=== PATIENT | female | born 1995 | race Hispanic/Latino ===

== ENCOUNTER 2020-04-26 00:44 | Emergency (ER) | payer SELFPAY ==
[~2020-04-26] VITALS: Ht 152.4 cm; Wt 65.8 kg
--- NOTE | 2020-04-26 01:03 | Emergency Department Note ---
History of Present Illnes History of Present Illness Chief Complaint: COVID PUI History of Present Illness This is a 24 year old female tested positive for COVID April 18, delivered baby April 20, c/o body ache, feeling flulike symptoms . Historian: Patient Arrival Mode: Car Support Services Tech Required: No Onset (how long ago): day(s) Radiation: Reports non-radiation Severity: moderate Onset quality: gradual Progression: worsening Context: Reports recent illness, Reports other (day 3 post , the new born is in NICU) Relieving factors: none Exacerbating factors: none Treatments prior to arrival: none Previous service: medications given Past Medical/Family History Physician Review I have reviewed the patient's past medical and family history. Any updates have been documented here. Past Medical History Recent Fever: No Clinical Suspicion of Infectio: No Past Medical History: None Past Surgical History: None Social History Smoking Cessation: Former smoker Counseling Performed: No Alcohol Use: None Family History Family history of heart diseas: No Other Any Pre-Existing Lines (PICC,: No Review of Systems Review of Systems Constitutional: Reports as per HPI, Reports malaise, Reports weakness EENTM: Reports no symptoms Cardiovascular: Reports no symptoms Respiratory: Reports no symptoms Gastrointestinal: Reports no symptoms Genitourinary: Reports no symptoms Musculoskeletal: Reports no symptoms Integumentary: Reports no symptoms Neurological: Reports no symptoms Psychological: Reports no symptoms Endocrine: Reports no symptoms Hematological/Lymphatic: Reports no symptoms Physical Exam Related Data Allergies: Coded Allergies: No Known Allergies (Unverified , 04/26/20) Vital signs reviewed: Yes Physical Exam CONSTITUTIONAL Constitutional: Present well-developed, Present well-nourished HENT HENT: Present normocephalic, Present atraumatic, Present oropharynx clear/moist, Present nose normal HENT L/R: Present left ext ear normal, Present right ext ear normal EYES Eyes: Reports PERRL, Reports conjunctivae normal NECK Neck: Present ROM normal PULMONARY Pulmonary: Present effort normal, Present breath sounds normal CARDIOVASCULAR Cardiovascular: Present regular rhythm, Present heart sounds normal, Present capillary refill normal, Present normal rate GASTROINTESTINAL Abdominal: Present soft, Present nontender, Present bowel sounds normal GENITOURINARY Genitourinary: Present exam deferred SKIN Skin: Present warm, Present dry MUSCULOSKELETAL Musculoskeletal: Present ROM normal NEUROLOGICAL Neurological: Present alert, Present oriented x 3, Present no gross motor or sensory deficits PSYCHOLOGICAL Psychological: Present mood/affect normal, Present judgement normal Results Laboratory Lab results reviewed: Yes Laboratory comments CBC and CMP wnl Assessment & Plan Medical Decision Making MDM COVID 19 illness complicated by post Assessment & Plan Final Impression: (1) COVID-19 virus infection Depart Disposition: HOME, SELF-[facility] Meds Active Scripts Acetaminophen (ACETAMINOPHEN) 500 Mg Tablet, 1 TAB PO Q6H for pain or fever, #60 THERAPEUTICALLY SUBSTITUTED WITH ACETAMINOPHEN 325MG Prov:BEATRIS ARROYO MD 04/26/20 Diphenhydra/Phenyleph/Acetamin (THERAFLU COLD AND COUGH POWDER) 1 Each Powd.pack, 1 PACKET PO Q6H PRN for fever and or pain, #12 Prov:BEATRIS ARROYO MD 04/26/20 Dexamethasone (DEXAMETHASONE) 4 Mg Tablet, 4 MG PO DAILY for 1 Day, #7 TAB Prov:BEATRIS ARROYO MD 04/26/20 Cefdinir (OMNICEF) 300 Mg Capsule, 300 MG PO BID for 7 Days, CAP Prov:BEATRIS ARROYO MD 04/26/20 Physician Attestation Provider Attestation sat 100 % RA, taking pO well, will d/c home BEATRIS ARROYO MD Apr 26, 2020 01:03
[2020-04-26] MEDS ORDERED: DEXAMETHASONE4 MG PO (01:55)
[2020-04-26] MEDS ORDERED: CEFDINIR300 MG PO (01:55)
[2020-04-26] MEDS ORDERED: ACETAMINOPHEN500 MG PO (01:57)
[2020-04-26] MEDS ORDERED: SODIUM CHLORIDE 0.9% 1000ML 1,000 ML IV STA (01:57)
[2020-04-26] MEDS ORDERED: THERAFLU COLD1 EAC4 PO (01:57)
[2020-04-26] MEDS ORDERED: ACETAMINOPHEN 325 MG TAB PO ONE (02:00)
[2020-04-26] MEDS ORDERED: DEXAMETHASONE 10MG/ML PF INJ IV ONE (02:00)
[2020-04-26] MEDS ORDERED: CEFTRIAXONE SOD 1 GM VIAL IV ONE (02:00)
[2020-04-26] MEDS ORDERED: DEXAMETHASONE SOD PHOS 10 MG/1 ML VIAL ONE (02:14)
[2020-04-26] MEDS ORDERED: ONDANSETRON HCL INJ 2MG/ML 2ML 2 MG/ML VIAL ONE (02:14)
[2020-04-26] MEDS ORDERED: ACETAMINOPHEN 325 MG TAB ONE (02:15)
[2020-04-26] MEDS ORDERED: CEFTRIAXONE SOD 1 GM VIAL ONE (02:15)
[2020-04-26] MEDS ORDERED: SODIUM CHLORIDE 0.9% 1000ML 1,000 ML ONE (02:15)
== END 2020-04-26 03:10 | disposition home or self-care (01) ==
LOC: FSED 01:02
DX: U07.1 COVID-19 (principal)
CPT/HCPCS: 80053; 85025; 99283; J7030; J0696; J1100; J2405

== ENCOUNTER 2020-06-20 11:55 | Emergency (ER) | payer OTHER ==
[~2020-06-20] VITALS: Ht 147.3 cm; Wt 61.2 kg
[~2020-06-20 11:55] MED LIST: ACETAMINOPHEN500 MG PO; CEFDINIR300 MG PO; DEXAMETHASONE4 MG PO; THERAFLU COLD1 EAC4 PO
--- OUTSIDE RECORDS SUMMARY | 2020-06-20 12:48 | XMS REPORT | Continuity of Care Document ---
Author Author [facility] t Organization [facility] Address [address] [place] [address] Phone Unavailable Support Name Relationship Address Phone EFREM MALIK ECON [address] [place] [address] Unavailable Lima, Paul [place] [address] BereDong floria ECON Unknown [phone] FRANCIS, PAUL PRS [address] [place] [address] FRANCIS, PAUL PRS [address] [place] [address] BRITO, PA[place] [address] BRITO, PAUL PRS N/[place] [address] FRANCIS, PAUL PRS [address] [place] [address] FRANCIS, PAUL PRS [address] [place] [address] FRANCIS, PAUL PRS [address] [place] [address] JOANNA [place] [address] BRITO, PAUL PRS [address] [place] [address] MALIK, PAUL PRS [address] [place] [address] CANDICE PIERRE PRS [address] [facility] [place] [address] CONSTANTINO PIERRE PRS [address] [place] [address] CONSTANTINO PIERRE PRS [address] [place] [address] DELANEY COREA PRS [address] [place] [address] JOHNSONOMID PRS [address] [facility] [place] [address] DELANEY COREA PRS [address] [place] [address] JOHNSONOMID PRS [address] [facility] [place] [address] PAUL BLANCO PRS [address] [place] [address] PAUL BLANCO PRS [address] [place] [address] Care Team Providers Care Environmental Health And Safety Leader Name Role Phone NO, PCP PCP Unavailable Hill FRIAS, Jarvis Attphys Lizy FRIAS, Le Attphys Payers Payer Name Policy Type Policy Number Effective Date Expiration Date S ource Problems Condition Name Condition Details Condition Category Status Onset Date Resolution Date Last Treatment Date Treating Clinician Comments Source Infection due to severe acute respiratory syndrome coronavir us 2 (SARS-CoV-2) Problem Active [facility] Allergies, Adverse Reactions, Alerts Allergy Name Allergy Type Status Severity Reaction(s) Onset Date Inacti ve Date Treating Clinician Comments Source No Known Allergies DA Active U 2020-05-29 00:00:00 [facility] No Known Allergies DA Active U 2020-05-19 00:00:00 [facility] No Known Allergies DA Active U 2020-04-30 00:00:00 [facility] No Known Allergies DA Active U 2020-04-29 00:00:00 [facility] No Known Allergies DA Active U 2020-04-26 00:00:00 [facility] No Known Allergies DA Active U 2020-04-25 00:00:00 [facility] No Known Allergies DA Active U 2020-04-24 00:00:00 [facility] No Known Allergies DA Active U 2020-04-19 00:00:00 [facility] No Known Allergies DA Active U 2020-04-12 00:00:00 [facility] No Known Allergies DA Active U 2020-01-01 00:00:00 [facility] No Known Allergies DA Active U 2019-11-12 00:00:00 [facility] No Known Allergies DA Active U 2019-10-19 00:00:00 [facility] No Known Allergies DA Active U 2019-09-11 00:00:00 [facility] No Known Allergies DA Active U 2019-08-16 00:00:00 [facility] No Known Allergies DA Active U 2019-07-08 00:00:00 [facility] No Known Allergies DA Active U 2019-06-14 00:00:00 [facility] No Known Allergies DA Active U 2019-06-03 00:00:00 [facility] No Known Allergies DA Active U 2019-06-02 00:00:00 [facility] No Known Allergies DA Active U 2019-04-03 00:00:00 [facility] No Known Allergies DA Active U 2019-02-17 00:00:00 [facility] No Known Allergies DA Active U 2019-01-14 00:00:00 [facility] No Known Allergies DA Active U 2019-01-09 00:00:00 [facility] No Known Allergies DA Active U 2018-09-02 00:00:00 [facility] No Known Allergies DA Active U 2018-08-20 00:00:00 [facility] No Known Allergies DA Active U 2017-05-07 00:00:00 [facility] No Known Allergies DA Active U 2016-12-28 00:00:00 [facility] Social History Social Habit Start Date Stop Date Quantity Comments Source Sex Assigned At 1995 00:00:00 1995 00:00:00 Female [facility] Medications Ordered Medication Name Filled Medication Name Start Date Stop Da te Current Medication? Ordering Clinician Indication Dosage Frequency Signature (SIG) Comments Components Source Acetaminophen Acetaminophen 2020-04-26 01:57:00 Yes 1 Every 6 Hours for Pain Or Fever [facility] Diphenhydra/Phenyleph/Acetamin (Theraflu Cold And Cough Powder) 1 Each POWD.PACK Diphenhydra/Phenyleph/Acetamin (Theraflu Cold And Cough Powder) 1 Each POWD.PACK 2020-04-26 01:57:00 Yes 1 Ever y 6 Hours as needed for Fever And Or Pain [facility] Cefdinir (Omnicef) 300 Mg CAPSULE Cefdinir (Omnicef) 300 Mg CAPSULE 2020-04-26 01:55:00 Yes 300 Twice A Day [facility] Dexamethasone Dexamethasone 2020-04-26 01:55:00 Yes 4 Daily [facility] Vital Signs Vital Name Observation Time Observation Value Comments Source Weight 2020-04-26 01:20:00 145 [lb_av] [facility] BMI (Body Mass Index) 2020-04-26 01:20:00 28.3 kg/m2 [facility] Procedures This patient has no known procedures. Plan of Care Planned Activity Planned Date Details Comments Source Instructions COVID-19: 12/30/2019 [facility] Encounters Start Date/Time End Date/Time Encounter Type Admission Type [facility] Care Department Encounter ID Source 2020-06-12 18:12:00 2020-06-13 00:08:00 Emergency Jarvis Kaur [facility] ([facility]) [id number] 2020-06-06 18:27:00 2020-06-06 18:27:00 Emergency E MHSE MHSE [id number] [facility] 2020-06-04 14:39:37 2020-06-04 16:22:20 Office Visit [facility] [id number] 2020-05-20 18:17:00 2020-05-20 18:17:00 Emergency E MHSE MHSE [id number] [facility] 2020-04-26 01:02:00 2020-04-26 03:10:00 Departed Emergency Room [facility] [id number] [facility] Results Test Description Test Time Test Comments Results Result Comments Source TROPONIN-I 2020-06-17 18:49:00 Test Item TROPONIN-I (test code = TROPI) <0.015 ng/mL 0-0.045 N - CT ABD PELVIS W/O [id number] 18:27:00 Name: LLOYD MALIKGALO [facility] : 1995 Age/S: 24 / F [address] [facility] Unit #: [id number] Loc: [place] [address] Phys: Americo Ramachandran MD Acct: [id number] Dis Date: Status: REG ER PHONE #: [phone] Exam Date: 06/17/2020 1820 FAX #: [phone] Reason: constipation EXAMS: CPT CODE: [id number] CT ABD PELVIS W/O CONT 03438 REASON FOR EXAM: constipation EXAM ORDER DATE: 06/17/2020 5:43 PM Ordering: Americo Ramachandran MD Attending:Americo Ramachandran MD Location: PROCEDURE: - CT ABD PELVIS W/O CONT COMPARISON: FINDINGS: CT images of the abdomen and pelvis were obtained without IV and without oral contrast at 5mm. Dose modulation, iterative reconstruction, and/or weight based adjustment of the MA/KV was utilized to reduce the radiation dose to as low as reasonably achievable. The liver, spleen, pancreas are grossly within normal limits. The gall bladder is unremarkable by CT. The urinary bladder is unrema rkable. The colon, small bowel, and stomach are within normal limi ts without evidence of obstruction. The appendix is unremarkable No evidence of free air or free fluid. The uterus is unremarkable with a 2.6 cm exophytic lesion suggestive of fibroid in the posterior area o f the uterus. IMPRESSION: Minimal hydroureters bilaterally witho ut evidence of radiopaque stones. Findings could represent vesicoureter al reflux. at 18 27 Reported and signed by: Moi Salinas M.D. CC: Durga Perry; Americo Ramachandran MD Technologist:ANNIKA GODINEZ, RT(R),CT CTDI: DLP: Trnscb Date/Time: 06/17/2020 (182) tJESSICA VargasVTL Orig Print D/T: S: 06/17/2020 (3420) PAGE 1 Signed Report COMPREHENSIVE METABOLIC [id number] 18:21:00* Test Item Value Reference Range Interpretation Comments SODIUM (test code = NA) 138 mmol/L 136-145 N POTASSIUM (test code = K) 3.5 mmol/L 3.5-5.1 N CHLORIDE (test code = CL) 102 mmol/L 101-109 N CARBON DIOXIDE (test code = CO2) 26.3 mmol/L 21-32 N ANION GAP (test code = GAP) 13 mmol/L 10-20 N GLUCOSE (test code = GLU) 126 mg/dL 74-106 H BLOOD UREA NITROGEN (test code = BUN) 7 mg/dL 3-21 N CREATININE (test code = CREAT) 0.53 mg/dL 0.55-1.3 L BUN/CREATININE RATIO (test code = BUN/CREA) 13.2 10-20 N TOTAL PROTEIN (test code = PROT) 7.6 g/dL 6.5-8.4 N ALBUMIN (test code = ALB) 4.1 g/dL 3.4-4.8 N GLOBULIN (test code = GLOB) 3.5 G/DL 1-10 N ALBUMIN/GLOBULIN RATIO (test code = A/G) 1.17 RATIO 0.75-1.50 N CALCIUM (test code = CA) 9.1 mg/dL 8.4-10.2 N BILIRUBIN TOTAL (test code = BILT) 0.40 mg/dL 0.0-1.0 N SGOT/AST (test code = AST) 15 U/L 6-32 N SGPT/ALT (test code = ALT) 21 U/L 12-78 N N ote: Change in REFERENCE RANGE due to new reagent method. ALKALINE PHOSPHATASE TOTAL (test code = ALKP) 71 U/L 38-126 N [id number] 18:21:00* Test Item Value Reference Range Interpretation Comments LIPASE (test code = LIP) 120 U/L 128-270 L [id number] 18:21:00* Test Item Value Reference Range Interpretation Comments MAGNESIUM (test code = MAG) 1.9 mg/dL 1.6-2.3 N CPK-MB [id number] 18:21:00* Test Item Value Reference Range Interpretation Comments CREATINE KINASE (CK) (test code = CK) 36 U/L 26-192 N CKMB (test code = CKMBT) 0.7 ng/mL 0.0-5.0 N RELATIVE % INDEX (test code = REL%) 1.9 % COMPREHENSIVE METABOLIC [id number] 17:58:00* Test Item Value Reference Range Interpretation Comments SODIUM (test code = NA) 138 mmol/L 136-145 N POTASSIUM (test code = K) 3.5 mmol/L 3.5-5.1 N CHLORIDE (test code = CL) 102 mmol/L 101-109 N CARBON DIOXIDE (test code = CO2) 26.3 mmol/L 21-32 N ANION GAP (test code = GAP) 13 mmol/L 10-20 N GLUCOSE (test code = GLU) 126 mg/dL 74-106 H BLOOD UREA NITROGEN (test code = BUN) 7 mg/dL 3-21 N CREATININE (test code = CREAT) 0.53 mg/dL 0.55-1.3 L BUN/CREATININE RATIO (test code = BUN/CREA) 13.2 10-20 N TOTAL PROTEIN (test code = PROT) gram/dL 6.4-8.2 ALBUMIN (test code = ALB) g/dL 3.4-5.0 GLOBULIN (test code = GLOB) g/dL 2.7-4.2 ALBUMIN/GLOBULIN RATIO (test code = A/G) 0.75-1.50 CALCIUM (test code = CA) 9.1 mg/dL 8.4-10.2 N BILIRUBIN TOTAL (test code = BILT) mg/dL 0.2-1.2 SGOT/AST (test code = AST) IUnit/L 15-37 SGPT/ALT (test code = ALT) U/L 10-69 ALKALINE PHOSPHATASE TOTAL (test code = ALKP) IUnit/L 45-117 [id number] 17:58:00* Test Item Value Reference Range Interpretation Comments LIPASE (test code = LIP) Unit/L 144-286 [id number] 17:58:00* Test Item Value Reference Range Interpretation Comments MAGNESIUM (test code = MAG) mg/dL 1.8-2.4 CPK-MB [id number] 17:58:00* Test Item Value Reference Range Interpretation Comments CREATINE KINASE (CK) (test code = CK) IUnit/L 26-208 CKMB (test code = CKMBT) ng/mL 0-6.0 RELATIVE % INDEX (test code = REL%) % URINALYSIS [id number] 17:56:00* Test Item Value Reference Range Interpretation Comments UA COLOR (test code = COLU) YELLOW YELLOW UA APPEARANCE (test code = APPU) CLEAR CLEAR UA GLUCOSE DIPSTICK (test code = DGLUU) norm mg/dL NEGATIVE UA BILIRUBIN DIPSTICK (test code = BILU) NEGATIVE mg/dL NEGATIVE UA KETONE DIPSTICK (test code = KETU) 50 (2+) mg/dL NEGATIVE A UA SPECIFIC GRAVITY (test code = SGU) 1.005 1.001-1.035 UA BLOOD DIPSTICK (test code = TIFFANIE) neg Derrick/uL NEGATIVE UA PH DIPSTICK (test code = JOSH) 6.0 5.0-8.0 UA PROTEIN DIPSTICK (test code = PROU) neg mg/dL Neg-15 UA UROBILINIOGEN DIPSTICK (test code = URO) norm mg/dL 0.0-0.2 UA NITRITE DIPSTICK (test code = DIEGO) NEGATIVE NEGATIVE UA LEUKOCYTE ESTERASE DIPSTICK (test code = LEUU) 25 Lazaro/uL (Tra ce) uL NEGATIVE A UA WBC (test code = WBCU) NONE SEEN per HPF 0-5 UA RBC (test code = RBCU) NONE SEEN per HPF 0-5 UA EPITHELIAL CELLS (test code = EPIU) Rare (0-1/hpf) per HPF Few UA BACTERIA (test code = BACU) FEW per HPF NONE Urine Source? Clean CatchUR HCG [id number] 17:56:00* Test Item Value Reference Range Interpretation Comments UR HCG QUAL (test code = HCGQLU) NEGATIVE This HCGQL test is NOT applicable for MALE patients.Check with nurse about probable order error.If Tumor Marker Test needed, nurse should order test "HCGTU"(Test #[id number]) Urine Source? Clean CatchURINALYSIS [id number] 17:52:00* Test Item Value Reference Range Interpretation Comments UA COLOR (test code = COLU) YELLOW YELLOW UA APPEARANCE (test code = APPU) CLEAR CLEAR UA GLUCOSE DIPSTICK (test code = DGLUU) norm mg/dL NEGATIVE UA BILIRUBIN DIPSTICK (test code = BILU) NEGATIVE mg/dL NEGATIVE UA KETONE DIPSTICK (test code = KETU) 50 (2+) mg/dL NEGATIVE A UA SPECIFIC GRAVITY (test code = SGU) 1.005 1.001-1.035 UA BLOOD DIPSTICK (test code = TIFFANIE) neg Derrick/uL NEGATIVE UA PH DIPSTICK (test code = JOSH) 6.0 5.0-8.0 UA PROTEIN DIPSTICK (test code = PROU) neg mg/dL Neg-15 UA UROBILINIOGEN DIPSTICK (test code = URO) norm mg/dL 0.0-0.2 UA NITRITE DIPSTICK (test code = DIEGO) NEGATIVE NEGATIVE UA LEUKOCYTE ESTERASE DIPSTICK (test code = LEUU) 25 Lazaro/uL (Tra ce) uL NEGATIVE A UA WBC (test code = WBCU) per HPF 0-5 UA RBC (test code = RBCU) per HPF 0-5 UA EPITHELIAL CELLS (test code = EPIU) per HPF Few UA BACTERIA (test code = BACU) per HPF NONE Urine Source? Clean CatchUR HCG [id number] 17:52:00* Test Item Value Reference Range Interpretation Comments UR HCG QUAL (test code = HCGQLU) Urine Source? Clean CatchURINALYSIS [id number] 17:52:00* Test Item Value Reference Range Interpretation Comments UA COLOR (test code = COLU) YELLOW YELLOW UA APPEARANCE (test code = APPU) CLEAR CLEAR UA GLUCOSE DIPSTICK (test code = DGLUU) norm mg/dL NEGATIVE UA BILIRUBIN DIPSTICK (test code = BILU) NEGATIVE mg/dL NEGATIVE UA KETONE DIPSTICK (test code = KETU) 50 (2+) mg/dL NEGATIVE A UA SPECIFIC GRAVITY (test code = SGU) 1.005 1.001-1.035 UA BLOOD DIPSTICK (test code = TIFFANIE) neg Derrick/uL NEGATIVE UA PH DIPSTICK (test code = JOSH) 6.0 5.0-8.0 UA PROTEIN DIPSTICK (test code = PROU) neg mg/dL Neg-15 UA UROBILINIOGEN DIPSTICK (test code = URO) norm mg/dL 0.0-0.2 UA NITRITE DIPSTICK (test code = DIEGO) NEGATIVE NEGATIVE UA LEUKOCYTE ESTERASE DIPSTICK (test code = LEUU) 25 Lazaro/uL (Tra ce) uL NEGATIVE A UA WBC (test code = WBCU) per HPF 0-5 UA RBC (test code = RBCU) per HPF 0-5 UA EPITHELIAL CELLS (test code = EPIU) per HPF Few UA BACTERIA (test code = BACU) per HPF NONE Urine Source? Clean CatchUR HCG [id number] 17:52:00* Test Item Value Reference Range Interpretation Comments UR HCG QUAL (test code = HCGQLU) NEGATIVE This HCGQL test is NOT applicable for MALE patients.Check with nurse about probable order error.If Tumor Marker Test needed, nurse should order test "HCGTU"(Test #550.95058) Urine Source? Clean CatchCBC W/AUTO [id number] 17:48:00* Test Item Value Reference Range Interpretation Comments WHITE BLOOD CELL (test code = WBC) 6.1 K/mm3 4.5-12.5 N RED BLOOD CELL (test code = RBC) 4.31 mill/mm3 3.7-5.2 N HEMOGLOBIN (test code = HGB) 11.5 gram/dL 11.5-15.5 N HEMATOCRIT (test code = HCT) 36.5 % 36.0-46.0 N MEAN CELL VOLUME (test code = MCV) 84.7 fL 80-98 N MEAN CELL HGB (test code = MCH) 26.7 picogram 27.0-33.0 L MEAN CELL HGB CONCETRATION (test code = MCHC) 31.5 gram/dL 33.0-36. 0 L RED CELL DISTRIBUTION WIDTH (test code = RDW) 15.0 % 11.6-16. 2 N RED CELL DISTRIBUTION WIDTH SD (test code = RDW-SD) 47.3 fL 37 .0-51.0 N PLATELET COUNT (test code = PLT) 322 K/mm3 150-450 N MEAN PLATELET VOLUME (test code = MPV) 9.7 fL 6.7-11.0 N NEUTROPHIL % (test code = NT%) 65.8 % 39.0-69.0 N LYMPHOCYTE % (test code = LY%) 25.0 % 25.0-55.0 N MONOCYTE % (test code = MO%) 6.4 % 0.0-10.0 N EOSINOPHIL % (test code = EO%) 2.1 % 0.0-5.0 N BASOPHIL % (test code = BA%) 0.5 % 0.0-1.0 N NEUTROPHIL # (test code = NT#) 4.02 K/mm3 1.8-7.7 N LYMPHOCYTE # (test code = LY#) 1.53 K/mm3 1.0-5.0 N MONOCYTE # (test code = MO#) 0.39 K/mm3 0-0.8 N EOSINOPHIL # (test code = EO#) 0.13 K/mm3 0.0-0.5 N BASOPHIL # (test code = BA#) 0.03 K/mm3 0.0-0.2 N MANUAL DIFF REQUIRED (test code = MDIFF) NO [id number] 14:43:00 RUN DATE: 06/17/20 [place] PAGE 1 RUN TIME: 1443 Specimen Inqui ry RUN USER: INTERFACE PATIENT: GALO CRISOSTOMO ACCMiley #: [id number] LOC: [place] U #: [id number] AGE/SX: 24/F ROOM: RE06/16/20REG DR: Dylna Moss MD : 95 BED: DIS: STATUS: [facility] TLOC: SPEC #: [id number] RECD: 06/16/20 STATUS: YVONNE RE #: [id number] [phone] ADELINA: 06/16/20- DR: Dylan Moss MD ENTERED: 06/16/20 SP TYPE: STOMACH OTHR DR: Shannon Perry MD ORDERED: GROSS COPIES TO: Dylan Moss MD 0230 PENDING SALE TO [facility] [address] [place] [address] Shannon Perry MD [address] [place] [address] PROCEDURES: GROSS (06/17/20-1331) TIS SUES: 1. ANTRUM - BX 2. GASTRIC CORPUS - POLYPS BODY BX 3. ESOPHAGUS, NOS - BX CLINICAL HISTORY COLLECTION DATE: 06/16/2020 EPIGASTRIC PAIN, HEARTBURN, DYSPHAGIA MILD DISTAL ESOPHAGITIS R/O E OSINOPHILIC ESOPHAGUS, GASTRITIS, GASTRIC POLYPS, ESOPHAGEAL STRICTURE, GE JOHNATHAN CTION, SMALL HIATAL HERNIA FINAL DIAGNOSIS Gastric antrum, biopsy: REACTIVE GASTROPATHY SEPARATE FRAGMENT OF GASTRIC MUCOSA WITH MILD C HRONIC INACTIVE GASTRITIS NEGATIVE FOR INTESTINAL METAPLASIA NEGAT CRISTIANE FOR HELICOBACTER ORGANISMS NEGATIVE FOR MALIGNANCY Gastric body polyp, biopsy: FUNDIC TYPE GLAND POLYP NEGATIVE FOR MALIGNANCY Esophagus, biopsy: MILD CHANGES OF REFLUX ESOPHAGITIS, SQUAMOUS A ND SMALL FRAGMENT OF CONTINUED ON NEXT PAGE * * RUN DATE: 06/17/20 [place] - [facility] PAGE 2 RUN TIME: 1443 Specimen Inq uiry RUN USER: INTERFACE SPEC #: [id number] PATIENT: LLOYD JACOBGALO E #[id number] (Continued) FINAL DIAGNOS IS (Continued) GLANDULAR MUCOSA NO INCREASED NUMBER O F INTRAEPITHELIAL EOSINOPHILS NO GOBLET CELL METAPLASIA NEGATIVE F OR DYSPLASIA AND MALIGNANCY RRB/clemencia D [id number], 85185 MACROSCOPIC Specimen (1) is received in formalin, labeled with the patient's name, identified as "antrum", and consists of garay-pink biopsy tissue measurin g 0.4 cm in aggregate, submitted as (1). Specimen (2) is received in fo rmalin, labeled with the patient's name, identified as "gastric polyp body", a nd consists of six fragments of light pink biopsy tissue each measuring 0.2 to 0.5 cm, submitted as (2). Specimen (3) is received in formalin, labeled w ith the patient's name, identified as "esophagus", and consists of amador-light garay biopsy tissue measuring 0.25 cm in aggregate, submitted as (3). KARY S PERFORMED AT [facility] [address] [place] [address] ([phone] [facility] All of the stains, including any controls performed, stain appropriately . MICROSCOPIC PERFORMED AT [facility] [address] [place] [address] ([phone] PER FORMING SITE Diagnosis performed at: [facility] [address] [place] [address] CONTINUED ON NEXT PAGE RUN DATE: 06/17/20 [place] - [facility] PAGE 3 RUN TIME: 1443 Specimen Inquiry RUN USER: INTERFACE SPEC #: [id number] GABINO Trent: GALO CRISOSTOMO #[id number] (Continued) ------- ----- Signed SIGNATURE ON FILE Mehdi Stevens MD 1443 END OF REPORT UR HCG [id number] 12:38:00* Test Item Value Reference Range Interpretation Comments UR HCG QUAL (test code = HCGQLU) NEGATIVE This HCGQL test is NOT applicable for MALE patients.Check with nurse about probable order error.If Tumor Marker Test needed, nurse should order test "HCGTU"(Test #550.52304) . COVID 19 Asymptomatic IH [id number] 12:30:00* Test Item Value Reference Range Interpretation Comments COVID 19 Asymptomatic IH AG (test code = COVNONPUIAG) NEGATIVE Novel Coronavirus 2019 [id number] 13:45:00* Test Item Value Reference Range Interpretation Comments Novel Coronavirus 2019 nCoV (test code = COVID19) POSITIVE Does patient have the clinical criteria consistent with COVID-19? YIs the patien t going to be discharged home? Y- CT C-SPINE W/O [id number] 22:56:00 Name: GALO MALIK [facility] : 1995 Age/S: 24 / F [address] [facility] Unit #: [id number] Loc: [place] [address] Phys: Kevin Galindo MD Acct: [id number] Di s Date: Status: REG ER PHONE #: Exam Date: 05/29/2020 2240 FAX #: Reason: trauma, pain EXAMS: CPT CODE: [id number] CT C-SPINE W/ O CONTRAST 63633 EXAM: - CT C-SPINE W/O C ONTRAST LOCATION: H57 HISTORY: 24 years-year old Fem yue with trauma, pain TECHNIQUE: Axial CT images through the cervi allyson spine were obtained without intravenous contrast. Sagittal and coronal reformatted images were created from the data set. One or m ore of the following dose reduction techniques were used: Automated exposu re control, adjustment of the mA and/or kV according to patient size, and/ or iterative reconstruction. COMPARISON: None FINDI NGS: No evidence of acute fracture or subluxation. The cervical sp ine has normal alignment without scoliosis or spondylolisthesis. Vertebral body heights are maintained. No significant disc height loss. No ag gressive osseous lesions are identified. The prevertebral soft tis sues are within normal limits. The visualized soft tissues of the neck evy w no significant abnormalities. IMPRESSION: No acute cervical spine abnormalities. at 2256 Reported and signed by: Anibal Segovia M.D. CC: Kevin Galindo MD chnologist:CLEMENCIA GARCIA(R),RDMS,CT CTDI: DLP: Trnscb Date/ Time: 05/29/2020 (2256) [id number] Orig Print D/T: S: 05/16 (5210) PAGE 1 Signed Report - XR T-SPINE 3 [id number] 22:54:00 Name: GALO MALIK [facility] : 1995 Age/S:24 /F [address] [facility] Unit#:[id number] Loc: [place] [address] Phys: Kevin Galindo MD Dis Date: PHONE #: [phone] Status: REG ER FAX #: [phone] Exam Date: 05/29/2020 Reason: trauma, pain EXAMS: CPT CODE: [id number] XR T-SPINE 3 VIEWS 51172 EXAM: - XR T-SPINE 3 VIEWS LOCATION: H57 HISTORY: 24 years-year old Female with trauma, pain FINDINGS: AP, lateral, and swimmers lateral view of the thoracic spine is provided. Vertebral body heights and alignment are appropriate. No acute fracture is seen. IMPRESSION: No acute fracture or malalignment of the thoracic spine. at 1329 Reported and signed by: Anibal Segovia M.D. CC: Kevin Galindo MD Technologist: CLEMENCIA HARDING RT(R),RDMS,CT Trnsct Data: 05/29/2020 (50 49) [id number] Orig Print D/T: S: 05/29/2020 (9491) PAGE 1 Signed Report Novel Coronavirus 2019 [id number] 11:20:00* Test Item Value Reference Range Interpretation Comments Novel Coronavirus 2019 nCoV (test code = COVID19) Negative Nega tive Performed by: [facility] [address] [place] [address], [address] [place], [place] [address] CLIA#: [id number] Does patient have the clinical criteria consistent with COVID-19? YIs the patien t going to be discharged home? YAG STREP GROUP A (THROAT)2020-05-19 22:23:00* Test Item Value Reference Range Interpretation Comments AG STREP GROUP A (THROAT) (test code = STREPA) Negative Negativ e Negative for Strep A nucleic acid INFLUENZA A [id number] 22:23:00* Test Item Value Reference Range Interpretation Comments INFLUENZA A (test code = FLUAPCR) Negative Negative INFLUENZA B (test code = FLUBPCR) Negative Negative AG STREP GROUP A (THROAT)2020-05-19 22:22:00* Test Item Value Reference Range Interpretation Comments AG STREP GROUP A (THROAT) (test code = STREPA) Negative Negativ e Negative for Strep A nucleic acid INFLUENZA A B [id number] 22:22:00* Test Item Value Reference Range Interpretation Comments AB INFLUENZA A CF (test code = INFLAABT) AB INFLUENZA B CF (test code = INFLBABT) - XR CHEST 1 [id number] 21:22:00 FAX: Manny Bang MD [phone] [place]: St: PRE Name: GALO STONER [facility] : [birth year] Age/S: 24/F [address] [place] [address] Unit #: [id number] Loc: [place] [address] Phys: Manny Bang MD Acct: [id number] Dis Date: Status: PRE ER PHONE #: [phone] Exam Date: 05/19/20202113 FAX #: [phone] Reason: sob EXAMS: CPT CODE: [id number] XR CHEST 1 V 32989 CHEST RADIOGRAPH ONE VIEW 05/19/2020 AT 2056 HOURS. CLINICAL HISTORY: Shortness of breath, sore throat and body aches. COMPARISON STUDIES: Chest one view 05/10/2020. FINDINGS: One view of the chest was obtained. The lungs are dami ar. There are no pleural effusions. The cardiac silhouette is not enlarg ed. No destructive bone lesions. IMPRESSION: 1. N egative. SL: ER-H at 2122 Reported and signed by: Caden small M.D. CC: Manny Bang MD Technologist: RT Dena(R) Trnscrd Date/Time/By: 05/19/2020 (2121) : By: SilvanaERR2 Orig Print D/T : S: 05/19/2020 (2124) PAGE 1 Sig michele Report Novel Coronavirus 2018 [id number] 12:48:00* Test Item Value Reference Range Interpretation Comments Novel Coronavirus 2019 nCoV (test code = COVID19) NEGATIVE Does patient have the clinical criteria consistent with COVID-19? YIs the patien t going to be discharged home? YB-TYPE NATRIURETIC [id number] 22:03:00* Test Item Value Reference Range Interpretation Comments B-TYPE NATRIURETIC PEPTIDE (test code = BNP) 6.74 pgram/mL 0-100 N C REACTIVE [id number] 21:57:00* Test Item Value Reference Range Interpretation Comments C REACTIVE PROTEIN (test code = CRP) <0.29 mg/dL 0-0.3 N BASIC METABOLIC [id number] 21:57:00* Test Item Value Reference Range Interpretation Comments SODIUM (test code = NA) 139 mmol/L 136-145 N POTASSIUM (test code = K) 3.3 mmol/L 3.5-5.1 L CHLORIDE (test code = CL) 105.0 mmol/L 98-107 N CARBON DIOXIDE (test code = CO2) 28.0 mmol/L 21-32 N ANION GAP (test code = GAP) 9.3 10-20 L GLUCOSE (test code = GLU) 89 mg/dL 74-106 N BLOOD UREA NITROGEN (test code = BUN) 11 mg/dL 7-18 N GLOMERULAR FILTRATION RATE (test code = GFR) > 60 mL/min >=60 Estimated GFR by using Modified MDRD formula.Chronic kidney disease is defined as either kidney damageor GFR <60 mL/min/1.73 m2 for >3 months. CREATININE (test code = CREAT) 0.70 mg/dL 0.55-1.02 N Note change in reference range due to change in reagent. BUN/CREATININE RATIO (test code = BUN/CREA) 16.1 10-20 N CALCIUM (test code = CA) 9.3 mg/dL 8.5-10.1 N HEPATIC FUNCTION [id number] 21:57:00* Test Item Value Reference Range Interpretation Comments TOTAL PROTEIN (test code = PROT) 9.0 gram/dL 6.4-8.2 H ALBUMIN (test code = ALB) 4.4 g/dL 3.4-5.0 N GLOBULIN (test code = GLOB) 4.6 gram/dL 2.7-4.2 H ALBUMIN/GLOBULIN RATIO (test code = A/G) 1.0 0.75-1.50 N BILIRUBIN TOTAL (test code = BILT) 0.30 mg/dL 0.0-1.0 N BILIRUBIN DIRECT (test code = BILD) 0.13 mg/dL 0.0-0.20 N SGOT/AST (test code = AST) 21 IUnit/L 15-37 N SGPT/ALT (test code = ALT) 25 IUnit/L 12-78 N ALKALINE PHOSPHATASE TOTAL (test code = ALKP) 100 IUnit/L 45-117 N Note change in reference range due to change in reagent. LACTIC DEHYDROGENASE(LDH)2020-05-10 21:57:00* Test Item Value Reference Range Interpretation Comments LACTIC DEHYDROGENASE(LDH) (test code = LDH) 148 IUnit/L 84-246 N [id number] 21:57:00* Test Item Value Reference Range Interpretation Comments LIPASE (test code = LIP) 124 U/L 73.0-393.0 N HCG SERUM [id number] 21:57:00* Test Item Value Reference Range Interpretation Comments HCG SERUM BETA (test code = HCG) < 1.0 mIU/mL 0-3 N INTERPRETATION:B-HCG LEVELS <5 SHOULD BE CONSIDERED "NEGATIVE." *WHEN BODERLINE RESULTS ARE ENCOUNTERED,PATIENT SAMPLESSHOULD BE REDRAWN 48 HOURS. 0-1 WEEKS AFTER CONCEPTION 5-50 MIU/ML1-2 WEEKS AFTER CONCEPTION 50-500 MIU/ML2-3 WEEKS AFTER CONCEPTION 100 -5,000 MIU/ML3-4 WEEKS AFTER CONCEPTION 500-10,000 MIU/ML4-5 WEEKS AFTER CONCEPTION 1000 -50,000 MIU/ML5-6 WEEKS AFTER CONCEPTION 10,000-100,000 MIU/ML6-8 WEEKS AFTER CONCEPTION 15,000- 200,000 MIU/ML2-3 MONTHS AFTER CONCEPTION 10,000-100,000 MIU/ML [id number] 21:57:00* Test Item Value Reference Range Interpretation Comments TROPONIN-I (test code = TROPI) <0.015 ng/mL 0-0.045 N [id number] 21:57:00* Test Item Value Reference Range Interpretation Comments FERRITIN (test code = MARÍA) 12 ng/mL 8-388 N BASIC METABOLIC [id number] 21:39:00* Test Item Value Reference Range Interpretation Comments SODIUM (test code = NA) 139 mmol/L 136-145 N POTASSIUM (test code = K) 3.3 mmol/L 3.5-5.1 L CHLORIDE (test code = CL) 105.0 mmol/L 98-107 N CARBON DIOXIDE (test code = CO2) mmol/L 21-32 ANION GAP (test code = GAP) 10-20 GLUCOSE (test code = GLU) mg/dL 74-106 BLOOD UREA NITROGEN (test code = BUN) mg/dL 7-18 GLOMERULAR FILTRATION RATE (test code = GFR) mL/min >=60 CREATININE (test code = CREAT) mg/dL 0.55-1.02 BUN/CREATININE RATIO (test code = BUN/CREA) 10-20 CALCIUM (test code = CA) mg/dL 8.5-10.1 HEPATIC FUNCTION [id number] 21:39:00* Test Item Value Reference Range Interpretation Comments TOTAL PROTEIN (test code = PROT) gram/dL 6.4-8.2 ALBUMIN (test code = ALB) g/dL 3.4-5.0 GLOBULIN (test code = GLOB) gram/dL 2.7-4.2 ALBUMIN/GLOBULIN RATIO (test code = A/G) 0.75-1.50 BILIRUBIN TOTAL (test code = BILT) mg/dL 0.0-1.0 BILIRUBIN DIRECT (test code = BILD) mg/dL 0.0-0.20 SGOT/AST (test code = AST) IUnit/L 15-37 SGPT/ALT (test code = ALT) IUnit/L 12-78 ALKALINE PHOSPHATASE TOTAL (test code = ALKP) IUnit/L 45-117 LACTIC DEHYDROGENASE(LDH)2020-05-10 21:39:00* Test Item Value Reference Range Interpretation Comments LACTIC DEHYDROGENASE(LDH) (test code = LDH) IUnit/L 84-246 [id number] 21:39:00* Test Item Value Reference Range Interpretation Comments LIPASE (test code = LIP) U/L 73.0-393.0 HCG SERUM [id number] 21:39:00* Test Item Value Reference Range Interpretation Comments HCG SERUM BETA (test code = HCG) mIU/mL 0-3 [id number] 21:39:00* Test Item Value Reference Range Interpretation Comments TROPONIN-I (test code = TROPI) ng/mL 0-0.045 [id number] 21:39:00* Test Item Value Reference Range Interpretation Comments FERRITIN (test code = MARÍA) ng/mL 8-388 LACTIC [id number] 21:39:00* Test Item Value Reference Range Interpretation Comments LACTIC ACID (test code = LACT) 1.2 mmol/L 0.4-1.9 N [id number] 21:31:00* Test Item Value Reference Range Interpretation Comments D-DIMER (test code = DDIMER) 201.00 ng/mLFEU 0-500 N Clinical Cut-off value for D-Dimer is 500 ng/mL FEU. Comment: The [email or web address] D-Dimer assay is intended for use asan aid in the diagnosis of venous thromboembolism (VTE)[deep vein thrombosis (DVT) or pulmonary embolism (PE)].The measurement of D-Dimer should not be used as an aid inthe diagnosis of VTE, in patient with: -Therapeutic dose anticoagulant therapy for >24 hours -Fibrinolytic therapy within previous 7 days -Trauma or surgery within previous 4 weeks -Disseminated malignancies -Aortic aneurysm -Sepsis, severe infections, pneumonia, severe skin infections -Liver cirrhosis - - XR CHEST 1 [id number] 21:24:00 FAX: Tamela Zuniga NP [place]: B St: REG Name: GALO GUERIN [facility] : [birth year] Age/S: 24/F [address] Unit #: [id number] Loc: [place] [address] Phys: Tamela Zuniga NP Acct: [id number] Dis Date: Status: REG ER PHONE #: [phone] Exam Date: 05/10/20202109 FAX #: [phone] Reason: SHORTNESS OF BREATH EXAMS: CPT CODE: [id number] XR CHEST 1 V 29074 REASON FOR EXAM: SHORTNESS OF BREATH Exam Order Date: 05/10/2020 8:30 PM Ordering M.D.: Tamela Zuniga NP PROCEDURE: - XR CHEST 1 V COMPARISON: Chest x-ray April 30, 2020 FINDINGS: The lungs are clear. There is no pleural effusion or pneumothorax. Pulmonary vas cularity is within normal limits. Cardiomediastinal silhouette is normal in size for technique. The mediastinal contours are within normal l imits. Musculoskeletal structures are within normal limits. The visualized upper abdomen is within normal limits. IMPRESSION: No acute cardiopulmonary process. Lo cation: RR at 2123 Reported and signed by: Xavier Patten MD CC: Tamela Zuniga NP Technologist: Mariah Mo(R) Trnscrd Date/Time/By: 0 (2123) : By: [email or web address] Orig Print D/T: S: 05/10/2020 (2126) PAGE 1 Signed Report URINALYSIS [id number] 21:21:00* Test Item Value Reference Range Interpretation Comments UA COLOR (test code = COLU) COLORLESS YELLOW A UA APPEARANCE (test code = APPU) CLEAR CLEAR UA GLUCOSE DIPSTICK (test code = DGLUU) NEGATIVE mg/dL NEGATIVE UA BILIRUBIN DIPSTICK (test code = BILU) NEGATIVE mg/dL NEGATIVE UA KETONE DIPSTICK (test code = KETU) NEGATIVE mg/dL NEGATIVE UA SPECIFIC GRAVITY (test code = SGU) 1.003 1.001-1.035 UA BLOOD DIPSTICK (test code = TIFFANIE) 0.2 mg/dL (2+) mg/dL NEGATIVE A UA PH DIPSTICK (test code = JOSH) 6.5 5.0-8.0 UA PROTEIN DIPSTICK (test code = PROU) NEGATIVE mg/dL NEGATIVE UA UROBILINIOGEN DIPSTICK (test code = URO) Normal mg/dL NEGATIVE UA NITRITE DIPSTICK (test code = DIEGO) NEGATIVE NEGATIVE UA LEUKOCYTE ESTERASE W REFLEX (test code = LEUUR) 500 Lazaro/u L (3+) Lazaro/uL NEGATIVE A UA WBC (test code = WBCU) 6-10 per HPF 0-5 A UA RBC (test code = RBCU) 3-5 #/HPF 0-5 UA EPITHELIAL CELLS (test code = EPIU) FEW per HPF FEW UA BACTERIA (test code = BACU) FEW #/HPF NONE A Urine Source? Clean CatchCBC W/AUTO [id number] 21:19:00* Test Item Value Reference Range Interpretation Comments WHITE BLOOD CELL (test code = WBC) 7.0 K/mm3 4.5-12.5 N RED BLOOD CELL (test code = RBC) 4.83 mill/mm3 3.7-5.2 N HEMOGLOBIN (test code = HGB) 13.0 gram/dL 11.5-15.5 N HEMATOCRIT (test code = HCT) 41.4 % 36.0-46.0 N MEAN CELL VOLUME (test code = MCV) 85.7 fL 80-98 N MEAN CELL HGB (test code = MCH) 26.9 picogram 27.0-33.0 L MEAN CELL HGB CONCETRATION (test code = MCHC) 31.4 gram/dL 33.0-36. 0 L RED CELL DISTRIBUTION WIDTH (test code = RDW) 16.7 % 11.6-16. 2 H RED CELL DISTRIBUTION WIDTH SD (test code = RDW-SD) 52.3 fL 37 .0-51.0 H PLATELET COUNT (test code = PLT) 386 K/mm3 150-450 N MEAN PLATELET VOLUME (test code = MPV) 10.0 fL 6.7-11.0 N NEUTROPHIL % (test code = NT%) 58.3 % 39.0-69.0 N IMMATURE GRANULOCYTE % (test code = IG%) 0.3 % 0.0-5.0 N LYMPHOCYTE % (test code = LY%) 31.0 % 25.0-55.0 N MONOCYTE % (test code = MO%) 5.3 % 0.0-10.0 N EOSINOPHIL % (test code = EO%) 4.4 % 0.0-5.0 N BASOPHIL % (test code = BA%) 0.7 % 0.0-1.0 N NUCLEATED RBC % (test code = NRBC%) 0.0 % 0-0 N NEUTROPHIL # (test code = NT#) 4.11 K/mm3 1.8-7.7 N IMMATURE GRANULOCYTE # (test code = IG#) 0.02 x10 3/uL 0-0.03 N LYMPHOCYTE # (test code = LY#) 2.18 K/mm3 1.0-5.0 N MONOCYTE # (test code = MO#) 0.37 K/mm3 0-0.8 N EOSINOPHIL # (test code = EO#) 0.31 K/mm3 0.0-0.5 N BASOPHIL # (test code = BA#) 0.05 K/mm3 0.0-0.2 N NUCLEATED RBC # (test code = NRBC#) 0.00 K/mm3 0.0-0.1 N - XR CHEST 1 [id number] 21:29:00 FAX: Noe Bobby MD [phone] [place]: St: REG Name: Bertha KOHLERMYRON MICKY MALIKADALUPE [facility] : [birth year] Age/S: 24/F [address] [place] [address] Unit #: [id number] Loc: [place] [address] Phys: oNe Bobby MD Acct: [id number] Dis Date: Status: REG ER PHONE #: [phone] Exam Date: 04/30/20202118 FAX #: [phone] Reason: SOB EXAMS: CPT CODE: [id number] XR CHEST 1 V 78359 CHEST RADIOGRAPH ONE VIEW 04/30/2020 AT 2054 HOURS. CLINICAL HISTORY: Shortness of breath. COMPARISON STUDIES: Chest one view 04/28/2020. FINDINGS: One view of the chest was obtained. The lungs are clear. There are no pleural effusions. The cardiac silhouette is not enlarged. No destructive bone lesions. IMPRESSION: 1. No acute findings. SL: ER-H at 2128 Reported and signed by: Caden Garibay M.D. CC: Noe Bobby MD Technologist: Marva Govea RT(R) Trnscrd Date/Time/By: 04/30/2020 (2128) : By: [email or web address] Orig Print D/T: S: 04/30/2020 (2131) PAGE 1 Signed Report B-TYPE NATRIURETIC [id number] 21:27:00* Test Item Value Reference Range Interpretation Comments B-TYPE NATRIURETIC PEPTIDE (test code = BNP) 10.7 PG/ML 0-100 N BASIC METABOLIC [id number] 21:09:00* Test Item Value Reference Range Interpretation Comments SODIUM (test code = NA) mEq/L 134-147 POTASSIUM (test code = K) mEq/L 3.4-5.0 CHLORIDE (test code = CL) mEq/L 100-108 CARBON DIOXIDE (test code = CO2) mEq/L 21-33 ANION GAP (test code = GAP) 0-20 GLUCOSE (test code = GLU) mg/dL 70-110 BLOOD UREA NITROGEN (test code = BUN) mg/dL 7-18 GLOMERULAR FILTRATION RATE (test code = GFR) 110-120 CREATININE (test code = CREAT) mg/dL 0.6-1.3 CALCIUM (test code = CA) mg/dL 8.0-10.5 [id number] 21:09:00* Test Item Value Reference Range Interpretation Comments TROPONIN-I (test code = TROPI) < 0.015 ng/mL 0.000-0.045 N Negative: <= 0.045 Positive: >= 0.046 Correlation with serial results, other cardiac markers andclinical findings is necessary to determine the clinicalsignificance of this result. Results using different methodologies should not be comparedto one another as quantitative results may vary by method. BASIC METABOLIC [id number] 21:09:00* Test Item Value Reference Range Interpretation Comments SODIUM (test code = NA) 139 mEq/L 134-147 N POTASSIUM (test code = K) 3.5 mEq/L 3.4-5.0 N CHLORIDE (test code = CL) 105 mEq/L 100-108 N CARBON DIOXIDE (test code = CO2) 28 mEq/L 21-33 N ANION GAP (test code = GAP) 10 0-20 N GLUCOSE (test code = GLU) 123 mg/dL 70-110 H BLOOD UREA NITROGEN (test code = BUN) 7 mg/dL 7-18 N GLOMERULAR FILTRATION RATE (test code = GFR) 102.8 110-120 L Units of measure = ml/min/1.73 m2 CREATININE (test code = CREAT) 0.7 mg/dL 0.6-1.3 N CALCIUM (test code = CA) 9.4 mg/dL 8.0-10.5 N [id number] 21:09:00* Test Item Value Reference Range Interpretation Comments TROPONIN-I (test code = TROPI) < 0.015 ng/mL 0.000-0.045 N Negative: <= 0.045 Positive: >= 0.046 Correlation with serial results, other cardiac markers andclinical findings is necessary to determine the clinicalsignificance of this result. Results using different methodologies should not be comparedto one another as quantitative results may vary by method. CBC W/AUTO [id number] 20:58:00* Test Item Value Reference Range Interpretation Comments WHITE BLOOD CELL (test code = WBC) 7.42 x10 3/uL 4.5-11.0 N RED BLOOD CELL (test code = RBC) 4.97 x10 6/uL 3.54-5.02 N HEMOGLOBIN (test code = HGB) 13.3 g/dL 11.0-15.0 N HEMATOCRIT (test code = HCT) 42.8 % 33.0-45.0 N MEAN CELL VOLUME (test code = MCV) 86.1 fL 81.0-99.0 N MEAN CELL HGB (test code = MCH) 26.8 pg 27.0-33.0 L MEAN CELL HGB CONCETRATION (test code = MCHC) 31.1 g/dL 33.0-37. 0 L RED CELL DISTRIBUTION WIDTH CV (test code = RDW) 17.1 % 11.5- 14.5 H RED CELL DISTRIBUTION WIDTH SD (test code = RDW-SD) 53.1 fL 37 .0-54.0 N PLATELET COUNT (test code = PLT) 566 x10 3/uL 150-400 H MEAN PLATELET VOLUME (test code = MPV) 9.7 fL 7.0-9.0 H NEUTROPHIL % (test code = NT%) 60.9 % 56.0-77.0 N IMMATURE GRANULOCYTE % (test code = IG%) 0.3 % 0.0-2.0 N LYMPHOCYTE % (test code = LY%) 30.3 % 14.0-32.0 N MONOCYTE % (test code = MO%) 6.1 % 4.8-9.0 N EOSINOPHIL % (test code = EO%) 2.0 % 0.3-3.7 N BASOPHIL % (test code = BA%) 0.4 % 0.0-2.0 N NUCLEATED RBC % (test code = NRBC%) 0.0 % 0-0 N NEUTROPHIL # (test code = NT#) 4.52 x10 3/uL 2.0-7.6 N IMMATURE GRANULOCYTE # (test code = IG#) 0.02 x10 3/uL 0.00-0.03 N LYMPHOCYTE # (test code = LY#) 2.25 x10 3/uL 1.0-3.8 N MONOCYTE # (test code = MO#) 0.45 x10 3/uL 0.1-0.8 N EOSINOPHIL # (test code = EO#) 0.15 x10 3/uL 0.0-0.2 N BASOPHIL # (test code = BA#) 0.03 x10 3/uL 0.0-0.2 N NUCLEATED RBC # (test code = NRBC#) 0.00 x10 3/uL 0.0-0.1 N MANUAL DIFF REQUIRED (test code = MDIFF) NO COVID 19 INHOUSE [id number] 20:34:00* Test Item Value Reference Range Interpretation Comments COVID 19 INHOUSE AG (test code = [id number]) NEGATIVE - XR CHEST 1 [id number] 18:10:00 FAX: Katrin Kerns DO [place]: B St: REG Name: GALO MONTIEL [facility] : [birth year] Age/S: 24/F [address] [facility] Unit #: [id number] Loc: [place] [address] Phys: Katrin Kerns DO Acct: [id number] Dis Date: Status: REG ER PHONE #: [phone] Exam Date: 04/28/20201805 FAX #: [phone] Reason: shortness of breath EXAMS: CPT CODE: [id number] XR CHEST 1 V 88954 EXAM: Chest X-ray, 1 view; CLINICAL HISTORY: Shortness of breath and dizziness, chest pain; FINDINGS: The lungs are clear, no infiltrates, no edema; no effusions; no pneumothorax; normal cardiomediastinal silhouette. IMPRESSION: Normal chest x-ray. No change compared with the recent study from April 24, 2020. Location code: GW at 181 Reported and s igned by: Andres Gotti M.D. CC: Katrin Kerns DO Technologist: RT RASHI(Amberly) Trnscrd Date/Time/By: 04/28/2020 (1809) : By: SilvanaGRW Orig Print D/T: S: 04/28/2020 (1813) PAGE 1 Signed Report URINALYSIS COMPLETE 2020-04-28 16:28:00* Test Item Value Reference Range Interpretation Comments UA COLOR (test code = COLU) COLORLESS YELLOW A UA APPEARANCE (test code = APPU) CLEAR CLEAR UA GLUCOSE DIPSTICK (test code = DGLUU) NEGATIVE mg/dL NEGATIVE UA BILIRUBIN DIPSTICK (test code = BILU) NEGATIVE mg/dL NEGATIVE UA KETONE DIPSTICK (test code = KETU) NEGATIVE mg/dL NEGATIVE UA SPECIFIC GRAVITY (test code = SGU) 1.006 1.001-1.035 UA BLOOD DIPSTICK (test code = TIFFANIE) 0.2 mg/dL (2+) mg/dL NEGATIVE A UA PH DIPSTICK (test code = JOSH) 7.0 5.0-8.0 UA PROTEIN DIPSTICK (test code = PROU) NEGATIVE mg/dL NEGATIVE UA UROBILINIOGEN DIPSTICK (test code = URO) Normal mg/dL NEGATIVE UA NITRITE DIPSTICK (test code = DIEGO) NEGATIVE NEGATIVE UA LEUKOCYTE ESTERASE W REFLEX (test code = LEUUR) 250 Lazaro/u L (2+) Lazaro/uL NEGATIVE A UA WBC (test code = WBCU) 11-20 per HPF 0-5 A UA RBC (test code = RBCU) 0-2 #/HPF 0-5 UA EPITHELIAL CELLS (test code = EPIU) FEW per HPF FEW UA BACTERIA (test code = BACU) per HPF NONE Urine Source? Clean CatchURINALYSIS [id number] 16:28:00* Test Item Value Reference Range Interpretation Comments UA COLOR (test code = COLU) COLORLESS YELLOW A UA APPEARANCE (test code = APPU) CLEAR CLEAR UA GLUCOSE DIPSTICK (test code = DGLUU) NEGATIVE mg/dL NEGATIVE UA BILIRUBIN DIPSTICK (test code = BILU) NEGATIVE mg/dL NEGATIVE UA KETONE DIPSTICK (test code = KETU) NEGATIVE mg/dL NEGATIVE UA SPECIFIC GRAVITY (test code = SGU) 1.006 1.001-1.035 UA BLOOD DIPSTICK (test code = TIFFANIE) 0.2 mg/dL (2+) mg/dL NEGATIVE A UA PH DIPSTICK (test code = JOSH) 7.0 5.0-8.0 UA PROTEIN DIPSTICK (test code = PROU) NEGATIVE mg/dL NEGATIVE UA UROBILINIOGEN DIPSTICK (test code = URO) Normal mg/dL NEGATIVE UA NITRITE DIPSTICK (test code = DIEGO) NEGATIVE NEGATIVE UA LEUKOCYTE ESTERASE W REFLEX (test code = LEUUR) 250 Lazaro/u L (2+) Lazaro/uL NEGATIVE A UA WBC (test code = WBCU) 11-20 per HPF 0-5 A UA RBC (test code = RBCU) 0-2 #/HPF 0-5 UA EPITHELIAL CELLS (test code = EPIU) FEW per HPF FEW UA BACTERIA (test code = BACU) NONE SEEN per HPF NONE Urine Source? Clean Catch- CT HEAD/BRAIN W/O [id number] 16:11:00 Name: GALO CRISOSTOMO [facility] : 1995 Age/S: 24 / F [address] Unit #: [id number] Loc: [place], [place] [address] Phys: Deloris Kerns DO Acct: [id number] Di s Date: Status: REG ER PHONE #: Exam Date: 04/28/2020 1541 FAX #: [phone] Reason: headache EXAMS: CPT CODE: [id number] CT HEAD/BRAIN W/O CONT 10581 EXAM: CT of the head; INFORMATION: Headache and dizziness, shortness of breath; TECHNIQUE AND FINDINGS: CT dose reduction protocol; The v entricles are symmetric and of normal diameter; normal width of basilar c isterns and sulci; normal amador/white matter differentiation; no evidence o f intra or extra-axial hemorrhage, mass lesion or midline shift. Bon e windows show no abnormalities. IMPRESSION: Normal CT s can of the head. Location code: [facility] Elect ronically Signed by Kai Gotti on 04/28/20 20 at 1611 Reported and signed by: Andres vazquez M.D. CC: Katrin Kerns DO Technologist:Jaclyn Leyva RT(R); JOSS Griffin CTDI: DLP: Trnscb Date/Time: 04/28/2020 (1611) t.[email or web address] Orig Print D/T: S: 04/28/2020 (1615) PAGE 1 Signed Report COVID 19 INHOUSE [id number] 15:16:00* Test Item Value Reference Range Interpretation Comments COVID 19 INHOUSE AG (test code = [id number]) NEGATIVE BASIC METABOLIC [id number] 15:07:00* Test Item Value Reference Range Interpretation Comments SODIUM (test code = NA) 143 mmol/L 136-145 N POTASSIUM (test code = K) 3.4 mmol/L 3.5-5.1 L CHLORIDE (test code = CL) 110.0 mmol/L 98-107 H CARBON DIOXIDE (test code = CO2) 29.0 mmol/L 21-32 N ANION GAP (test code = GAP) 7.4 10-20 L GLUCOSE (test code = GLU) 83 mg/dL 74-106 N BLOOD UREA NITROGEN (test code = BUN) 5 mg/dL 7-18 L GLOMERULAR FILTRATION RATE (test code = GFR) > 60 mL/min >=60 Estimated GFR by using Modified MDRD formula.Chronic kidney disease is defined as either kidney damageor GFR <60 mL/min/1.73 m2 for >3 months. CREATININE (test code = CREAT) 0.60 mg/dL 0.55-1.02 N Note change in reference range due to change in reagent. BUN/CREATININE RATIO (test code = BUN/CREA) 8.3 10-20 L CALCIUM (test code = CA) 9.2 mg/dL 8.5-10.1 N [id number] 15:07:00* Test Item Value Reference Range Interpretation Comments TROPONIN-I (test code = TROPI) <0.015 ng/mL 0-0.045 N BASIC METABOLIC [id number] 15:00:00* Test Item Value Reference Range Interpretation Comments SODIUM (test code = NA) 143 mmol/L 136-145 N POTASSIUM (test code = K) 3.4 mmol/L 3.5-5.1 L CHLORIDE (test code = CL) 110.0 mmol/L 98-107 H CARBON DIOXIDE (test code = CO2) mmol/L 21-32 ANION GAP (test code = GAP) 10-20 GLUCOSE (test code = GLU) mg/dL 74-106 BLOOD UREA NITROGEN (test code = BUN) mg/dL 7-18 GLOMERULAR FILTRATION RATE (test code = GFR) mL/min >=60 CREATININE (test code = CREAT) mg/dL 0.55-1.02 BUN/CREATININE RATIO (test code = BUN/CREA) 10-20 CALCIUM (test code = CA) mg/dL 8.5-10.1 [id number] 15:00:00* Test Item Value Reference Range Interpretation Comments TROPONIN-I (test code = TROPI) ng/mL 0-0.045 PROTHROMBIN [id number] 14:59:00* Test Item Value Reference Range Interpretation Comments PROTHROMBIN TIME PATIENT (test code = PTP) 10.8 seconds 9.0-14.0 N INTERNATIONAL NORMAL RATIO (test code = INR) 0.9 0.8-1.2 N The therapeutic range for oral anticoagulant therapy formost indications is an international normalized ratio (INR)of between 2.0 and 3.0. The recommended therapeutic INRrange for various clinical situations is listed below: Clinical Situation INR range Pulmonary e mbolism treatment (2.0-3.0)Venous thrombosis treatmentVenous thrombosis prophylaxis (high risk surgery)Prevention of systemic embolism from: Acute myocardial infarction Valvular heart disease Atrial fibrillation Mechanical prosthetic heart valves (2.5-3.5) IS PATIENT ON ANTICOAGULANTS? NTHROMBOPLASTIN TIME [id number] 14:59:00* Test Item Value Reference Range Interpretation Comments THROMBOPLASTIN TIME PARTIAL (test code = PTT) 32.9 seconds 23.0-37. 0 N IS PATIENT ON ANTICOAGULANTS? NCBC W/O [id number] 14:50:00* Test Item Value Reference Range Interpretation Comments WHITE BLOOD CELL (test code = WBC) 6.0 K/mm3 4.5-12.5 N RED BLOOD CELL (test code = RBC) 5.06 mill/mm3 3.7-5.2 N HEMOGLOBIN (test code = HGB) 13.4 gram/dL 11.5-15.5 N HEMATOCRIT (test code = HCT) 42.6 % 36.0-46.0 N MEAN CELL VOLUME (test code = MCV) 84.2 fL 80-98 N MEAN CELL HGB (test code = MCH) 26.5 picogram 27.0-33.0 L MEAN CELL HGB CONCETRATION (test code = MCHC) 31.5 gram/dL 33.0-36. 0 L RED CELL DISTRIBUTION WIDTH (test code = RDW) 17.1 % 11.6-16. 2 H PLATELET COUNT (test code = PLT) 494 K/mm3 150-450 H MEAN PLATELET VOLUME (test code = MPV) 9.6 fL 6.7-11.0 N BASIC METABOLIC [id number] 22:26:00* Test Item Value Reference Range Interpretation Comments SODIUM (test code = NA) 142 mmol/L 135-148 N POTASSIUM (test code = K) 3.6 mmol/L 3.5-5.1 N CHLORIDE (test code = CL) 107 mmol/L 101-109 N CARBON DIOXIDE (test code = CO2) 26.8 mmol/L 21-32 N ANION GAP (test code = GAP) 12 mmol/L 10-20 N GLUCOSE (test code = GLU) 93 mg/dL 74-106 N BLOOD UREA NITROGEN (test code = BUN) 5 mg/dL 3-21 N GLOMERULAR FILTRATION RATE (test code = GFR) > 60 mL/min >=60 Estimated GFR by using Modified MDRD formula.Chronic kidney disease is defined as either kidney damageor GFR <60 mL/min/1.73 m2 for >3 months. CREATININE (test code = CREAT) 0.51 mg/dL 0.55-1.3 L BUN/CREATININE RATIO (test code = BUN/CREA) 9.8 10-20 L CALCIUM (test code = CA) 8.3 mg/dL 8.4-10.2 L HEPATIC FUNCTION [id number] 22:26:00* Test Item Value Reference Range Interpretation Comments TOTAL PROTEIN (test code = PROT) 6.8 g/dL 6.5-8.4 N ALBUMIN (test code = ALB) 2.9 g/dL 3.4-4.8 L GLOBULIN (test code = GLOB) 3.9 G/DL 1-10 N ALBUMIN/GLOBULIN RATIO (test code = A/G) 0.7 RATIO 0.75-1.50 L BILIRUBIN TOTAL (test code = BILT) 0.20 mg/dL 0.0-1.0 N BILIRUBIN DIRECT (test code = BILD) 0.00 mg/dL 0.0-0.30 N SGOT/AST (test code = AST) 15 U/L 6-32 N SGPT/ALT (test code = ALT) 14 U/L 12-78 N N ote: Change in REFERENCE RANGE due to new reagent method. ALKALINE PHOSPHATASE TOTAL (test code = ALKP) 69 U/L 38-126 N [id number] 22:26:00* Test Item Value Reference Range Interpretation Comments LIPASE (test code = LIP) 112 U/L 128-270 L [id number] 22:26:00* Test Item Value Reference Range Interpretation Comments TROPONIN-I (test code = TROPI) <0.015 ng/mL 0.00-0.056 N BASIC METABOLIC [id number] 22:18:00* Test Item Value Reference Range Interpretation Comments SODIUM (test code = NA) 142 mmol/L 135-148 N POTASSIUM (test code = K) 3.6 mmol/L 3.5-5.1 N CHLORIDE (test code = CL) 107 mmol/L 101-109 N CARBON DIOXIDE (test code = CO2) 26.8 mmol/L 21-32 N ANION GAP (test code = GAP) 12 mmol/L 10-20 N GLUCOSE (test code = GLU) 93 mg/dL 74-106 N BLOOD UREA NITROGEN (test code = BUN) 5 mg/dL 3-21 N GLOMERULAR FILTRATION RATE (test code = GFR) > 60 mL/min >=60 Estimated GFR by using Modified MDRD formula.Chronic kidney disease is defined as either kidney damageor GFR <60 mL/min/1.73 m2 for >3 months. CREATININE (test code = CREAT) 0.51 mg/dL 0.55-1.3 L BUN/CREATININE RATIO (test code = BUN/CREA) 9.8 10-20 L CALCIUM (test code = CA) 8.3 mg/dL 8.4-10.2 L HEPATIC FUNCTION [id number] 22:18:00* Test Item Value Reference Range Interpretation Comments TOTAL PROTEIN (test code = PROT) gram/dL 6.4-8.2 ALBUMIN (test code = ALB) g/dL 3.4-5.0 GLOBULIN (test code = GLOB) g/dL 2.7-4.2 ALBUMIN/GLOBULIN RATIO (test code = A/G) 0.75-1.50 BILIRUBIN TOTAL (test code = BILT) mg/dL 0.2-1.2 BILIRUBIN DIRECT (test code = BILD) mg/dL 0.0-0.20 SGOT/AST (test code = AST) IUnit/L 15-37 SGPT/ALT (test code = ALT) U/L 10-69 ALKALINE PHOSPHATASE TOTAL (test code = ALKP) IUnit/L 45-117 [id number] 22:18:00* Test Item Value Reference Range Interpretation Comments LIPASE (test code = LIP) Unit/L 144-286 [id number] 22:18:00* Test Item Value Reference Range Interpretation Comments TROPONIN-I (test code = TROPI) ng/mL 0-0.045 - US ABDOMEN [id number] 22:13:00 Name: GALO MALIK [facility] : 1995 Age/S: 24 / F [address] [facility] Unit #: [id number] Loc: [place] [address] Phys: Kami Leos MD Acct: [id number] Dis Date: Status: REG ER PHONE #: [phone] Exam Date: 04/26/20202150 FAX #: [phone] Reason: EPIGASTRIC PAIN, 1 WK PPARTUM EXAMS: CPT CODE: [id number] ABDOMEN LTD 41841 EXAM: Ultrasound of the abdomen, limited; INFORMATION: Epigastric pain, Covid positive; FINDINGS: The liver is of normal size and shape and shows homogeneous echotexture without focal lesions; the gallbladder is of normal diameter and wall thickness; no evidence of gallstones; no dilatation of intra or extrahepatic bile ducts. Pancreatic head and body show no abnormalities; the right kidney is of normal size and shape. It measures 11.1 x 5.6 x 4.3 cm; Imaged portions of the abdominal aorta and IVC are u nremarkable. IMPRESSION: Normal ultrasound of the right upper quadrant; Location code: [facility] Electro nically Signed by Kai Gotti on 04/26/2020 at 2213 Reported and signed by: Andres sullivan M.D. CC: Technologist: Wilber Clark RDMS Trnscb Date/Time: 04/26/2020 (2212) Agustin Orig Print D/T: S: 04/26/2020 (2216) Probe: PAGE 1 Signed Report - US ABDOMEN [id number] 22:13:00 Name: GALO LIMA [facility] : 1995 Age/S: 24 / F [address] [facility] Unit #: [id number] Loc: [place] [address] Phys: Kami Leos MD Acct: [id number] Dis Date: Status: DEP ER PHONE #: [phone] Exam Date: 04/26/20202150 FAX #: [phone] Reason: EPIGASTRIC PAIN, 1 WK PPARTUM EXAMS: CPT CODE: [id number] ABDOMEN [facility] [address] EXAM: Ultrasound of the abdomen, limited; INFORMATION: Epigastric pain, Covid positive; FINDINGS: The liver is of normal size and shape and shows homogeneous echotexture without focal lesions; the gallbladder is of normal diameter and wall thickness; no evidence of gallstones; no dilatation of intra or extrahepatic bile ducts. Pancreatic head and body show no abnormalities; the right kidney is of normal size and shape. It measures 11.1 x 5.6 x 4.3 cm; Imaged portions of the abdominal aorta and IVC are unremarkable. IMPRESSION: Normal ultrasound of the right upper quadrant; Location code: [facility] at 2213 Reported and signed by: Andres Gotti M.D. CC: Technologist: Wilber Clark [facility] [[email or web address]] Trnscb Date/Time: 04/26/2020 (2212) Agustin Orig Print D/T: S: 04/26/2020 (2215) Probe: PAGE 1 Signed Report - XR CHEST 1 [id number] 22:00:00 Name: GALO MALIK [facility] : 1995 Age/S:24 /F [address] [facility] Unit#:[id number] Loc: [place] [address] Phys: Lavern Leos MD Dis Date: PHONE #: [phone] Status: PRE ER FAX #: [phone] Exam Date: 04/26/2020 Re ason: CHEST PAIN EXAMS: CPT CODE: [id number] XR CHEST 1 V 37399 EXAM: Chest X-ray, 1 view; CLINICAL HISTORY: Chest pain, Covid positive; FINDINGS: Subtle infiltrate in the basilar portions of the right lung; the remainder the lungs is clear; no effusions; no pneumothorax; Unremarkable cardiac mediastinal silhouette. IMPRESSION: Subtle right basilar infiltrate. Location code: [facility] Electronic ally Signed by Kai Gotti on 04/26/2020 at 2200 Reported and signed by: Andres dominguez M.D. CC: Technologist: COCO ZHOU RT(R),CT Trnscrpt Data: 04/26/2020 (2199) Agustin Orig Print D/T: S: 04/26/2020 (2202) PAGE 1 Signed Report - XR CHEST 1 [id number] 22:00:00 Name: GALO LIMA [facility] : 1995 Age/S:24 /F [address] [facility] Unit#:[id number] Loc: [place] [address] Phys: Lavern Leos MD Dis Date: PHONE #: [phone] Status: DEP ER FAX #: [phone] Exam Date: 04/26/2020 Re ason: CHEST PAIN EXAMS: CPT CODE: [id number] XR CHEST 1 V 34424 EXAM: Chest X-ray, 1 view; CLINICAL HISTORY: Chest pain, Covid positive; FINDINGS: Subtle infiltrate in the basilar portions of the right lung; the remainder the lungs is clear; no effusions; no pneumothorax; Unremarkable cardiac mediastinal silhouette. IMPRESSION: Subtle right basilar infiltrate. Location code: [facility] Electronic ally Signed by Kai Gotti on 04/26/2020 at 2200 Reported and signed by: Andres dominguez M.D. CC: Technologist: COCO ZHOU RT(R),CT Trnscrpt Data: 04/26/2020 (2199) SilvanaGRW Orig Print D/T: S: 04/26/2020 (2202) PAGE 1 Signed Report B-TYPE NATRIURETIC [id number] 21:58:00* Test Item Value Reference Range Interpretation Comments B-TYPE NATRIURETIC PEPTIDE (test code = BNP) 72.6 pg/mL 0-100 N URINALYSIS [id number] 21:47:00* Test Item Value Reference Range Interpretation Comments UA COLOR (test code = COLU) LIGHT BROWN YELLOW A UA APPEARANCE (test code = APPU) SLIGHT HAZY CLEAR A UA GLUCOSE DIPSTICK (test code = DGLUU) norm mg/dL NEGATIVE UA BILIRUBIN DIPSTICK (test code = BILU) NEGATIVE mg/dL NEGATIVE UA KETONE DIPSTICK (test code = KETU) neg mg/dL NEGATIVE UA SPECIFIC GRAVITY (test code = SGU) 1.005 1.001-1.035 UA BLOOD DIPSTICK (test code = TIFFANIE) 250 (4+) Derrick/uL NEGATIVE A UA PH DIPSTICK (test code = JOSH) 7.0 5.0-8.0 UA PROTEIN DIPSTICK (test code = PROU) 30 (1+) mg/dL Neg-15 A UA UROBILINIOGEN DIPSTICK (test code = URO) norm mg/dL 0.0-0.2 UA NITRITE DIPSTICK (test code = DIEGO) NEGATIVE NEGATIVE UA LEUKOCYTE ESTERASE DIPSTICK (test code = LEUU) 500 Lazaro/uL (3+) u L NEGATIVE A UA WBC (test code = WBCU) 20-30 per HPF 0-5 A UA RBC (test code = RBCU) 3-5 per HPF 0-5 UA EPITHELIAL CELLS (test code = EPIU) Moderate (5-10/hpf) per HPF Few UA BACTERIA (test code = BACU) MANY per HPF NONE A Urine Source? Clean CatchCBC W/O [id number] 21:37:00* Test Item Value Reference Range Interpretation Comments WHITE BLOOD CELL (test code = WBC) 7.2 K/mm3 4.5-12.5 N RED BLOOD CELL (test code = RBC) 4.88 mill/mm3 3.7-5.2 N HEMOGLOBIN (test code = HGB) 13.0 gram/dL 11.5-15.5 N HEMATOCRIT (test code = HCT) 41.1 % 36.0-46.0 N MEAN CELL VOLUME (test code = MCV) 84.2 fL 80-98 N MEAN CELL HGB (test code = MCH) 26.6 picogram 27.0-33.0 L MEAN CELL HGB CONCETRATION (test code = MCHC) 31.6 gram/dL 33.0-36. 0 L RED CELL DISTRIBUTION WIDTH (test code = RDW) 16.9 % 11.6-16. 2 H RED CELL DISTRIBUTION WIDTH SD (test code = RDW-SD) 53.3 fL 37 .0-51.0 H PLATELET COUNT (test code = PLT) 449 K/mm3 150-450 N MEAN PLATELET VOLUME (test code = MPV) 9.6 fL 6.7-11.0 N [id number] 13:57:00 RUN DATE: 04/24/20 [facility] PAGE 1 RUN TIME: 1357 Specimen Inqui ry RUN USER: INTERFACE PATIENT: GALO CRISOSTOMO ACCT #: [id number] LOC: JohnARNULFOU U #: [id number] AGE/SX: 24/F ROOM: [facility] RE04/20/20REG DR: Claire Christian CNM : [birth year] BED: A DIS: 04/21/20 STATUS: DIS IN TLOC: SPEC #: [id number] RECD: 04/22/20 STATUS: YVONNE STOCK #: [id number] ADELINA: 04/20/20- SUBM DR: Claire Christian [facility] ENTERED: 04/22/20 SP TYPE: PLACENTA OTHR DR: Lana [facility] or Family Physician J Luis Estrada MD, Ronald MDORDERED: CHE COPIES TO: No Primary or Family Physician J Luis Estrada MD [address] [facility] [place] [address] Jono Stuart MD [address] [facility] [address] [place], [place] [address] Claire Christian [facility] [address] [place] [address] PROCEDURES: CHE (04/24/20-1227) TISSUES: PLAC ENTA, NOS CLINICAL HISTORY COLLECTION DATE: 03/21/2020 24 Y/O G 4P201, +COVID, HX MONO THIS , TYPE II DIABETES COMMENT T he placenta is small for gestational age. A placental weight of 260 grams is ap proximately 50th percentile at 24 weeks gestation. Correlation is necessary. FINAL DIAGNOSIS Placenta, vaginal delivery: THIRD TRIMESTER PLACE NTA WITH NO VILLITIS OR INFARCTION SMALL PLACENTA FOR GESTATIONAL AGE (26 0.4 grams) TRIVASCULAR UMBILICAL CORD FREE OF INFLAMMATION CONTINUED ON NEXT PAGE RUN DATE: 04/24/20 [facility] PAGE 2 RUN TIME: 1357 Specimen Inquiry RUN USER: IN TERFACE SP EC #: [id number] PATIENT: GALO CRISOSTOMO #[id number] ( Continued) FINAL DIAGNOSIS (Continued) FET AL MEMBRANES FREE OF INFLAMMATION NEGATIVE FOR MALIGNANCY RRB/g m D 22279 MACROSCOPIC The specimen is received without fixative in a container labeled with the patient's name and "covid positive". Formalin is added and the specimen is allowed to fix. The specimen consists of a dis coid placenta measuring 14.0 x 13.0 by up to 2.7 cm in thickness with a trimme d weight of 260.4 grams. A segment of garay trivascular umbilical cord inserts eccentrically, 2.0 cm from the edge of the surface. The cord measures 3 7 cm in length with a diameter ranging from 1.1 up to 2.2 cm. No knots are pr esent in the cord. The membranes are dark amador, slightly thickened and insert marginally. The surface is steel blue with unremarkable appearin g vasculature. The maternal surface is brown-red, spongy and appears to be in tact. Sectioning through the placenta shows no focal lesions. Assistant Superintendent tissue is submitted (1A-1C). MICROSCOPIC All of the stains, incl uding any controls performed, stain appropriately. MICROSCOPIC PERFORMED A [facility] [address] [place] [address] [phone] PERFORMING SITE Processed at: [facility] [address] [facility], [place] [id number] ------ ------ Signed SIGNATURE ON FILE Mehdi Stevens MD 04/24 1357 END OF REPORT BASIC METABOLIC [id number] 03:56:00* Test Item Value Reference Range Interpretation Comments SODIUM (test code = NA) 142 mmol/L 136-145 N POTASSIUM (test code = K) 3.6 mmol/L 3.5-5.1 N CHLORIDE (test code = CL) 107 mmol/L 101-109 N CARBON DIOXIDE (test code = CO2) 24.6 mmol/L 21-32 N ANION GAP (test code = GAP) 14 mmol/L 10-20 N GLUCOSE (test code = GLU) 94 mg/dL 74-106 N BLOOD UREA NITROGEN (test code = BUN) 5 mg/dL 3-21 N GLOMERULAR FILTRATION RATE (test code = GFR) > 60 mL/min >=60 Estimated GFR by using Modified MDRD formula.Chronic kidney disease is defined as either kidney damageor GFR <60 mL/min/1.73 m2 for >3 months. CREATININE (test code = CREAT) 0.44 mg/dL 0.55-1.3 L BUN/CREATININE RATIO (test code = BUN/CREA) 11.4 10-20 N CALCIUM (test code = CA) 8.5 mg/dL 8.4-10.2 N HEPATIC FUNCTION [id number] 03:56:00* Test Item Value Reference Range Interpretation Comments TOTAL PROTEIN (test code = PROT) 7.0 g/dL 6.5-8.4 N ALBUMIN (test code = ALB) 2.9 g/dL 3.4-4.8 L GLOBULIN (test code = GLOB) 4.1 G/DL 1-10 N ALBUMIN/GLOBULIN RATIO (test code = A/G) 0.71 RATIO 0.75-1.50 L BILIRUBIN TOTAL (test code = BILT) 0.20 mg/dL 0.0-1.0 N BILIRUBIN DIRECT (test code = BILD) 0.00 mg/dL 0.0-0.30 N SGOT/AST (test code = AST) 19 U/L 6-32 N SGPT/ALT (test code = ALT) 17 U/L 12-78 N N ote: Change in REFERENCE RANGE due to new reagent method. ALKALINE PHOSPHATASE TOTAL (test code = ALKP) 77 U/L 38-126 N BASIC METABOLIC [id number] 03:41:00* Test Item Value Reference Range Interpretation Comments SODIUM (test code = NA) 142 mmol/L 136-145 N POTASSIUM (test code = K) 3.6 mmol/L 3.5-5.1 N CHLORIDE (test code = CL) 107 mmol/L 101-109 N CARBON DIOXIDE (test code = CO2) 24.6 mmol/L 21-32 N ANION GAP (test code = GAP) 14 mmol/L 10-20 N GLUCOSE (test code = GLU) 94 mg/dL 74-106 N BLOOD UREA NITROGEN (test code = BUN) 5 mg/dL 3-21 N GLOMERULAR FILTRATION RATE (test code = GFR) > 60 mL/min >=60 Estimated GFR by using Modified MDRD formula.Chronic kidney disease is defined as either kidney damageor GFR <60 mL/min/1.73 m2 for >3 months. CREATININE (test code = CREAT) 0.44 mg/dL 0.55-1.3 L BUN/CREATININE RATIO (test code = BUN/CREA) 11.4 10-20 N CALCIUM (test code = CA) 8.5 mg/dL 8.4-10.2 N HEPATIC FUNCTION [id number] 03:41:00* Test Item Value Reference Range Interpretation Comments TOTAL PROTEIN (test code = PROT) gram/dL 6.4-8.2 ALBUMIN (test code = ALB) g/dL 3.4-5.0 GLOBULIN (test code = GLOB) g/dL 2.7-4.2 ALBUMIN/GLOBULIN RATIO (test code = A/G) 0.75-1.50 BILIRUBIN TOTAL (test code = BILT) mg/dL 0.2-1.2 BILIRUBIN DIRECT (test code = BILD) mg/dL 0.0-0.20 SGOT/AST (test code = AST) IUnit/L 15-37 SGPT/ALT (test code = ALT) U/L 10-69 ALKALINE PHOSPHATASE TOTAL (test code = ALKP) IUnit/L 45-117 - XR CHEST 1 [id number] 03:38:00 Name: GALO CRISOSTOMO [facility] : 1995 Age/S:24 /F [address] [facility] Unit#:[id number] Loc: [place] [address] Phys: Kami Loes MD Dis Date: PHONE #: [phone] Status: REG ER FAX #: [phone] Exam Date: 04/24/2020 Reason: CHEST PAIN EXAMS: CPT CODE: [id number] XR CHEST 1 V 50273 LOCATION: T18 EXAM: CHEST 1 VIEW INDICATION: , CHEST PAIN COMPARISON: Chest x-ray April 16, 2020. TECHNIQUE: AP chest radiograph. FINDINGS: Lungs are clear bilaterally without effusion. Heart is normal in size. Bones and peripheral soft tissues are unremarkable. IMPRESSION: Lungs are clear. No acute abnormality. at 0338 Reported and signed by: Nick Perla M.D. CC: Technologist: CLEMENCIA GARCIA(R),RDMS,CT Trnscrpt Data: 04/24/2020 (0338) [id number] Orig Print D/T: S: 04/24/2020 (3313) PAGE 1 Signed Report CBC W/O [id number] 03:33:00 * Test Item Value Reference Range Interpretation Comments WHITE BLOOD CELL (test code = WBC) 6.3 K/mm3 4.5-12.5 N RED BLOOD CELL (test code = RBC) 4.24 mill/mm3 3.7-5.2 N HEMOGLOBIN (test code = HGB) 11.4 gram/dL 11.5-15.5 L HEMATOCRIT (test code = HCT) 35.1 % 36.0-46.0 L MEAN CELL VOLUME (test code = MCV) 82.8 fL 80-98 N MEAN CELL HGB (test code = MCH) 26.9 picogram 27.0-33.0 L MEAN CELL HGB CONCETRATION (test code = MCHC) 32.5 gram/dL 33.0-36. 0 L RED CELL DISTRIBUTION WIDTH (test code = RDW) 17.3 % 11.6-16. 2 H RED CELL DISTRIBUTION WIDTH SD (test code = RDW-SD) 53.3 fL 37 .0-51.0 H PLATELET COUNT (test code = PLT) 294 K/mm3 150-450 MEAN PLATELET VOLUME (test code = MPV) 9.9 fL 6.7-11.0 N URINALYSIS [id number] 03:18:00* Test Item Value Reference Range Interpretation Comments UA COLOR (test code = COLU) YELLOW YELLOW UA APPEARANCE (test code = APPU) CLEAR CLEAR UA GLUCOSE DIPSTICK (test code = DGLUU) norm mg/dL NEGATIVE UA BILIRUBIN DIPSTICK (test code = BILU) NEGATIVE mg/dL NEGATIVE UA KETONE DIPSTICK (test code = KETU) 5 (Trace) mg/dL NEGATIVE A UA SPECIFIC GRAVITY (test code = SGU) 1.005 1.001-1.035 UA BLOOD DIPSTICK (test code = TIFFANIE) 250 (4+) Derrick/uL NEGATIVE A UA PH DIPSTICK (test code = JSOH) 7.0 5.0-8.0 UA PROTEIN DIPSTICK (test code = PROU) neg mg/dL Neg-15 UA UROBILINIOGEN DIPSTICK (test code = URO) norm mg/dL 0.0-0.2 UA NITRITE DIPSTICK (test code = DIEGO) NEGATIVE NEGATIVE UA LEUKOCYTE ESTERASE DIPSTICK (test code = LEUU) 25 Lazaro/uL (Tra ce) uL NEGATIVE A UA WBC (test code = WBCU) 0-5 per HPF 0-5 UA RBC (test code = RBCU) 0-2 per HPF 0-5 UA EPITHELIAL CELLS (test code = EPIU) Many (>10/hpf) per HPF Few A UA BACTERIA (test code = BACU) MODERATE per HPF NONE A Urine Source? Clean CatchURINALYSIS [id number] 03:08:00* Test Item Value Reference Range Interpretation Comments UA COLOR (test code = COLU) YELLOW YELLOW UA APPEARANCE (test code = APPU) CLEAR CLEAR UA GLUCOSE DIPSTICK (test code = DGLUU) norm mg/dL NEGATIVE UA BILIRUBIN DIPSTICK (test code = BILU) NEGATIVE mg/dL NEGATIVE UA KETONE DIPSTICK (test code = KETU) 5 (Trace) mg/dL NEGATIVE A UA SPECIFIC GRAVITY (test code = SGU) 1.005 1.001-1.035 UA BLOOD DIPSTICK (test code = TIFFANIE) 250 (4+) Derrick/uL NEGATIVE A UA PH DIPSTICK (test code = JOSH) 7.0 5.0-8.0 UA PROTEIN DIPSTICK (test code = PROU) neg mg/dL Neg-15 UA UROBILINIOGEN DIPSTICK (test code = URO) norm mg/dL 0.0-0.2 UA NITRITE DIPSTICK (test code = DIEGO) NEGATIVE NEGATIVE UA LEUKOCYTE ESTERASE DIPSTICK (test code = LEUU) 25 Lazaro/uL (Tra ce) uL NEGATIVE A UA WBC (test code = WBCU) per HPF 0-5 UA RBC (test code = RBCU) per HPF 0-5 UA EPITHELIAL CELLS (test code = EPIU) per HPF Few UA BACTERIA (test code = BACU) per HPF NONE Urine Source? Clean CatchBASIC METABOLIC [id number] 23:16:00* Test Item Value Reference Range Interpretation Comments SODIUM (test code = NA) 143 mmol/L 136-145 N POTASSIUM (test code = K) 3.9 mmol/L 3.5-5.1 N CHLORIDE (test code = CL) 110.0 mmol/L 98-107 H CARBON DIOXIDE (test code = CO2) 22.0 mmol/L 21-32 N ANION GAP (test code = GAP) 14.9 10-20 N GLUCOSE (test code = GLU) 74 mg/dL 74-106 N BLOOD UREA NITROGEN (test code = BUN) 8 mg/dL 7-18 N GLOMERULAR FILTRATION RATE (test code = GFR) > 60 mL/min >=60 Estimated GFR by using Modified MDRD formula.Chronic kidney disease is defined as either kidney damageor GFR <60 mL/min/1.73 m2 for >3 months. CREATININE (test code = CREAT) 0.30 mg/dL 0.55-1.02 L Note change in reference range due to change in reagent. BUN/CREATININE RATIO (test code = BUN/CREA) 25.0 10-20 H CALCIUM (test code = CA) 8.3 mg/dL 8.5-10.1 L LACTIC [id number] 23:15:00* Test Item Value Reference Range Interpretation Comments LACTIC ACID (test code = LACT) 1.2 mmol/L 0.4-1.9 N CBC W/AUTO [id number] 22:35:00* Test Item Value Reference Range Interpretation Comments WHITE BLOOD CELL (test code = WBC) 11.8 K/mm3 4.5-12.5 N RED BLOOD CELL (test code = RBC) 4.39 mill/mm3 3.7-5.2 N HEMOGLOBIN (test code = HGB) 11.6 gram/dL 11.5-15.5 N HEMATOCRIT (test code = HCT) 37.3 % 36.0-46.0 N MEAN CELL VOLUME (test code = MCV) 85.0 fL 80-98 N MEAN CELL HGB (test code = MCH) 26.4 picogram 27.0-33.0 L MEAN CELL HGB CONCETRATION (test code = MCHC) 31.1 gram/dL 33.0-36. 0 L RED CELL DISTRIBUTION WIDTH (test code = RDW) 17.8 % 11.6-16. 2 H RED CELL DISTRIBUTION WIDTH SD (test code = RDW-SD) 55.1 fL 37 .0-51.0 H PLATELET COUNT (test code = PLT) 220 K/mm3 150-450 N MEAN PLATELET VOLUME (test code = MPV) 10.1 fL 6.7-11.0 N NEUTROPHIL % (test code = NT%) 81.6 % 39.0-69.0 H IMMATURE GRANULOCYTE % (test code = IG%) 0.6 % 0.0-5.0 N LYMPHOCYTE % (test code = LY%) 13.2 % 25.0-55.0 L MONOCYTE % (test code = MO%) 4.3 % 0.0-10.0 N EOSINOPHIL % (test code = EO%) 0.1 % 0.0-5.0 N BASOPHIL % (test code = BA%) 0.2 % 0.0-1.0 N NUCLEATED RBC % (test code = NRBC%) 0.0 % 0-0 N NEUTROPHIL # (test code = NT#) 9.60 K/mm3 1.8-7.7 H IMMATURE GRANULOCYTE # (test code = IG#) 0.07 x10 3/uL 0-0.03 H LYMPHOCYTE # (test code = LY#) 1.55 K/mm3 1.0-5.0 N MONOCYTE # (test code = MO#) 0.50 K/mm3 0-0.8 N EOSINOPHIL # (test code = EO#) 0.01 K/mm3 0.0-0.5 N BASOPHIL # (test code = BA#) 0.02 K/mm3 0.0-0.2 N NUCLEATED RBC # (test code = NRBC#) 0.00 K/mm3 0.0-0.1 N URINALYSIS [id number] 22:35:00* Test Item Value Reference Range Interpretation Comments UA COLOR (test code = COLU) YELLOW YELLOW UA APPEARANCE (test code = APPU) Cloudy CLEAR A UA GLUCOSE DIPSTICK (test code = DGLUU) NEGATIVE mg/dL NEGATIVE UA BILIRUBIN DIPSTICK (test code = BILU) NEGATIVE mg/dL NEGATIVE UA KETONE DIPSTICK (test code = KETU) 40 (2+) mg/dL NEGATIVE A UA SPECIFIC GRAVITY (test code = SGU) 1.018 1.001-1.035 UA BLOOD DIPSTICK (test code = TIFFANIE) 1.0 mg/dL (3+) mg/dL NEGATIVE A UA PH DIPSTICK (test code = JOSH) 6.5 5.0-8.0 UA PROTEIN DIPSTICK (test code = PROU) 20 (Trace) mg/dL NEGATIVE A UA UROBILINIOGEN DIPSTICK (test code = URO) 4.0 (2+) mg/dL NEGATIVE A UA NITRITE DIPSTICK (test code = DIEGO) NEGATIVE NEGATIVE UA LEUKOCYTE ESTERASE W REFLEX (test code = LEUUR) 250 Lazaro/u L (2+) Lazaro/uL NEGATIVE A UA WBC (test code = WBCU) 21-50 per HPF 0-5 A UA RBC (test code = RBCU) >200 #/HPF 0-5 UA EPITHELIAL CELLS (test code = EPIU) FEW per HPF FEW UA BACTERIA (test code = BACU) NONE SEEN #/HPF NONE Urine Source? Clean CatchURINALYSIS [id number] 22:33:00* Test Item Value Reference Range Interpretation Comments UA COLOR (test code = COLU) YELLOW YELLOW UA APPEARANCE (test code = APPU) Cloudy CLEAR A UA GLUCOSE DIPSTICK (test code = DGLUU) NEGATIVE mg/dL NEGATIVE UA BILIRUBIN DIPSTICK (test code = BILU) NEGATIVE mg/dL NEGATIVE UA KETONE DIPSTICK (test code = KETU) 40 (2+) mg/dL NEGATIVE A UA SPECIFIC GRAVITY (test code = SGU) 1.018 1.001-1.035 UA BLOOD DIPSTICK (test code = TIFFANIE) 1.0 mg/dL (3+) mg/dL NEGATIVE A UA PH DIPSTICK (test code = JOSH) 6.5 5.0-8.0 UA PROTEIN DIPSTICK (test code = PROU) 20 (Trace) mg/dL NEGATIVE A UA UROBILINIOGEN DIPSTICK (test code = URO) 4.0 (2+) mg/dL NEGATIVE A UA NITRITE DIPSTICK (test code = DIEGO) NEGATIVE NEGATIVE UA LEUKOCYTE ESTERASE W REFLEX (test code = LEUUR) 250 Lazaro/u L (2+) Lazaro/uL NEGATIVE A UA WBC (test code = WBCU) per HPF 0-5 UA RBC (test code = RBCU) per HPF 0-5 UA EPITHELIAL CELLS (test code = EPIU) per HPF Few UA BACTERIA (test code = BACU) per HPF NONE Urine Source? Clean CatchCOMPREHENSIVE METABOLIC [id number] 07:55:00* Test Item Value Reference Range Interpretation Comments SODIUM (test code = NA) 141 mmol/L 136-145 N POTASSIUM (test code = K) 3.6 mmol/L 3.5-5.1 N CHLORIDE (test code = CL) 110.0 mmol/L 98-107 H CARBON DIOXIDE (test code = CO2) 19.0 mmol/L 21-32 L ANION GAP (test code = GAP) 15.6 10-20 N GLUCOSE (test code = GLU) 90 mg/dL 74-106 N BLOOD UREA NITROGEN (test code = BUN) 5 mg/dL 7-18 L GLOMERULAR FILTRATION RATE (test code = GFR) > 60 mL/min >=60 Estimated GFR by using Modified MDRD formula.Chronic kidney disease is defined as either kidney damageor GFR <60 mL/min/1.73 m2 for >3 months. CREATININE (test code = CREAT) 0.30 mg/dL 0.55-1.02 L Note change in reference range due to change in reagent. BUN/CREATININE RATIO (test code = BUN/CREA) 18.9 10-20 N TOTAL PROTEIN (test code = PROT) 6.0 gram/dL 6.4-8.2 L ALBUMIN (test code = ALB) 2.6 g/dL 3.4-5.0 L GLOBULIN (test code = GLOB) 3.4 gram/dL 2.7-4.2 N ALBUMIN/GLOBULIN RATIO (test code = A/G) 0.8 0.75-1.50 N CALCIUM (test code = CA) 8.8 mg/dL 8.5-10.1 N BILIRUBIN TOTAL (test code = BILT) 0.30 mg/dL 0.0-1.0 N SGOT/AST (test code = AST) 11 IUnit/L 15-37 L SGPT/ALT (test code = ALT) 11 IUnit/L 12-78 L ALKALINE PHOSPHATASE TOTAL (test code = ALKP) 85 IUnit/L 45-117 N Note change in reference range due to change in reagent. CBC W/AUTO [id number] 06:41:00* Test Item Value Reference Range Interpretation Comments WHITE BLOOD CELL (test code = WBC) 12.7 K/mm3 4.5-12.5 H RED BLOOD CELL (test code = RBC) 3.94 mill/mm3 3.7-5.2 N HEMOGLOBIN (test code = HGB) 10.3 gram/dL 11.5-15.5 L HEMATOCRIT (test code = HCT) 32.9 % 36.0-46.0 L MEAN CELL VOLUME (test code = MCV) 83.5 fL 80-98 N MEAN CELL HGB (test code = MCH) 26.1 picogram 27.0-33.0 L MEAN CELL HGB CONCETRATION (test code = MCHC) 31.3 gram/dL 33.0-36. 0 L RED CELL DISTRIBUTION WIDTH (test code = RDW) 17.7 % 11.6-16. 2 H RED CELL DISTRIBUTION WIDTH SD (test code = RDW-SD) 53.4 fL 37 .0-51.0 H PLATELET COUNT (test code = PLT) 210 K/mm3 150-450 N MEAN PLATELET VOLUME (test code = MPV) 10.6 fL 6.7-11.0 N NEUTROPHIL % (test code = NT%) 84.5 % 39.0-69.0 H IMMATURE GRANULOCYTE % (test code = IG%) 0.4 % 0.0-5.0 N LYMPHOCYTE % (test code = LY%) 10.4 % 25.0-55.0 L MONOCYTE % (test code = MO%) 4.6 % 0.0-10.0 N EOSINOPHIL % (test code = EO%) 0.0 % 0.0-5.0 N BASOPHIL % (test code = BA%) 0.1 % 0.0-1.0 N NUCLEATED RBC % (test code = NRBC%) 0.0 % 0-0 N NEUTROPHIL # (test code = NT#) 10.71 K/mm3 1.8-7.7 H IMMATURE GRANULOCYTE # (test code = IG#) 0.05 x10 3/uL 0-0.03 H LYMPHOCYTE # (test code = LY#) 1.32 K/mm3 1.0-5.0 N MONOCYTE # (test code = MO#) 0.58 K/mm3 0-0.8 N EOSINOPHIL # (test code = EO#) 0.00 K/mm3 0.0-0.5 N BASOPHIL # (test code = BA#) 0.01 K/mm3 0.0-0.2 N NUCLEATED RBC # (test code = NRBC#) 0.00 K/mm3 0.0-0.1 N MANUAL DIFF REQUIRED (test code = MDIFF) NO SPECIMEN COMMENTS: day 1URINALYSIS W/O [id number] 09:47:00* Test Item Value Reference Range Interpretation Comments UA COLOR (test code = COLU) COLORLESS YELLOW A UA APPEARANCE (test code = APPU) CLEAR CLEAR UA GLUCOSE DIPSTICK (test code = DGLUU) NEGATIVE mg/dL NEGATIVE UA BILIRUBIN DIPSTICK (test code = BILU) NEGATIVE mg/dL NEGATIVE UA KETONE DIPSTICK (test code = KETU) 60 (2+) mg/dL NEGATIVE A UA SPECIFIC GRAVITY (test code = SGU) 1.005 1.001-1.035 UA BLOOD DIPSTICK (test code = TIFFANIE) Negative mg/dL NEGATIVE UA PH DIPSTICK (test code = JOSH) 6.5 5.0-8.0 UA PROTEIN DIPSTICK (test code = PROU) NEGATIVE mg/dL NEGATIVE UA UROBILINIOGEN DIPSTICK (test code = URO) Normal mg/dL NEGATIVE UA NITRITE DIPSTICK (test code = DIEGO) NEGATIVE NEGATIVE UA LEUKOCYTE ESTERASE W REFLEX (test code = LEUUR) NEGATIVE Lazaro/uL NEGATIVE COMPREHENSIVE METABOLIC [id number] 09:27:00* Test Item Value Reference Range Interpretation Comments SODIUM (test code = NA) 141 mmol/L 136-145 N POTASSIUM (test code = K) 3.2 mmol/L 3.5-5.1 L CHLORIDE (test code = CL) 106.0 mmol/L 98-107 N CARBON DIOXIDE (test code = CO2) 22.0 mmol/L 21-32 N ANION GAP (test code = GAP) 16.2 10-20 N GLUCOSE (test code = GLU) 86 mg/dL 74-106 N BLOOD UREA NITROGEN (test code = BUN) 3 mg/dL 7-18 L GLOMERULAR FILTRATION RATE (test code = GFR) > 60 mL/min >=60 Estimated GFR by using Modified MDRD formula.Chronic kidney disease is defined as either kidney damageor GFR <60 mL/min/1.73 m2 for >3 months. CREATININE (test code = CREAT) 0.40 mg/dL 0.55-1.02 L Note change in reference range due to change in reagent. BUN/CREATININE RATIO (test code = BUN/CREA) 6.8 10-20 L TOTAL PROTEIN (test code = PROT) 7.6 gram/dL 6.4-8.2 N ALBUMIN (test code = ALB) 3.1 g/dL 3.4-5.0 L GLOBULIN (test code = GLOB) 4.5 gram/dL 2.7-4.2 H ALBUMIN/GLOBULIN RATIO (test code = A/G) 0.7 0.75-1.50 L CALCIUM (test code = CA) 9.1 mg/dL 8.5-10.1 N BILIRUBIN TOTAL (test code = BILT) 0.40 mg/dL 0.0-1.0 N SGOT/AST (test code = AST) 16 IUnit/L 15-37 N SGPT/ALT (test code = ALT) 15 IUnit/L 12-78 N ALKALINE PHOSPHATASE TOTAL (test code = ALKP) 101 IUnit/L 45-117 N Note change in reference range due to change in reagent. [id number] 08:04:00* Test Item Value Reference Range Interpretation Comments GLUBED (test code = GLUBED) 112 mg/dL 74-106 H Performed by certified assembly operator at [facility] PROTHROMBIN [id number] 07:38:00* Test Item Value Reference Range Interpretation Comments PROTHROMBIN TIME PATIENT (test code = PTP) 10.9 seconds 9.0-14.0 N INTERNATIONAL NORMAL RATIO (test code = INR) 0.9 0.8-1.2 N The therapeutic range for oral anticoagulant therapy formost indications is an international normalized ratio (INR)of between 2.0 and 3.0. The recommended therapeutic INRrange for various clinical situations is listed below: Clinical Situation INR range Pulmonary e mbolism treatment (2.0-3.0)Venous thrombosis treatmentVenous thrombosis prophylaxis (high risk surgery)Prevention of systemic embolism from: Acute myocardial infarction Valvular heart disease Atrial fibrillation Mechanical prosthetic heart valves (2.5-3.5) IS PATIENT ON ANTICOAGULANTS? NTHROMBOPLASTIN TIME [id number] 07:38:00* Test Item Value Reference Range Interpretation Comments THROMBOPLASTIN TIME PARTIAL (test code = PTT) 33.0 seconds 23.0-37. 0 N IS PATIENT ON ANTICOAGULANTS? NAG HEPAT B [id number] 06:19:00* Test Item Value Reference Range Interpretation Comments AG HEPAT B SURF (test code = HBSAG) Nonreactive Index Nonreactive AB [id number] 06:19:00* Test Item Value Reference Range Interpretation Comments AB TREPONEMA (test code = TREPAB) Nonreactive Index NonReactive HIV 1 2 COMBO AG/AB [id number] 05:29:00* Test Item Value Reference Range Interpretation Comments HIV 1 2 COMBO AG/AB SCREEN (test code = [id number]) AB/AG NO N REACTIVE NONREACTIVE NONREACTIVE HIV P24 ANTI GEN NONREACTIVE NONREACTIVE HIV 1&2 ANTIBODY NONREACTIVE THE HIV-1 P24 TEST HELPS DISTINGUISH ACUTE HIV-1INFECTIONFROM ESTABLISHED HIV-1 INFECTION WHEN THE SPECIMEN ISPOSITIVE FOR HIV-1 P24 ANTIGEN. HIV-1 P24 ANTIGEN IS HIGHEST IN THE FIRST FEW WEEKS AFTERINFECTION CBC W/AUTO [id number] 05:05:00* Test Item Value Reference Range Interpretation Comments WHITE BLOOD CELL (test code = WBC) 6.4 K/mm3 4.5-12.5 N RED BLOOD CELL (test code = RBC) 4.51 mill/mm3 3.7-5.2 N HEMOGLOBIN (test code = HGB) 11.7 gram/dL 11.5-15.5 N HEMATOCRIT (test code = HCT) 37.0 % 36.0-46.0 N MEAN CELL VOLUME (test code = MCV) 82.0 fL 80-98 N MEAN CELL HGB (test code = MCH) 25.9 picogram 27.0-33.0 L MEAN CELL HGB CONCETRATION (test code = MCHC) 31.6 gram/dL 33.0-36. 0 L RED CELL DISTRIBUTION WIDTH (test code = RDW) 17.8 % 11.6-16. 2 H RED CELL DISTRIBUTION WIDTH SD (test code = RDW-SD) 53.6 fL 37 .0-51.0 H PLATELET COUNT (test code = PLT) 178 K/mm3 150-450 N MEAN PLATELET VOLUME (test code = MPV) 10.1 fL 6.7-11.0 N NEUTROPHIL % (test code = NT%) 71.8 % 39.0-69.0 H IMMATURE GRANULOCYTE % (test code = IG%) 0.5 % 0.0-5.0 N LYMPHOCYTE % (test code = LY%) 21.7 % 25.0-55.0 L MONOCYTE % (test code = MO%) 5.5 % 0.0-10.0 N EOSINOPHIL % (test code = EO%) 0.3 % 0.0-5.0 N BASOPHIL % (test code = BA%) 0.2 % 0.0-1.0 N NUCLEATED RBC % (test code = NRBC%) 0.0 % 0-0 N NEUTROPHIL # (test code = NT#) 4.56 K/mm3 1.8-7.7 N IMMATURE GRANULOCYTE # (test code = IG#) 0.03 x10 3/uL 0-0.03 N LYMPHOCYTE # (test code = LY#) 1.38 K/mm3 1.0-5.0 N MONOCYTE # (test code = MO#) 0.35 K/mm3 0-0.8 N EOSINOPHIL # (test code = EO#) 0.02 K/mm3 0.0-0.5 N BASOPHIL # (test code = BA#) 0.01 K/mm3 0.0-0.2 N NUCLEATED RBC # (test code = NRBC#) 0.00 K/mm3 0.0-0.1 N STREPTOCOCCUS PCR [id number] 07:31:00* Test Item Value Reference Range Interpretation Comments STREPTOCOCCUS DYSGALACTIAE (test code = STREPGC) NEGATIVE FOR G/C N EGATIVE STREPA MOLECULAR (test code = STREPAMOL) NEGATIVE FOR GRP A NEGATIV E [id number] 04:29:00* Test Item Value Reference Range Interpretation Comments FIBRONECTIN (test code = FFN) NEGATIVE URINALYSIS [id number] 03:46:00* Test Item Value Reference Range Interpretation Comments UA COLOR (test code = COLU) COLORLESS YELLOW A UA APPEARANCE (test code = APPU) CLEAR CLEAR UA GLUCOSE DIPSTICK (test code = DGLUU) NEGATIVE mg/dL NEGATIVE UA BILIRUBIN DIPSTICK (test code = BILU) NEGATIVE mg/dL NEGATIVE UA KETONE DIPSTICK (test code = KETU) 100 (3+) mg/dL NEGATIVE A UA SPECIFIC GRAVITY (test code = SGU) 1.007 1.001-1.035 UA BLOOD DIPSTICK (test code = TIFFANIE) Negative mg/dL NEGATIVE UA PH DIPSTICK (test code = JOSH) 6.5 5.0-8.0 UA PROTEIN DIPSTICK (test code = PROU) NEGATIVE mg/dL NEGATIVE UA UROBILINIOGEN DIPSTICK (test code = URO) Normal mg/dL NEGATIVE UA NITRITE DIPSTICK (test code = DIEGO) NEGATIVE NEGATIVE UA LEUKOCYTE ESTERASE W REFLEX (test code = LEUUR) 75 Lazaro/uL (1+) Lazaro/uL NEGATIVE A UA WBC (test code = WBCU) 0-5 per HPF 0-5 UA RBC (test code = RBCU) 0-2 #/HPF 0-5 UA EPITHELIAL CELLS (test code = EPIU) FEW per HPF FEW UA BACTERIA (test code = BACU) FEW #/HPF NONE A UA MUCUS (test code = MUCU) FEW #/LPF FEW URINALYSIS [id number] 03:42:00* Test Item Value Reference Range Interpretation Comments UA COLOR (test code = COLU) COLORLESS YELLOW A UA APPEARANCE (test code = APPU) CLEAR CLEAR UA GLUCOSE DIPSTICK (test code = DGLUU) NEGATIVE mg/dL NEGATIVE UA BILIRUBIN DIPSTICK (test code = BILU) NEGATIVE mg/dL NEGATIVE UA KETONE DIPSTICK (test code = KETU) 100 (3+) mg/dL NEGATIVE A UA SPECIFIC GRAVITY (test code = SGU) 1.007 1.001-1.035 UA BLOOD DIPSTICK (test code = TIFFANIE) Negative mg/dL NEGATIVE UA PH DIPSTICK (test code = JOSH) 6.5 5.0-8.0 UA PROTEIN DIPSTICK (test code = PROU) NEGATIVE mg/dL NEGATIVE UA UROBILINIOGEN DIPSTICK (test code = URO) Normal mg/dL NEGATIVE UA NITRITE DIPSTICK (test code = DIEGO) NEGATIVE NEGATIVE UA LEUKOCYTE ESTERASE W REFLEX (test code = LEUUR) 75 Lazaro/uL (1+) Lazaro/uL NEGATIVE A UA WBC (test code = WBCU) per HPF 0-5 UA RBC (test code = RBCU) per HPF 0-5 UA EPITHELIAL CELLS (test code = EPIU) per HPF Few UA BACTERIA (test code = BACU) per HPF NONE URINALYSIS [id number] 03:42:00* Test Item Value Reference Range Interpretation Comments UA COLOR (test code = COLU) COLORLESS YELLOW A UA APPEARANCE (test code = APPU) CLEAR CLEAR UA GLUCOSE DIPSTICK (test code = DGLUU) NEGATIVE mg/dL NEGATIVE UA BILIRUBIN DIPSTICK (test code = BILU) NEGATIVE mg/dL NEGATIVE UA KETONE DIPSTICK (test code = KETU) 100 (3+) mg/dL NEGATIVE A UA SPECIFIC GRAVITY (test code = SGU) 1.007 1.001-1.035 UA BLOOD DIPSTICK (test code = TIFFANIE) Negative mg/dL NEGATIVE UA PH DIPSTICK (test code = JOSH) 6.5 5.0-8.0 UA PROTEIN DIPSTICK (test code = PROU) NEGATIVE mg/dL NEGATIVE UA UROBILINIOGEN DIPSTICK (test code = URO) Normal mg/dL NEGATIVE UA NITRITE DIPSTICK (test code = DIEGO) NEGATIVE NEGATIVE UA LEUKOCYTE ESTERASE W REFLEX (test code = LEUUR) 75 Lazaro/uL (1+) Lazaro/uL NEGATIVE A UA WBC (test code = WBCU) per HPF 0-5 UA RBC (test code = RBCU) per HPF 0-5 UA EPITHELIAL CELLS (test code = EPIU) per HPF Few UA BACTERIA (test code = BACU) per HPF NONE COVID 19 INHOUSE [id number] 23:53:00* Test Item Value Reference Range Interpretation Comments COVID 19 INHOUSE AG (test code = [id number]) POSITIVE Is patient requiring admission or transfer? YIndication for rapid COVID-19 testi ng: Mod Clinical SuspicionNovel Coronavirus 2019 [id number] 21:35:00* Test Item Value Reference Range Interpretation Comments Novel Coronavirus 2019 nCoV (test code = COVID19) Negative Nega tive Does patient have the clinical criteria consistent with COVID-19? YIs the patien t going to be discharged home? YCOMPREHENSIVE METABOLIC [id number] 17:57:00 * Test Item Value Reference Range Interpretation Comments SODIUM (test code = NA) 139 mmol/L 136-145 N POTASSIUM (test code = K) 3.4 mmol/L 3.5-5.1 L CHLORIDE (test code = CL) 102 mmol/L 101-109 N CARBON DIOXIDE (test code = CO2) 22.0 mmol/L 21-32 N ANION GAP (test code = GAP) 18 mmol/L 10-20 N GLUCOSE (test code = GLU) 72 mg/dL 74-106 L BLOOD UREA NITROGEN (test code = BUN) 7 mg/dL 3-21 N CREATININE (test code = CREAT) 0.54 mg/dL 0.55-1.3 L BUN/CREATININE RATIO (test code = BUN/CREA) 13.0 10-20 N TOTAL PROTEIN (test code = PROT) 7.2 g/dL 6.5-8.4 N ALBUMIN (test code = ALB) 3.2 g/dL 3.4-4.8 L GLOBULIN (test code = GLOB) 4.0 G/DL 1-10 N ALBUMIN/GLOBULIN RATIO (test code = A/G) 0.80 RATIO 0.75-1.50 N CALCIUM (test code = CA) 8.5 mg/dL 8.4-10.2 N BILIRUBIN TOTAL (test code = BILT) 0.40 mg/dL 0.0-1.0 N SGOT/AST (test code = AST) 17 U/L 6-32 N SGPT/ALT (test code = ALT) 13 U/L 12-78 N N ote: Change in REFERENCE RANGE due to new reagent method. ALKALINE PHOSPHATASE TOTAL (test code = ALKP) 92 U/L 38-126 N [id number] 17:57:00* Test Item Value Reference Range Interpretation Comments TROPONIN-I (test code = TROPI) <0.015 ng/mL 0.00-0.056 N COMPREHENSIVE METABOLIC [id number] 17:51:00* Test Item Value Reference Range Interpretation Comments SODIUM (test code = NA) 139 mmol/L 136-145 N POTASSIUM (test code = K) 3.4 mmol/L 3.5-5.1 L CHLORIDE (test code = CL) 102 mmol/L 101-109 N CARBON DIOXIDE (test code = CO2) 22.0 mmol/L 21-32 N ANION GAP (test code = GAP) 18 mmol/L 10-20 N GLUCOSE (test code = GLU) 72 mg/dL 74-106 L BLOOD UREA NITROGEN (test code = BUN) 7 mg/dL 3-21 N CREATININE (test code = CREAT) 0.54 mg/dL 0.55-1.3 L BUN/CREATININE RATIO (test code = BUN/CREA) 13.0 10-20 N TOTAL PROTEIN (test code = PROT) gram/dL 6.4-8.2 ALBUMIN (test code = ALB) g/dL 3.4-5.0 GLOBULIN (test code = GLOB) g/dL 2.7-4.2 ALBUMIN/GLOBULIN RATIO (test code = A/G) 0.75-1.50 CALCIUM (test code = CA) 8.5 mg/dL 8.4-10.2 N BILIRUBIN TOTAL (test code = BILT) mg/dL 0.2-1.2 SGOT/AST (test code = AST) IUnit/L 15-37 SGPT/ALT (test code = ALT) U/L 10-69 ALKALINE PHOSPHATASE TOTAL (test code = ALKP) IUnit/L 45-117 [id number] 17:51:00* Test Item Value Reference Range Interpretation Comments TROPONIN-I (test code = TROPI) ng/mL 0-0.045 - XR CHEST 1 [id number] 17:40:00 Name: LLOYD CHRISTINEGALO ABAD [facility] : 1995 Age/S:24 /F [address] [facility] Unit#:[id number] Loc: [place] [address] Phys: Kevin Galindo MD Dis Date: PHONE #: [phone] Status: PRE ER FAX #: [phone] Exam Date: 04/16/2020 Reason: pain EXAMS: CPT CODE: [id number] XR CHEST 1 V [id number] REASON FOR EXAM: pain Exam Order Date: 04/16/2020 5:17 PM Ordering M.D.: Kevin Galindo MD PROCEDURE: - XR CHEST 1 V COMPARISON: Chest x-ray January 01, 2020 FINDINGS: The lungs are clear. There is no pleural effusion or pneumothorax. Pulmonary vascularity is within normal limits. Cardiomediastinal silhouette is normal in size for technique. The mediastinal contours are within normal limits. Musculoskeletal structures are within normal limits. The visualized upper abdomen is within normal limits. IMPRESSION: No acute cardiopulmonary process. Location: [facility] at 1740 Reported and signed by: Xavier Patten MD CC: Kevin Galindo MD; Claire Christian Technologist: Cathy Murdock Trnscrpt Data: 04/16/2020 (1740) [email or web address] Orig Print D/T: S: 04/16/2020 ([id number]) PAGE 1 Signed Report CBC W/AUTO DIFF 2020-04-16 17:36:00* Test Item Value Reference Range Interpretation Comments WHITE BLOOD CELL (test code = WBC) 6.6 K/mm3 4.5-12.5 N RED BLOOD CELL (test code = RBC) 4.19 mill/mm3 3.7-5.2 N HEMOGLOBIN (test code = HGB) 11.2 gram/dL 11.5-15.5 L HEMATOCRIT (test code = HCT) 34.7 % 36.0-46.0 L MEAN CELL VOLUME (test code = MCV) 82.8 fL 80-98 N MEAN CELL HGB (test code = MCH) 26.7 picogram 27.0-33.0 L MEAN CELL HGB CONCETRATION (test code = MCHC) 32.3 gram/dL 33.0-36. 0 L RED CELL DISTRIBUTION WIDTH (test code = RDW) 17.5 % 11.6-16. 2 H RED CELL DISTRIBUTION WIDTH SD (test code = RDW-SD) 54.2 fL 37 .0-51.0 H PLATELET COUNT (test code = PLT) 194 K/mm3 150-450 N MEAN PLATELET VOLUME (test code = MPV) 9.8 fL 6.7-11.0 N NEUTROPHIL % (test code = NT%) 71.9 % 39.0-69.0 H LYMPHOCYTE % (test code = LY%) 19.4 % 25.0-55.0 L MONOCYTE % (test code = MO%) 7.4 % 0.0-10.0 N EOSINOPHIL % (test code = EO%) 0.8 % 0.0-5.0 N BASOPHIL % (test code = BA%) 0.3 % 0.0-1.0 N NEUTROPHIL # (test code = NT#) 4.74 K/mm3 1.8-7.7 N LYMPHOCYTE # (test code = LY#) 1.28 K/mm3 1.0-5.0 N MONOCYTE # (test code = MO#) 0.49 K/mm3 0-0.8 N EOSINOPHIL # (test code = EO#) 0.05 K/mm3 0.0-0.5 N BASOPHIL # (test code = BA#) 0.02 K/mm3 0.0-0.2 N MANUAL DIFF REQUIRED (test code = MDIFF) NO UA GLUCOSE DIPSTIC [id number] 12:01:00* Test Item Value Reference Range Interpretation Comments UA GLUCOSE DIPSTIC POC (test code = GLUUP) Negative Negative UA GLU: NEGATIVEKET UA NEGATIVEPH UA 9.0UA NIT NegativePROT UA NEGATIVEBL UA NEG ATIVEUA LAZARO 2+ (Large)Time performed: 1045UA KETONE DIPSTICK [id number] 12:01:00* Test Item Value Reference Range Interpretation Comments UA KETONE DIPSTICK POC (test code = KETUP) Negative UA GLU: NEGATIVEKET UA NEGATIVEPH UA 9.0UA NIT NegativePROT UA NEGATIVEBL UA NEG ATIVEUA LAZARO 2+ (Large)Time performed: 1045UA BLOOD DIPSTIC [id number] 12:01:00* Test Item Value Reference Range Interpretation Comments UA BLOOD DIPSTIC POC (test code = BLUP) NEGATIVE UA GLU: NEGATIVEKET UA NEGATIVEPH UA 9.0UA NIT NegativePROT UA NEGATIVEBL UA NEG ATIVEUA LAZARO 2+ (Large)Time performed: 1045UA PH DIPSTIC [id number] 12:01:00* Test Item Value Reference Range Interpretation Comments UA PH DIPSTIC POC (test code = PHUP) 5-8 UA GLU: NEGATIVEKET UA NEGATIVEPH UA 9.0UA NIT NegativePROT UA NEGATIVEBL UA NEG ATIVEUA LAZARO 2+ (Large)Time performed: 1045UA PROTEIN DIPSTICK [id number] 12:01:00* Test Item Value Reference Range Interpretation Comments UA PROTEIN DIPSTICK POC (test code = DPROUP) Neg -15 UA GLU: NEGATIVEKET UA NEGATIVEPH UA 9.0UA NIT NegativePROT UA NEGATIVEBL UA NEG ATIVEUA LAZARO 2+ (Large)Time performed: 1045UA NITRITE DIPSTICK [id number] 12:01:00* Test Item Value Reference Range Interpretation Comments UA NITRITE DIPSTICK POC (test code = NITUP) Negative UA GLU: NEGATIVEKET UA NEGATIVEPH UA 9.0UA NIT NegativePROT UA NEGATIVEBL UA NEG ATIVEUA LAZARO 2+ (Large)Time performed: 104 LEUKOCYTE ESTERASE [id number] 12:01:00* Test Item Value Reference Range Interpretation Comments UA LEUKOCYTE ESTERASE POC (test code = LEUUPOC) NEGATI VE UA GLU: NEGATIVEKET UA NEGATIVEPH UA 9.0UA NIT NegativePROT UA NEGATIVEBL UA NEG ATIVEUA LAZARO 2+ (Large)Time performed: 104 GLUCOSE DIPSTIC [id number] 12:01:00* Test Item Value Reference Range Interpretation Comments UA GLUCOSE DIPSTIC POC (test code = GLUUP) Negative Negative UA GLU: NEGATIVEKET UA NEGATIVEPH UA 9.0UA NIT NegativePROT UA NEGATIVEBL UA NEG ATIVEUA LAZARO 2+ (Large)Time performed: 104 KETONE DIPSTICK [id number] 12:01:00* Test Item Value Reference Range Interpretation Comments UA KETONE DIPSTICK POC (test code = KETUP) Negative Negative UA GLU: NEGATIVEKET UA NEGATIVEPH UA 9.0UA NIT NegativePROT UA NEGATIVEBL UA NEG ATIVEUA LAZARO 2+ (Large)Time performed: 104 BLOOD DIPSTIC [id number] 12:01:00* Test Item Value Reference Range Interpretation Comments UA BLOOD DIPSTIC POC (test code = BLUP) NEGATIVE UA GLU: NEGATIVEKET UA NEGATIVEPH UA 9.0UA NIT NegativePROT UA NEGATIVEBL UA NEG ATIVEUA LAZARO 2+ (Large)Time performed: 104 PH DIPSTIC [id number] 12:01:00* Test Item Value Reference Range Interpretation Comments UA PH DIPSTIC POC (test code = PHUP) 5-8 UA GLU: NEGATIVEKET UA NEGATIVEPH UA 9.0UA NIT NegativePROT UA NEGATIVEBL UA NEG ATIVEUA LAZARO 2+ (Large)Time performed: 1045 PROTEIN DIPSTICK [id number] 12:01:00* Test Item Value Reference Range Interpretation Comments UA PROTEIN DIPSTICK POC (test code = DPROUP) Neg -15 UA GLU: NEGATIVEKET UA NEGATIVEPH UA 9.0UA NIT NegativePROT UA NEGATIVEBL UA NEG ATIVEUA LAZARO 2+ (Large)Time performed: 1045 NITRITE DIPSTICK [id number] 12:01:00* Test Item Value Reference Range Interpretation Comments UA NITRITE DIPSTICK POC (test code = NITUP) Negative UA GLU: NEGATIVEKET UA NEGATIVEPH UA 9.0UA NIT NegativePROT UA NEGATIVEBL UA NEG ATIVEUA LAZARO 2+ (Large)Time performed: 104 LEUKOCYTE ESTERASE [id number] 12:01:00* Test Item Value Reference Range Interpretation Comments UA LEUKOCYTE ESTERASE POC (test code = LEUUPOC) NEGATI VE UA GLU: NEGATIVEKET UA NEGATIVEPH UA 9.0UA NIT NegativePROT UA NEGATIVEBL UA NEG ATIVEUA LAZARO 2+ (Large)Time performed: GLUCOSE DIPSTIC [id number] 12:01:00* Test Item Value Reference Range Interpretation Comments UA GLUCOSE DIPSTIC POC (test code = GLUUP) Negative Negative UA GLU: NEGATIVEKET UA NEGATIVEPH UA 9.0UA NIT NegativePROT UA NEGATIVEBL UA NEG ATIVEUA LAZARO 2+ (Large)Time performed: KETONE DIPSTICK [id number] 12:01:00* Test Item Value Reference Range Interpretation Comments UA KETONE DIPSTICK POC (test code = KETUP) Negative Negative UA GLU: NEGATIVEKET UA NEGATIVEPH UA 9.0UA NIT NegativePROT UA NEGATIVEBL UA NEG ATIVEUA LAZARO 2+ (Large)Time performed: BLOOD DIPSTIC [id number] 12:01:00* Test Item Value Reference Range Interpretation Comments UA BLOOD DIPSTIC POC (test code = BLUP) Negative NEGATIVE UA GLU: NEGATIVEKET UA NEGATIVEPH UA 9.0UA NIT NegativePROT UA NEGATIVEBL UA NEG ATIVEUA LAZARO 2+ (Large)Time performed: PH DIPSTIC [id number] 12:01:00* Test Item Value Reference Range Interpretation Comments UA PH DIPSTIC POC (test code = PHUP) 5-8 UA GLU: NEGATIVEKET UA NEGATIVEPH UA 9.0UA NIT NegativePROT UA NEGATIVEBL UA NEG ATIVEUA LAZARO 2+ (Large)Time performed: PROTEIN DIPSTICK [id number] 12:01:00* Test Item Value Reference Range Interpretation Comments UA PROTEIN DIPSTICK POC (test code = DPROUP) Neg -15 UA GLU: NEGATIVEKET UA NEGATIVEPH UA 9.0UA NIT NegativePROT UA NEGATIVEBL UA NEG ATIVEUA LAZARO 2+ (Large)Time performed: 1045 NITRITE DIPSTICK [id number] 12:01:00* Test Item Value Reference Range Interpretation Comments UA NITRITE DIPSTICK POC (test code = NITUP) Negative UA GLU: NEGATIVEKET UA NEGATIVEPH UA 9.0UA NIT NegativePROT UA NEGATIVEBL UA NEG ATIVEUA LAZARO 2+ (Large)Time performed: 1045 LEUKOCYTE ESTERASE [id number] 12:01:00* Test Item Value Reference Range Interpretation Comments UA LEUKOCYTE ESTERASE POC (test code = LEUUPOC) NEGATI VE UA GLU: NEGATIVEKET UA NEGATIVEPH UA 9.0UA NIT NegativePROT UA NEGATIVEBL UA NEG ATIVEUA LAZARO 2+ (Large)Time performed: 104 GLUCOSE DIPSTIC [id number] 12:01:00* Test Item Value Reference Range Interpretation Comments UA GLUCOSE DIPSTIC POC (test code = GLUUP) Negative Negative UA GLU: NEGATIVEKET UA NEGATIVEPH UA 9.0UA NIT NegativePROT UA NEGATIVEBL UA NEG ATIVEUA LAZARO 2+ (Large)Time performed: 104 KETONE DIPSTICK [id number] 12:01:00* Test Item Value Reference Range Interpretation Comments UA KETONE DIPSTICK POC (test code = KETUP) Negative Negative UA GLU: NEGATIVEKET UA NEGATIVEPH UA 9.0UA NIT NegativePROT UA NEGATIVEBL UA NEG ATIVEUA LAZARO 2+ (Large)Time performed: 1045 BLOOD DIPSTIC [id number] 12:01:00* Test Item Value Reference Range Interpretation Comments UA BLOOD DIPSTIC POC (test code = BLUP) Negative NEGATIVE UA GLU: NEGATIVEKET UA NEGATIVEPH UA 9.0UA NIT NegativePROT UA NEGATIVEBL UA NEG ATIVEUA LAZARO 2+ (Large)Time performed: 1045UA PH DIPSTIC [id number] 12:01:00* Test Item Value Reference Range Interpretation Comments UA PH DIPSTIC POC (test code = PHUP) 9 5-8 H UA GLU: NEGATIVEKET UA NEGATIVEPH UA 9.0UA NIT NegativePROT UA NEGATIVEBL UA NEG ATIVEUA LAZARO 2+ (Large)Time performed: 1045UA PROTEIN DIPSTICK [id number] 12:01:00* Test Item Value Reference Range Interpretation Comments UA PROTEIN DIPSTICK POC (test code = DPROUP) Neg -15 UA GLU: NEGATIVEKET UA NEGATIVEPH UA 9.0UA NIT NegativePROT UA NEGATIVEBL UA NEG ATIVEUA LAZARO 2+ (Large)Time performed: 1045UA NITRITE DIPSTICK [id number] 12:01:00* Test Item Value Reference Range Interpretation Comments UA NITRITE DIPSTICK POC (test code = NITUP) Negative UA GLU: NEGATIVEKET UA NEGATIVEPH UA 9.0UA NIT NegativePROT UA NEGATIVEBL UA NEG ATIVEUA LAZARO 2+ (Large)Time performed: 104 LEUKOCYTE ESTERASE [id number] 12:01:00* Test Item Value Reference Range Interpretation Comments UA LEUKOCYTE ESTERASE POC (test code = LEUUPOC) NEGATI VE UA GLU: NEGATIVEKET UA NEGATIVEPH UA 9.0UA NIT NegativePROT UA NEGATIVEBL UA NEG ATIVEUA LAZARO 2+ (Large)Time performed: 104 GLUCOSE DIPSTIC [id number] 12:01:00* Test Item Value Reference Range Interpretation Comments UA GLUCOSE DIPSTIC POC (test code = GLUUP) Negative Negative UA GLU: NEGATIVEKET UA NEGATIVEPH UA 9.0UA NIT NegativePROT UA NEGATIVEBL UA NEG ATIVEUA LAZARO 2+ (Large)Time performed: 104 KETONE DIPSTICK [id number] 12:01:00* Test Item Value Reference Range Interpretation Comments UA KETONE DIPSTICK POC (test code = KETUP) Negative Negative UA GLU: NEGATIVEKET UA NEGATIVEPH UA 9.0UA NIT NegativePROT UA NEGATIVEBL UA NEG ATIVEUA LAZARO 2+ (Large)Time performed: 104 BLOOD DIPSTIC [id number] 12:01:00* Test Item Value Reference Range Interpretation Comments UA BLOOD DIPSTIC POC (test code = BLUP) Negative NEGATIVE UA GLU: NEGATIVEKET UA NEGATIVEPH UA 9.0UA NIT NegativePROT UA NEGATIVEBL UA NEG ATIVEUA LAZARO 2+ (Large)Time performed: 1045 PH DIPSTIC [id number] 12:01:00* Test Item Value Reference Range Interpretation Comments UA PH DIPSTIC POC (test code = PHUP) 9 5-8 H UA GLU: NEGATIVEKET UA NEGATIVEPH UA 9.0UA NIT NegativePROT UA NEGATIVEBL UA NEG ATIVEUA LAZARO 2+ (Large)Time performed: 1045UA PROTEIN DIPSTICK [id number] 12:01:00* Test Item Value Reference Range Interpretation Comments UA PROTEIN DIPSTICK POC (test code = DPROUP) Negative Neg -15 UA GLU: NEGATIVEKET UA NEGATIVEPH UA 9.0UA NIT NegativePROT UA NEGATIVEBL UA NEG ATIVEUA LAZARO 2+ (Large)Time performed: 1045 NITRITE DIPSTICK [id number] 12:01:00* Test Item Value Reference Range Interpretation Comments UA NITRITE DIPSTICK POC (test code = NITUP) Negative UA GLU: NEGATIVEKET UA NEGATIVEPH UA 9.0UA NIT NegativePROT UA NEGATIVEBL UA NEG ATIVEUA LAZARO 2+ (Large)Time performed: 104 LEUKOCYTE ESTERASE [id number] 12:01:00* Test Item Value Reference Range Interpretation Comments UA LEUKOCYTE ESTERASE POC (test code = LEUUPOC) NEGATI VE UA GLU: NEGATIVEKET UA NEGATIVEPH UA 9.0UA NIT NegativePROT UA NEGATIVEBL UA NEG ATIVEUA LAZARO 2+ (Large)Time performed: 104 GLUCOSE DIPSTIC [id number] 12:01:00* Test Item Value Reference Range Interpretation Comments UA GLUCOSE DIPSTIC POC (test code = GLUUP) Negative Negative UA GLU: NEGATIVEKET UA NEGATIVEPH UA 9.0UA NIT NegativePROT UA NEGATIVEBL UA NEG ATIVEUA LAZARO 2+ (Large)Time performed: KETONE DIPSTICK [id number] 12:01:00* Test Item Value Reference Range Interpretation Comments UA KETONE DIPSTICK POC (test code = KETUP) Negative Negative UA GLU: NEGATIVEKET UA NEGATIVEPH UA 9.0UA NIT NegativePROT UA NEGATIVEBL UA NEG ATIVEUA LAZARO 2+ (Large)Time performed: BLOOD DIPSTIC [id number] 12:01:00* Test Item Value Reference Range Interpretation Comments UA BLOOD DIPSTIC POC (test code = BLUP) Negative NEGATIVE UA GLU: NEGATIVEKET UA NEGATIVEPH UA 9.0UA NIT NegativePROT UA NEGATIVEBL UA NEG ATIVEUA LAZARO 2+ (Large)Time performed: 104 PH DIPSTIC [id number] 12:01:00* Test Item Value Reference Range Interpretation Comments UA PH DIPSTIC POC (test code = PHUP) 9 5-8 H UA GLU: NEGATIVEKET UA NEGATIVEPH UA 9.0UA NIT NegativePROT UA NEGATIVEBL UA NEG ATIVEUA LAZARO 2+ (Large)Time performed: 104 PROTEIN DIPSTICK [id number] 12:01:00* Test Item Value Reference Range Interpretation Comments UA PROTEIN DIPSTICK POC (test code = DPROUP) Negative Neg -15 UA GLU: NEGATIVEKET UA NEGATIVEPH UA 9.0UA NIT NegativePROT UA NEGATIVEBL UA NEG ATIVEUA LAZARO 2+ (Large)Time performed: 104 NITRITE DIPSTICK [id number] 12:01:00* Test Item Value Reference Range Interpretation Comments UA NITRITE DIPSTICK POC (test code = NITUP) Negative Negative UA GLU: NEGATIVEKET UA NEGATIVEPH UA 9.0UA NIT NegativePROT UA NEGATIVEBL UA NEG ATIVEUA LAZARO 2+ (Large)Time performed: LEUKOCYTE ESTERASE [id number] 12:01:00* Test Item Value Reference Range Interpretation Comments UA LEUKOCYTE ESTERASE POC (test code = LEUUPOC) NEGATI VE UA GLU: NEGATIVEKET UA NEGATIVEPH UA 9.0UA NIT NegativePROT UA NEGATIVEBL UA NEG ATIVEUA LAZARO 2+ (Large)Time performed: GLUCOSE DIPSTIC [id number] 12:01:00* Test Item Value Reference Range Interpretation Comments UA GLUCOSE DIPSTIC POC (test code = GLUUP) Negative Negative UA GLU: NEGATIVEKET UA NEGATIVEPH UA 9.0UA NIT NegativePROT UA NEGATIVEBL UA NEG ATIVEUA LAZARO 2+ (Large)Time performed: KETONE DIPSTICK [id number] 12:01:00* Test Item Value Reference Range Interpretation Comments UA KETONE DIPSTICK POC (test code = KETUP) Negative Negative UA GLU: NEGATIVEKET UA NEGATIVEPH UA 9.0UA NIT NegativePROT UA NEGATIVEBL UA NEG ATIVEUA LAZARO 2+ (Large)Time performed: 104 BLOOD DIPSTIC [id number] 12:01:00* Test Item Value Reference Range Interpretation Comments UA BLOOD DIPSTIC POC (test code = BLUP) Negative NEGATIVE UA GLU: NEGATIVEKET UA NEGATIVEPH UA 9.0UA NIT NegativePROT UA NEGATIVEBL UA NEG ATIVEUA LAZARO 2+ (Large)Time performed: 104 PH DIPSTIC [id number] 12:01:00* Test Item Value Reference Range Interpretation Comments UA PH DIPSTIC POC (test code = PHUP) 9 5-8 H UA GLU: NEGATIVEKET UA NEGATIVEPH UA 9.0UA NIT NegativePROT UA NEGATIVEBL UA NEG ATIVEUA LAZARO 2+ (Large)Time performed: 1045UA PROTEIN DIPSTICK [id number] 12:01:00* Test Item Value Reference Range Interpretation Comments UA PROTEIN DIPSTICK POC (test code = DPROUP) Negative Neg -15 UA GLU: NEGATIVEKET UA NEGATIVEPH UA 9.0UA NIT NegativePROT UA NEGATIVEBL UA NEG ATIVEUA LAZARO 2+ (Large)Time performed: 1045UA NITRITE DIPSTICK [id number] 12:01:00* Test Item Value Reference Range Interpretation Comments UA NITRITE DIPSTICK POC (test code = NITUP) Negative Negative UA GLU: NEGATIVEKET UA NEGATIVEPH UA 9.0UA NIT NegativePROT UA NEGATIVEBL UA NEG ATIVEUA LAZARO 2+ (Large)Time performed: 1045UA LEUKOCYTE ESTERASE [id number] 12:01:00* Test Item Value Reference Range Interpretation Comments UA LEUKOCYTE ESTERASE POC (test code = LEUUPOC) 2+ NEGATI VE A UA GLU: NEGATIVEKET UA NEGATIVEPH UA 9.0UA NIT NegativePROT UA NEGATIVEBL UA NEG ATIVEUA LAZARO 2+ (Large)Time performed: 1045CBC W/AUTO [id number] 22:22:00* Test Item Value Reference Range Interpretation Comments WHITE BLOOD CELL (test code = WBC) 7.5 K/mm3 4.5-12.5 N RED BLOOD CELL (test code = RBC) 4.16 mill/mm3 3.7-5.2 N HEMOGLOBIN (test code = HGB) 11.3 gram/dL 11.5-15.5 L HEMATOCRIT (test code = HCT) 36.4 % 36.0-46.0 N MEAN CELL VOLUME (test code = MCV) 87.5 fL 80-98 N MEAN CELL HGB (test code = MCH) 27.2 picogram 27.0-33.0 N MEAN CELL HGB CONCETRATION (test code = MCHC) 31.0 gram/dL 33.0-36. 0 L RED CELL DISTRIBUTION WIDTH (test code = RDW) 21.2 % 11.6-16. 2 H RED CELL DISTRIBUTION WIDTH SD (test code = RDW-SD) 67.8 fL 37 .0-51.0 H PLATELET COUNT (test code = PLT) 252 K/mm3 150-450 N MEAN PLATELET VOLUME (test code = MPV) 10.3 fL 6.7-11.0 N NEUTROPHIL % (test code = NT%) 69.6 % 39.0-69.0 H IMMATURE GRANULOCYTE % (test code = IG%) 0.5 % 0.0-5.0 N LYMPHOCYTE % (test code = LY%) 21.9 % 25.0-55.0 L MONOCYTE % (test code = MO%) 6.0 % 0.0-10.0 N EOSINOPHIL % (test code = EO%) 1.6 % 0.0-5.0 N BASOPHIL % (test code = BA%) 0.4 % 0.0-1.0 N NUCLEATED RBC % (test code = NRBC%) 0.0 % 0-0 N NEUTROPHIL # (test code = NT#) 5.25 K/mm3 1.8-7.7 N IMMATURE GRANULOCYTE # (test code = IG#) 0.04 x10 3/uL 0-0.03 H LYMPHOCYTE # (test code = LY#) 1.65 K/mm3 1.0-5.0 N MONOCYTE # (test code = MO#) 0.45 K/mm3 0-0.8 N EOSINOPHIL # (test code = EO#) 0.12 K/mm3 0.0-0.5 N BASOPHIL # (test code = BA#) 0.03 K/mm3 0.0-0.2 N NUCLEATED RBC # (test code = NRBC#) 0.00 K/mm3 0.0-0.1 N MANUAL DIFF REQUIRED (test code = MDIFF) NO, ONLY SCAN NEEDED DIFFERENTIAL [id number] 22:22:00* Test Item Value Reference Range Interpretation Comments STAIN ACCEPTABILITY (test code = STN ACCEPTABLE) STAIN ACCEPTABLE PLATELET ESTIMATE (test code = PLTEST) ADEQUATE PLATELET MORPHOLOGY (test code = PLTMORPH) NORMAL [id number] 20:09:00* Test Item Value Reference Range Interpretation Comments GLYCOSYLATED HEMOGLOBIN (HA1C) (test code = GLYHGB) 4.9 % HbA1 SUGGESTED DIAGNOSIS: HbA1C (%) Diabetic >6.4Prediabetes 5.7 - 6.4Normal <5.7 ESTIMATED AVERAGE GLUCOSE (test code = EAG) 94 MG/DL CBC W/AUTO [id number] 19:58:00* Test Item Value Reference Range Interpretation Comments WHITE BLOOD CELL (test code = WBC) 7.5 K/mm3 4.5-12.5 N RED BLOOD CELL (test code = RBC) 4.16 mill/mm3 3.7-5.2 N HEMOGLOBIN (test code = HGB) 11.3 gram/dL 11.5-15.5 L HEMATOCRIT (test code = HCT) 36.4 % 36.0-46.0 N MEAN CELL VOLUME (test code = MCV) 87.5 fL 80-98 N MEAN CELL HGB (test code = MCH) 27.2 picogram 27.0-33.0 N MEAN CELL HGB CONCETRATION (test code = MCHC) 31.0 gram/dL 33.0-36. 0 L RED CELL DISTRIBUTION WIDTH (test code = RDW) 21.2 % 11.6-16. 2 H RED CELL DISTRIBUTION WIDTH SD (test code = RDW-SD) 67.8 fL 37 .0-51.0 H PLATELET COUNT (test code = PLT) 252 K/mm3 150-450 N MEAN PLATELET VOLUME (test code = MPV) 10.3 fL 6.7-11.0 N NEUTROPHIL % (test code = NT%) 69.6 % 39.0-69.0 H IMMATURE GRANULOCYTE % (test code = IG%) 0.5 % 0.0-5.0 N LYMPHOCYTE % (test code = LY%) 21.9 % 25.0-55.0 L MONOCYTE % (test code = MO%) 6.0 % 0.0-10.0 N EOSINOPHIL % (test code = EO%) 1.6 % 0.0-5.0 N BASOPHIL % (test code = BA%) 0.4 % 0.0-1.0 N NUCLEATED RBC % (test code = NRBC%) 0.0 % 0-0 N NEUTROPHIL # (test code = NT#) 5.25 K/mm3 1.8-7.7 N IMMATURE GRANULOCYTE # (test code = IG#) 0.04 x10 3/uL 0-0.03 H LYMPHOCYTE # (test code = LY#) 1.65 K/mm3 1.0-5.0 N MONOCYTE # (test code = MO#) 0.45 K/mm3 0-0.8 N EOSINOPHIL # (test code = EO#) 0.12 K/mm3 0.0-0.5 N BASOPHIL # (test code = BA#) 0.03 K/mm3 0.0-0.2 N NUCLEATED RBC # (test code = NRBC#) 0.00 K/mm3 0.0-0.1 N MANUAL DIFF REQUIRED (test code = MDIFF) NO, ONLY SCAN NEEDED DIFFERENTIAL [id number] 19:58:00* Test Item Value Reference Range Interpretation Comments STAIN ACCEPTABILITY (test code = STN ACCEPTABLE) CABOT RINGS (test code = CAB) MORPHOLOGY COMMENT (test code = MOC) PLATELET ESTIMATE (test code = PLTEST) PLATELET MORPHOLOGY (test code = PLTMORPH) CBC W/AUTO [id number] 19:58:00* Test Item Value Reference Range Interpretation Comments WHITE BLOOD CELL (test code = WBC) 7.5 K/mm3 4.5-12.5 N RED BLOOD CELL (test code = RBC) 4.16 mill/mm3 3.7-5.2 N HEMOGLOBIN (test code = HGB) 11.3 gram/dL 11.5-15.5 L HEMATOCRIT (test code = HCT) 36.4 % 36.0-46.0 N MEAN CELL VOLUME (test code = MCV) 87.5 fL 80-98 N MEAN CELL HGB (test code = MCH) 27.2 picogram 27.0-33.0 N MEAN CELL HGB CONCETRATION (test code = MCHC) 31.0 gram/dL 33.0-36. 0 L RED CELL DISTRIBUTION WIDTH (test code = RDW) 21.2 % 11.6-16. 2 H RED CELL DISTRIBUTION WIDTH SD (test code = RDW-SD) 67.8 fL 37 .0-51.0 H PLATELET COUNT (test code = PLT) 252 K/mm3 150-450 N MEAN PLATELET VOLUME (test code = MPV) 10.3 fL 6.7-11.0 N NEUTROPHIL % (test code = NT%) 69.6 % 39.0-69.0 H IMMATURE GRANULOCYTE % (test code = IG%) 0.5 % 0.0-5.0 N LYMPHOCYTE % (test code = LY%) 21.9 % 25.0-55.0 L MONOCYTE % (test code = MO%) 6.0 % 0.0-10.0 N EOSINOPHIL % (test code = EO%) 1.6 % 0.0-5.0 N BASOPHIL % (test code = BA%) 0.4 % 0.0-1.0 N NUCLEATED RBC % (test code = NRBC%) 0.0 % 0-0 N NEUTROPHIL # (test code = NT#) 5.25 K/mm3 1.8-7.7 N IMMATURE GRANULOCYTE # (test code = IG#) 0.04 x10 3/uL 0-0.03 H LYMPHOCYTE # (test code = LY#) 1.65 K/mm3 1.0-5.0 N MONOCYTE # (test code = MO#) 0.45 K/mm3 0-0.8 N EOSINOPHIL # (test code = EO#) 0.12 K/mm3 0.0-0.5 N BASOPHIL # (test code = BA#) 0.03 K/mm3 0.0-0.2 N NUCLEATED RBC # (test code = NRBC#) 0.00 K/mm3 0.0-0.1 N MANUAL DIFF REQUIRED (test code = MDIFF) NO, ONLY SCAN NEEDED DIFFERENTIAL [id number] 19:58:00* Test Item Value Reference Range Interpretation Comments STAIN ACCEPTABILITY (test code = STN ACCEPTABLE) MORPHOLOGY COMMENT (test code = MOC) PLATELET ESTIMATE (test code = PLTEST) PLATELET MORPHOLOGY (test code = PLTMORPH) CBC W/AUTO [id number] 19:58:00* Test Item Value Reference Range Interpretation Comments WHITE BLOOD CELL (test code = WBC) 7.5 K/mm3 4.5-12.5 N RED BLOOD CELL (test code = RBC) 4.16 mill/mm3 3.7-5.2 N HEMOGLOBIN (test code = HGB) 11.3 gram/dL 11.5-15.5 L HEMATOCRIT (test code = HCT) 36.4 % 36.0-46.0 N MEAN CELL VOLUME (test code = MCV) 87.5 fL 80-98 N MEAN CELL HGB (test code = MCH) 27.2 picogram 27.0-33.0 N MEAN CELL HGB CONCETRATION (test code = MCHC) 31.0 gram/dL 33.0-36. 0 L RED CELL DISTRIBUTION WIDTH (test code = RDW) 21.2 % 11.6-16. 2 H RED CELL DISTRIBUTION WIDTH SD (test code = RDW-SD) 67.8 fL 37 .0-51.0 H PLATELET COUNT (test code = PLT) 252 K/mm3 150-450 N MEAN PLATELET VOLUME (test code = MPV) 10.3 fL 6.7-11.0 N NEUTROPHIL % (test code = NT%) 69.6 % 39.0-69.0 H IMMATURE GRANULOCYTE % (test code = IG%) 0.5 % 0.0-5.0 N LYMPHOCYTE % (test code = LY%) 21.9 % 25.0-55.0 L MONOCYTE % (test code = MO%) 6.0 % 0.0-10.0 N EOSINOPHIL % (test code = EO%) 1.6 % 0.0-5.0 N BASOPHIL % (test code = BA%) 0.4 % 0.0-1.0 N NUCLEATED RBC % (test code = NRBC%) 0.0 % 0-0 N NEUTROPHIL # (test code = NT#) 5.25 K/mm3 1.8-7.7 N IMMATURE GRANULOCYTE # (test code = IG#) 0.04 x10 3/uL 0-0.03 H LYMPHOCYTE # (test code = LY#) 1.65 K/mm3 1.0-5.0 N MONOCYTE # (test code = MO#) 0.45 K/mm3 0-0.8 N EOSINOPHIL # (test code = EO#) 0.12 K/mm3 0.0-0.5 N BASOPHIL # (test code = BA#) 0.03 K/mm3 0.0-0.2 N NUCLEATED RBC # (test code = NRBC#) 0.00 K/mm3 0.0-0.1 N MANUAL DIFF REQUIRED (test code = MDIFF) NO, ONLY SCAN NEEDED DIFFERENTIAL [id number] 19:58:00* Test Item Value Reference Range Interpretation Comments STAIN ACCEPTABILITY (test code = STN ACCEPTABLE) MORPHOLOGY COMMENT (test code = MOC) PLATELET ESTIMATE (test code = PLTEST) PLATELET MORPHOLOGY (test code = PLTMORPH) CBC W/AUTO [id number] 19:58:00* Test Item Value Reference Range Interpretation Comments WHITE BLOOD CELL (test code = WBC) 7.5 K/mm3 4.5-12.5 N RED BLOOD CELL (test code = RBC) 4.16 mill/mm3 3.7-5.2 N HEMOGLOBIN (test code = HGB) 11.3 gram/dL 11.5-15.5 L HEMATOCRIT (test code = HCT) 36.4 % 36.0-46.0 N MEAN CELL VOLUME (test code = MCV) 87.5 fL 80-98 N MEAN CELL HGB (test code = MCH) 27.2 picogram 27.0-33.0 N MEAN CELL HGB CONCETRATION (test code = MCHC) 31.0 gram/dL 33.0-36. 0 L RED CELL DISTRIBUTION WIDTH (test code = RDW) 21.2 % 11.6-16. 2 H RED CELL DISTRIBUTION WIDTH SD (test code = RDW-SD) 67.8 fL 37 .0-51.0 H PLATELET COUNT (test code = PLT) 252 K/mm3 150-450 N MEAN PLATELET VOLUME (test code = MPV) 10.3 fL 6.7-11.0 N NEUTROPHIL % (test code = NT%) 69.6 % 39.0-69.0 H IMMATURE GRANULOCYTE % (test code = IG%) 0.5 % 0.0-5.0 N LYMPHOCYTE % (test code = LY%) 21.9 % 25.0-55.0 L MONOCYTE % (test code = MO%) 6.0 % 0.0-10.0 N EOSINOPHIL % (test code = EO%) 1.6 % 0.0-5.0 N BASOPHIL % (test code = BA%) 0.4 % 0.0-1.0 N NUCLEATED RBC % (test code = NRBC%) 0.0 % 0-0 N NEUTROPHIL # (test code = NT#) 5.25 K/mm3 1.8-7.7 N IMMATURE GRANULOCYTE # (test code = IG#) 0.04 x10 3/uL 0-0.03 H LYMPHOCYTE # (test code = LY#) 1.65 K/mm3 1.0-5.0 N MONOCYTE # (test code = MO#) 0.45 K/mm3 0-0.8 N EOSINOPHIL # (test code = EO#) 0.12 K/mm3 0.0-0.5 N BASOPHIL # (test code = BA#) 0.03 K/mm3 0.0-0.2 N NUCLEATED RBC # (test code = NRBC#) 0.00 K/mm3 0.0-0.1 N MANUAL DIFF REQUIRED (test code = MDIFF) NO, ONLY SCAN NEEDED DIFFERENTIAL [id number] 19:58:00* Test Item Value Reference Range Interpretation Comments STAIN ACCEPTABILITY (test code = STN ACCEPTABLE) CABOT RINGS (test code = CAB) MORPHOLOGY COMMENT (test code = MOC) PLATELET ESTIMATE (test code = PLTEST) PLATELET MORPHOLOGY (test code = PLTMORPH) UA GLUCOSE DIPSTIC [id number] 11:41:00* Test Item Value Reference Range Interpretation Comments UA GLUCOSE DIPSTIC POC (test code = GLUUP) Negative Negative UA GLU: NEGATIVEKET UA NEGATIVEPH UA 8.0UA NIT NegativePROT UA NEGATIVEBL UA NEG ATIVEUA LAZARO NegativeTime performed: 1018UA KETONE DIPSTICK [id number] 11:41:00* Test Item Value Reference Range Interpretation Comments UA KETONE DIPSTICK POC (test code = KETUP) Negative UA GLU: NEGATIVEKET UA NEGATIVEPH UA 8.0UA NIT NegativePROT UA NEGATIVEBL UA NEG ATIVEUA LAZARO NegativeTime performed: 1018UA BLOOD DIPSTIC [id number] 11:41:00 * Test Item Value Reference Range Interpretation Comments UA BLOOD DIPSTIC POC (test code = BLUP) NEGATIVE UA GLU: NEGATIVEKET UA NEGATIVEPH UA 8.0UA NIT NegativePROT UA NEGATIVEBL UA NEG ATIVEUA LAZARO NegativeTime performed: 1018UA PH DIPSTIC [id number] 11:41:00* Test Item Value Reference Range Interpretation Comments UA PH DIPSTIC POC (test code = PHUP) 5-8 UA GLU: NEGATIVEKET UA NEGATIVEPH UA 8.0UA NIT NegativePROT UA NEGATIVEBL UA NEG ATIVEUA LAZARO NegativeTime performed: 1018UA PROTEIN DIPSTICK [id number] 11:41:00* Test Item Value Reference Range Interpretation Comments UA PROTEIN DIPSTICK POC (test code = DPROUP) Neg -15 UA GLU: NEGATIVEKET UA NEGATIVEPH UA 8.0UA NIT NegativePROT UA NEGATIVEBL UA NEG ATIVEUA LAZARO NegativeTime performed: 1018UA NITRITE DIPSTICK [id number] 11:41:00* Test Item Value Reference Range Interpretation Comments UA NITRITE DIPSTICK POC (test code = NITUP) Negative UA GLU: NEGATIVEKET UA NEGATIVEPH UA 8.0UA NIT NegativePROT UA NEGATIVEBL UA NEG ATIVEUA LAZARO NegativeTime performed: 1018UA LEUKOCYTE ESTERASE [id number] 11:41:00* Test Item Value Reference Range Interpretation Comments UA LEUKOCYTE ESTERASE POC (test code = LEUUPOC) NEGATI VE UA GLU: NEGATIVEKET UA NEGATIVEPH UA 8.0UA NIT NegativePROT UA NEGATIVEBL UA NEG ATIVEUA LAZARO NegativeTime performed: 1018UA GLUCOSE DIPSTIC [id number] 11:41:00* Test Item Value Reference Range Interpretation Comments UA GLUCOSE DIPSTIC POC (test code = GLUUP) Negative Negative UA GLU: NEGATIVEKET UA NEGATIVEPH UA 8.0UA NIT NegativePROT UA NEGATIVEBL UA NEG ATIVEUA LAZARO NegativeTime performed: 1018UA KETONE DIPSTICK [id number] 11:41:00* Test Item Value Reference Range Interpretation Comments UA KETONE DIPSTICK POC (test code = KETUP) Negative Negative UA GLU: NEGATIVEKET UA NEGATIVEPH UA 8.0UA NIT NegativePROT UA NEGATIVEBL UA NEG ATIVEUA LAZARO NegativeTime performed: 1018UA BLOOD DIPSTIC [id number] 11:41:00 * Test Item Value Reference Range Interpretation Comments UA BLOOD DIPSTIC POC (test code = BLUP) NEGATIVE UA GLU: NEGATIVEKET UA NEGATIVEPH UA 8.0UA NIT NegativePROT UA NEGATIVEBL UA NEG ATIVEUA LAZARO NegativeTime performed: 1018UA PH DIPSTIC [id number] 11:41:00* Test Item Value Reference Range Interpretation Comments UA PH DIPSTIC POC (test code = PHUP) 5-8 UA GLU: NEGATIVEKET UA NEGATIVEPH UA 8.0UA NIT NegativePROT UA NEGATIVEBL UA NEG ATIVEUA LAZARO NegativeTime performed: 1018UA PROTEIN DIPSTICK [id number] 11:41:00* Test Item Value Reference Range Interpretation Comments UA PROTEIN DIPSTICK POC (test code = DPROUP) Neg -15 UA GLU: NEGATIVEKET UA NEGATIVEPH UA 8.0UA NIT NegativePROT UA NEGATIVEBL UA NEG ATIVEUA LAZARO NegativeTime performed: 1018UA NITRITE DIPSTICK [id number] 11:41:00* Test Item Value Reference Range Interpretation Comments UA NITRITE DIPSTICK POC (test code = NITUP) Negative UA GLU: NEGATIVEKET UA NEGATIVEPH UA 8.0UA NIT NegativePROT UA NEGATIVEBL UA NEG ATIVEUA LAZARO NegativeTime performed: 1018UA LEUKOCYTE ESTERASE [id number] 11:41:00* Test Item Value Reference Range Interpretation Comments UA LEUKOCYTE ESTERASE POC (test code = LEUUPOC) NEGATI VE UA GLU: NEGATIVEKET UA NEGATIVEPH UA 8.0UA NIT NegativePROT UA NEGATIVEBL UA NEG ATIVEUA LAZARO NegativeTime performed: 1018UA GLUCOSE DIPSTIC [id number] 11:41:00* Test Item Value Reference Range Interpretation Comments UA GLUCOSE DIPSTIC POC (test code = GLUUP) Negative Negative UA GLU: NEGATIVEKET UA NEGATIVEPH UA 8.0UA NIT NegativePROT UA NEGATIVEBL UA NEG ATIVEUA LAZARO NegativeTime performed: 1018UA KETONE DIPSTICK [id number] 11:41:00* Test Item Value Reference Range Interpretation Comments UA KETONE DIPSTICK POC (test code = KETUP) Negative Negative UA GLU: NEGATIVEKET UA NEGATIVEPH UA 8.0UA NIT NegativePROT UA NEGATIVEBL UA NEG ATIVEUA LAZARO NegativeTime performed: 1018UA BLOOD DIPSTIC [id number] 11:41:00 * Test Item Value Reference Range Interpretation Comments UA BLOOD DIPSTIC POC (test code = BLUP) Negative NEGATIVE UA GLU: NEGATIVEKET UA NEGATIVEPH UA 8.0UA NIT NegativePROT UA NEGATIVEBL UA NEG ATIVEUA LAZARO NegativeTime performed: 1018UA PH DIPSTIC [id number] 11:41:00* Test Item Value Reference Range Interpretation Comments UA PH DIPSTIC POC (test code = PHUP) 5-8 UA GLU: NEGATIVEKET UA NEGATIVEPH UA 8.0UA NIT NegativePROT UA NEGATIVEBL UA NEG ATIVEUA LAZARO NegativeTime performed: 1018UA PROTEIN DIPSTICK [id number] 11:41:00* Test Item Value Reference Range Interpretation Comments UA PROTEIN DIPSTICK POC (test code = DPROUP) Neg -15 UA GLU: NEGATIVEKET UA NEGATIVEPH UA 8.0UA NIT NegativePROT UA NEGATIVEBL UA NEG ATIVEUA LAZARO NegativeTime performed: 1018UA NITRITE DIPSTICK [id number] 11:41:00* Test Item Value Reference Range Interpretation Comments UA NITRITE DIPSTICK POC (test code = NITUP) Negative UA GLU: NEGATIVEKET UA NEGATIVEPH UA 8.0UA NIT NegativePROT UA NEGATIVEBL UA NEG ATIVEUA LAZARO NegativeTime performed: 1018UA LEUKOCYTE ESTERASE [id number] 11:41:00* Test Item Value Reference Range Interpretation Comments UA LEUKOCYTE ESTERASE POC (test code = LEUUPOC) NEGATI VE UA GLU: NEGATIVEKET UA NEGATIVEPH UA 8.0UA NIT NegativePROT UA NEGATIVEBL UA NEG ATIVEUA LAZARO NegativeTime performed: 1018UA GLUCOSE DIPSTIC [id number] 11:41:00* Test Item Value Reference Range Interpretation Comments UA GLUCOSE DIPSTIC POC (test code = GLUUP) Negative Negative UA GLU: NEGATIVEKET UA NEGATIVEPH UA 8.0UA NIT NegativePROT UA NEGATIVEBL UA NEG ATIVEUA LAZARO NegativeTime performed: 1018UA KETONE DIPSTICK [id number] 11:41:00* Test Item Value Reference Range Interpretation Comments UA KETONE DIPSTICK POC (test code = KETUP) Negative Negative UA GLU: NEGATIVEKET UA NEGATIVEPH UA 8.0UA NIT NegativePROT UA NEGATIVEBL UA NEG ATIVEUA LAZARO NegativeTime performed: 1018UA BLOOD DIPSTIC [id number] 11:41:00 * Test Item Value Reference Range Interpretation Comments UA BLOOD DIPSTIC POC (test code = BLUP) Negative NEGATIVE UA GLU: NEGATIVEKET UA NEGATIVEPH UA 8.0UA NIT NegativePROT UA NEGATIVEBL UA NEG ATIVEUA LAZARO NegativeTime performed: 1018UA PH DIPSTIC [id number] 11:41:00* Test Item Value Reference Range Interpretation Comments UA PH DIPSTIC POC (test code = PHUP) 8 5-8 N UA GLU: NEGATIVEKET UA NEGATIVEPH UA 8.0UA NIT NegativePROT UA NEGATIVEBL UA NEG ATIVEUA LAZARO NegativeTime performed: 1018UA PROTEIN DIPSTICK [id number] 11:41:00* Test Item Value Reference Range Interpretation Comments UA PROTEIN DIPSTICK POC (test code = DPROUP) Neg -15 UA GLU: NEGATIVEKET UA NEGATIVEPH UA 8.0UA NIT NegativePROT UA NEGATIVEBL UA NEG ATIVEUA LAZARO NegativeTime performed: 1018UA NITRITE DIPSTICK [id number] 11:41:00* Test Item Value Reference Range Interpretation Comments UA NITRITE DIPSTICK POC (test code = NITUP) Negative UA GLU: NEGATIVEKET UA NEGATIVEPH UA 8.0UA NIT NegativePROT UA NEGATIVEBL UA NEG ATIVEUA LAZARO NegativeTime performed: 1018UA LEUKOCYTE ESTERASE [id number] 11:41:00* Test Item Value Reference Range Interpretation Comments UA LEUKOCYTE ESTERASE POC (test code = LEUUPOC) NEGATI VE UA GLU: NEGATIVEKET UA NEGATIVEPH UA 8.0UA NIT NegativePROT UA NEGATIVEBL UA NEG ATIVEUA LAZARO NegativeTime performed: 1018UA GLUCOSE DIPSTIC [id number] 11:41:00* Test Item Value Reference Range Interpretation Comments UA GLUCOSE DIPSTIC POC (test code = GLUUP) Negative Negative UA GLU: NEGATIVEKET UA NEGATIVEPH UA 8.0UA NIT NegativePROT UA NEGATIVEBL UA NEG ATIVEUA LAZARO NegativeTime performed: 1018UA KETONE DIPSTICK [id number] 11:41:00* Test Item Value Reference Range Interpretation Comments UA KETONE DIPSTICK POC (test code = KETUP) Negative Negative UA GLU: NEGATIVEKET UA NEGATIVEPH UA 8.0UA NIT NegativePROT UA NEGATIVEBL UA NEG ATIVEUA LAZARO NegativeTime performed: 1018UA BLOOD DIPSTIC [id number] 11:41:00 * Test Item Value Reference Range Interpretation Comments UA BLOOD DIPSTIC POC (test code = BLUP) Negative NEGATIVE UA GLU: NEGATIVEKET UA NEGATIVEPH UA 8.0UA NIT NegativePROT UA NEGATIVEBL UA NEG ATIVEUA LAZARO NegativeTime performed: 1018UA PH DIPSTIC [id number] 11:41:00* Test Item Value Reference Range Interpretation Comments UA PH DIPSTIC POC (test code = PHUP) 8 5-8 N UA GLU: NEGATIVEKET UA NEGATIVEPH UA 8.0UA NIT NegativePROT UA NEGATIVEBL UA NEG ATIVEUA LAZARO NegativeTime performed: 1018UA PROTEIN DIPSTICK [id number] 11:41:00* Test Item Value Reference Range Interpretation Comments UA PROTEIN DIPSTICK POC (test code = DPROUP) Negative Neg -15 UA GLU: NEGATIVEKET UA NEGATIVEPH UA 8.0UA NIT NegativePROT UA NEGATIVEBL UA NEG ATIVEUA LAZARO NegativeTime performed: 1018UA NITRITE DIPSTICK [id number] 11:41:00* Test Item Value Reference Range Interpretation Comments UA NITRITE DIPSTICK POC (test code = NITUP) Negative UA GLU: NEGATIVEKET UA NEGATIVEPH UA 8.0UA NIT NegativePROT UA NEGATIVEBL UA NEG ATIVEUA LAZARO NegativeTime performed: 1018UA LEUKOCYTE ESTERASE [id number] 11:41:00* Test Item Value Reference Range Interpretation Comments UA LEUKOCYTE ESTERASE POC (test code = LEUUPOC) NEGATI VE UA GLU: NEGATIVEKET UA NEGATIVEPH UA 8.0UA NIT NegativePROT UA NEGATIVEBL UA NEG ATIVEUA LAZARO NegativeTime performed: 1018UA GLUCOSE DIPSTIC [id number] 11:41:00* Test Item Value Reference Range Interpretation Comments UA GLUCOSE DIPSTIC POC (test code = GLUUP) Negative Negative UA GLU: NEGATIVEKET UA NEGATIVEPH UA 8.0UA NIT NegativePROT UA NEGATIVEBL UA NEG ATIVEUA LAZARO NegativeTime performed: 1018UA KETONE DIPSTICK [id number] 11:41:00* Test Item Value Reference Range Interpretation Comments UA KETONE DIPSTICK POC (test code = KETUP) Negative Negative UA GLU: NEGATIVEKET UA NEGATIVEPH UA 8.0UA NIT NegativePROT UA NEGATIVEBL UA NEG ATIVEUA LAZARO NegativeTime performed: 1018UA BLOOD DIPSTIC [id number] 11:41:00 * Test Item Value Reference Range Interpretation Comments UA BLOOD DIPSTIC POC (test code = BLUP) Negative NEGATIVE UA GLU: NEGATIVEKET UA NEGATIVEPH UA 8.0UA NIT NegativePROT UA NEGATIVEBL UA NEG ATIVEUA LAZARO NegativeTime performed: 1018UA PH DIPSTIC [id number] 11:41:00* Test Item Value Reference Range Interpretation Comments UA PH DIPSTIC POC (test code = PHUP) 8 5-8 N UA GLU: NEGATIVEKET UA NEGATIVEPH UA 8.0UA NIT NegativePROT UA NEGATIVEBL UA NEG ATIVEUA LAZARO NegativeTime performed: 1018UA PROTEIN DIPSTICK [id number] 11:41:00* Test Item Value Reference Range Interpretation Comments UA PROTEIN DIPSTICK POC (test code = DPROUP) Negative Neg -15 UA GLU: NEGATIVEKET UA NEGATIVEPH UA 8.0UA NIT NegativePROT UA NEGATIVEBL UA NEG ATIVEUA LAZARO NegativeTime performed: 1018UA NITRITE DIPSTICK [id number] 11:41:00* Test Item Value Reference Range Interpretation Comments UA NITRITE DIPSTICK POC (test code = NITUP) Negative Negative UA GLU: NEGATIVEKET UA NEGATIVEPH UA 8.0UA NIT NegativePROT UA NEGATIVEBL UA NEG ATIVEUA LAZARO NegativeTime performed: 1018UA LEUKOCYTE ESTERASE [id number] 11:41:00* Test Item Value Reference Range Interpretation Comments UA LEUKOCYTE ESTERASE POC (test code = LEUUPOC) NEGATI VE UA GLU: NEGATIVEKET UA NEGATIVEPH UA 8.0UA NIT NegativePROT UA NEGATIVEBL UA NEG ATIVEUA LAZARO NegativeTime performed: 1018UA GLUCOSE DIPSTIC [id number] 11:41:00* Test Item Value Reference Range Interpretation Comments UA GLUCOSE DIPSTIC POC (test code = GLUUP) Negative Negative UA GLU: NEGATIVEKET UA NEGATIVEPH UA 8.0UA NIT NegativePROT UA NEGATIVEBL UA NEG ATIVEUA LAZARO NegativeTime performed: 1018UA KETONE DIPSTICK [id number] 11:41:00* Test Item Value Reference Range Interpretation Comments UA KETONE DIPSTICK POC (test code = KETUP) Negative Negative UA GLU: NEGATIVEKET UA NEGATIVEPH UA 8.0UA NIT NegativePROT UA NEGATIVEBL UA NEG ATIVEUA LAZARO NegativeTime performed: 1018UA BLOOD DIPSTIC [id number] 11:41:00 * Test Item Value Reference Range Interpretation Comments UA BLOOD DIPSTIC POC (test code = BLUP) Negative NEGATIVE UA GLU: NEGATIVEKET UA NEGATIVEPH UA 8.0UA NIT NegativePROT UA NEGATIVEBL UA NEG ATIVEUA LAZARO NegativeTime performed: 1018UA PH DIPSTIC [id number] 11:41:00* Test Item Value Reference Range Interpretation Comments UA PH DIPSTIC POC (test code = PHUP) 8 5-8 N UA GLU: NEGATIVEKET UA NEGATIVEPH UA 8.0UA NIT NegativePROT UA NEGATIVEBL UA NEG ATIVEUA LAZARO NegativeTime performed: 1018UA PROTEIN DIPSTICK [id number] 11:41:00* Test Item Value Reference Range Interpretation Comments UA PROTEIN DIPSTICK POC (test code = DPROUP) Negative Neg -15 UA GLU: NEGATIVEKET UA NEGATIVEPH UA 8.0UA NIT NegativePROT UA NEGATIVEBL UA NEG ATIVEUA LAZARO NegativeTime performed: 1018UA NITRITE DIPSTICK [id number] 11:41:00* Test Item Value Reference Range Interpretation Comments UA NITRITE DIPSTICK POC (test code = NITUP) Negative Negative UA GLU: NEGATIVEKET UA NEGATIVEPH UA 8.0UA NIT NegativePROT UA NEGATIVEBL UA NEG ATIVEUA LAZARO NegativeTime performed: 1017UA LEUKOCYTE ESTERASE [id number] 11:41:00* Test Item Value Reference Range Interpretation Comments UA LEUKOCYTE ESTERASE POC (test code = LEUUPOC) NEGATIVE NEGATI VE UA GLU: NEGATIVEKET UA NEGATIVEPH UA 8.0UA NIT NegativePROT UA NEGATIVEBL UA NEG ATIVEUA LAZARO NegativeTime performed: 8URINALYSIS [id number] 13:35:00* Test Item Value Reference Range Interpretation Comments UA COLOR (test code = COLU) LIGHT YELLOW YELLOW UA APPEARANCE (test code = APPU) HAZY CLEAR A UA GLUCOSE DIPSTICK (test code = DGLUU) norm mg/dL NEGATIVE UA BILIRUBIN DIPSTICK (test code = BILU) NEGATIVE mg/dL NEGATIVE UA KETONE DIPSTICK (test code = KETU) neg mg/dL NEGATIVE UA SPECIFIC GRAVITY (test code = SGU) 1.005 1.001-1.035 UA BLOOD DIPSTICK (test code = TIFFANIE) 250 (4+) Derrick/uL NEGATIVE A UA PH DIPSTICK (test code = JOSH) 7.0 5.0-8.0 UA PROTEIN DIPSTICK (test code = PROU) neg mg/dL Neg-15 UA UROBILINIOGEN DIPSTICK (test code = URO) norm mg/dL 0.0-0.2 UA NITRITE DIPSTICK (test code = DIEGO) NEGATIVE NEGATIVE UA LEUKOCYTE ESTERASE DIPSTICK (test code = LEUU) 100 Lazaro/uL (1+) u L NEGATIVE A UA WBC (test code = WBCU) 0-5 per HPF 0-5 UA RBC (test code = RBCU) 3-5 per HPF 0-5 A UA EPITHELIAL CELLS (test code = EPIU) Few (2-5/hpf) per HPF Few UA BACTERIA (test code = BACU) MODERATE per HPF NONE A Urine Source? Clean CatchURINALYSIS [id number] 13:28:00* Test Item Value Reference Range Interpretation Comments UA COLOR (test code = COLU) LIGHT YELLOW YELLOW UA APPEARANCE (test code = APPU) HAZY CLEAR A UA GLUCOSE DIPSTICK (test code = DGLUU) norm mg/dL NEGATIVE UA BILIRUBIN DIPSTICK (test code = BILU) NEGATIVE mg/dL NEGATIVE UA KETONE DIPSTICK (test code = KETU) neg mg/dL NEGATIVE UA SPECIFIC GRAVITY (test code = SGU) 1.005 1.001-1.035 UA BLOOD DIPSTICK (test code = TIFFANIE) 250 (4+) Derrick/uL NEGATIVE A UA PH DIPSTICK (test code = JOSH) 7.0 5.0-8.0 UA PROTEIN DIPSTICK (test code = PROU) neg mg/dL Neg-15 UA UROBILINIOGEN DIPSTICK (test code = URO) norm mg/dL 0.0-0.2 UA NITRITE DIPSTICK (test code = DIEGO) NEGATIVE NEGATIVE UA LEUKOCYTE ESTERASE DIPSTICK (test code = LEUU) 100 Lazaro/uL (1+) u L NEGATIVE A UA WBC (test code = WBCU) per HPF 0-5 UA RBC (test code = RBCU) per HPF 0-5 UA EPITHELIAL CELLS (test code = EPIU) per HPF Few UA BACTERIA (test code = BACU) per HPF NONE Urine Source? Clean CatchUA GLUCOSE DIPSTIC [id number] 15:57:00* Test Item Value Reference Range Interpretation Comments UA GLUCOSE DIPSTIC POC (test code = GLUUP) Negative Negative UA GLU: NEGATIVEKET UA 40-60 (2+)PH UA 7.0UA NIT NegativePROT UA NEGATIVEBL UA N EGATIVEUA LAZARO NegativeTime performed: 1530UA KETONE DIPSTICK [id number] 15:57:00* Test Item Value Reference Range Interpretation Comments UA KETONE DIPSTICK POC (test code = KETUP) Negative UA GLU: NEGATIVEKET UA 40-60 (2+)PH UA 7.0UA NIT NegativePROT UA NEGATIVEBL UA N EGATIVEUA LAZARO NegativeTime performed: 1530UA BLOOD DIPSTIC [id number] 15:57:00* Test Item Value Reference Range Interpretation Comments UA BLOOD DIPSTIC POC (test code = BLUP) NEGATIVE UA GLU: NEGATIVEKET UA 40-60 (2+)PH UA 7.0UA NIT NegativePROT UA NEGATIVEBL UA N EGATIVEUA LAZARO NegativeTime performed: 1530UA PH DIPSTIC [id number] 15:57:00* Test Item Value Reference Range Interpretation Comments UA PH DIPSTIC POC (test code = PHUP) 5-8 UA GLU: NEGATIVEKET UA 40-60 (2+)PH UA 7.0UA NIT NegativePROT UA NEGATIVEBL UA N EGATIVEUA LAZARO NegativeTime performed: 1530 PROTEIN DIPSTICK [id number] 15:57:00* Test Item Value Reference Range Interpretation Comments UA PROTEIN DIPSTICK POC (test code = DPROUP) Neg -15 UA GLU: NEGATIVEKET UA 40-60 (2+)PH UA 7.0UA NIT NegativePROT UA NEGATIVEBL UA N EGATIVEUA LAZARO NegativeTime performed: 1530 NITRITE DIPSTICK [id number] 15:57:00* Test Item Value Reference Range Interpretation Comments UA NITRITE DIPSTICK POC (test code = NITUP) Negative UA GLU: NEGATIVEKET UA 40-60 (2+)PH UA 7.0UA NIT NegativePROT UA NEGATIVEBL UA N EGATIVEUA LAZARO NegativeTime performed: 0 LEUKOCYTE ESTERASE [id number] 15:57:00* Test Item Value Reference Range Interpretation Comments UA LEUKOCYTE ESTERASE POC (test code = LEUUPOC) NEGATI VE UA GLU: NEGATIVEKET UA 40-60 (2+)PH UA 7.0UA NIT NegativePROT UA NEGATIVEBL UA N EGATIVEUA LAZARO NegativeTime performed: 1530 GLUCOSE DIPSTIC [id number] 15:57:00* Test Item Value Reference Range Interpretation Comments UA GLUCOSE DIPSTIC POC (test code = GLUUP) Negative Negative UA GLU: NEGATIVEKET UA 40-60 (2+)PH UA 7.0UA NIT NegativePROT UA NEGATIVEBL UA N EGATIVEUA LAZARO NegativeTime performed: 153 KETONE DIPSTICK [id number] 15:57:00* Test Item Value Reference Range Interpretation Comments UA KETONE DIPSTICK POC (test code = KETUP) 40-60 Negative UA GLU: NEGATIVEKET UA 40-60 (2+)PH UA 7.0UA NIT NegativePROT UA NEGATIVEBL UA N EGATIVEUA LAZARO NegativeTime performed: 1530 BLOOD DIPSTIC [id number] 15:57:00* Test Item Value Reference Range Interpretation Comments UA BLOOD DIPSTIC POC (test code = BLUP) NEGATIVE UA GLU: NEGATIVEKET UA 40-60 (2+)PH UA 7.0UA NIT NegativePROT UA NEGATIVEBL UA N EGATIVEUA LAZARO NegativeTime performed: 1530UA PH DIPSTIC [id number] 15:57:00* Test Item Value Reference Range Interpretation Comments UA PH DIPSTIC POC (test code = PHUP) 5-8 UA GLU: NEGATIVEKET UA 40-60 (2+)PH UA 7.0UA NIT NegativePROT UA NEGATIVEBL UA N EGATIVEUA LAZARO NegativeTime performed: 1530UA PROTEIN DIPSTICK [id number] 15:57:00* Test Item Value Reference Range Interpretation Comments UA PROTEIN DIPSTICK POC (test code = DPROUP) Neg -15 UA GLU: NEGATIVEKET UA 40-60 (2+)PH UA 7.0UA NIT NegativePROT UA NEGATIVEBL UA N EGATIVEUA LAZARO NegativeTime performed: 1530UA NITRITE DIPSTICK [id number] 15:57:00* Test Item Value Reference Range Interpretation Comments UA NITRITE DIPSTICK POC (test code = NITUP) Negative UA GLU: NEGATIVEKET UA 40-60 (2+)PH UA 7.0UA NIT NegativePROT UA NEGATIVEBL UA N EGATIVEUA LAZARO NegativeTime performed: 1530UA LEUKOCYTE ESTERASE [id number] 15:57:00* Test Item Value Reference Range Interpretation Comments UA LEUKOCYTE ESTERASE POC (test code = LEUUPOC) NEGATI VE UA GLU: NEGATIVEKET UA 40-60 (2+)PH UA 7.0UA NIT NegativePROT UA NEGATIVEBL UA N EGATIVEUA LAZARO NegativeTime performed: 1530UA GLUCOSE DIPSTIC [id number] 15:57:00* Test Item Value Reference Range Interpretation Comments UA GLUCOSE DIPSTIC POC (test code = GLUUP) Negative Negative UA GLU: NEGATIVEKET UA 40-60 (2+)PH UA 7.0UA NIT NegativePROT UA NEGATIVEBL UA N EGATIVEUA LAZARO NegativeTime performed: 1530UA KETONE DIPSTICK [id number] 15:57:00* Test Item Value Reference Range Interpretation Comments UA KETONE DIPSTICK POC (test code = KETUP) 40-60 Negative UA GLU: NEGATIVEKET UA 40-60 (2+)PH UA 7.0UA NIT NegativePROT UA NEGATIVEBL UA N EGATIVEUA LAZARO NegativeTime performed: 1530UA BLOOD DIPSTIC [id number] 15:57:00* Test Item Value Reference Range Interpretation Comments UA BLOOD DIPSTIC POC (test code = BLUP) Negative NEGATIVE UA GLU: NEGATIVEKET UA 40-60 (2+)PH UA 7.0UA NIT NegativePROT UA NEGATIVEBL UA N EGATIVEUA LAZARO NegativeTime performed: 1530UA PH DIPSTIC [id number] 15:57:00* Test Item Value Reference Range Interpretation Comments UA PH DIPSTIC POC (test code = PHUP) 5-8 UA GLU: NEGATIVEKET UA 40-60 (2+)PH UA 7.0UA NIT NegativePROT UA NEGATIVEBL UA N EGATIVEUA LAZARO NegativeTime performed: 1530UA PROTEIN DIPSTICK [id number] 15:57:00* Test Item Value Reference Range Interpretation Comments UA PROTEIN DIPSTICK POC (test code = DPROUP) Neg -15 UA GLU: NEGATIVEKET UA 40-60 (2+)PH UA 7.0UA NIT NegativePROT UA NEGATIVEBL UA N EGATIVEUA LAZARO NegativeTime performed: 1530UA NITRITE DIPSTICK [id number] 15:57:00* Test Item Value Reference Range Interpretation Comments UA NITRITE DIPSTICK POC (test code = NITUP) Negative UA GLU: NEGATIVEKET UA 40-60 (2+)PH UA 7.0UA NIT NegativePROT UA NEGATIVEBL UA N EGATIVEUA LAZARO NegativeTime performed: LEUKOCYTE ESTERASE [id number] 15:57:00* Test Item Value Reference Range Interpretation Comments UA LEUKOCYTE ESTERASE POC (test code = LEUUPOC) NEGATI VE UA GLU: NEGATIVEKET UA 40-60 (2+)PH UA 7.0UA NIT NegativePROT UA NEGATIVEBL UA N EGATIVEUA LAZARO NegativeTime performed: GLUCOSE DIPSTIC [id number] 15:57:00* Test Item Value Reference Range Interpretation Comments UA GLUCOSE DIPSTIC POC (test code = GLUUP) Negative Negative UA GLU: NEGATIVEKET UA 40-60 (2+)PH UA 7.0UA NIT NegativePROT UA NEGATIVEBL UA N EGATIVEUA LAZARO NegativeTime performed: 1530UA KETONE DIPSTICK [id number] 15:57:00* Test Item Value Reference Range Interpretation Comments UA KETONE DIPSTICK POC (test code = KETUP) 40-60 Negative UA GLU: NEGATIVEKET UA 40-60 (2+)PH UA 7.0UA NIT NegativePROT UA NEGATIVEBL UA N EGATIVEUA LAZARO NegativeTime performed: 1530UA BLOOD DIPSTIC [id number] 15:57:00* Test Item Value Reference Range Interpretation Comments UA BLOOD DIPSTIC POC (test code = BLUP) Negative NEGATIVE UA GLU: NEGATIVEKET UA 40-60 (2+)PH UA 7.0UA NIT NegativePROT UA NEGATIVEBL UA N EGATIVEUA LAZARO NegativeTime performed: 1530UA PH DIPSTIC [id number] 15:57:00* Test Item Value Reference Range Interpretation Comments UA PH DIPSTIC POC (test code = PHUP) 7 5-8 N UA GLU: NEGATIVEKET UA 40-60 (2+)PH UA 7.0UA NIT NegativePROT UA NEGATIVEBL UA N EGATIVEUA LAZARO NegativeTime performed: 1530UA PROTEIN DIPSTICK [id number] 15:57:00* Test Item Value Reference Range Interpretation Comments UA PROTEIN DIPSTICK POC (test code = DPROUP) Neg -15 UA GLU: NEGATIVEKET UA 40-60 (2+)PH UA 7.0UA NIT NegativePROT UA NEGATIVEBL UA N EGATIVEUA LAZARO NegativeTime performed: 1530UA NITRITE DIPSTICK [id number] 15:57:00* Test Item Value Reference Range Interpretation Comments UA NITRITE DIPSTICK POC (test code = NITUP) Negative UA GLU: NEGATIVEKET UA 40-60 (2+)PH UA 7.0UA NIT NegativePROT UA NEGATIVEBL UA N EGATIVEUA LAZARO NegativeTime performed: 1530UA LEUKOCYTE ESTERASE [id number] 15:57:00* Test Item Value Reference Range Interpretation Comments UA LEUKOCYTE ESTERASE POC (test code = LEUUPOC) NEGATI VE UA GLU: NEGATIVEKET UA 40-60 (2+)PH UA 7.0UA NIT NegativePROT UA NEGATIVEBL UA N EGATIVEUA LAZARO NegativeTime performed: 1530UA GLUCOSE DIPSTIC [id number] 15:57:00* Test Item Value Reference Range Interpretation Comments UA GLUCOSE DIPSTIC POC (test code = GLUUP) Negative Negative UA GLU: NEGATIVEKET UA 40-60 (2+)PH UA 7.0UA NIT NegativePROT UA NEGATIVEBL UA N EGATIVEUA LAZARO NegativeTime performed: 1530UA KETONE DIPSTICK [id number] 15:57:00* Test Item Value Reference Range Interpretation Comments UA KETONE DIPSTICK POC (test code = KETUP) 40-60 Negative UA GLU: NEGATIVEKET UA 40-60 (2+)PH UA 7.0UA NIT NegativePROT UA NEGATIVEBL UA N EGATIVEUA LAZARO NegativeTime performed: 1530UA BLOOD DIPSTIC [id number] 15:57:00* Test Item Value Reference Range Interpretation Comments UA BLOOD DIPSTIC POC (test code = BLUP) Negative NEGATIVE UA GLU: NEGATIVEKET UA 40-60 (2+)PH UA 7.0UA NIT NegativePROT UA NEGATIVEBL UA N EGATIVEUA LAZARO NegativeTime performed: 1530UA PH DIPSTIC [id number] 15:57:00* Test Item Value Reference Range Interpretation Comments UA PH DIPSTIC POC (test code = PHUP) 7 5-8 N UA GLU: NEGATIVEKET UA 40-60 (2+)PH UA 7.0UA NIT NegativePROT UA NEGATIVEBL UA N EGATIVEUA LAZARO NegativeTime performed: 1530UA PROTEIN DIPSTICK [id number] 15:57:00* Test Item Value Reference Range Interpretation Comments UA PROTEIN DIPSTICK POC (test code = DPROUP) Negative Neg -15 UA GLU: NEGATIVEKET UA 40-60 (2+)PH UA 7.0UA NIT NegativePROT UA NEGATIVEBL UA N EGATIVEUA LAZARO NegativeTime performed: 153UA NITRITE DIPSTICK [id number] 15:57:00* Test Item Value Reference Range Interpretation Comments UA NITRITE DIPSTICK POC (test code = NITUP) Negative UA GLU: NEGATIVEKET UA 40-60 (2+)PH UA 7.0UA NIT NegativePROT UA NEGATIVEBL UA N EGATIVEUA LAZARO NegativeTime performed: 1530UA LEUKOCYTE ESTERASE [id number] 15:57:00* Test Item Value Reference Range Interpretation Comments UA LEUKOCYTE ESTERASE POC (test code = LEUUPOC) NEGATI VE UA GLU: NEGATIVEKET UA 40-60 (2+)PH UA 7.0UA NIT NegativePROT UA NEGATIVEBL UA N EGATIVEUA LAZARO NegativeTime performed: 1530UA GLUCOSE DIPSTIC [id number] 15:57:00* Test Item Value Reference Range Interpretation Comments UA GLUCOSE DIPSTIC POC (test code = GLUUP) Negative Negative UA GLU: NEGATIVEKET UA 40-60 (2+)PH UA 7.0UA NIT NegativePROT UA NEGATIVEBL UA N EGATIVEUA LAZARO NegativeTime performed: 1530UA KETONE DIPSTICK [id number] 15:57:00* Test Item Value Reference Range Interpretation Comments UA KETONE DIPSTICK POC (test code = KETUP) 40-60 Negative UA GLU: NEGATIVEKET UA 40-60 (2+)PH UA 7.0UA NIT NegativePROT UA NEGATIVEBL UA N EGATIVEUA LAZARO NegativeTime performed: 1530UA BLOOD DIPSTIC [id number] 15:57:00* Test Item Value Reference Range Interpretation Comments UA BLOOD DIPSTIC POC (test code = BLUP) Negative NEGATIVE UA GLU: NEGATIVEKET UA 40-60 (2+)PH UA 7.0UA NIT NegativePROT UA NEGATIVEBL UA N EGATIVEUA LAZARO NegativeTime performed: 1530UA PH DIPSTIC [id number] 15:57:00* Test Item Value Reference Range Interpretation Comments UA PH DIPSTIC POC (test code = PHUP) 7 5-8 N UA GLU: NEGATIVEKET UA 40-60 (2+)PH UA 7.0UA NIT NegativePROT UA NEGATIVEBL UA N EGATIVEUA LAZARO NegativeTime performed: 1530UA PROTEIN DIPSTICK [id number] 15:57:00* Test Item Value Reference Range Interpretation Comments UA PROTEIN DIPSTICK POC (test code = DPROUP) Negative Neg -15 UA GLU: NEGATIVEKET UA 40-60 (2+)PH UA 7.0UA NIT NegativePROT UA NEGATIVEBL UA N EGATIVEUA LAZARO NegativeTime performed: 1530UA NITRITE DIPSTICK [id number] 15:57:00* Test Item Value Reference Range Interpretation Comments UA NITRITE DIPSTICK POC (test code = NITUP) Negative Negative UA GLU: NEGATIVEKET UA 40-60 (2+)PH UA 7.0UA NIT NegativePROT UA NEGATIVEBL UA N EGATIVEUA LAZARO NegativeTime performed: 1530UA LEUKOCYTE ESTERASE [id number] 15:57:00* Test Item Value Reference Range Interpretation Comments UA LEUKOCYTE ESTERASE POC (test code = LEUUPOC) NEGATI VE UA GLU: NEGATIVEKET UA 40-60 (2+)PH UA 7.0UA NIT NegativePROT UA NEGATIVEBL UA N EGATIVEUA LAZARO NegativeTime performed: 1530UA GLUCOSE DIPSTIC [id number] 15:57:00* Test Item Value Reference Range Interpretation Comments UA GLUCOSE DIPSTIC POC (test code = GLUUP) Negative Negative UA GLU: NEGATIVEKET UA 40-60 (2+)PH UA 7.0UA NIT NegativePROT UA NEGATIVEBL UA N EGATIVEUA LAZARO NegativeTime performed: 1530UA KETONE DIPSTICK [id number] 15:57:00* Test Item Value Reference Range Interpretation Comments UA KETONE DIPSTICK POC (test code = KETUP) 40-60 Negative UA GLU: NEGATIVEKET UA 40-60 (2+)PH UA 7.0UA NIT NegativePROT UA NEGATIVEBL UA N EGATIVEUA LAZARO NegativeTime performed: 1530UA BLOOD DIPSTIC [id number] 15:57:00* Test Item Value Reference Range Interpretation Comments UA BLOOD DIPSTIC POC (test code = BLUP) Negative NEGATIVE UA GLU: NEGATIVEKET UA 40-60 (2+)PH UA 7.0UA NIT NegativePROT UA NEGATIVEBL UA N EGATIVEUA LAZARO NegativeTime performed: 1530UA PH DIPSTIC [id number] 15:57:00* Test Item Value Reference Range Interpretation Comments UA PH DIPSTIC POC (test code = PHUP) 7 5-8 N UA GLU: NEGATIVEKET UA 40-60 (2+)PH UA 7.0UA NIT NegativePROT UA NEGATIVEBL UA N EGATIVEUA LAZARO NegativeTime performed: 1530UA PROTEIN DIPSTICK [id number] 15:57:00* Test Item Value Reference Range Interpretation Comments UA PROTEIN DIPSTICK POC (test code = DPROUP) Negative Neg -15 UA GLU: NEGATIVEKET UA 40-60 (2+)PH UA 7.0UA NIT NegativePROT UA NEGATIVEBL UA N EGATIVEUA LAZARO NegativeTime performed: 1530UA NITRITE DIPSTICK [id number] 15:57:00* Test Item Value Reference Range Interpretation Comments UA NITRITE DIPSTICK POC (test code = NITUP) Negative Negative UA GLU: NEGATIVEKET UA 40-60 (2+)PH UA 7.0UA NIT NegativePROT UA NEGATIVEBL UA N EGATIVEUA LAZARO NegativeTime performed: 1530UA LEUKOCYTE ESTERASE [id number] 15:57:00* Test Item Value Reference Range Interpretation Comments UA LEUKOCYTE ESTERASE POC (test code = LEUUPOC) NEGATIVE NEGATI VE UA GLU: NEGATIVEKET UA 40-60 (2+)PH UA 7.0UA NIT NegativePROT UA NEGATIVEBL UA N EGATIVEUA LAZARO NegativeTime performed: 1530STREPTOCOCCUS PCR [id number] 08:15:00* Test Item Value Reference Range Interpretation Comments STREPTOCOCCUS DYSGALACTIAE (test code = STREPGC) NEGATIVE FOR G/C N EGATIVE STREPA MOLECULAR (test code = STREPAMOL) NEGATIVE FOR GRP A NEGATIV E CBC W/AUTO [id number] 23:04:00* Test Item Value Reference Range Interpretation Comments WHITE BLOOD CELL (test code = WBC) 7.4 K/mm3 4.5-12.5 N RED BLOOD CELL (test code = RBC) 4.14 mill/mm3 3.7-5.2 N HEMOGLOBIN (test code = HGB) 9.9 gram/dL 11.5-15.5 L HEMATOCRIT (test code = HCT) 32.9 % 36.0-46.0 L MEAN CELL VOLUME (test code = MCV) 79.5 fL 80-98 L MEAN CELL HGB (test code = MCH) 23.9 picogram 27.0-33.0 L MEAN CELL HGB CONCETRATION (test code = MCHC) 30.1 gram/dL 33.0-36. 0 L RED CELL DISTRIBUTION WIDTH (test code = RDW) 21.5 % 11.6-16. 2 H RED CELL DISTRIBUTION WIDTH SD (test code = RDW-SD) 62.3 fL 37 .0-51.0 H PLATELET COUNT (test code = PLT) 255 K/mm3 150-450 N MEAN PLATELET VOLUME (test code = MPV) 10.3 fL 6.7-11.0 N NEUTROPHIL % (test code = NT%) 79.3 % 39.0-69.0 H LYMPHOCYTE % (test code = LY%) 14.7 % 25.0-55.0 L MONOCYTE % (test code = MO%) 4.7 % 0.0-10.0 N EOSINOPHIL % (test code = EO%) 0.7 % 0.0-5.0 N BASOPHIL % (test code = BA%) 0.5 % 0.0-1.0 N NEUTROPHIL # (test code = NT#) 5.87 K/mm3 1.8-7.7 N LYMPHOCYTE # (test code = LY#) 1.09 K/mm3 1.0-5.0 N MONOCYTE # (test code = MO#) 0.35 K/mm3 0-0.8 N EOSINOPHIL # (test code = EO#) 0.05 K/mm3 0.0-0.5 N BASOPHIL # (test code = BA#) 0.04 K/mm3 0.0-0.2 N MANUAL DIFF REQUIRED (test code = MDIFF) NO, ONLY SCAN NEEDED DIFFERENTIAL [id number] 23:04:00* Test Item Value Reference Range Interpretation Comments STAIN ACCEPTABILITY (test code = STN ACCEPTABLE) STAIN ACCEPTABLE HYPOCHROMIA (test code = HYPO) 1+ ANISOCYTOSIS (test code = ANISO) 1+ PLATELET ESTIMATE (test code = PLTEST) ADEQUATE PLATELET MORPHOLOGY (test code = PLTMORPH) NORMAL BASIC METABOLIC [id number] 22:53:00* Test Item Value Reference Range Interpretation Comments SODIUM (test code = NA) 139 mmol/L 136-145 N POTASSIUM (test code = K) 3.5 mmol/L 3.5-5.1 N CHLORIDE (test code = CL) 103 mmol/L 101-109 N CARBON DIOXIDE (test code = CO2) 23.9 mmol/L 21-32 N ANION GAP (test code = GAP) 16 mmol/L 10-20 N GLUCOSE (test code = GLU) 96 mg/dL 74-106 N BLOOD UREA NITROGEN (test code = BUN) 5 mg/dL 3-21 N GLOMERULAR FILTRATION RATE (test code = GFR) > 60 mL/min >=60 Estimated GFR by using Modified MDRD formula.Chronic kidney disease is defined as either kidney damageor GFR <60 mL/min/1.73 m2 for >3 months. CREATININE (test code = CREAT) 0.50 mg/dL 0.55-1.3 L BUN/CREATININE RATIO (test code = BUN/CREA) 10.0 10-20 N CALCIUM (test code = CA) 9.4 mg/dL 8.4-10.2 N CBC W/AUTO [id number] 22:45:00* Test Item Value Reference Range Interpretation Comments WHITE BLOOD CELL (test code = WBC) 7.4 K/mm3 4.5-12.5 N RED BLOOD CELL (test code = RBC) 4.14 mill/mm3 3.7-5.2 N HEMOGLOBIN (test code = HGB) 9.9 gram/dL 11.5-15.5 L HEMATOCRIT (test code = HCT) 32.9 % 36.0-46.0 L MEAN CELL VOLUME (test code = MCV) 79.5 fL 80-98 L MEAN CELL HGB (test code = MCH) 23.9 picogram 27.0-33.0 L MEAN CELL HGB CONCETRATION (test code = MCHC) 30.1 gram/dL 33.0-36. 0 L RED CELL DISTRIBUTION WIDTH (test code = RDW) 21.5 % 11.6-16. 2 H RED CELL DISTRIBUTION WIDTH SD (test code = RDW-SD) 62.3 fL 37 .0-51.0 H PLATELET COUNT (test code = PLT) 255 K/mm3 150-450 N MEAN PLATELET VOLUME (test code = MPV) 10.3 fL 6.7-11.0 N NEUTROPHIL % (test code = NT%) 79.3 % 39.0-69.0 H LYMPHOCYTE % (test code = LY%) 14.7 % 25.0-55.0 L MONOCYTE % (test code = MO%) 4.7 % 0.0-10.0 N EOSINOPHIL % (test code = EO%) 0.7 % 0.0-5.0 N BASOPHIL % (test code = BA%) 0.5 % 0.0-1.0 N NEUTROPHIL # (test code = NT#) 5.87 K/mm3 1.8-7.7 N LYMPHOCYTE # (test code = LY#) 1.09 K/mm3 1.0-5.0 N MONOCYTE # (test code = MO#) 0.35 K/mm3 0-0.8 N EOSINOPHIL # (test code = EO#) 0.05 K/mm3 0.0-0.5 N BASOPHIL # (test code = BA#) 0.04 K/mm3 0.0-0.2 N MANUAL DIFF REQUIRED (test code = MDIFF) NO, ONLY SCAN NEEDED DIFFERENTIAL [id number] 22:45:00* Test Item Value Reference Range Interpretation Comments STAIN ACCEPTABILITY (test code = STN ACCEPTABLE) CABOT RINGS (test code = CAB) MORPHOLOGY COMMENT (test code = MOC) PLATELET ESTIMATE (test code = PLTEST) PLATELET MORPHOLOGY (test code = PLTMORPH) CBC W/AUTO [id number] 22:45:00* Test Item Value Reference Range Interpretation Comments WHITE BLOOD CELL (test code = WBC) 7.4 K/mm3 4.5-12.5 N RED BLOOD CELL (test code = RBC) 4.14 mill/mm3 3.7-5.2 N HEMOGLOBIN (test code = HGB) 9.9 gram/dL 11.5-15.5 L HEMATOCRIT (test code = HCT) 32.9 % 36.0-46.0 L MEAN CELL VOLUME (test code = MCV) 79.5 fL 80-98 L MEAN CELL HGB (test code = MCH) 23.9 picogram 27.0-33.0 L MEAN CELL HGB CONCETRATION (test code = MCHC) 30.1 gram/dL 33.0-36. 0 L RED CELL DISTRIBUTION WIDTH (test code = RDW) 21.5 % 11.6-16. 2 H RED CELL DISTRIBUTION WIDTH SD (test code = RDW-SD) 62.3 fL 37 .0-51.0 H PLATELET COUNT (test code = PLT) 255 K/mm3 150-450 N MEAN PLATELET VOLUME (test code = MPV) 10.3 fL 6.7-11.0 N NEUTROPHIL % (test code = NT%) 79.3 % 39.0-69.0 H LYMPHOCYTE % (test code = LY%) 14.7 % 25.0-55.0 L MONOCYTE % (test code = MO%) 4.7 % 0.0-10.0 N EOSINOPHIL % (test code = EO%) 0.7 % 0.0-5.0 N BASOPHIL % (test code = BA%) 0.5 % 0.0-1.0 N NEUTROPHIL # (test code = NT#) 5.87 K/mm3 1.8-7.7 N LYMPHOCYTE # (test code = LY#) 1.09 K/mm3 1.0-5.0 N MONOCYTE # (test code = MO#) 0.35 K/mm3 0-0.8 N EOSINOPHIL # (test code = EO#) 0.05 K/mm3 0.0-0.5 N BASOPHIL # (test code = BA#) 0.04 K/mm3 0.0-0.2 N MANUAL DIFF REQUIRED (test code = MDIFF) NO, ONLY SCAN NEEDED DIFFERENTIAL [id number] 22:45:00* Test Item Value Reference Range Interpretation Comments STAIN ACCEPTABILITY (test code = STN ACCEPTABLE) CABOT RINGS (test code = CAB) MORPHOLOGY COMMENT (test code = MOC) PLATELET ESTIMATE (test code = PLTEST) PLATELET MORPHOLOGY (test code = PLTMORPH) CBC W/AUTO [id number] 22:45:00* Test Item Value Reference Range Interpretation Comments WHITE BLOOD CELL (test code = WBC) 7.4 K/mm3 4.5-12.5 N RED BLOOD CELL (test code = RBC) 4.14 mill/mm3 3.7-5.2 N HEMOGLOBIN (test code = HGB) 9.9 gram/dL 11.5-15.5 L HEMATOCRIT (test code = HCT) 32.9 % 36.0-46.0 L MEAN CELL VOLUME (test code = MCV) 79.5 fL 80-98 L MEAN CELL HGB (test code = MCH) 23.9 picogram 27.0-33.0 L MEAN CELL HGB CONCETRATION (test code = MCHC) 30.1 gram/dL 33.0-36. 0 L RED CELL DISTRIBUTION WIDTH (test code = RDW) 21.5 % 11.6-16. 2 H RED CELL DISTRIBUTION WIDTH SD (test code = RDW-SD) 62.3 fL 37 .0-51.0 H PLATELET COUNT (test code = PLT) 255 K/mm3 150-450 N MEAN PLATELET VOLUME (test code = MPV) 10.3 fL 6.7-11.0 N NEUTROPHIL % (test code = NT%) 79.3 % 39.0-69.0 H LYMPHOCYTE % (test code = LY%) 14.7 % 25.0-55.0 L MONOCYTE % (test code = MO%) 4.7 % 0.0-10.0 N EOSINOPHIL % (test code = EO%) 0.7 % 0.0-5.0 N BASOPHIL % (test code = BA%) 0.5 % 0.0-1.0 N NEUTROPHIL # (test code = NT#) 5.87 K/mm3 1.8-7.7 N LYMPHOCYTE # (test code = LY#) 1.09 K/mm3 1.0-5.0 N MONOCYTE # (test code = MO#) 0.35 K/mm3 0-0.8 N EOSINOPHIL # (test code = EO#) 0.05 K/mm3 0.0-0.5 N BASOPHIL # (test code = BA#) 0.04 K/mm3 0.0-0.2 N MANUAL DIFF REQUIRED (test code = MDIFF) NO, ONLY SCAN NEEDED DIFFERENTIAL [id number] 22:45:00* Test Item Value Reference Range Interpretation Comments STAIN ACCEPTABILITY (test code = STN ACCEPTABLE) MORPHOLOGY COMMENT (test code = MOC) PLATELET ESTIMATE (test code = PLTEST) PLATELET MORPHOLOGY (test code = PLTMORPH) CBC W/AUTO [id number] 22:45:00* Test Item Value Reference Range Interpretation Comments WHITE BLOOD CELL (test code = WBC) 7.4 K/mm3 4.5-12.5 N RED BLOOD CELL (test code = RBC) 4.14 mill/mm3 3.7-5.2 N HEMOGLOBIN (test code = HGB) 9.9 gram/dL 11.5-15.5 L HEMATOCRIT (test code = HCT) 32.9 % 36.0-46.0 L MEAN CELL VOLUME (test code = MCV) 79.5 fL 80-98 L MEAN CELL HGB (test code = MCH) 23.9 picogram 27.0-33.0 L MEAN CELL HGB CONCETRATION (test code = MCHC) 30.1 gram/dL 33.0-36. 0 L RED CELL DISTRIBUTION WIDTH (test code = RDW) 21.5 % 11.6-16. 2 H RED CELL DISTRIBUTION WIDTH SD (test code = RDW-SD) 62.3 fL 37 .0-51.0 H PLATELET COUNT (test code = PLT) 255 K/mm3 150-450 N MEAN PLATELET VOLUME (test code = MPV) 10.3 fL 6.7-11.0 N NEUTROPHIL % (test code = NT%) 79.3 % 39.0-69.0 H LYMPHOCYTE % (test code = LY%) 14.7 % 25.0-55.0 L MONOCYTE % (test code = MO%) 4.7 % 0.0-10.0 N EOSINOPHIL % (test code = EO%) 0.7 % 0.0-5.0 N BASOPHIL % (test code = BA%) 0.5 % 0.0-1.0 N NEUTROPHIL # (test code = NT#) 5.87 K/mm3 1.8-7.7 N LYMPHOCYTE # (test code = LY#) 1.09 K/mm3 1.0-5.0 N MONOCYTE # (test code = MO#) 0.35 K/mm3 0-0.8 N EOSINOPHIL # (test code = EO#) 0.05 K/mm3 0.0-0.5 N BASOPHIL # (test code = BA#) 0.04 K/mm3 0.0-0.2 N MANUAL DIFF REQUIRED (test code = MDIFF) NO, ONLY SCAN NEEDED DIFFERENTIAL [id number] 22:45:00* Test Item Value Reference Range Interpretation Comments STAIN ACCEPTABILITY (test code = STN ACCEPTABLE) CABOT RINGS (test code = CAB) MORPHOLOGY COMMENT (test code = MOC) PLATELET ESTIMATE (test code = PLTEST) PLATELET MORPHOLOGY (test code = PLTMORPH) AFP MATERNAL [id number] 14:08:00* Test Item Value Reference Range Interpretation Comments AFP TEST RESULT (test code = AFPRESULT) *Screen Negative* () ALPHA FETOPROTEIN (test code = AFP) 24.4 ng/mL () AFP GESTATIONAL AGE (test code = AFPAGE) 17.0 WEEKS () AFP MULTIPLE OF MEDIAN (test code = AFPMOM) 0.64 () AFP PATIENT WEIGHT (test code = AFPWT) 150 lbs () AFP PATIENT RACE (test code = AFPRACE) Other () AFP DIABETES (test code = AFPDIAB) No () AGE RISK DOWN SYNDROME (test code = RISKDS) 1052 () MSAFP RISK DOWN SYNDROME (test code = MSAFPDS) 8361 () AFP MATERNAL INTERPRETATION (test code = AFPMINT) () Interpretation: Screen NegativeThis result is screen negative for OSB, DownSyndrome and Trisomy 18. The AFP MoM and patient specificrisks calculated are based on the gestational age and theclinical information provided. This test can identify up to80% of open neural tube defects. Closed neural tubedefects and some open defects may not be detected by thistest. The combination of maternal age, AFP, hCG, uE3, andDIA identifies 75-80% of Down Syndrome. Thecombination of maternal age, AFP, hCG and uE3 [id number]% of Trisomy 18 pregnancies. The [place] [employer] recommends amniocentesis beoffered to women age 35 and older.Recalculations are not recommended when gestational datingby LMP and ultrasound are within 10 days. AFP MULTIPLE GESTATIONAL PREG (test code = AFPMGP) No () GESTATIONAL CALC METHOD (test code = AFPGCM) As provided () ESTRIOL MULT.OF.MED (test code = ESTRIMM) 1.68 () HCG INTACT (test code = HCGI) 33361 mIU/mL () HCG INTACT MULT.OF.MED (test code = HCGIMM) 1.11 () MATERNAL AGE AT JUANITA (test code = [age]EDC) 24.5 yr () DIMERIC INHIBIN A VALUE (test code = DIAVAL) 126.09 pg/mL () DIMERIC INHIBIN A MULT OF MED (test code = DIAMOM) 0.77 () AFP T18 RISK (test code = [id number]) Not increased () AFP T18 RISK BY AGE (test code = UQAR64FHQ) 1:4098 () AFP OSBR RISK (test code = AFPOSBRRISK) 31960 () AFP COMMENT (test code = AFPCMT) () Jes Sun, Ph.D., [facility] Technical DirectorReferences: Available Upon Request.Multiples Of Median Cutoffs Abbreviation Definitions For AFP Elevations IDD- Insulin Dep DiabetesSingleton 2.5 Black 2.8 OSBR- Open Spina BifidaIDD 2.0 Twins 4.5 RiskDSR Cutoff 1:270 DSR- Down Syndrome RiskT18 Cutoff 1:100 T18- Trisomy 18Down Syndrome and Trisomy 18 screening are consideredInvestigationalFor further inquiries contact [facility] Servicesat [phone].Performed At: [facility] [id number] [place], [place] [id number] Garcia MD Ph:[phone] ESTRIOL UNCONJUGATED SER (test code = ESTUNCS) 1.84 ng/mL () SPECIMEN COMMENTS: LMP:06/26/2020 JUANITA:09/06/2019COMMENTS TO MEAT SUPERVISOR: 17 WEE [place] 0 DAYSGestational age? (weeks) 17PATIENT'S WEIGHT (LBS) 149.8History of multi ple births? NOHistory of vaginal bleeding? NOHist neural tube defect? NOHistory of diabetes? NOMultiple ? # of fetuses? 1Last menst.period: 09/06/19Fir st or repeat specimen? FIRSTAny family history? NONEUA GLUCOSE DIPSTIC POC 2020-01-17 12:44:00* Test Item Value Reference Range Interpretation Comments UA GLUCOSE DIPSTIC POC (test code = GLUUP) Negative Negative UA GLU: NEGATIVEKET UA NEGATIVEPH UA 8.0UA NIT NegativePROT UA 15 (TRACE)BL UA N EGATIVEUA LAZARO 1+ (Mod)Time performed: 1240UA KETONE DIPSTICK [id number] 12:44:00* Test Item Value Reference Range Interpretation Comments UA KETONE DIPSTICK POC (test code = KETUP) Negative UA GLU: NEGATIVEKET UA NEGATIVEPH UA 8.0UA NIT NegativePROT UA 15 (TRACE)BL UA N EGATIVEUA LAZARO 1+ (Mod)Time performed: 1240UA BLOOD DIPSTIC [id number] 12:44:00* Test Item Value Reference Range Interpretation Comments UA BLOOD DIPSTIC POC (test code = BLUP) NEGATIVE UA GLU: NEGATIVEKET UA NEGATIVEPH UA 8.0UA NIT NegativePROT UA 15 (TRACE)BL UA N EGATIVEUA LAZARO 1+ (Mod)Time performed: 1240UA PH DIPSTIC [id number] 12:44:00* Test Item Value Reference Range Interpretation Comments UA PH DIPSTIC POC (test code = PHUP) 5-8 UA GLU: NEGATIVEKET UA NEGATIVEPH UA 8.0UA NIT NegativePROT UA 15 (TRACE)BL UA N EGATIVEUA LAZARO 1+ (Mod)Time performed: 1240UA PROTEIN DIPSTICK [id number] 12:44:00* Test Item Value Reference Range Interpretation Comments UA PROTEIN DIPSTICK POC (test code = DPROUP) Neg -15 UA GLU: NEGATIVEKET UA NEGATIVEPH UA 8.0UA NIT NegativePROT UA 15 (TRACE)BL UA N EGATIVEUA LAZARO 1+ (Mod)Time performed: 1240UA NITRITE DIPSTICK [id number] 12:44:00* Test Item Value Reference Range Interpretation Comments UA NITRITE DIPSTICK POC (test code = NITUP) Negative UA GLU: NEGATIVEKET UA NEGATIVEPH UA 8.0UA NIT NegativePROT UA 15 (TRACE)BL UA N EGATIVEUA LAZARO 1+ (Mod)Time performed: 1240UA LEUKOCYTE ESTERASE [id number] 12:44:00* Test Item Value Reference Range Interpretation Comments UA LEUKOCYTE ESTERASE POC (test code = LEUUPOC) NEGATI VE UA GLU: NEGATIVEKET UA NEGATIVEPH UA 8.0UA NIT NegativePROT UA 15 (TRACE)BL UA N EGATIVEUA LAZARO 1+ (Mod)Time performed: 1240UA GLUCOSE DIPSTIC [id number] 12:44:00* Test Item Value Reference Range Interpretation Comments UA GLUCOSE DIPSTIC POC (test code = GLUUP) Negative Negative UA GLU: NEGATIVEKET UA NEGATIVEPH UA 8.0UA NIT NegativePROT UA 15 (TRACE)BL UA N EGATIVEUA LAZARO 1+ (Mod)Time performed: 1240UA KETONE DIPSTICK [id number] 12:44:00* Test Item Value Reference Range Interpretation Comments UA KETONE DIPSTICK POC (test code = KETUP) Negative Negative UA GLU: NEGATIVEKET UA NEGATIVEPH UA 8.0UA NIT NegativePROT UA 15 (TRACE)BL UA N EGATIVEUA LAZARO 1+ (Mod)Time performed: 1240UA BLOOD DIPSTIC [id number] 12:44:00* Test Item Value Reference Range Interpretation Comments UA BLOOD DIPSTIC POC (test code = BLUP) NEGATIVE UA GLU: NEGATIVEKET UA NEGATIVEPH UA 8.0UA NIT NegativePROT UA 15 (TRACE)BL UA N EGATIVEUA LAZARO 1+ (Mod)Time performed: 1240UA PH DIPSTIC [id number] 12:44:00* Test Item Value Reference Range Interpretation Comments UA PH DIPSTIC POC (test code = PHUP) 5-8 UA GLU: NEGATIVEKET UA NEGATIVEPH UA 8.0UA NIT NegativePROT UA 15 (TRACE)BL UA N EGATIVEUA LAZARO 1+ (Mod)Time performed: 1240UA PROTEIN DIPSTICK [id number] 12:44:00* Test Item Value Reference Range Interpretation Comments UA PROTEIN DIPSTICK POC (test code = DPROUP) Neg -15 UA GLU: NEGATIVEKET UA NEGATIVEPH UA 8.0UA NIT NegativePROT UA 15 (TRACE)BL UA N EGATIVEUA LAZARO 1+ (Mod)Time performed: 1240UA NITRITE DIPSTICK [id number] 12:44:00* Test Item Value Reference Range Interpretation Comments UA NITRITE DIPSTICK POC (test code = NITUP) Negative UA GLU: NEGATIVEKET UA NEGATIVEPH UA 8.0UA NIT NegativePROT UA 15 (TRACE)BL UA N EGATIVEUA LAZARO 1+ (Mod)Time performed: 1240UA LEUKOCYTE ESTERASE [id number] 12:44:00* Test Item Value Reference Range Interpretation Comments UA LEUKOCYTE ESTERASE POC (test code = LEUUPOC) NEGATI VE UA GLU: NEGATIVEKET UA NEGATIVEPH UA 8.0UA NIT NegativePROT UA 15 (TRACE)BL UA N EGATIVEUA LAZARO 1+ (Mod)Time performed: 1240UA GLUCOSE DIPSTIC [id number] 12:44:00* Test Item Value Reference Range Interpretation Comments UA GLUCOSE DIPSTIC POC (test code = GLUUP) Negative Negative UA GLU: NEGATIVEKET UA NEGATIVEPH UA 8.0UA NIT NegativePROT UA 15 (TRACE)BL UA N EGATIVEUA LAZARO 1+ (Mod)Time performed: 1240UA KETONE DIPSTICK [id number] 12:44:00* Test Item Value Reference Range Interpretation Comments UA KETONE DIPSTICK POC (test code = KETUP) Negative Negative UA GLU: NEGATIVEKET UA NEGATIVEPH UA 8.0UA NIT NegativePROT UA 15 (TRACE)BL UA N EGATIVEUA LAZARO 1+ (Mod)Time performed: 1240UA BLOOD DIPSTIC [id number] 12:44:00* Test Item Value Reference Range Interpretation Comments UA BLOOD DIPSTIC POC (test code = BLUP) Negative NEGATIVE UA GLU: NEGATIVEKET UA NEGATIVEPH UA 8.0UA NIT NegativePROT UA 15 (TRACE)BL UA N EGATIVEUA LAZARO 1+ (Mod)Time performed: 1240UA PH DIPSTIC [id number] 12:44:00* Test Item Value Reference Range Interpretation Comments UA PH DIPSTIC POC (test code = PHUP) 5-8 UA GLU: NEGATIVEKET UA NEGATIVEPH UA 8.0UA NIT NegativePROT UA 15 (TRACE)BL UA N EGATIVEUA LAZARO 1+ (Mod)Time performed: 1240UA PROTEIN DIPSTICK [id number] 12:44:00* Test Item Value Reference Range Interpretation Comments UA PROTEIN DIPSTICK POC (test code = DPROUP) Neg -15 UA GLU: NEGATIVEKET UA NEGATIVEPH UA 8.0UA NIT NegativePROT UA 15 (TRACE)BL UA N EGATIVEUA LAZARO 1+ (Mod)Time performed: 1240UA NITRITE DIPSTICK [id number] 12:44:00* Test Item Value Reference Range Interpretation Comments UA NITRITE DIPSTICK POC (test code = NITUP) Negative UA GLU: NEGATIVEKET UA NEGATIVEPH UA 8.0UA NIT NegativePROT UA 15 (TRACE)BL UA N EGATIVEUA LAZARO 1+ (Mod)Time performed: 1240UA LEUKOCYTE ESTERASE [id number] 12:44:00* Test Item Value Reference Range Interpretation Comments UA LEUKOCYTE ESTERASE POC (test code = LEUUPOC) NEGATI VE UA GLU: NEGATIVEKET UA NEGATIVEPH UA 8.0UA NIT NegativePROT UA 15 (TRACE)BL UA N EGATIVEUA LAZARO 1+ (Mod)Time performed: 1240UA GLUCOSE DIPSTIC [id number] 12:44:00* Test Item Value Reference Range Interpretation Comments UA GLUCOSE DIPSTIC POC (test code = GLUUP) Negative Negative UA GLU: NEGATIVEKET UA NEGATIVEPH UA 8.0UA NIT NegativePROT UA 15 (TRACE)BL UA N EGATIVEUA LAZARO 1+ (Mod)Time performed: 1240UA KETONE DIPSTICK [id number] 12:44:00* Test Item Value Reference Range Interpretation Comments UA KETONE DIPSTICK POC (test code = KETUP) Negative Negative UA GLU: NEGATIVEKET UA NEGATIVEPH UA 8.0UA NIT NegativePROT UA 15 (TRACE)BL UA N EGATIVEUA LAZARO 1+ (Mod)Time performed: 1240UA BLOOD DIPSTIC [id number] 12:44:00* Test Item Value Reference Range Interpretation Comments UA BLOOD DIPSTIC POC (test code = BLUP) Negative NEGATIVE UA GLU: NEGATIVEKET UA NEGATIVEPH UA 8.0UA NIT NegativePROT UA 15 (TRACE)BL UA N EGATIVEUA LAZARO 1+ (Mod)Time performed: 1240UA PH DIPSTIC [id number] 12:44:00* Test Item Value Reference Range Interpretation Comments UA PH DIPSTIC POC (test code = PHUP) 8 5-8 N UA GLU: NEGATIVEKET UA NEGATIVEPH UA 8.0UA NIT NegativePROT UA 15 (TRACE)BL UA N EGATIVEUA LAZARO 1+ (Mod)Time performed: 1240UA PROTEIN DIPSTICK [id number] 12:44:00* Test Item Value Reference Range Interpretation Comments UA PROTEIN DIPSTICK POC (test code = DPROUP) Neg -15 UA GLU: NEGATIVEKET UA NEGATIVEPH UA 8.0UA NIT NegativePROT UA 15 (TRACE)BL UA N EGATIVEUA LAZARO 1+ (Mod)Time performed: 1240UA NITRITE DIPSTICK [id number] 12:44:00* Test Item Value Reference Range Interpretation Comments UA NITRITE DIPSTICK POC (test code = NITUP) Negative UA GLU: NEGATIVEKET UA NEGATIVEPH UA 8.0UA NIT NegativePROT UA 15 (TRACE)BL UA N EGATIVEUA LAZARO 1+ (Mod)Time performed: 1240UA LEUKOCYTE ESTERASE [id number] 12:44:00* Test Item Value Reference Range Interpretation Comments UA LEUKOCYTE ESTERASE POC (test code = LEUUPOC) NEGATI VE UA GLU: NEGATIVEKET UA NEGATIVEPH UA 8.0UA NIT NegativePROT UA 15 (TRACE)BL UA N EGATIVEUA LAZARO 1+ (Mod)Time performed: 1240UA GLUCOSE DIPSTIC [id number] 12:44:00* Test Item Value Reference Range Interpretation Comments UA GLUCOSE DIPSTIC POC (test code = GLUUP) Negative Negative UA GLU: NEGATIVEKET UA NEGATIVEPH UA 8.0UA NIT NegativePROT UA 15 (TRACE)BL UA N EGATIVEUA LAZARO 1+ (Mod)Time performed: 1240UA KETONE DIPSTICK [id number] 12:44:00* Test Item Value Reference Range Interpretation Comments UA KETONE DIPSTICK POC (test code = KETUP) Negative Negative UA GLU: NEGATIVEKET UA NEGATIVEPH UA 8.0UA NIT NegativePROT UA 15 (TRACE)BL UA N EGATIVEUA LAZARO 1+ (Mod)Time performed: 1240UA BLOOD DIPSTIC [id number] 12:44:00* Test Item Value Reference Range Interpretation Comments UA BLOOD DIPSTIC POC (test code = BLUP) Negative NEGATIVE UA GLU: NEGATIVEKET UA NEGATIVEPH UA 8.0UA NIT NegativePROT UA 15 (TRACE)BL UA N EGATIVEUA LAZARO 1+ (Mod)Time performed: 1240UA PH DIPSTIC [id number] 12:44:00* Test Item Value Reference Range Interpretation Comments UA PH DIPSTIC POC (test code = PHUP) 8 5-8 N UA GLU: NEGATIVEKET UA NEGATIVEPH UA 8.0UA NIT NegativePROT UA 15 (TRACE)BL UA N EGATIVEUA LAZARO 1+ (Mod)Time performed: 1240UA PROTEIN DIPSTICK [id number] 12:44:00* Test Item Value Reference Range Interpretation Comments UA PROTEIN DIPSTICK POC (test code = DPROUP) 15 (Trace) Neg -15 A UA GLU: NEGATIVEKET UA NEGATIVEPH UA 8.0UA NIT NegativePROT UA 15 (TRACE)BL UA N EGATIVEUA LAZARO 1+ (Mod)Time performed: 1240UA NITRITE DIPSTICK [id number] 12:44:00* Test Item Value Reference Range Interpretation Comments UA NITRITE DIPSTICK POC (test code = NITUP) Negative UA GLU: NEGATIVEKET UA NEGATIVEPH UA 8.0UA NIT NegativePROT UA 15 (TRACE)BL UA N EGATIVEUA LAZARO 1+ (Mod)Time performed: 1240UA LEUKOCYTE ESTERASE [id number] 12:44:00* Test Item Value Reference Range Interpretation Comments UA LEUKOCYTE ESTERASE POC (test code = LEUUPOC) NEGATI VE UA GLU: NEGATIVEKET UA NEGATIVEPH UA 8.0UA NIT NegativePROT UA 15 (TRACE)BL UA N EGATIVEUA LAZARO 1+ (Mod)Time performed: 1240UA GLUCOSE DIPSTIC [id number] 12:44:00* Test Item Value Reference Range Interpretation Comments UA GLUCOSE DIPSTIC POC (test code = GLUUP) Negative Negative UA GLU: NEGATIVEKET UA NEGATIVEPH UA 8.0UA NIT NegativePROT UA 15 (TRACE)BL UA N EGATIVEUA LAZARO 1+ (Mod)Time performed: 1240UA KETONE DIPSTICK [id number] 12:44:00* Test Item Value Reference Range Interpretation Comments UA KETONE DIPSTICK POC (test code = KETUP) Negative Negative UA GLU: NEGATIVEKET UA NEGATIVEPH UA 8.0UA NIT NegativePROT UA 15 (TRACE)BL UA N EGATIVEUA LAZARO 1+ (Mod)Time performed: 1240UA BLOOD DIPSTIC [id number] 12:44:00* Test Item Value Reference Range Interpretation Comments UA BLOOD DIPSTIC POC (test code = BLUP) Negative NEGATIVE UA GLU: NEGATIVEKET UA NEGATIVEPH UA 8.0UA NIT NegativePROT UA 15 (TRACE)BL UA N EGATIVEUA LAZARO 1+ (Mod)Time performed: 1240UA PH DIPSTIC [id number] 12:44:00* Test Item Value Reference Range Interpretation Comments UA PH DIPSTIC POC (test code = PHUP) 8 5-8 N UA GLU: NEGATIVEKET UA NEGATIVEPH UA 8.0UA NIT NegativePROT UA 15 (TRACE)BL UA N EGATIVEUA LAZARO 1+ (Mod)Time performed: 1240UA PROTEIN DIPSTICK [id number] 12:44:00* Test Item Value Reference Range Interpretation Comments UA PROTEIN DIPSTICK POC (test code = DPROUP) 15 (Trace) Neg -15 A UA GLU: NEGATIVEKET UA NEGATIVEPH UA 8.0UA NIT NegativePROT UA 15 (TRACE)BL UA N EGATIVEUA LAZARO 1+ (Mod)Time performed: 1240UA NITRITE DIPSTICK [id number] 12:44:00* Test Item Value Reference Range Interpretation Comments UA NITRITE DIPSTICK POC (test code = NITUP) Negative Negative UA GLU: NEGATIVEKET UA NEGATIVEPH UA 8.0UA NIT NegativePROT UA 15 (TRACE)BL UA N EGATIVEUA LAZARO 1+ (Mod)Time performed: 1240UA LEUKOCYTE ESTERASE [id number] 12:44:00* Test Item Value Reference Range Interpretation Comments UA LEUKOCYTE ESTERASE POC (test code = LEUUPOC) NEGATI VE UA GLU: NEGATIVEKET UA NEGATIVEPH UA 8.0UA NIT NegativePROT UA 15 (TRACE)BL UA N EGATIVEUA LAZARO 1+ (Mod)Time performed: 1240UA GLUCOSE DIPSTIC [id number] 12:44:00* Test Item Value Reference Range Interpretation Comments UA GLUCOSE DIPSTIC POC (test code = GLUUP) Negative Negative UA GLU: NEGATIVEKET UA NEGATIVEPH UA 8.0UA NIT NegativePROT UA 15 (TRACE)BL UA N EGATIVEUA LAZARO 1+ (Mod)Time performed: 1240UA KETONE DIPSTICK [id number] 12:44:00* Test Item Value Reference Range Interpretation Comments UA KETONE DIPSTICK POC (test code = KETUP) Negative Negative UA GLU: NEGATIVEKET UA NEGATIVEPH UA 8.0UA NIT NegativePROT UA 15 (TRACE)BL UA N EGATIVEUA LAZARO 1+ (Mod)Time performed: 1240UA BLOOD DIPSTIC [id number] 12:44:00* Test Item Value Reference Range Interpretation Comments UA BLOOD DIPSTIC POC (test code = BLUP) Negative NEGATIVE UA GLU: NEGATIVEKET UA NEGATIVEPH UA 8.0UA NIT NegativePROT UA 15 (TRACE)BL UA N EGATIVEUA LAZARO 1+ (Mod)Time performed: 1240UA PH DIPSTIC [id number] 12:44:00* Test Item Value Reference Range Interpretation Comments UA PH DIPSTIC POC (test code = PHUP) 8 5-8 N UA GLU: NEGATIVEKET UA NEGATIVEPH UA 8.0UA NIT NegativePROT UA 15 (TRACE)BL UA N EGATIVEUA LAZARO 1+ (Mod)Time performed: 1240UA PROTEIN DIPSTICK [id number] 12:44:00* Test Item Value Reference Range Interpretation Comments UA PROTEIN DIPSTICK POC (test code = DPROUP) 15 (Trace) Neg -15 A UA GLU: NEGATIVEKET UA NEGATIVEPH UA 8.0UA NIT NegativePROT UA 15 (TRACE)BL UA N EGATIVEUA LAZARO 1+ (Mod)Time performed: 1240UA NITRITE DIPSTICK [id number] 12:44:00* Test Item Value Reference Range Interpretation Comments UA NITRITE DIPSTICK POC (test code = NITUP) Negative Negative UA GLU: NEGATIVEKET UA NEGATIVEPH UA 8.0UA NIT NegativePROT UA 15 (TRACE)BL UA N EGATIVEUA LAZARO 1+ (Mod)Time performed: 1240UA LEUKOCYTE ESTERASE [id number] 12:44:00* Test Item Value Reference Range Interpretation Comments UA LEUKOCYTE ESTERASE POC (test code = LEUUPOC) 1+ NEGATI VE A UA GLU: NEGATIVEKET UA NEGATIVEPH UA 8.0UA NIT NegativePROT UA 15 (TRACE)BL UA N EGATIVEUA LAZARO 1+ (Mod)Time performed: 1240STREPTOCOCCUS PCR [id number] 17:44:00* Test Item Value Reference Range Interpretation Comments STREPTOCOCCUS DYSGALACTIAE (test code = STREPGC) NEGATIVE FOR G/C N EGATIVE STREPA MOLECULAR (test code = STREPAMOL) NEGATIVE FOR GRP A NEGATIV E STREPTOCOCCUS PCR [id number] 17:43:00* Test Item Value Reference Range Interpretation Comments STREPTOCOCCUS DYSGALACTIAE (test code = STREPGC) NEGATIVE FOR G/C N EGATIVE STREPA MOLECULAR (test code = STREPAMOL) NEGATIVE FOR GRP A NEGATIV E CBC W/AUTO [id number] 13:10:00* Test Item Value Reference Range Interpretation Comments WHITE BLOOD CELL (test code = WBC) 13.9 K/mm3 4.5-12.5 H RED BLOOD CELL (test code = RBC) 4.17 mill/mm3 3.7-5.2 N HEMOGLOBIN (test code = HGB) 9.6 gram/dL 11.5-15.5 L HEMATOCRIT (test code = HCT) 31.2 % 36.0-46.0 L MEAN CELL VOLUME (test code = MCV) 74.8 fL 80-98 L MEAN CELL HGB (test code = MCH) 23.0 picogram 27.0-33.0 L MEAN CELL HGB CONCETRATION (test code = MCHC) 30.8 gram/dL 33.0-36. 0 L RED CELL DISTRIBUTION WIDTH (test code = RDW) 22.6 % 11.6-16. 2 H RED CELL DISTRIBUTION WIDTH SD (test code = RDW-SD) 59.6 fL 37 .0-51.0 H PLATELET COUNT (test code = PLT) 274 K/mm3 150-450 N MEAN PLATELET VOLUME (test code = MPV) 10.1 fL 6.7-11.0 N NEUTROPHIL % (test code = NT%) 88.3 % 39.0-69.0 H IMMATURE GRANULOCYTE % (test code = IG%) 0.4 % 0.0-5.0 N LYMPHOCYTE % (test code = LY%) 6.0 % 25.0-55.0 L MONOCYTE % (test code = MO%) 4.7 % 0.0-10.0 N EOSINOPHIL % (test code = EO%) 0.4 % 0.0-5.0 N BASOPHIL % (test code = BA%) 0.2 % 0.0-1.0 N NUCLEATED RBC % (test code = NRBC%) 0.0 % 0-0 N NEUTROPHIL # (test code = NT#) 12.15 K/mm3 1.8-7.7 H IMMATURE GRANULOCYTE # (test code = IG#) 0.05 x10 3/uL 0-0.03 H LYMPHOCYTE # (test code = LY#) 0.82 K/mm3 1.0-5.0 L MONOCYTE # (test code = MO#) 0.65 K/mm3 0-0.8 N EOSINOPHIL # (test code = EO#) 0.05 K/mm3 0.0-0.5 N BASOPHIL # (test code = BA#) 0.03 K/mm3 0.0-0.2 N NUCLEATED RBC # (test code = NRBC#) 0.00 K/mm3 0.0-0.1 N MANUAL DIFF REQUIRED (test code = MDIFF) NO, ONLY SCAN NEEDED DIFFERENTIAL [id number] 13:10:00* Test Item Value Reference Range Interpretation Comments STAIN ACCEPTABILITY (test code = STN ACCEPTABLE) STAIN ACCEPTABLE POIKILOCYTOSIS (test code = POIK) 1+ ANISOCYTOSIS (test code = ANISO) 2+ MICROCYTOSIS (test code = MICR) 2+ ELLIPTOCYTES (test code = ELL) 1+ PLATELET ESTIMATE (test code = PLTEST) ADEQUATE PLATELET MORPHOLOGY (test code = PLTMORPH) NORMAL BASIC METABOLIC [id number] 13:06:00* Test Item Value Reference Range Interpretation Comments SODIUM (test code = NA) 139 mmol/L 136-145 N POTASSIUM (test code = K) 3.2 mmol/L 3.5-5.1 L CHLORIDE (test code = CL) 110.0 mmol/L 98-107 H CARBON DIOXIDE (test code = CO2) 21.0 mmol/L 21-32 N ANION GAP (test code = GAP) 11.2 10-20 N GLUCOSE (test code = GLU) 111 mg/dL 74-106 H BLOOD UREA NITROGEN (test code = BUN) 4 mg/dL 7-18 L GLOMERULAR FILTRATION RATE (test code = GFR) > 60 mL/min >=60 Estimated GFR by using Modified MDRD formula.Chronic kidney disease is defined as either kidney damageor GFR <60 mL/min/1.73 m2 for >3 months. CREATININE (test code = CREAT) 0.40 mg/dL 0.55-1.02 L Note change in reference range due to change in reagent. BUN/CREATININE RATIO (test code = BUN/CREA) 10.0 10-20 N CALCIUM (test code = CA) 9.0 mg/dL 8.5-10.1 N HEPATIC FUNCTION [id number] 13:06:00* Test Item Value Reference Range Interpretation Comments TOTAL PROTEIN (test code = PROT) 7.0 gram/dL 6.4-8.2 N ALBUMIN (test code = ALB) 3.1 g/dL 3.4-5.0 L GLOBULIN (test code = GLOB) 3.9 gram/dL 2.7-4.2 N ALBUMIN/GLOBULIN RATIO (test code = A/G) 0.8 0.75-1.50 N BILIRUBIN TOTAL (test code = BILT) 0.30 mg/dL 0.0-1.0 N BILIRUBIN DIRECT (test code = BILD) 0.09 mg/dL 0.0-0.20 N SGOT/AST (test code = AST) 13 IUnit/L 15-37 L SGPT/ALT (test code = ALT) 13 IUnit/L 12-78 N ALKALINE PHOSPHATASE TOTAL (test code = ALKP) 53 IUnit/L 45-117 N Note change in reference range due to change in reagent. [id number] 13:06:00* Test Item Value Reference Range Interpretation Comments LIPASE (test code = LIP) 64 U/L 73.0-393.0 L HCG SERUM [id number] 13:06:00* Test Item Value Reference Range Interpretation Comments HCG SERUM BETA (test code = HCG) 00576.0 mIU/mL 0-3 H Interfering substances present in the serum of somepatients may cause a false-positive result in this assay.Questionable elevations in serum hCG should be confirmedwith a urine hCG. Suspected Trophoblastic Neoplasms shouldnot be diagnosed based on serun hCG/beta hCG alone. Theymust be confirmed by clinical history and tissue diagnosis.INTERPRETATION:B-HCG LEVELS <5 SHOULD BE CONSIDERED "NEGATIVE." *WHEN BODERLINE RESULTS ARE ENCOUNTERED,PATIENT SAMPLESSHOULD BE REDRAWN 48 HOURS. 0-1 WEEKS AFTER CONCEPTION 5-50 MIU/ML1-2 WEEKS AFTER CONCEPTION 50-500 MIU/ML2-3 WEEKS AFTER CONCEPTION 100 -5,000 MIU/ML3-4 WEEKS AFTER CONCEPTION 500-10,000 MIU/ML4-5 WEEKS AFTER CONCEPTION 1000 -50,000 MIU/ML5-6 WEEKS AFTER CONCEPTION 10,000-100,000 MIU/ML6-8 WEEKS AFTER CONCEPTION 15,000- 200,000 MIU/ML2-3 MONTHS AFTER CONCEPTION 10,000-100,000 MIU/ML [id number] 13:06:00* Test Item Value Reference Range Interpretation Comments TROPONIN-I (test code = TROPI) <0.015 ng/mL 0-0.045 N - XR CHEST 1 [id number] 13:01:00 FAX: Manuel Kuo MD [phone] [place]: St: REG FAX: Claire Truong CN Name: LLOYD MALIKGALO [facility] : 1995 Age/S: 24/F [address] [facility] Unit #: [id number] Loc: [place] [address] Phys: Manuel Kuo MD Acct: [id number] Dis Date: Status: REG ER PHONE #: [phone] Exam Date: 01/01/2020 1235 FAX #: [phone] Reason: CODE SEPSIS EXAMS: CPT CODE: [id number] XR CHEST 1 V 09046 REASON FOR EXAM: CODE SEPSIS EXAM ORDER DATE: 01/01/2020 11:43 AM Ordering: Manuel Kuo MD Attending:Manuel Kuo MD Location:[facility] PROCEDURE: - XR CHEST 1 V COMPARISON: FINDINGS: Portable AP frontal view of the chest obtained at 12:40 PM shows clear lungs without evidence of consolidation. There is no evidence of effusion. The heart size is within normal limits. Pulmonary vasculatures are unremarkable. IMPRESSION: No active disease. at 1301 Reported and signed by: Moi Salinas M.D. CC: Manuel Kuo MD; Claire Christian Technologist: RT RASHI(R) Trnscrd Date/Time/By: 01/01/2020 (1301) : By: [email or web address] Orig Print D/T: S: 01/01/2020 (0087) PAGE 1 Signed Report MONO [id number] 12:40:00* Test Item Value Reference Range Interpretation Comments MONO SCREEN (test code = MONO) POSITIVE NEGATIVE A URINALYSIS [id number] 12:31:00* Test Item Value Reference Range Interpretation Comments UA COLOR (test code = COLU) Light-Yellow YELLOW UA APPEARANCE (test code = APPU) SLIGHT CLOUDY CLEAR A UA GLUCOSE DIPSTICK (test code = DGLUU) NEGATIVE mg/dL NEGATIVE UA BILIRUBIN DIPSTICK (test code = BILU) NEGATIVE mg/dL NEGATIVE UA KETONE DIPSTICK (test code = KETU) NEGATIVE mg/dL NEGATIVE UA SPECIFIC GRAVITY (test code = SGU) 1.007 1.001-1.035 UA BLOOD DIPSTICK (test code = TIFFANIE) Negative mg/dL NEGATIVE UA PH DIPSTICK (test code = JOSH) 7.5 5.0-8.0 UA PROTEIN DIPSTICK (test code = PROU) NEGATIVE mg/dL NEGATIVE UA UROBILINIOGEN DIPSTICK (test code = URO) Normal mg/dL NEGATIVE UA NITRITE DIPSTICK (test code = DIEGO) NEGATIVE NEGATIVE UA LEUKOCYTE ESTERASE W REFLEX (test code = LEUUR) 500 Lazaro/u L (3+) Lazaro/uL NEGATIVE A UA WBC (test code = WBCU) 21-50 per HPF 0-5 A UA RBC (test code = RBCU) 0-2 #/HPF 0-5 UA EPITHELIAL CELLS (test code = EPIU) FEW per HPF FEW UA BACTERIA (test code = BACU) MANY #/HPF NONE A Urine Source? Clean CatchLACTIC [id number] 12:31:00* Test Item Value Reference Range Interpretation Comments LACTIC ACID (test code = LACT) 1.9 mmol/L 0.4-1.9 N BASIC METABOLIC [id number] 12:22:00* Test Item Value Reference Range Interpretation Comments SODIUM (test code = NA) 139 mmol/L 136-145 N POTASSIUM (test code = K) 3.2 mmol/L 3.5-5.1 L CHLORIDE (test code = CL) 110.0 mmol/L 98-107 H CARBON DIOXIDE (test code = CO2) mmol/L 21-32 ANION GAP (test code = GAP) 10-20 GLUCOSE (test code = GLU) mg/dL 74-106 BLOOD UREA NITROGEN (test code = BUN) mg/dL 7-18 GLOMERULAR FILTRATION RATE (test code = GFR) mL/min >=60 CREATININE (test code = CREAT) mg/dL 0.55-1.02 BUN/CREATININE RATIO (test code = BUN/CREA) 10-20 CALCIUM (test code = CA) mg/dL 8.5-10.1 HEPATIC FUNCTION [id number] 12:22:00* Test Item Value Reference Range Interpretation Comments TOTAL PROTEIN (test code = PROT) gram/dL 6.4-8.2 ALBUMIN (test code = ALB) g/dL 3.4-5.0 GLOBULIN (test code = GLOB) gram/dL 2.7-4.2 ALBUMIN/GLOBULIN RATIO (test code = A/G) 0.75-1.50 BILIRUBIN TOTAL (test code = BILT) mg/dL 0.0-1.0 BILIRUBIN DIRECT (test code = BILD) mg/dL 0.0-0.20 SGOT/AST (test code = AST) IUnit/L 15-37 SGPT/ALT (test code = ALT) IUnit/L 12-78 ALKALINE PHOSPHATASE TOTAL (test code = ALKP) IUnit/L 45-117 [id number] 12:22:00* Test Item Value Reference Range Interpretation Comments LIPASE (test code = LIP) U/L 73.0-393.0 HCG SERUM [id number] 12:22:00* Test Item Value Reference Range Interpretation Comments HCG SERUM BETA (test code = HCG) mIU/mL 0-3 [id number] 12:22:00* Test Item Value Reference Range Interpretation Comments TROPONIN-I (test code = TROPI) ng/mL 0-0.045 URINALYSIS [id number] 12:20:00* Test Item Value Reference Range Interpretation Comments UA COLOR (test code = COLU) Light-Yellow YELLOW UA APPEARANCE (test code = APPU) SLIGHT CLOUDY CLEAR A UA GLUCOSE DIPSTICK (test code = DGLUU) NEGATIVE mg/dL NEGATIVE UA BILIRUBIN DIPSTICK (test code = BILU) NEGATIVE mg/dL NEGATIVE UA KETONE DIPSTICK (test code = KETU) NEGATIVE mg/dL NEGATIVE UA SPECIFIC GRAVITY (test code = SGU) 1.007 1.001-1.035 UA BLOOD DIPSTICK (test code = TIFFANIE) Negative mg/dL NEGATIVE UA PH DIPSTICK (test code = JOSH) 7.5 5.0-8.0 UA PROTEIN DIPSTICK (test code = PROU) NEGATIVE mg/dL NEGATIVE UA UROBILINIOGEN DIPSTICK (test code = URO) Normal mg/dL NEGATIVE UA NITRITE DIPSTICK (test code = DIEGO) NEGATIVE NEGATIVE UA LEUKOCYTE ESTERASE W REFLEX (test code = LEUUR) 500 Lazaro/u L (3+) Lazaro/uL NEGATIVE A UA WBC (test code = WBCU) per HPF 0-5 UA RBC (test code = RBCU) per HPF 0-5 UA EPITHELIAL CELLS (test code = EPIU) per HPF Few UA BACTERIA (test code = BACU) per HPF NONE Urine Source? Clean CatchCBC W/AUTO [id number] 12:16:00* Test Item Value Reference Range Interpretation Comments WHITE BLOOD CELL (test code = WBC) 13.9 K/mm3 4.5-12.5 H RED BLOOD CELL (test code = RBC) 4.17 mill/mm3 3.7-5.2 N HEMOGLOBIN (test code = HGB) 9.6 gram/dL 11.5-15.5 L HEMATOCRIT (test code = HCT) 31.2 % 36.0-46.0 L MEAN CELL VOLUME (test code = MCV) 74.8 fL 80-98 L MEAN CELL HGB (test code = MCH) 23.0 picogram 27.0-33.0 L MEAN CELL HGB CONCETRATION (test code = MCHC) 30.8 gram/dL 33.0-36. 0 L RED CELL DISTRIBUTION WIDTH (test code = RDW) 22.6 % 11.6-16. 2 H RED CELL DISTRIBUTION WIDTH SD (test code = RDW-SD) 59.6 fL 37 .0-51.0 H PLATELET COUNT (test code = PLT) 274 K/mm3 150-450 N MEAN PLATELET VOLUME (test code = MPV) 10.1 fL 6.7-11.0 N NEUTROPHIL % (test code = NT%) 88.3 % 39.0-69.0 H IMMATURE GRANULOCYTE % (test code = IG%) 0.4 % 0.0-5.0 N LYMPHOCYTE % (test code = LY%) 6.0 % 25.0-55.0 L MONOCYTE % (test code = MO%) 4.7 % 0.0-10.0 N EOSINOPHIL % (test code = EO%) 0.4 % 0.0-5.0 N BASOPHIL % (test code = BA%) 0.2 % 0.0-1.0 N NUCLEATED RBC % (test code = NRBC%) 0.0 % 0-0 N NEUTROPHIL # (test code = NT#) 12.15 K/mm3 1.8-7.7 H IMMATURE GRANULOCYTE # (test code = IG#) 0.05 x10 3/uL 0-0.03 H LYMPHOCYTE # (test code = LY#) 0.82 K/mm3 1.0-5.0 L MONOCYTE # (test code = MO#) 0.65 K/mm3 0-0.8 N EOSINOPHIL # (test code = EO#) 0.05 K/mm3 0.0-0.5 N BASOPHIL # (test code = BA#) 0.03 K/mm3 0.0-0.2 N NUCLEATED RBC # (test code = NRBC#) 0.00 K/mm3 0.0-0.1 N MANUAL DIFF REQUIRED (test code = MDIFF) NO, ONLY SCAN NEEDED DIFFERENTIAL [id number] 12:16:00* Test Item Value Reference Range Interpretation Comments STAIN ACCEPTABILITY (test code = STN ACCEPTABLE) CABOT RINGS (test code = CAB) MORPHOLOGY COMMENT (test code = MOC) PLATELET ESTIMATE (test code = PLTEST) PLATELET MORPHOLOGY (test code = PLTMORPH) CBC W/AUTO [id number] 12:16:00* Test Item Value Reference Range Interpretation Comments WHITE BLOOD CELL (test code = WBC) 13.9 K/mm3 4.5-12.5 H RED BLOOD CELL (test code = RBC) 4.17 mill/mm3 3.7-5.2 N HEMOGLOBIN (test code = HGB) 9.6 gram/dL 11.5-15.5 L HEMATOCRIT (test code = HCT) 31.2 % 36.0-46.0 L MEAN CELL VOLUME (test code = MCV) 74.8 fL 80-98 L MEAN CELL HGB (test code = MCH) 23.0 picogram 27.0-33.0 L MEAN CELL HGB CONCETRATION (test code = MCHC) 30.8 gram/dL 33.0-36. 0 L RED CELL DISTRIBUTION WIDTH (test code = RDW) 22.6 % 11.6-16. 2 H RED CELL DISTRIBUTION WIDTH SD (test code = RDW-SD) 59.6 fL 37 .0-51.0 H PLATELET COUNT (test code = PLT) 274 K/mm3 150-450 N MEAN PLATELET VOLUME (test code = MPV) 10.1 fL 6.7-11.0 N NEUTROPHIL % (test code = NT%) 88.3 % 39.0-69.0 H IMMATURE GRANULOCYTE % (test code = IG%) 0.4 % 0.0-5.0 N LYMPHOCYTE % (test code = LY%) 6.0 % 25.0-55.0 L MONOCYTE % (test code = MO%) 4.7 % 0.0-10.0 N EOSINOPHIL % (test code = EO%) 0.4 % 0.0-5.0 N BASOPHIL % (test code = BA%) 0.2 % 0.0-1.0 N NUCLEATED RBC % (test code = NRBC%) 0.0 % 0-0 N NEUTROPHIL # (test code = NT#) 12.15 K/mm3 1.8-7.7 H IMMATURE GRANULOCYTE # (test code = IG#) 0.05 x10 3/uL 0-0.03 H LYMPHOCYTE # (test code = LY#) 0.82 K/mm3 1.0-5.0 L MONOCYTE # (test code = MO#) 0.65 K/mm3 0-0.8 N EOSINOPHIL # (test code = EO#) 0.05 K/mm3 0.0-0.5 N BASOPHIL # (test code = BA#) 0.03 K/mm3 0.0-0.2 N NUCLEATED RBC # (test code = NRBC#) 0.00 K/mm3 0.0-0.1 N MANUAL DIFF REQUIRED (test code = MDIFF) NO, ONLY SCAN NEEDED DIFFERENTIAL [id number] 12:16:00* Test Item Value Reference Range Interpretation Comments STAIN ACCEPTABILITY (test code = STN ACCEPTABLE) CABOT RINGS (test code = CAB) MORPHOLOGY COMMENT (test code = MOC) PLATELET ESTIMATE (test code = PLTEST) PLATELET MORPHOLOGY (test code = PLTMORPH) CBC W/AUTO [id number] 12:16:00* Test Item Value Reference Range Interpretation Comments WHITE BLOOD CELL (test code = WBC) 13.9 K/mm3 4.5-12.5 H RED BLOOD CELL (test code = RBC) 4.17 mill/mm3 3.7-5.2 N HEMOGLOBIN (test code = HGB) 9.6 gram/dL 11.5-15.5 L HEMATOCRIT (test code = HCT) 31.2 % 36.0-46.0 L MEAN CELL VOLUME (test code = MCV) 74.8 fL 80-98 L MEAN CELL HGB (test code = MCH) 23.0 picogram 27.0-33.0 L MEAN CELL HGB CONCETRATION (test code = MCHC) 30.8 gram/dL 33.0-36. 0 L RED CELL DISTRIBUTION WIDTH (test code = RDW) 22.6 % 11.6-16. 2 H RED CELL DISTRIBUTION WIDTH SD (test code = RDW-SD) 59.6 fL 37 .0-51.0 H PLATELET COUNT (test code = PLT) 274 K/mm3 150-450 N MEAN PLATELET VOLUME (test code = MPV) 10.1 fL 6.7-11.0 N NEUTROPHIL % (test code = NT%) 88.3 % 39.0-69.0 H IMMATURE GRANULOCYTE % (test code = IG%) 0.4 % 0.0-5.0 N LYMPHOCYTE % (test code = LY%) 6.0 % 25.0-55.0 L MONOCYTE % (test code = MO%) 4.7 % 0.0-10.0 N EOSINOPHIL % (test code = EO%) 0.4 % 0.0-5.0 N BASOPHIL % (test code = BA%) 0.2 % 0.0-1.0 N NUCLEATED RBC % (test code = NRBC%) 0.0 % 0-0 N NEUTROPHIL # (test code = NT#) 12.15 K/mm3 1.8-7.7 H IMMATURE GRANULOCYTE # (test code = IG#) 0.05 x10 3/uL 0-0.03 H LYMPHOCYTE # (test code = LY#) 0.82 K/mm3 1.0-5.0 L MONOCYTE # (test code = MO#) 0.65 K/mm3 0-0.8 N EOSINOPHIL # (test code = EO#) 0.05 K/mm3 0.0-0.5 N BASOPHIL # (test code = BA#) 0.03 K/mm3 0.0-0.2 N NUCLEATED RBC # (test code = NRBC#) 0.00 K/mm3 0.0-0.1 N MANUAL DIFF REQUIRED (test code = MDIFF) NO, ONLY SCAN NEEDED DIFFERENTIAL [id number] 12:16:00* Test Item Value Reference Range Interpretation Comments STAIN ACCEPTABILITY (test code = STN ACCEPTABLE) MORPHOLOGY COMMENT (test code = MOC) PLATELET ESTIMATE (test code = PLTEST) PLATELET MORPHOLOGY (test code = PLTMORPH) CBC W/AUTO [id number] 12:15:00* Test Item Value Reference Range Interpretation Comments WHITE BLOOD CELL (test code = WBC) 13.9 K/mm3 4.5-12.5 H RED BLOOD CELL (test code = RBC) 4.17 mill/mm3 3.7-5.2 N HEMOGLOBIN (test code = HGB) 9.6 gram/dL 11.5-15.5 L HEMATOCRIT (test code = HCT) 31.2 % 36.0-46.0 L MEAN CELL VOLUME (test code = MCV) 74.8 fL 80-98 L MEAN CELL HGB (test code = MCH) 23.0 picogram 27.0-33.0 L MEAN CELL HGB CONCETRATION (test code = MCHC) 30.8 gram/dL 33.0-36. 0 L RED CELL DISTRIBUTION WIDTH (test code = RDW) 22.6 % 11.6-16. 2 H RED CELL DISTRIBUTION WIDTH SD (test code = RDW-SD) 59.6 fL 37 .0-51.0 H PLATELET COUNT (test code = PLT) 274 K/mm3 150-450 N MEAN PLATELET VOLUME (test code = MPV) 10.1 fL 6.7-11.0 N NEUTROPHIL % (test code = NT%) 88.3 % 39.0-69.0 H IMMATURE GRANULOCYTE % (test code = IG%) 0.4 % 0.0-5.0 N LYMPHOCYTE % (test code = LY%) 6.0 % 25.0-55.0 L MONOCYTE % (test code = MO%) 4.7 % 0.0-10.0 N EOSINOPHIL % (test code = EO%) 0.4 % 0.0-5.0 N BASOPHIL % (test code = BA%) 0.2 % 0.0-1.0 N NUCLEATED RBC % (test code = NRBC%) 0.0 % 0-0 N NEUTROPHIL # (test code = NT#) 12.15 K/mm3 1.8-7.7 H IMMATURE GRANULOCYTE # (test code = IG#) 0.05 x10 3/uL 0-0.03 H LYMPHOCYTE # (test code = LY#) 0.82 K/mm3 1.0-5.0 L MONOCYTE # (test code = MO#) 0.65 K/mm3 0-0.8 N EOSINOPHIL # (test code = EO#) 0.05 K/mm3 0.0-0.5 N BASOPHIL # (test code = BA#) 0.03 K/mm3 0.0-0.2 N NUCLEATED RBC # (test code = NRBC#) 0.00 K/mm3 0.0-0.1 N MANUAL DIFF REQUIRED (test code = MDIFF) NO, ONLY SCAN NEEDED DIFFERENTIAL [id number] 12:15:00* Test Item Value Reference Range Interpretation Comments STAIN ACCEPTABILITY (test code = STN ACCEPTABLE) CABOT RINGS (test code = CAB) MORPHOLOGY COMMENT (test code = MOC) PLATELET ESTIMATE (test code = PLTEST) PLATELET MORPHOLOGY (test code = PLTMORPH) CBC W/AUTO [id number] 14:31:00* Test Item Value Reference Range Interpretation Comments WHITE BLOOD CELL (test code = WBC) 11.0 K/mm3 4.5-12.5 N RED BLOOD CELL (test code = RBC) 4.28 mill/mm3 3.7-5.2 N HEMOGLOBIN (test code = HGB) 9.9 gram/dL 11.5-15.5 L HEMATOCRIT (test code = HCT) 31.9 % 36.0-46.0 L MEAN CELL VOLUME (test code = MCV) 74.5 fL 80-98 L MEAN CELL HGB (test code = MCH) 23.1 picogram 27.0-33.0 L MEAN CELL HGB CONCETRATION (test code = MCHC) 31.0 gram/dL 33.0-36. 0 L RED CELL DISTRIBUTION WIDTH (test code = RDW) 20.8 % 11.6-16. 2 H RED CELL DISTRIBUTION WIDTH SD (test code = RDW-SD) 49.7 fL 37 .0-51.0 N PLATELET COUNT (test code = PLT) 338 K/mm3 150-450 N MEAN PLATELET VOLUME (test code = MPV) 9.7 fL 6.7-11.0 N NEUTROPHIL % (test code = NT%) 72.2 % 39.0-69.0 H LYMPHOCYTE % (test code = LY%) 19.4 % 25.0-55.0 L MONOCYTE % (test code = MO%) 5.8 % 0.0-10.0 N EOSINOPHIL % (test code = EO%) 2.0 % 0.0-5.0 N BASOPHIL % (test code = BA%) 0.3 % 0.0-1.0 N NEUTROPHIL # (test code = NT#) 7.93 K/mm3 1.8-7.7 H LYMPHOCYTE # (test code = LY#) 2.13 K/mm3 1.0-5.0 N MONOCYTE # (test code = MO#) 0.64 K/mm3 0-0.8 N EOSINOPHIL # (test code = EO#) 0.22 K/mm3 0.0-0.5 N BASOPHIL # (test code = BA#) 0.03 K/mm3 0.0-0.2 N MANUAL DIFF REQUIRED (test code = MDIFF) NO, ONLY SCAN NEEDED DIFFERENTIAL [id number] 14:31:00* Test Item Value Reference Range Interpretation Comments STAIN ACCEPTABILITY (test code = STN ACCEPTABLE) STAIN ACCEPTABLE HYPOCHROMIA (test code = HYPO) 1+ ANISOCYTOSIS (test code = ANISO) 2+ MORPHOLOGY COMMENT (test code = MOC) PLATELET ESTIMATE (test code = PLTEST) ADEQUATE PLATELET MORPHOLOGY (test code = PLTMORPH) NORMAL CBC W/AUTO [id number] 14:31:00* Test Item Value Reference Range Interpretation Comments WHITE BLOOD CELL (test code = WBC) 11.0 K/mm3 4.5-12.5 N RED BLOOD CELL (test code = RBC) 4.28 mill/mm3 3.7-5.2 N HEMOGLOBIN (test code = HGB) 9.9 gram/dL 11.5-15.5 L HEMATOCRIT (test code = HCT) 31.9 % 36.0-46.0 L MEAN CELL VOLUME (test code = MCV) 74.5 fL 80-98 L MEAN CELL HGB (test code = MCH) 23.1 picogram 27.0-33.0 L MEAN CELL HGB CONCETRATION (test code = MCHC) 31.0 gram/dL 33.0-36. 0 L RED CELL DISTRIBUTION WIDTH (test code = RDW) 20.8 % 11.6-16. 2 H RED CELL DISTRIBUTION WIDTH SD (test code = RDW-SD) 49.7 fL 37 .0-51.0 N PLATELET COUNT (test code = PLT) 338 K/mm3 150-450 N MEAN PLATELET VOLUME (test code = MPV) 9.7 fL 6.7-11.0 N NEUTROPHIL % (test code = NT%) 72.2 % 39.0-69.0 H LYMPHOCYTE % (test code = LY%) 19.4 % 25.0-55.0 L MONOCYTE % (test code = MO%) 5.8 % 0.0-10.0 N EOSINOPHIL % (test code = EO%) 2.0 % 0.0-5.0 N BASOPHIL % (test code = BA%) 0.3 % 0.0-1.0 N NEUTROPHIL # (test code = NT#) 7.93 K/mm3 1.8-7.7 H LYMPHOCYTE # (test code = LY#) 2.13 K/mm3 1.0-5.0 N MONOCYTE # (test code = MO#) 0.64 K/mm3 0-0.8 N EOSINOPHIL # (test code = EO#) 0.22 K/mm3 0.0-0.5 N BASOPHIL # (test code = BA#) 0.03 K/mm3 0.0-0.2 N MANUAL DIFF REQUIRED (test code = MDIFF) NO, ONLY SCAN NEEDED DIFFERENTIAL [id number] 14:31:00* Test Item Value Reference Range Interpretation Comments STAIN ACCEPTABILITY (test code = STN ACCEPTABLE) STAIN ACCEPTABLE HYPOCHROMIA (test code = HYPO) 1+ ANISOCYTOSIS (test code = ANISO) 2+ PLATELET ESTIMATE (test code = PLTEST) ADEQUATE PLATELET MORPHOLOGY (test code = PLTMORPH) NORMAL COMPREHENSIVE METABOLIC [id number] 14:27:00* Test Item Value Reference Range Interpretation Comments SODIUM (test code = NA) 137 mmol/L 136-145 N POTASSIUM (test code = K) 3.4 mmol/L 3.5-5.1 L CHLORIDE (test code = CL) 102 mmol/L 101-109 N CARBON DIOXIDE (test code = CO2) 23.1 mmol/L 21-32 N ANION GAP (test code = GAP) 15 mmol/L 10-20 N GLUCOSE (test code = GLU) 110 mg/dL 74-106 H BLOOD UREA NITROGEN (test code = BUN) 7 mg/dL 3-21 N CREATININE (test code = CREAT) 0.51 mg/dL 0.55-1.3 L BUN/CREATININE RATIO (test code = BUN/CREA) 13.7 10-20 N TOTAL PROTEIN (test code = PROT) 7.4 g/dL 6.5-8.4 N ALBUMIN (test code = ALB) 3.2 g/dL 3.4-4.8 L GLOBULIN (test code = GLOB) 4.2 G/DL 1-10 N ALBUMIN/GLOBULIN RATIO (test code = A/G) 0.76 RATIO 0.75-1.50 N CALCIUM (test code = CA) 9.4 mg/dL 8.4-10.2 N BILIRUBIN TOTAL (test code = BILT) 0.20 mg/dL 0.0-1.0 N SGOT/AST (test code = AST) 10 U/L 6-32 N SGPT/ALT (test code = ALT) 14 U/L 12-78 N N ote: Change in REFERENCE RANGE due to new reagent method. ALKALINE PHOSPHATASE TOTAL (test code = ALKP) 60 U/L 38-126 N [id number] 14:27:00* Test Item Value Reference Range Interpretation Comments TROPONIN-I (test code = TROPI) <0.015 ng/mL 0.00-0.056 N [id number] 14:26:00* Test Item Value Reference Range Interpretation Comments D-DIMER (test code = DDIMER) 152 ng/ml < 600 COMPREHENSIVE METABOLIC [id number] 14:19:00* Test Item Value Reference Range Interpretation Comments SODIUM (test code = NA) 137 mmol/L 136-145 N POTASSIUM (test code = K) 3.4 mmol/L 3.5-5.1 L CHLORIDE (test code = CL) 102 mmol/L 101-109 N CARBON DIOXIDE (test code = CO2) 23.1 mmol/L 21-32 N ANION GAP (test code = GAP) 15 mmol/L 10-20 N GLUCOSE (test code = GLU) 110 mg/dL 74-106 H BLOOD UREA NITROGEN (test code = BUN) 7 mg/dL 3-21 N CREATININE (test code = CREAT) 0.51 mg/dL 0.55-1.3 L BUN/CREATININE RATIO (test code = BUN/CREA) 13.7 10-20 N TOTAL PROTEIN (test code = PROT) gram/dL 6.4-8.2 ALBUMIN (test code = ALB) g/dL 3.4-5.0 GLOBULIN (test code = GLOB) g/dL 2.7-4.2 ALBUMIN/GLOBULIN RATIO (test code = A/G) 0.75-1.50 CALCIUM (test code = CA) 9.4 mg/dL 8.4-10.2 N BILIRUBIN TOTAL (test code = BILT) mg/dL 0.2-1.2 SGOT/AST (test code = AST) IUnit/L 15-37 SGPT/ALT (test code = ALT) U/L 10-69 ALKALINE PHOSPHATASE TOTAL (test code = ALKP) IUnit/L 45-117 [id number] 14:19:00* Test Item Value Reference Range Interpretation Comments TROPONIN-I (test code = TROPI) ng/mL 0-0.045 CBC W/AUTO [id number] 14:14:00* Test Item Value Reference Range Interpretation Comments WHITE BLOOD CELL (test code = WBC) 11.0 K/mm3 4.5-12.5 N RED BLOOD CELL (test code = RBC) 4.28 mill/mm3 3.7-5.2 N HEMOGLOBIN (test code = HGB) 9.9 gram/dL 11.5-15.5 L HEMATOCRIT (test code = HCT) 31.9 % 36.0-46.0 L MEAN CELL VOLUME (test code = MCV) 74.5 fL 80-98 L MEAN CELL HGB (test code = MCH) 23.1 picogram 27.0-33.0 L MEAN CELL HGB CONCETRATION (test code = MCHC) 31.0 gram/dL 33.0-36. 0 L RED CELL DISTRIBUTION WIDTH (test code = RDW) 20.8 % 11.6-16. 2 H RED CELL DISTRIBUTION WIDTH SD (test code = RDW-SD) 49.7 fL 37 .0-51.0 N PLATELET COUNT (test code = PLT) 338 K/mm3 150-450 N MEAN PLATELET VOLUME (test code = MPV) 9.7 fL 6.7-11.0 N NEUTROPHIL % (test code = NT%) 72.2 % 39.0-69.0 H LYMPHOCYTE % (test code = LY%) 19.4 % 25.0-55.0 L MONOCYTE % (test code = MO%) 5.8 % 0.0-10.0 N EOSINOPHIL % (test code = EO%) 2.0 % 0.0-5.0 N BASOPHIL % (test code = BA%) 0.3 % 0.0-1.0 N NEUTROPHIL # (test code = NT#) 7.93 K/mm3 1.8-7.7 H LYMPHOCYTE # (test code = LY#) 2.13 K/mm3 1.0-5.0 N MONOCYTE # (test code = MO#) 0.64 K/mm3 0-0.8 N EOSINOPHIL # (test code = EO#) 0.22 K/mm3 0.0-0.5 N BASOPHIL # (test code = BA#) 0.03 K/mm3 0.0-0.2 N MANUAL DIFF REQUIRED (test code = MDIFF) NO, ONLY SCAN NEEDED DIFFERENTIAL [id number] 14:14:00* Test Item Value Reference Range Interpretation Comments STAIN ACCEPTABILITY (test code = STN ACCEPTABLE) CABOT RINGS (test code = CAB) MORPHOLOGY COMMENT (test code = MOC) PLATELET ESTIMATE (test code = PLTEST) PLATELET MORPHOLOGY (test code = PLTMORPH) CBC W/AUTO [id number] 14:14:00* Test Item Value Reference Range Interpretation Comments WHITE BLOOD CELL (test code = WBC) 11.0 K/mm3 4.5-12.5 N RED BLOOD CELL (test code = RBC) 4.28 mill/mm3 3.7-5.2 N HEMOGLOBIN (test code = HGB) 9.9 gram/dL 11.5-15.5 L HEMATOCRIT (test code = HCT) 31.9 % 36.0-46.0 L MEAN CELL VOLUME (test code = MCV) 74.5 fL 80-98 L MEAN CELL HGB (test code = MCH) 23.1 picogram 27.0-33.0 L MEAN CELL HGB CONCETRATION (test code = MCHC) 31.0 gram/dL 33.0-36. 0 L RED CELL DISTRIBUTION WIDTH (test code = RDW) 20.8 % 11.6-16. 2 H RED CELL DISTRIBUTION WIDTH SD (test code = RDW-SD) 49.7 fL 37 .0-51.0 N PLATELET COUNT (test code = PLT) 338 K/mm3 150-450 N MEAN PLATELET VOLUME (test code = MPV) 9.7 fL 6.7-11.0 N NEUTROPHIL % (test code = NT%) 72.2 % 39.0-69.0 H LYMPHOCYTE % (test code = LY%) 19.4 % 25.0-55.0 L MONOCYTE % (test code = MO%) 5.8 % 0.0-10.0 N EOSINOPHIL % (test code = EO%) 2.0 % 0.0-5.0 N BASOPHIL % (test code = BA%) 0.3 % 0.0-1.0 N NEUTROPHIL # (test code = NT#) 7.93 K/mm3 1.8-7.7 H LYMPHOCYTE # (test code = LY#) 2.13 K/mm3 1.0-5.0 N MONOCYTE # (test code = MO#) 0.64 K/mm3 0-0.8 N EOSINOPHIL # (test code = EO#) 0.22 K/mm3 0.0-0.5 N BASOPHIL # (test code = BA#) 0.03 K/mm3 0.0-0.2 N MANUAL DIFF REQUIRED (test code = MDIFF) NO, ONLY SCAN NEEDED DIFFERENTIAL [id number] 14:14:00* Test Item Value Reference Range Interpretation Comments STAIN ACCEPTABILITY (test code = STN ACCEPTABLE) MORPHOLOGY COMMENT (test code = MOC) PLATELET ESTIMATE (test code = PLTEST) PLATELET MORPHOLOGY (test code = PLTMORPH) CBC W/AUTO [id number] 14:13:00* Test Item Value Reference Range Interpretation Comments WHITE BLOOD CELL (test code = WBC) 11.0 K/mm3 4.5-12.5 N RED BLOOD CELL (test code = RBC) 4.28 mill/mm3 3.7-5.2 N HEMOGLOBIN (test code = HGB) 9.9 gram/dL 11.5-15.5 L HEMATOCRIT (test code = HCT) 31.9 % 36.0-46.0 L MEAN CELL VOLUME (test code = MCV) 74.5 fL 80-98 L MEAN CELL HGB (test code = MCH) 23.1 picogram 27.0-33.0 L MEAN CELL HGB CONCETRATION (test code = MCHC) 31.0 gram/dL 33.0-36. 0 L RED CELL DISTRIBUTION WIDTH (test code = RDW) 20.8 % 11.6-16. 2 H RED CELL DISTRIBUTION WIDTH SD (test code = RDW-SD) 49.7 fL 37 .0-51.0 N PLATELET COUNT (test code = PLT) 338 K/mm3 150-450 N MEAN PLATELET VOLUME (test code = MPV) 9.7 fL 6.7-11.0 N NEUTROPHIL % (test code = NT%) 72.2 % 39.0-69.0 H LYMPHOCYTE % (test code = LY%) 19.4 % 25.0-55.0 L MONOCYTE % (test code = MO%) 5.8 % 0.0-10.0 N EOSINOPHIL % (test code = EO%) 2.0 % 0.0-5.0 N BASOPHIL % (test code = BA%) 0.3 % 0.0-1.0 N NEUTROPHIL # (test code = NT#) 7.93 K/mm3 1.8-7.7 H LYMPHOCYTE # (test code = LY#) 2.13 K/mm3 1.0-5.0 N MONOCYTE # (test code = MO#) 0.64 K/mm3 0-0.8 N EOSINOPHIL # (test code = EO#) 0.22 K/mm3 0.0-0.5 N BASOPHIL # (test code = BA#) 0.03 K/mm3 0.0-0.2 N MANUAL DIFF REQUIRED (test code = MDIFF) NO, ONLY SCAN NEEDED DIFFERENTIAL [id number] 14:13:00* Test Item Value Reference Range Interpretation Comments STAIN ACCEPTABILITY (test code = STN ACCEPTABLE) CABOT RINGS (test code = CAB) MORPHOLOGY COMMENT (test code = MOC) PLATELET ESTIMATE (test code = PLTEST) PLATELET MORPHOLOGY (test code = PLTMORPH) CBC W/AUTO [id number] 14:13:00* Test Item Value Reference Range Interpretation Comments WHITE BLOOD CELL (test code = WBC) 11.0 K/mm3 4.5-12.5 N RED BLOOD CELL (test code = RBC) 4.28 mill/mm3 3.7-5.2 N HEMOGLOBIN (test code = HGB) 9.9 gram/dL 11.5-15.5 L HEMATOCRIT (test code = HCT) 31.9 % 36.0-46.0 L MEAN CELL VOLUME (test code = MCV) 74.5 fL 80-98 L MEAN CELL HGB (test code = MCH) 23.1 picogram 27.0-33.0 L MEAN CELL HGB CONCETRATION (test code = MCHC) 31.0 gram/dL 33.0-36. 0 L RED CELL DISTRIBUTION WIDTH (test code = RDW) 20.8 % 11.6-16. 2 H RED CELL DISTRIBUTION WIDTH SD (test code = RDW-SD) 49.7 fL 37 .0-51.0 N PLATELET COUNT (test code = PLT) 338 K/mm3 150-450 N MEAN PLATELET VOLUME (test code = MPV) 9.7 fL 6.7-11.0 N NEUTROPHIL % (test code = NT%) 72.2 % 39.0-69.0 H LYMPHOCYTE % (test code = LY%) 19.4 % 25.0-55.0 L MONOCYTE % (test code = MO%) 5.8 % 0.0-10.0 N EOSINOPHIL % (test code = EO%) 2.0 % 0.0-5.0 N BASOPHIL % (test code = BA%) 0.3 % 0.0-1.0 N NEUTROPHIL # (test code = NT#) 7.93 K/mm3 1.8-7.7 H LYMPHOCYTE # (test code = LY#) 2.13 K/mm3 1.0-5.0 N MONOCYTE # (test code = MO#) 0.64 K/mm3 0-0.8 N EOSINOPHIL # (test code = EO#) 0.22 K/mm3 0.0-0.5 N BASOPHIL # (test code = BA#) 0.03 K/mm3 0.0-0.2 N MANUAL DIFF REQUIRED (test code = MDIFF) NO, ONLY SCAN NEEDED DIFFERENTIAL [id number] 14:13:00* Test Item Value Reference Range Interpretation Comments STAIN ACCEPTABILITY (test code = STN ACCEPTABLE) CABOT RINGS (test code = CAB) MORPHOLOGY COMMENT (test code = MOC) PLATELET ESTIMATE (test code = PLTEST) PLATELET MORPHOLOGY (test code = PLTMORPH) UR HCG [id number] 14:12:00* Test Item Value Reference Range Interpretation Comments UR HCG QUAL (test code = HCGQLU) POSITIVE This HCGQL test is NOT applicable for MALE patients.Check with nurse about probable order error.If Tumor Marker Test needed, nurse should order test "HCGTU"(Test #[id number]) UA GLUCOSE DIPSTIC [id number] 10:59:00* Test Item Value Reference Range Interpretation Comments UA GLUCOSE DIPSTIC POC (test code = GLUUP) Negative Negative UA GLU: NEGATIVEKET UA NEGATIVEPH UA 6.0UA NIT NegativePROT UA NEGATIVEBL UA NEG ATIVEUA LAZARO NegativeTime performed: 1058UA KETONE DIPSTICK [id number] 10:59:00* Test Item Value Reference Range Interpretation Comments UA KETONE DIPSTICK POC (test code = KETUP) Negative UA GLU: NEGATIVEKET UA NEGATIVEPH UA 6.0UA NIT NegativePROT UA NEGATIVEBL UA NEG ATIVEUA LAZARO NegativeTime performed: 1058UA BLOOD DIPSTIC [id number] 10:59:00 * Test Item Value Reference Range Interpretation Comments UA BLOOD DIPSTIC POC (test code = BLUP) NEGATIVE UA GLU: NEGATIVEKET UA NEGATIVEPH UA 6.0UA NIT NegativePROT UA NEGATIVEBL UA NEG ATIVEUA LAZARO NegativeTime performed: 1058UA PH DIPSTIC [id number] 10:59:00* Test Item Value Reference Range Interpretation Comments UA PH DIPSTIC POC (test code = PHUP) 5-8 UA GLU: NEGATIVEKET UA NEGATIVEPH UA 6.0UA NIT NegativePROT UA NEGATIVEBL UA NEG ATIVEUA LAZARO NegativeTime performed: 1058UA PROTEIN DIPSTICK [id number] 10:59:00* Test Item Value Reference Range Interpretation Comments UA PROTEIN DIPSTICK POC (test code = DPROUP) Neg -15 UA GLU: NEGATIVEKET UA NEGATIVEPH UA 6.0UA NIT NegativePROT UA NEGATIVEBL UA NEG ATIVEUA LAZARO NegativeTime performed: 1058UA NITRITE DIPSTICK [id number] 10:59:00* Test Item Value Reference Range Interpretation Comments UA NITRITE DIPSTICK POC (test code = NITUP) Negative UA GLU: NEGATIVEKET UA NEGATIVEPH UA 6.0UA NIT NegativePROT UA NEGATIVEBL UA NEG ATIVEUA LAZARO NegativeTime performed: 1058 LEUKOCYTE ESTERASE [id number] 10:59:00* Test Item Value Reference Range Interpretation Comments UA LEUKOCYTE ESTERASE POC (test code = LEUUPOC) NEGATI VE UA GLU: NEGATIVEKET UA NEGATIVEPH UA 6.0UA NIT NegativePROT UA NEGATIVEBL UA NEG ATIVEUA LAZARO NegativeTime performed: 105 GLUCOSE DIPSTIC [id number] 10:59:00* Test Item Value Reference Range Interpretation Comments UA GLUCOSE DIPSTIC POC (test code = GLUUP) Negative Negative UA GLU: NEGATIVEKET UA NEGATIVEPH UA 6.0UA NIT NegativePROT UA NEGATIVEBL UA NEG ATIVEUA LAZARO NegativeTime performed: 105 KETONE DIPSTICK [id number] 10:59:00* Test Item Value Reference Range Interpretation Comments UA KETONE DIPSTICK POC (test code = KETUP) Negative Negative UA GLU: NEGATIVEKET UA NEGATIVEPH UA 6.0UA NIT NegativePROT UA NEGATIVEBL UA NEG ATIVEUA LAZARO NegativeTime performed: 105 BLOOD DIPSTIC [id number] 10:59:00 * Test Item Value Reference Range Interpretation Comments UA BLOOD DIPSTIC POC (test code = BLUP) NEGATIVE UA GLU: NEGATIVEKET UA NEGATIVEPH UA 6.0UA NIT NegativePROT UA NEGATIVEBL UA NEG ATIVEUA LAZARO NegativeTime performed: 105 PH DIPSTIC [id number] 10:59:00* Test Item Value Reference Range Interpretation Comments UA PH DIPSTIC POC (test code = PHUP) 5-8 UA GLU: NEGATIVEKET UA NEGATIVEPH UA 6.0UA NIT NegativePROT UA NEGATIVEBL UA NEG ATIVEUA LAZARO NegativeTime performed: 1058 PROTEIN DIPSTICK [id number] 10:59:00* Test Item Value Reference Range Interpretation Comments UA PROTEIN DIPSTICK POC (test code = DPROUP) Neg -15 UA GLU: NEGATIVEKET UA NEGATIVEPH UA 6.0UA NIT NegativePROT UA NEGATIVEBL UA NEG ATIVEUA LAZARO NegativeTime performed: 105 NITRITE DIPSTICK [id number] 10:59:00* Test Item Value Reference Range Interpretation Comments UA NITRITE DIPSTICK POC (test code = NITUP) Negative UA GLU: NEGATIVEKET UA NEGATIVEPH UA 6.0UA NIT NegativePROT UA NEGATIVEBL UA NEG ATIVEUA LAZARO NegativeTime performed: 105 LEUKOCYTE ESTERASE [id number] 10:59:00* Test Item Value Reference Range Interpretation Comments UA LEUKOCYTE ESTERASE POC (test code = LEUUPOC) NEGATI VE UA GLU: NEGATIVEKET UA NEGATIVEPH UA 6.0UA NIT NegativePROT UA NEGATIVEBL UA NEG ATIVEUA LAZARO NegativeTime performed: 105 GLUCOSE DIPSTIC [id number] 10:59:00* Test Item Value Reference Range Interpretation Comments UA GLUCOSE DIPSTIC POC (test code = GLUUP) Negative Negative UA GLU: NEGATIVEKET UA NEGATIVEPH UA 6.0UA NIT NegativePROT UA NEGATIVEBL UA NEG ATIVEUA LAZARO NegativeTime performed: KETONE DIPSTICK [id number] 10:59:00* Test Item Value Reference Range Interpretation Comments UA KETONE DIPSTICK POC (test code = KETUP) Negative Negative UA GLU: NEGATIVEKET UA NEGATIVEPH UA 6.0UA NIT NegativePROT UA NEGATIVEBL UA NEG ATIVEUA LAZARO NegativeTime performed: 105 BLOOD DIPSTIC [id number] 10:59:00 * Test Item Value Reference Range Interpretation Comments UA BLOOD DIPSTIC POC (test code = BLUP) Negative NEGATIVE UA GLU: NEGATIVEKET UA NEGATIVEPH UA 6.0UA NIT NegativePROT UA NEGATIVEBL UA NEG ATIVEUA LAZARO NegativeTime performed: PH DIPSTIC [id number] 10:59:00* Test Item Value Reference Range Interpretation Comments UA PH DIPSTIC POC (test code = PHUP) 5-8 UA GLU: NEGATIVEKET UA NEGATIVEPH UA 6.0UA NIT NegativePROT UA NEGATIVEBL UA NEG ATIVEUA LAZARO NegativeTime performed: 105 PROTEIN DIPSTICK [id number] 10:59:00* Test Item Value Reference Range Interpretation Comments UA PROTEIN DIPSTICK POC (test code = DPROUP) Neg -15 UA GLU: NEGATIVEKET UA NEGATIVEPH UA 6.0UA NIT NegativePROT UA NEGATIVEBL UA NEG ATIVEUA LAZARO NegativeTime performed: 105 NITRITE DIPSTICK [id number] 10:59:00* Test Item Value Reference Range Interpretation Comments UA NITRITE DIPSTICK POC (test code = NITUP) Negative UA GLU: NEGATIVEKET UA NEGATIVEPH UA 6.0UA NIT NegativePROT UA NEGATIVEBL UA NEG ATIVEUA LAZARO NegativeTime performed: 105 LEUKOCYTE ESTERASE [id number] 10:59:00* Test Item Value Reference Range Interpretation Comments UA LEUKOCYTE ESTERASE POC (test code = LEUUPOC) NEGATI VE UA GLU: NEGATIVEKET UA NEGATIVEPH UA 6.0UA NIT NegativePROT UA NEGATIVEBL UA NEG ATIVEUA LAZARO NegativeTime performed: 105 GLUCOSE DIPSTIC [id number] 10:59:00* Test Item Value Reference Range Interpretation Comments UA GLUCOSE DIPSTIC POC (test code = GLUUP) Negative Negative UA GLU: NEGATIVEKET UA NEGATIVEPH UA 6.0UA NIT NegativePROT UA NEGATIVEBL UA NEG ATIVEUA LAZARO NegativeTime performed: KETONE DIPSTICK [id number] 10:59:00* Test Item Value Reference Range Interpretation Comments UA KETONE DIPSTICK POC (test code = KETUP) Negative Negative UA GLU: NEGATIVEKET UA NEGATIVEPH UA 6.0UA NIT NegativePROT UA NEGATIVEBL UA NEG ATIVEUA LAZARO NegativeTime performed: BLOOD DIPSTIC [id number] 10:59:00 * Test Item Value Reference Range Interpretation Comments UA BLOOD DIPSTIC POC (test code = BLUP) Negative NEGATIVE UA GLU: NEGATIVEKET UA NEGATIVEPH UA 6.0UA NIT NegativePROT UA NEGATIVEBL UA NEG ATIVEUA LAZARO NegativeTime performed: 105 PH DIPSTIC [id number] 10:59:00* Test Item Value Reference Range Interpretation Comments UA PH DIPSTIC POC (test code = PHUP) 6 5-8 N UA GLU: NEGATIVEKET UA NEGATIVEPH UA 6.0UA NIT NegativePROT UA NEGATIVEBL UA NEG ATIVEUA LAZARO NegativeTime performed: 105 PROTEIN DIPSTICK [id number] 10:59:00* Test Item Value Reference Range Interpretation Comments UA PROTEIN DIPSTICK POC (test code = DPROUP) Neg -15 UA GLU: NEGATIVEKET UA NEGATIVEPH UA 6.0UA NIT NegativePROT UA NEGATIVEBL UA NEG ATIVEUA LAZARO NegativeTime performed: 1058UA NITRITE DIPSTICK [id number] 10:59:00* Test Item Value Reference Range Interpretation Comments UA NITRITE DIPSTICK POC (test code = NITUP) Negative UA GLU: NEGATIVEKET UA NEGATIVEPH UA 6.0UA NIT NegativePROT UA NEGATIVEBL UA NEG ATIVEUA LAZARO NegativeTime performed: 1058 LEUKOCYTE ESTERASE [id number] 10:59:00* Test Item Value Reference Range Interpretation Comments UA LEUKOCYTE ESTERASE POC (test code = LEUUPOC) NEGATI VE UA GLU: NEGATIVEKET UA NEGATIVEPH UA 6.0UA NIT NegativePROT UA NEGATIVEBL UA NEG ATIVEUA LAZARO NegativeTime performed: 105 GLUCOSE DIPSTIC [id number] 10:59:00* Test Item Value Reference Range Interpretation Comments UA GLUCOSE DIPSTIC POC (test code = GLUUP) Negative Negative UA GLU: NEGATIVEKET UA NEGATIVEPH UA 6.0UA NIT NegativePROT UA NEGATIVEBL UA NEG ATIVEUA LAZARO NegativeTime performed: 105 KETONE DIPSTICK [id number] 10:59:00* Test Item Value Reference Range Interpretation Comments UA KETONE DIPSTICK POC (test code = KETUP) Negative Negative UA GLU: NEGATIVEKET UA NEGATIVEPH UA 6.0UA NIT NegativePROT UA NEGATIVEBL UA NEG ATIVEUA LAZARO NegativeTime performed: 105 BLOOD DIPSTIC [id number] 10:59:00 * Test Item Value Reference Range Interpretation Comments UA BLOOD DIPSTIC POC (test code = BLUP) Negative NEGATIVE UA GLU: NEGATIVEKET UA NEGATIVEPH UA 6.0UA NIT NegativePROT UA NEGATIVEBL UA NEG ATIVEUA LAZARO NegativeTime performed: 1058 PH DIPSTIC [id number] 10:59:00* Test Item Value Reference Range Interpretation Comments UA PH DIPSTIC POC (test code = PHUP) 6 5-8 N UA GLU: NEGATIVEKET UA NEGATIVEPH UA 6.0UA NIT NegativePROT UA NEGATIVEBL UA NEG ATIVEUA LAZARO NegativeTime performed: 1058 PROTEIN DIPSTICK [id number] 10:59:00* Test Item Value Reference Range Interpretation Comments UA PROTEIN DIPSTICK POC (test code = DPROUP) Negative Neg -15 UA GLU: NEGATIVEKET UA NEGATIVEPH UA 6.0UA NIT NegativePROT UA NEGATIVEBL UA NEG ATIVEUA LAZARO NegativeTime performed: 105 NITRITE DIPSTICK [id number] 10:59:00* Test Item Value Reference Range Interpretation Comments UA NITRITE DIPSTICK POC (test code = NITUP) Negative UA GLU: NEGATIVEKET UA NEGATIVEPH UA 6.0UA NIT NegativePROT UA NEGATIVEBL UA NEG ATIVEUA LAZARO NegativeTime performed: 1058 LEUKOCYTE ESTERASE [id number] 10:59:00* Test Item Value Reference Range Interpretation Comments UA LEUKOCYTE ESTERASE POC (test code = LEUUPOC) NEGATI VE UA GLU: NEGATIVEKET UA NEGATIVEPH UA 6.0UA NIT NegativePROT UA NEGATIVEBL UA NEG ATIVEUA LAZARO NegativeTime performed: 105 GLUCOSE DIPSTIC [id number] 10:59:00* Test Item Value Reference Range Interpretation Comments UA GLUCOSE DIPSTIC POC (test code = GLUUP) Negative Negative UA GLU: NEGATIVEKET UA NEGATIVEPH UA 6.0UA NIT NegativePROT UA NEGATIVEBL UA NEG ATIVEUA LAZARO NegativeTime performed: KETONE DIPSTICK [id number] 10:59:00* Test Item Value Reference Range Interpretation Comments UA KETONE DIPSTICK POC (test code = KETUP) Negative Negative UA GLU: NEGATIVEKET UA NEGATIVEPH UA 6.0UA NIT NegativePROT UA NEGATIVEBL UA NEG ATIVEUA LAZARO NegativeTime performed: 105 BLOOD DIPSTIC [id number] 10:59:00 * Test Item Value Reference Range Interpretation Comments UA BLOOD DIPSTIC POC (test code = BLUP) Negative NEGATIVE UA GLU: NEGATIVEKET UA NEGATIVEPH UA 6.0UA NIT NegativePROT UA NEGATIVEBL UA NEG ATIVEUA LAZARO NegativeTime performed: 1058 PH DIPSTIC [id number] 10:59:00* Test Item Value Reference Range Interpretation Comments UA PH DIPSTIC POC (test code = PHUP) 6 5-8 N UA GLU: NEGATIVEKET UA NEGATIVEPH UA 6.0UA NIT NegativePROT UA NEGATIVEBL UA NEG ATIVEUA LAZARO NegativeTime performed: 1058 PROTEIN DIPSTICK [id number] 10:59:00* Test Item Value Reference Range Interpretation Comments UA PROTEIN DIPSTICK POC (test code = DPROUP) Negative Neg -15 UA GLU: NEGATIVEKET UA NEGATIVEPH UA 6.0UA NIT NegativePROT UA NEGATIVEBL UA NEG ATIVEUA LAZARO NegativeTime performed: 105 NITRITE DIPSTICK [id number] 10:59:00* Test Item Value Reference Range Interpretation Comments UA NITRITE DIPSTICK POC (test code = NITUP) Negative Negative UA GLU: NEGATIVEKET UA NEGATIVEPH UA 6.0UA NIT NegativePROT UA NEGATIVEBL UA NEG ATIVEUA LAZARO NegativeTime performed: 1058 LEUKOCYTE ESTERASE [id number] 10:59:00* Test Item Value Reference Range Interpretation Comments UA LEUKOCYTE ESTERASE POC (test code = LEUUPOC) NEGATI VE UA GLU: NEGATIVEKET UA NEGATIVEPH UA 6.0UA NIT NegativePROT UA NEGATIVEBL UA NEG ATIVEUA LAZARO NegativeTime performed: 105 GLUCOSE DIPSTIC [id number] 10:59:00* Test Item Value Reference Range Interpretation Comments UA GLUCOSE DIPSTIC POC (test code = GLUUP) Negative Negative UA GLU: NEGATIVEKET UA NEGATIVEPH UA 6.0UA NIT NegativePROT UA NEGATIVEBL UA NEG ATIVEUA LAZARO NegativeTime performed: 105 KETONE DIPSTICK [id number] 10:59:00* Test Item Value Reference Range Interpretation Comments UA KETONE DIPSTICK POC (test code = KETUP) Negative Negative UA GLU: NEGATIVEKET UA NEGATIVEPH UA 6.0UA NIT NegativePROT UA NEGATIVEBL UA NEG ATIVEUA LAZARO NegativeTime performed: 105 BLOOD DIPSTIC [id number] 10:59:00 * Test Item Value Reference Range Interpretation Comments UA BLOOD DIPSTIC POC (test code = BLUP) Negative NEGATIVE UA GLU: NEGATIVEKET UA NEGATIVEPH UA 6.0UA NIT NegativePROT UA NEGATIVEBL UA NEG ATIVEUA LAZARO NegativeTime performed: 1058 PH DIPSTIC [id number] 10:59:00* Test Item Value Reference Range Interpretation Comments UA PH DIPSTIC POC (test code = PHUP) 6 5-8 N UA GLU: NEGATIVEKET UA NEGATIVEPH UA 6.0UA NIT NegativePROT UA NEGATIVEBL UA NEG ATIVEUA LAZARO NegativeTime performed: 1058 PROTEIN DIPSTICK [id number] 10:59:00* Test Item Value Reference Range Interpretation Comments UA PROTEIN DIPSTICK POC (test code = DPROUP) Negative Neg -15 UA GLU: NEGATIVEKET UA NEGATIVEPH UA 6.0UA NIT NegativePROT UA NEGATIVEBL UA NEG ATIVEUA LAZARO NegativeTime performed: 1058UA NITRITE DIPSTICK [id number] 10:59:00* Test Item Value Reference Range Interpretation Comments UA NITRITE DIPSTICK POC (test code = NITUP) Negative Negative UA GLU: NEGATIVEKET UA NEGATIVEPH UA 6.0UA NIT NegativePROT UA NEGATIVEBL UA NEG ATIVEUA LAZARO NegativeTime performed: 1058UA LEUKOCYTE ESTERASE [id number] 10:59:00* Test Item Value Reference Range Interpretation Comments UA LEUKOCYTE ESTERASE POC (test code = LEUUPOC) NEGATIVE NEGATI VE UA GLU: NEGATIVEKET UA NEGATIVEPH UA 6.0UA NIT NegativePROT UA NEGATIVEBL UA NEG ATIVEUA LAZARO NegativeTime performed: 1058UA GLUCOSE DIPSTIC [id number] 16:26:00* Test Item Value Reference Range Interpretation Comments UA GLUCOSE DIPSTIC POC (test code = GLUUP) Negative Negative UA GLU: NEGATIVEKET UA NEGATIVEPH UA 7.0UA NIT NegativePROT UA NEGATIVEBL UA NEG ATIVEUA LAZARO 2+ (Large)Time performed: 1600UA KETONE DIPSTICK [id number] 16:26:00* Test Item Value Reference Range Interpretation Comments UA KETONE DIPSTICK POC (test code = KETUP) Negative UA GLU: NEGATIVEKET UA NEGATIVEPH UA 7.0UA NIT NegativePROT UA NEGATIVEBL UA NEG ATIVEUA LAZARO 2+ (Large)Time performed: 1600UA BLOOD DIPSTIC [id number] 16:26:00* Test Item Value Reference Range Interpretation Comments UA BLOOD DIPSTIC POC (test code = BLUP) NEGATIVE UA GLU: NEGATIVEKET UA NEGATIVEPH UA 7.0UA NIT NegativePROT UA NEGATIVEBL UA NEG ATIVEUA LAZARO 2+ (Large)Time performed: 1600UA PH DIPSTIC [id number] 16:26:00* Test Item Value Reference Range Interpretation Comments UA PH DIPSTIC POC (test code = PHUP) 5-8 UA GLU: NEGATIVEKET UA NEGATIVEPH UA 7.0UA NIT NegativePROT UA NEGATIVEBL UA NEG ATIVEUA LAZARO 2+ (Large)Time performed: 1600UA PROTEIN DIPSTICK [id number] 16:26:00* Test Item Value Reference Range Interpretation Comments UA PROTEIN DIPSTICK POC (test code = DPROUP) Neg -15 UA GLU: NEGATIVEKET UA NEGATIVEPH UA 7.0UA NIT NegativePROT UA NEGATIVEBL UA NEG ATIVEUA LAZARO 2+ (Large)Time performed: NITRITE DIPSTICK [id number] 16:26:00* Test Item Value Reference Range Interpretation Comments UA NITRITE DIPSTICK POC (test code = NITUP) Negative UA GLU: NEGATIVEKET UA NEGATIVEPH UA 7.0UA NIT NegativePROT UA NEGATIVEBL UA NEG ATIVEUA LAZARO 2+ (Large)Time performed: LEUKOCYTE ESTERASE [id number] 16:26:00* Test Item Value Reference Range Interpretation Comments UA LEUKOCYTE ESTERASE POC (test code = LEUUPOC) NEGATI VE UA GLU: NEGATIVEKET UA NEGATIVEPH UA 7.0UA NIT NegativePROT UA NEGATIVEBL UA NEG ATIVEUA LAZARO 2+ (Large)Time performed: GLUCOSE DIPSTIC [id number] 16:26:00* Test Item Value Reference Range Interpretation Comments UA GLUCOSE DIPSTIC POC (test code = GLUUP) Negative Negative UA GLU: NEGATIVEKET UA NEGATIVEPH UA 7.0UA NIT NegativePROT UA NEGATIVEBL UA NEG ATIVEUA LAZARO 2+ (Large)Time performed: KETONE DIPSTICK [id number] 16:26:00* Test Item Value Reference Range Interpretation Comments UA KETONE DIPSTICK POC (test code = KETUP) Negative Negative UA GLU: NEGATIVEKET UA NEGATIVEPH UA 7.0UA NIT NegativePROT UA NEGATIVEBL UA NEG ATIVEUA LAZARO 2+ (Large)Time performed: BLOOD DIPSTIC [id number] 16:26:00* Test Item Value Reference Range Interpretation Comments UA BLOOD DIPSTIC POC (test code = BLUP) NEGATIVE UA GLU: NEGATIVEKET UA NEGATIVEPH UA 7.0UA NIT NegativePROT UA NEGATIVEBL UA NEG ATIVEUA LAZARO 2+ (Large)Time performed: PH DIPSTIC [id number] 16:26:00* Test Item Value Reference Range Interpretation Comments UA PH DIPSTIC POC (test code = PHUP) 5-8 UA GLU: NEGATIVEKET UA NEGATIVEPH UA 7.0UA NIT NegativePROT UA NEGATIVEBL UA NEG ATIVEUA LAZARO 2+ (Large)Time performed: 1600UA PROTEIN DIPSTICK [id number] 16:26:00* Test Item Value Reference Range Interpretation Comments UA PROTEIN DIPSTICK POC (test code = DPROUP) Neg -15 UA GLU: NEGATIVEKET UA NEGATIVEPH UA 7.0UA NIT NegativePROT UA NEGATIVEBL UA NEG ATIVEUA LAZARO 2+ (Large)Time performed: 1599UA NITRITE DIPSTICK [id number] 16:26:00* Test Item Value Reference Range Interpretation Comments UA NITRITE DIPSTICK POC (test code = NITUP) Negative UA GLU: NEGATIVEKET UA NEGATIVEPH UA 7.0UA NIT NegativePROT UA NEGATIVEBL UA NEG ATIVEUA LAZARO 2+ (Large)Time performed: 1599UA LEUKOCYTE ESTERASE [id number] 16:26:00* Test Item Value Reference Range Interpretation Comments UA LEUKOCYTE ESTERASE POC (test code = LEUUPOC) NEGATI VE UA GLU: NEGATIVEKET UA NEGATIVEPH UA 7.0UA NIT NegativePROT UA NEGATIVEBL UA NEG ATIVEUA LAZARO 2+ (Large)Time performed: 1600UA GLUCOSE DIPSTIC [id number] 16:26:00* Test Item Value Reference Range Interpretation Comments UA GLUCOSE DIPSTIC POC (test code = GLUUP) Negative Negative UA GLU: NEGATIVEKET UA NEGATIVEPH UA 7.0UA NIT NegativePROT UA NEGATIVEBL UA NEG ATIVEUA LAZARO 2+ (Large)Time performed: 1599UA KETONE DIPSTICK [id number] 16:26:00* Test Item Value Reference Range Interpretation Comments UA KETONE DIPSTICK POC (test code = KETUP) Negative Negative UA GLU: NEGATIVEKET UA NEGATIVEPH UA 7.0UA NIT NegativePROT UA NEGATIVEBL UA NEG ATIVEUA LAZARO 2+ (Large)Time performed: 1599UA BLOOD DIPSTIC [id number] 16:26:00* Test Item Value Reference Range Interpretation Comments UA BLOOD DIPSTIC POC (test code = BLUP) Negative NEGATIVE UA GLU: NEGATIVEKET UA NEGATIVEPH UA 7.0UA NIT NegativePROT UA NEGATIVEBL UA NEG ATIVEUA LAZARO 2+ (Large)Time performed: 1599UA PH DIPSTIC [id number] 16:26:00* Test Item Value Reference Range Interpretation Comments UA PH DIPSTIC POC (test code = PHUP) 5-8 UA GLU: NEGATIVEKET UA NEGATIVEPH UA 7.0UA NIT NegativePROT UA NEGATIVEBL UA NEG ATIVEUA LAZARO 2+ (Large)Time performed: 1599UA PROTEIN DIPSTICK [id number] 16:26:00* Test Item Value Reference Range Interpretation Comments UA PROTEIN DIPSTICK POC (test code = DPROUP) Neg -15 UA GLU: NEGATIVEKET UA NEGATIVEPH UA 7.0UA NIT NegativePROT UA NEGATIVEBL UA NEG ATIVEUA LAZARO 2+ (Large)Time performed: 1599UA NITRITE DIPSTICK [id number] 16:26:00* Test Item Value Reference Range Interpretation Comments UA NITRITE DIPSTICK POC (test code = NITUP) Negative UA GLU: NEGATIVEKET UA NEGATIVEPH UA 7.0UA NIT NegativePROT UA NEGATIVEBL UA NEG ATIVEUA LAZARO 2+ (Large)Time performed: 1599UA LEUKOCYTE ESTERASE [id number] 16:26:00* Test Item Value Reference Range Interpretation Comments UA LEUKOCYTE ESTERASE POC (test code = LEUUPOC) NEGATI VE UA GLU: NEGATIVEKET UA NEGATIVEPH UA 7.0UA NIT NegativePROT UA NEGATIVEBL UA NEG ATIVEUA LAZARO 2+ (Large)Time performed: 1599UA GLUCOSE DIPSTIC [id number] 16:26:00* Test Item Value Reference Range Interpretation Comments UA GLUCOSE DIPSTIC POC (test code = GLUUP) Negative Negative UA GLU: NEGATIVEKET UA NEGATIVEPH UA 7.0UA NIT NegativePROT UA NEGATIVEBL UA NEG ATIVEUA LAZARO 2+ (Large)Time performed: 1599UA KETONE DIPSTICK [id number] 16:26:00* Test Item Value Reference Range Interpretation Comments UA KETONE DIPSTICK POC (test code = KETUP) Negative Negative UA GLU: NEGATIVEKET UA NEGATIVEPH UA 7.0UA NIT NegativePROT UA NEGATIVEBL UA NEG ATIVEUA LAZARO 2+ (Large)Time performed: 1599UA BLOOD DIPSTIC [id number] 16:26:00* Test Item Value Reference Range Interpretation Comments UA BLOOD DIPSTIC POC (test code = BLUP) Negative NEGATIVE UA GLU: NEGATIVEKET UA NEGATIVEPH UA 7.0UA NIT NegativePROT UA NEGATIVEBL UA NEG ATIVEUA LAZARO 2+ (Large)Time performed: 1599UA PH DIPSTIC [id number] 16:26:00* Test Item Value Reference Range Interpretation Comments UA PH DIPSTIC POC (test code = PHUP) 7 5-8 N UA GLU: NEGATIVEKET UA NEGATIVEPH UA 7.0UA NIT NegativePROT UA NEGATIVEBL UA NEG ATIVEUA LAZARO 2+ (Large)Time performed: 1600UA PROTEIN DIPSTICK [id number] 16:26:00* Test Item Value Reference Range Interpretation Comments UA PROTEIN DIPSTICK POC (test code = DPROUP) Neg -15 UA GLU: NEGATIVEKET UA NEGATIVEPH UA 7.0UA NIT NegativePROT UA NEGATIVEBL UA NEG ATIVEUA LAZARO 2+ (Large)Time performed: 1600UA NITRITE DIPSTICK [id number] 16:26:00* Test Item Value Reference Range Interpretation Comments UA NITRITE DIPSTICK POC (test code = NITUP) Negative UA GLU: NEGATIVEKET UA NEGATIVEPH UA 7.0UA NIT NegativePROT UA NEGATIVEBL UA NEG ATIVEUA LAZARO 2+ (Large)Time performed: 1599UA LEUKOCYTE ESTERASE [id number] 16:26:00* Test Item Value Reference Range Interpretation Comments UA LEUKOCYTE ESTERASE POC (test code = LEUUPOC) NEGATI VE UA GLU: NEGATIVEKET UA NEGATIVEPH UA 7.0UA NIT NegativePROT UA NEGATIVEBL UA NEG ATIVEUA LAZARO 2+ (Large)Time performed: 1599UA GLUCOSE DIPSTIC [id number] 16:26:00* Test Item Value Reference Range Interpretation Comments UA GLUCOSE DIPSTIC POC (test code = GLUUP) Negative Negative UA GLU: NEGATIVEKET UA NEGATIVEPH UA 7.0UA NIT NegativePROT UA NEGATIVEBL UA NEG ATIVEUA LAZARO 2+ (Large)Time performed: 1599UA KETONE DIPSTICK [id number] 16:26:00* Test Item Value Reference Range Interpretation Comments UA KETONE DIPSTICK POC (test code = KETUP) Negative Negative UA GLU: NEGATIVEKET UA NEGATIVEPH UA 7.0UA NIT NegativePROT UA NEGATIVEBL UA NEG ATIVEUA LAZARO 2+ (Large)Time performed: 1599UA BLOOD DIPSTIC [id number] 16:26:00* Test Item Value Reference Range Interpretation Comments UA BLOOD DIPSTIC POC (test code = BLUP) Negative NEGATIVE UA GLU: NEGATIVEKET UA NEGATIVEPH UA 7.0UA NIT NegativePROT UA NEGATIVEBL UA NEG ATIVEUA LAZARO 2+ (Large)Time performed: 1600UA PH DIPSTIC [id number] 16:26:00* Test Item Value Reference Range Interpretation Comments UA PH DIPSTIC POC (test code = PHUP) 7 5-8 N UA GLU: NEGATIVEKET UA NEGATIVEPH UA 7.0UA NIT NegativePROT UA NEGATIVEBL UA NEG ATIVEUA LAZARO 2+ (Large)Time performed: 1599UA PROTEIN DIPSTICK [id number] 16:26:00* Test Item Value Reference Range Interpretation Comments UA PROTEIN DIPSTICK POC (test code = DPROUP) Negative Neg -15 UA GLU: NEGATIVEKET UA NEGATIVEPH UA 7.0UA NIT NegativePROT UA NEGATIVEBL UA NEG ATIVEUA LAZARO 2+ (Large)Time performed: 1599UA NITRITE DIPSTICK [id number] 16:26:00* Test Item Value Reference Range Interpretation Comments UA NITRITE DIPSTICK POC (test code = NITUP) Negative UA GLU: NEGATIVEKET UA NEGATIVEPH UA 7.0UA NIT NegativePROT UA NEGATIVEBL UA NEG ATIVEUA LAZARO 2+ (Large)Time performed: LEUKOCYTE ESTERASE [id number] 16:26:00* Test Item Value Reference Range Interpretation Comments UA LEUKOCYTE ESTERASE POC (test code = LEUUPOC) NEGATI VE UA GLU: NEGATIVEKET UA NEGATIVEPH UA 7.0UA NIT NegativePROT UA NEGATIVEBL UA NEG ATIVEUA LAZARO 2+ (Large)Time performed: GLUCOSE DIPSTIC [id number] 16:26:00* Test Item Value Reference Range Interpretation Comments UA GLUCOSE DIPSTIC POC (test code = GLUUP) Negative Negative UA GLU: NEGATIVEKET UA NEGATIVEPH UA 7.0UA NIT NegativePROT UA NEGATIVEBL UA NEG ATIVEUA LAZARO 2+ (Large)Time performed: KETONE DIPSTICK [id number] 16:26:00* Test Item Value Reference Range Interpretation Comments UA KETONE DIPSTICK POC (test code = KETUP) Negative Negative UA GLU: NEGATIVEKET UA NEGATIVEPH UA 7.0UA NIT NegativePROT UA NEGATIVEBL UA NEG ATIVEUA LAZARO 2+ (Large)Time performed: 1599UA BLOOD DIPSTIC [id number] 16:26:00* Test Item Value Reference Range Interpretation Comments UA BLOOD DIPSTIC POC (test code = BLUP) Negative NEGATIVE UA GLU: NEGATIVEKET UA NEGATIVEPH UA 7.0UA NIT NegativePROT UA NEGATIVEBL UA NEG ATIVEUA LAZARO 2+ (Large)Time performed: 1600UA PH DIPSTIC [id number] 16:26:00* Test Item Value Reference Range Interpretation Comments UA PH DIPSTIC POC (test code = PHUP) 7 5-8 N UA GLU: NEGATIVEKET UA NEGATIVEPH UA 7.0UA NIT NegativePROT UA NEGATIVEBL UA NEG ATIVEUA LAZARO 2+ (Large)Time performed: 1599UA PROTEIN DIPSTICK [id number] 16:26:00* Test Item Value Reference Range Interpretation Comments UA PROTEIN DIPSTICK POC (test code = DPROUP) Negative Neg -15 UA GLU: NEGATIVEKET UA NEGATIVEPH UA 7.0UA NIT NegativePROT UA NEGATIVEBL UA NEG ATIVEUA LAZARO 2+ (Large)Time performed: 1599UA NITRITE DIPSTICK [id number] 16:26:00* Test Item Value Reference Range Interpretation Comments UA NITRITE DIPSTICK POC (test code = NITUP) Negative Negative UA GLU: NEGATIVEKET UA NEGATIVEPH UA 7.0UA NIT NegativePROT UA NEGATIVEBL UA NEG ATIVEUA LAZARO 2+ (Large)Time performed: 1599UA LEUKOCYTE ESTERASE [id number] 16:26:00* Test Item Value Reference Range Interpretation Comments UA LEUKOCYTE ESTERASE POC (test code = LEUUPOC) NEGATI VE UA GLU: NEGATIVEKET UA NEGATIVEPH UA 7.0UA NIT NegativePROT UA NEGATIVEBL UA NEG ATIVEUA LAZARO 2+ (Large)Time performed: 1599UA GLUCOSE DIPSTIC [id number] 16:26:00* Test Item Value Reference Range Interpretation Comments UA GLUCOSE DIPSTIC POC (test code = GLUUP) Negative Negative UA GLU: NEGATIVEKET UA NEGATIVEPH UA 7.0UA NIT NegativePROT UA NEGATIVEBL UA NEG ATIVEUA LAZARO 2+ (Large)Time performed: 1599UA KETONE DIPSTICK [id number] 16:26:00* Test Item Value Reference Range Interpretation Comments UA KETONE DIPSTICK POC (test code = KETUP) Negative Negative UA GLU: NEGATIVEKET UA NEGATIVEPH UA 7.0UA NIT NegativePROT UA NEGATIVEBL UA NEG ATIVEUA LAZARO 2+ (Large)Time performed: 1599UA BLOOD DIPSTIC [id number] 16:26:00* Test Item Value Reference Range Interpretation Comments UA BLOOD DIPSTIC POC (test code = BLUP) Negative NEGATIVE UA GLU: NEGATIVEKET UA NEGATIVEPH UA 7.0UA NIT NegativePROT UA NEGATIVEBL UA NEG ATIVEUA LAZARO 2+ (Large)Time performed: 1600UA PH DIPSTIC [id number] 16:26:00* Test Item Value Reference Range Interpretation Comments UA PH DIPSTIC POC (test code = PHUP) 7 5-8 N UA GLU: NEGATIVEKET UA NEGATIVEPH UA 7.0UA NIT NegativePROT UA NEGATIVEBL UA NEG ATIVEUA LAZARO 2+ (Large)Time performed: 1600UA PROTEIN DIPSTICK [id number] 16:26:00* Test Item Value Reference Range Interpretation Comments UA PROTEIN DIPSTICK POC (test code = DPROUP) Negative Neg -15 UA GLU: NEGATIVEKET UA NEGATIVEPH UA 7.0UA NIT NegativePROT UA NEGATIVEBL UA NEG ATIVEUA LAZARO 2+ (Large)Time performed: 1600UA NITRITE DIPSTICK [id number] 16:26:00* Test Item Value Reference Range Interpretation Comments UA NITRITE DIPSTICK POC (test code = NITUP) Negative Negative UA GLU: NEGATIVEKET UA NEGATIVEPH UA 7.0UA NIT NegativePROT UA NEGATIVEBL UA NEG ATIVEUA LAZARO 2+ (Large)Time performed: 1600UA LEUKOCYTE ESTERASE [id number] 16:26:00* Test Item Value Reference Range Interpretation Comments UA LEUKOCYTE ESTERASE POC (test code = LEUUPOC) 2+ NEGATI VE A UA GLU: NEGATIVEKET UA NEGATIVEPH UA 7.0UA NIT NegativePROT UA NEGATIVEBL UA NEG ATIVEUA LAZARO 2+ (Large)Time performed: 1600COMPREHENSIVE METABOLIC PANEL 2019-12-06 13:10:00* Test Item Value Reference Range Interpretation Comments SODIUM (test code = NA) 140 mmol/L 136-145 N POTASSIUM (test code = K) 4.4 mmol/L 3.5-5.1 N CHLORIDE (test code = CL) 109.0 mmol/L 98-107 H CARBON DIOXIDE (test code = CO2) 25.0 mmol/L 21-32 N ANION GAP (test code = GAP) 10.4 10-20 N GLUCOSE (test code = GLU) 88 mg/dL 74-106 N BLOOD UREA NITROGEN (test code = BUN) 7 mg/dL 7-18 N GLOMERULAR FILTRATION RATE (test code = GFR) > 60 mL/min >=60 Estimated GFR by using Modified MDRD formula.Chronic kidney disease is defined as either kidney damageor GFR <60 mL/min/1.73 m2 for >3 months. CREATININE (test code = CREAT) 0.40 mg/dL 0.55-1.02 L Note change in reference range due to change in reagent. BUN/CREATININE RATIO (test code = BUN/CREA) 17.5 10-20 N TOTAL PROTEIN (test code = PROT) 7.4 gram/dL 6.4-8.2 N ALBUMIN (test code = ALB) 3.7 g/dL 3.4-5.0 N GLOBULIN (test code = GLOB) 3.7 gram/dL 2.7-4.2 N ALBUMIN/GLOBULIN RATIO (test code = A/G) 1.0 0.75-1.50 N CALCIUM (test code = CA) 9.5 mg/dL 8.5-10.1 N BILIRUBIN TOTAL (test code = BILT) 0.20 mg/dL 0.0-1.0 N SGOT/AST (test code = AST) 9 IUnit/L 15-37 L SGPT/ALT (test code = ALT) 12 IUnit/L 12-78 N ALKALINE PHOSPHATASE TOTAL (test code = ALKP) 54 IUnit/L 45-117 N Note change in reference range due to change in reagent. SERUM [id number] 13:10:00* Test Item Value Reference Range Interpretation Comments SERUM IRON (test code = IRON) 17 ug/dL 50-175 L TOTAL IRON BINDING [id number] 13:10:00* Test Item Value Reference Range Interpretation Comments TOTAL IRON BINDING CAPACITY (test code = TIBC) 535 mcg/dL 250-450 H [id number] 13:10:00* Test Item Value Reference Range Interpretation Comments FERRITIN (test code = MARÍA) 2 ng/mL 8-388 L HGB [id number] 13:10:00* Test Item Value Reference Range Interpretation Comments HEMOGLOBIN A1 (test code = HGBA1) 98.8 % 96.4-98.8 HEMOGLOBIN A2 (test code = HGBA2) 1.2 % 1.8-3.2 A HEMOGLOBIN S (test code = HGBS) 0.0 % >0.0 HEMOGLOBIN C (test code = HGBC) 0.0 % >0.0 HEMOGLOBIN F (test code = HGBF) 0.0 % 0.0-2.0 HEMOGLOBIN SOLUBILITY (test code = HGBSOL) Negative Negative HEMOGLOBIN VARIANT (test code = HGBVAR) 0.0 % >0.0 HGB ELECTROPHORESIS INTERP (test code = HGBINT) Note: () Normal adult hemoglobin present.Low Hgb A2 may indicate an alpha-thalassemia or irondeficiency. Suggest clinical and hematologic correlation.Performed At: [facility] [id number] [facility] [address] [place], [place] [id number] CN MD Ph:[phone] CBC W/AUTO [id number] 18:37:00* Test Item Value Reference Range Interpretation Comments WHITE BLOOD CELL (test code = WBC) 8.7 K/mm3 4.5-12.5 N RED BLOOD CELL (test code = RBC) 4.43 mill/mm3 3.7-5.2 N HEMOGLOBIN (test code = HGB) 9.6 gram/dL 11.5-15.5 L HEMATOCRIT (test code = HCT) 32.8 % 36.0-46.0 L MEAN CELL VOLUME (test code = MCV) 74.0 fL 80-98 L MEAN CELL HGB (test code = MCH) 21.7 picogram 27.0-33.0 L MEAN CELL HGB CONCETRATION (test code = MCHC) 29.3 gram/dL 33.0-36. 0 L RED CELL DISTRIBUTION WIDTH (test code = RDW) 17.9 % 11.6-16. 2 H RED CELL DISTRIBUTION WIDTH SD (test code = RDW-SD) 47.7 fL 37 .0-51.0 N PLATELET COUNT (test code = PLT) 426 K/mm3 150-450 N MEAN PLATELET VOLUME (test code = MPV) 10.7 fL 6.7-11.0 N NEUTROPHIL % (test code = NT%) 72.4 % 39.0-69.0 H IMMATURE GRANULOCYTE % (test code = IG%) 0.5 % 0.0-5.0 N LYMPHOCYTE % (test code = LY%) 19.6 % 25.0-55.0 L MONOCYTE % (test code = MO%) 5.8 % 0.0-10.0 N EOSINOPHIL % (test code = EO%) 1.4 % 0.0-5.0 N BASOPHIL % (test code = BA%) 0.3 % 0.0-1.0 N NUCLEATED RBC % (test code = NRBC%) 0.0 % 0-0 N NEUTROPHIL # (test code = NT#) 6.29 K/mm3 1.8-7.7 N IMMATURE GRANULOCYTE # (test code = IG#) 0.04 x10 3/uL 0-0.03 H LYMPHOCYTE # (test code = LY#) 1.70 K/mm3 1.0-5.0 N MONOCYTE # (test code = MO#) 0.50 K/mm3 0-0.8 N EOSINOPHIL # (test code = EO#) 0.12 K/mm3 0.0-0.5 N BASOPHIL # (test code = BA#) 0.03 K/mm3 0.0-0.2 N NUCLEATED RBC # (test code = NRBC#) 0.00 K/mm3 0.0-0.1 N MANUAL DIFF REQUIRED (test code = MDIFF) NO, ONLY SCAN NEEDED DIFFERENTIAL [id number] 18:37:00* Test Item Value Reference Range Interpretation Comments STAIN ACCEPTABILITY (test code = STN ACCEPTABLE) STAIN ACCEPTABLE POLYCHROMASIA (test code = POLC) 1+ HYPOCHROMIA (test code = HYPO) 1+ POIKILOCYTOSIS (test code = POIK) 1+ ANISOCYTOSIS (test code = ANISO) 1+ MICROCYTOSIS (test code = MICR) 1+ TEAR DROP CELLS (test code = TEAR) 1+ ELLIPTOCYTES (test code = ELL) 1+ OVALOCYTES (test code = OVAL) 1+ PLATELET ESTIMATE (test code = PLTEST) ADEQUATE PLATELET MORPHOLOGY (test code = PLTMORPH) NORMAL COMPREHENSIVE METABOLIC [id number] 18:26:00* Test Item Value Reference Range Interpretation Comments SODIUM (test code = NA) 140 mmol/L 136-145 N POTASSIUM (test code = K) 4.4 mmol/L 3.5-5.1 N CHLORIDE (test code = CL) 109.0 mmol/L 98-107 H CARBON DIOXIDE (test code = CO2) 25.0 mmol/L 21-32 N ANION GAP (test code = GAP) 10.4 10-20 N GLUCOSE (test code = GLU) 88 mg/dL 74-106 N BLOOD UREA NITROGEN (test code = BUN) 7 mg/dL 7-18 N GLOMERULAR FILTRATION RATE (test code = GFR) > 60 mL/min >=60 Estimated GFR by using Modified MDRD formula.Chronic kidney disease is defined as either kidney damageor GFR <60 mL/min/1.73 m2 for >3 months. CREATININE (test code = CREAT) 0.40 mg/dL 0.55-1.02 L Note change in reference range due to change in reagent. BUN/CREATININE RATIO (test code = BUN/CREA) 17.5 10-20 N TOTAL PROTEIN (test code = PROT) 7.4 gram/dL 6.4-8.2 N ALBUMIN (test code = ALB) 3.7 g/dL 3.4-5.0 N GLOBULIN (test code = GLOB) 3.7 gram/dL 2.7-4.2 N ALBUMIN/GLOBULIN RATIO (test code = A/G) 1.0 0.75-1.50 N CALCIUM (test code = CA) 9.5 mg/dL 8.5-10.1 N BILIRUBIN TOTAL (test code = BILT) 0.20 mg/dL 0.0-1.0 N SGOT/AST (test code = AST) 9 IUnit/L 15-37 L SGPT/ALT (test code = ALT) 12 IUnit/L 12-78 N ALKALINE PHOSPHATASE TOTAL (test code = ALKP) 54 IUnit/L 45-117 N Note change in reference range due to change in reagent. SERUM [id number] 18:26:00* Test Item Value Reference Range Interpretation Comments SERUM IRON (test code = IRON) 17 ug/dL 50-175 L TOTAL IRON BINDING [id number] 18:26:00* Test Item Value Reference Range Interpretation Comments TOTAL IRON BINDING CAPACITY (test code = TIBC) 535 mcg/dL 250-450 H [id number] 18:26:00* Test Item Value Reference Range Interpretation Comments FERRITIN (test code = MARÍA) 2 ng/mL 8-388 L HGB [id number] 18:26:00* Test Item Value Reference Range Interpretation Comments HEMOGLOBIN A1 (test code = HGBA1) % 94-98 HEMOGLOBIN A2 (test code = HGBA2) % 0.7-3.1 HEMOGLOBIN S (test code = HGBS) % 0.0-0.0 HEMOGLOBIN C (test code = HGBC) % 0.0-0.0 HEMOGLOBIN F (test code = HGBF) % HEMOGLOBIN SOLUBILITY (test code = HGBSOL) HEMOGLOBIN VARIANT (test code = HGBVAR) % HGB ELECTROPHORESIS INTERP (test code = HGBINT) COMPREHENSIVE METABOLIC [id number] 18:14:00* Test Item Value Reference Range Interpretation Comments SODIUM (test code = NA) 140 mmol/L 136-145 N POTASSIUM (test code = K) 4.4 mmol/L 3.5-5.1 N CHLORIDE (test code = CL) 109.0 mmol/L 98-107 H CARBON DIOXIDE (test code = CO2) mmol/L 21-32 ANION GAP (test code = GAP) 10-20 GLUCOSE (test code = GLU) mg/dL 74-106 BLOOD UREA NITROGEN (test code = BUN) mg/dL 7-18 GLOMERULAR FILTRATION RATE (test code = GFR) mL/min >=60 CREATININE (test code = CREAT) mg/dL 0.55-1.02 BUN/CREATININE RATIO (test code = BUN/CREA) 10-20 TOTAL PROTEIN (test code = PROT) gram/dL 6.4-8.2 ALBUMIN (test code = ALB) g/dL 3.4-5.0 GLOBULIN (test code = GLOB) gram/dL 2.7-4.2 ALBUMIN/GLOBULIN RATIO (test code = A/G) 0.75-1.50 CALCIUM (test code = CA) mg/dL 8.5-10.1 BILIRUBIN TOTAL (test code = BILT) mg/dL 0.0-1.0 SGOT/AST (test code = AST) IUnit/L 15-37 SGPT/ALT (test code = ALT) IUnit/L 12-78 ALKALINE PHOSPHATASE TOTAL (test code = ALKP) IUnit/L 45-117 SERUM [id number] 18:14:00* Test Item Value Reference Range Interpretation Comments SERUM IRON (test code = IRON) ug/dL 50-175 TOTAL IRON BINDING [id number] 18:14:00* Test Item Value Reference Range Interpretation Comments TOTAL IRON BINDING CAPACITY (test code = TIBC) mcg/dL 250-450 [id number] 18:14:00* Test Item Value Reference Range Interpretation Comments FERRITIN (test code = MARÍA) ng/mL 8-388 HGB [id number] 18:14:00* Test Item Value Reference Range Interpretation Comments HEMOGLOBIN A1 (test code = HGBA1) % 94-98 HEMOGLOBIN A2 (test code = HGBA2) % 0.7-3.1 HEMOGLOBIN S (test code = HGBS) % 0.0-0.0 HEMOGLOBIN C (test code = HGBC) % 0.0-0.0 HEMOGLOBIN F (test code = HGBF) % HEMOGLOBIN SOLUBILITY (test code = HGBSOL) HEMOGLOBIN VARIANT (test code = HGBVAR) % HGB ELECTROPHORESIS INTERP (test code = HGBINT) CBC W/AUTO [id number] 18:06:00* Test Item Value Reference Range Interpretation Comments WHITE BLOOD CELL (test code = WBC) 8.7 K/mm3 4.5-12.5 N RED BLOOD CELL (test code = RBC) 4.43 mill/mm3 3.7-5.2 N HEMOGLOBIN (test code = HGB) 9.6 gram/dL 11.5-15.5 L HEMATOCRIT (test code = HCT) 32.8 % 36.0-46.0 L MEAN CELL VOLUME (test code = MCV) 74.0 fL 80-98 L MEAN CELL HGB (test code = MCH) 21.7 picogram 27.0-33.0 L MEAN CELL HGB CONCETRATION (test code = MCHC) 29.3 gram/dL 33.0-36. 0 L RED CELL DISTRIBUTION WIDTH (test code = RDW) 17.9 % 11.6-16. 2 H RED CELL DISTRIBUTION WIDTH SD (test code = RDW-SD) 47.7 fL 37 .0-51.0 N PLATELET COUNT (test code = PLT) 426 K/mm3 150-450 N MEAN PLATELET VOLUME (test code = MPV) 10.7 fL 6.7-11.0 N NEUTROPHIL % (test code = NT%) 72.4 % 39.0-69.0 H IMMATURE GRANULOCYTE % (test code = IG%) 0.5 % 0.0-5.0 N LYMPHOCYTE % (test code = LY%) 19.6 % 25.0-55.0 L MONOCYTE % (test code = MO%) 5.8 % 0.0-10.0 N EOSINOPHIL % (test code = EO%) 1.4 % 0.0-5.0 N BASOPHIL % (test code = BA%) 0.3 % 0.0-1.0 N NUCLEATED RBC % (test code = NRBC%) 0.0 % 0-0 N NEUTROPHIL # (test code = NT#) 6.29 K/mm3 1.8-7.7 N IMMATURE GRANULOCYTE # (test code = IG#) 0.04 x10 3/uL 0-0.03 H LYMPHOCYTE # (test code = LY#) 1.70 K/mm3 1.0-5.0 N MONOCYTE # (test code = MO#) 0.50 K/mm3 0-0.8 N EOSINOPHIL # (test code = EO#) 0.12 K/mm3 0.0-0.5 N BASOPHIL # (test code = BA#) 0.03 K/mm3 0.0-0.2 N NUCLEATED RBC # (test code = NRBC#) 0.00 K/mm3 0.0-0.1 N MANUAL DIFF REQUIRED (test code = MDIFF) NO, ONLY SCAN NEEDED DIFFERENTIAL [id number] 18:06:00* Test Item Value Reference Range Interpretation Comments STAIN ACCEPTABILITY (test code = STN ACCEPTABLE) CABOT RINGS (test code = CAB) MORPHOLOGY COMMENT (test code = MOC) PLATELET ESTIMATE (test code = PLTEST) PLATELET MORPHOLOGY (test code = PLTMORPH) CBC W/AUTO [id number] 18:06:00* Test Item Value Reference Range Interpretation Comments WHITE BLOOD CELL (test code = WBC) 8.7 K/mm3 4.5-12.5 N RED BLOOD CELL (test code = RBC) 4.43 mill/mm3 3.7-5.2 N HEMOGLOBIN (test code = HGB) 9.6 gram/dL 11.5-15.5 L HEMATOCRIT (test code = HCT) 32.8 % 36.0-46.0 L MEAN CELL VOLUME (test code = MCV) 74.0 fL 80-98 L MEAN CELL HGB (test code = MCH) 21.7 picogram 27.0-33.0 L MEAN CELL HGB CONCETRATION (test code = MCHC) 29.3 gram/dL 33.0-36. 0 L RED CELL DISTRIBUTION WIDTH (test code = RDW) 17.9 % 11.6-16. 2 H RED CELL DISTRIBUTION WIDTH SD (test code = RDW-SD) 47.7 fL 37 .0-51.0 N PLATELET COUNT (test code = PLT) 426 K/mm3 150-450 N MEAN PLATELET VOLUME (test code = MPV) 10.7 fL 6.7-11.0 N NEUTROPHIL % (test code = NT%) 72.4 % 39.0-69.0 H IMMATURE GRANULOCYTE % (test code = IG%) 0.5 % 0.0-5.0 N LYMPHOCYTE % (test code = LY%) 19.6 % 25.0-55.0 L MONOCYTE % (test code = MO%) 5.8 % 0.0-10.0 N EOSINOPHIL % (test code = EO%) 1.4 % 0.0-5.0 N BASOPHIL % (test code = BA%) 0.3 % 0.0-1.0 N NUCLEATED RBC % (test code = NRBC%) 0.0 % 0-0 N NEUTROPHIL # (test code = NT#) 6.29 K/mm3 1.8-7.7 N IMMATURE GRANULOCYTE # (test code = IG#) 0.04 x10 3/uL 0-0.03 H LYMPHOCYTE # (test code = LY#) 1.70 K/mm3 1.0-5.0 N MONOCYTE # (test code = MO#) 0.50 K/mm3 0-0.8 N EOSINOPHIL # (test code = EO#) 0.12 K/mm3 0.0-0.5 N BASOPHIL # (test code = BA#) 0.03 K/mm3 0.0-0.2 N NUCLEATED RBC # (test code = NRBC#) 0.00 K/mm3 0.0-0.1 N MANUAL DIFF REQUIRED (test code = MDIFF) NO, ONLY SCAN NEEDED DIFFERENTIAL [id number] 18:06:00* Test Item Value Reference Range Interpretation Comments STAIN ACCEPTABILITY (test code = STN ACCEPTABLE) MORPHOLOGY COMMENT (test code = MOC) PLATELET ESTIMATE (test code = PLTEST) PLATELET MORPHOLOGY (test code = PLTMORPH) CBC W/AUTO [id number] 18:06:00* Test Item Value Reference Range Interpretation Comments WHITE BLOOD CELL (test code = WBC) 8.7 K/mm3 4.5-12.5 N RED BLOOD CELL (test code = RBC) 4.43 mill/mm3 3.7-5.2 N HEMOGLOBIN (test code = HGB) 9.6 gram/dL 11.5-15.5 L HEMATOCRIT (test code = HCT) 32.8 % 36.0-46.0 L MEAN CELL VOLUME (test code = MCV) 74.0 fL 80-98 L MEAN CELL HGB (test code = MCH) 21.7 picogram 27.0-33.0 L MEAN CELL HGB CONCETRATION (test code = MCHC) 29.3 gram/dL 33.0-36. 0 L RED CELL DISTRIBUTION WIDTH (test code = RDW) 17.9 % 11.6-16. 2 H RED CELL DISTRIBUTION WIDTH SD (test code = RDW-SD) 47.7 fL 37 .0-51.0 N PLATELET COUNT (test code = PLT) 426 K/mm3 150-450 N MEAN PLATELET VOLUME (test code = MPV) 10.7 fL 6.7-11.0 N NEUTROPHIL % (test code = NT%) 72.4 % 39.0-69.0 H IMMATURE GRANULOCYTE % (test code = IG%) 0.5 % 0.0-5.0 N LYMPHOCYTE % (test code = LY%) 19.6 % 25.0-55.0 L MONOCYTE % (test code = MO%) 5.8 % 0.0-10.0 N EOSINOPHIL % (test code = EO%) 1.4 % 0.0-5.0 N BASOPHIL % (test code = BA%) 0.3 % 0.0-1.0 N NUCLEATED RBC % (test code = NRBC%) 0.0 % 0-0 N NEUTROPHIL # (test code = NT#) 6.29 K/mm3 1.8-7.7 N IMMATURE GRANULOCYTE # (test code = IG#) 0.04 x10 3/uL 0-0.03 H LYMPHOCYTE # (test code = LY#) 1.70 K/mm3 1.0-5.0 N MONOCYTE # (test code = MO#) 0.50 K/mm3 0-0.8 N EOSINOPHIL # (test code = EO#) 0.12 K/mm3 0.0-0.5 N BASOPHIL # (test code = BA#) 0.03 K/mm3 0.0-0.2 N NUCLEATED RBC # (test code = NRBC#) 0.00 K/mm3 0.0-0.1 N MANUAL DIFF REQUIRED (test code = MDIFF) NO, ONLY SCAN NEEDED DIFFERENTIAL [id number] 18:06:00* Test Item Value Reference Range Interpretation Comments STAIN ACCEPTABILITY (test code = STN ACCEPTABLE) MORPHOLOGY COMMENT (test code = MOC) PLATELET ESTIMATE (test code = PLTEST) PLATELET MORPHOLOGY (test code = PLTMORPH) CBC W/AUTO [id number] 18:06:00* Test Item Value Reference Range Interpretation Comments WHITE BLOOD CELL (test code = WBC) 8.7 K/mm3 4.5-12.5 N RED BLOOD CELL (test code = RBC) 4.43 mill/mm3 3.7-5.2 N HEMOGLOBIN (test code = HGB) 9.6 gram/dL 11.5-15.5 L HEMATOCRIT (test code = HCT) 32.8 % 36.0-46.0 L MEAN CELL VOLUME (test code = MCV) 74.0 fL 80-98 L MEAN CELL HGB (test code = MCH) 21.7 picogram 27.0-33.0 L MEAN CELL HGB CONCETRATION (test code = MCHC) 29.3 gram/dL 33.0-36. 0 L RED CELL DISTRIBUTION WIDTH (test code = RDW) 17.9 % 11.6-16. 2 H RED CELL DISTRIBUTION WIDTH SD (test code = RDW-SD) 47.7 fL 37 .0-51.0 N PLATELET COUNT (test code = PLT) 426 K/mm3 150-450 N MEAN PLATELET VOLUME (test code = MPV) 10.7 fL 6.7-11.0 N NEUTROPHIL % (test code = NT%) 72.4 % 39.0-69.0 H IMMATURE GRANULOCYTE % (test code = IG%) 0.5 % 0.0-5.0 N LYMPHOCYTE % (test code = LY%) 19.6 % 25.0-55.0 L MONOCYTE % (test code = MO%) 5.8 % 0.0-10.0 N EOSINOPHIL % (test code = EO%) 1.4 % 0.0-5.0 N BASOPHIL % (test code = BA%) 0.3 % 0.0-1.0 N NUCLEATED RBC % (test code = NRBC%) 0.0 % 0-0 N NEUTROPHIL # (test code = NT#) 6.29 K/mm3 1.8-7.7 N IMMATURE GRANULOCYTE # (test code = IG#) 0.04 x10 3/uL 0-0.03 H LYMPHOCYTE # (test code = LY#) 1.70 K/mm3 1.0-5.0 N MONOCYTE # (test code = MO#) 0.50 K/mm3 0-0.8 N EOSINOPHIL # (test code = EO#) 0.12 K/mm3 0.0-0.5 N BASOPHIL # (test code = BA#) 0.03 K/mm3 0.0-0.2 N NUCLEATED RBC # (test code = NRBC#) 0.00 K/mm3 0.0-0.1 N MANUAL DIFF REQUIRED (test code = MDIFF) NO, ONLY SCAN NEEDED DIFFERENTIAL [id number] 18:06:00* Test Item Value Reference Range Interpretation Comments STAIN ACCEPTABILITY (test code = STN ACCEPTABLE) CABOT RINGS (test code = CAB) MORPHOLOGY COMMENT (test code = MOC) PLATELET ESTIMATE (test code = PLTEST) PLATELET MORPHOLOGY (test code = PLTMORPH) UA GLUCOSE DIPSTIC [id number] 10:56:00* Test Item Value Reference Range Interpretation Comments UA GLUCOSE DIPSTIC POC (test code = GLUUP) Negative Negative UA GLU: NEGATIVEKET UA NEGATIVEPH UA 7.0UA NIT NegativePROT UA NEGATIVEBL UA NEG ATIVEUA LAZARO 1+ (Mod)Time performed: 1045UA KETONE DIPSTICK [id number] 10:56:00* Test Item Value Reference Range Interpretation Comments UA KETONE DIPSTICK POC (test code = KETUP) Negative UA GLU: NEGATIVEKET UA NEGATIVEPH UA 7.0UA NIT NegativePROT UA NEGATIVEBL UA NEG ATIVEUA LAZARO 1+ (Mod)Time performed: 1045UA BLOOD DIPSTIC [id number] 10:56:00 * Test Item Value Reference Range Interpretation Comments UA BLOOD DIPSTIC POC (test code = BLUP) NEGATIVE UA GLU: NEGATIVEKET UA NEGATIVEPH UA 7.0UA NIT NegativePROT UA NEGATIVEBL UA NEG ATIVEUA LAZARO 1+ (Mod)Time performed: 1045UA PH DIPSTIC [id number] 10:56:00* Test Item Value Reference Range Interpretation Comments UA PH DIPSTIC POC (test code = PHUP) 5-8 UA GLU: NEGATIVEKET UA NEGATIVEPH UA 7.0UA NIT NegativePROT UA NEGATIVEBL UA NEG ATIVEUA LAZARO 1+ (Mod)Time performed: PROTEIN DIPSTICK [id number] 10:56:00* Test Item Value Reference Range Interpretation Comments UA PROTEIN DIPSTICK POC (test code = DPROUP) Neg -15 UA GLU: NEGATIVEKET UA NEGATIVEPH UA 7.0UA NIT NegativePROT UA NEGATIVEBL UA NEG ATIVEUA LAZARO 1+ (Mod)Time performed: NITRITE DIPSTICK [id number] 10:56:00* Test Item Value Reference Range Interpretation Comments UA NITRITE DIPSTICK POC (test code = NITUP) Negative UA GLU: NEGATIVEKET UA NEGATIVEPH UA 7.0UA NIT NegativePROT UA NEGATIVEBL UA NEG ATIVEUA LAZARO 1+ (Mod)Time performed: LEUKOCYTE ESTERASE [id number] 10:56:00* Test Item Value Reference Range Interpretation Comments UA LEUKOCYTE ESTERASE POC (test code = LEUUPOC) NEGATI VE UA GLU: NEGATIVEKET UA NEGATIVEPH UA 7.0UA NIT NegativePROT UA NEGATIVEBL UA NEG ATIVEUA LAZARO 1+ (Mod)Time performed: GLUCOSE DIPSTIC [id number] 10:56:00* Test Item Value Reference Range Interpretation Comments UA GLUCOSE DIPSTIC POC (test code = GLUUP) Negative Negative UA GLU: NEGATIVEKET UA NEGATIVEPH UA 7.0UA NIT NegativePROT UA NEGATIVEBL UA NEG ATIVEUA LAZARO 1+ (Mod)Time performed: KETONE DIPSTICK [id number] 10:56:00* Test Item Value Reference Range Interpretation Comments UA KETONE DIPSTICK POC (test code = KETUP) Negative Negative UA GLU: NEGATIVEKET UA NEGATIVEPH UA 7.0UA NIT NegativePROT UA NEGATIVEBL UA NEG ATIVEUA LAZARO 1+ (Mod)Time performed: BLOOD DIPSTIC [id number] 10:56:00 * Test Item Value Reference Range Interpretation Comments UA BLOOD DIPSTIC POC (test code = BLUP) NEGATIVE UA GLU: NEGATIVEKET UA NEGATIVEPH UA 7.0UA NIT NegativePROT UA NEGATIVEBL UA NEG ATIVEUA LAZARO 1+ (Mod)Time performed: 1045 PH DIPSTIC [id number] 10:56:00* Test Item Value Reference Range Interpretation Comments UA PH DIPSTIC POC (test code = PHUP) 5-8 UA GLU: NEGATIVEKET UA NEGATIVEPH UA 7.0UA NIT NegativePROT UA NEGATIVEBL UA NEG ATIVEUA LAZARO 1+ (Mod)Time performed: PROTEIN DIPSTICK [id number] 10:56:00* Test Item Value Reference Range Interpretation Comments UA PROTEIN DIPSTICK POC (test code = DPROUP) Neg -15 UA GLU: NEGATIVEKET UA NEGATIVEPH UA 7.0UA NIT NegativePROT UA NEGATIVEBL UA NEG ATIVEUA LAZARO 1+ (Mod)Time performed: NITRITE DIPSTICK [id number] 10:56:00* Test Item Value Reference Range Interpretation Comments UA NITRITE DIPSTICK POC (test code = NITUP) Negative UA GLU: NEGATIVEKET UA NEGATIVEPH UA 7.0UA NIT NegativePROT UA NEGATIVEBL UA NEG ATIVEUA LAZARO 1+ (Mod)Time performed: LEUKOCYTE ESTERASE [id number] 10:56:00* Test Item Value Reference Range Interpretation Comments UA LEUKOCYTE ESTERASE POC (test code = LEUUPOC) NEGATI VE UA GLU: NEGATIVEKET UA NEGATIVEPH UA 7.0UA NIT NegativePROT UA NEGATIVEBL UA NEG ATIVEUA LAZARO 1+ (Mod)Time performed: GLUCOSE DIPSTIC [id number] 10:56:00* Test Item Value Reference Range Interpretation Comments UA GLUCOSE DIPSTIC POC (test code = GLUUP) Negative Negative UA GLU: NEGATIVEKET UA NEGATIVEPH UA 7.0UA NIT NegativePROT UA NEGATIVEBL UA NEG ATIVEUA LAZARO 1+ (Mod)Time performed: KETONE DIPSTICK [id number] 10:56:00* Test Item Value Reference Range Interpretation Comments UA KETONE DIPSTICK POC (test code = KETUP) Negative Negative UA GLU: NEGATIVEKET UA NEGATIVEPH UA 7.0UA NIT NegativePROT UA NEGATIVEBL UA NEG ATIVEUA LAZARO 1+ (Mod)Time performed: BLOOD DIPSTIC [id number] 10:56:00 * Test Item Value Reference Range Interpretation Comments UA BLOOD DIPSTIC POC (test code = BLUP) Negative NEGATIVE UA GLU: NEGATIVEKET UA NEGATIVEPH UA 7.0UA NIT NegativePROT UA NEGATIVEBL UA NEG ATIVEUA LAZARO 1+ (Mod)Time performed: 104 PH DIPSTIC [id number] 10:56:00* Test Item Value Reference Range Interpretation Comments UA PH DIPSTIC POC (test code = PHUP) 5-8 UA GLU: NEGATIVEKET UA NEGATIVEPH UA 7.0UA NIT NegativePROT UA NEGATIVEBL UA NEG ATIVEUA LAZARO 1+ (Mod)Time performed: PROTEIN DIPSTICK [id number] 10:56:00* Test Item Value Reference Range Interpretation Comments UA PROTEIN DIPSTICK POC (test code = DPROUP) Neg -15 UA GLU: NEGATIVEKET UA NEGATIVEPH UA 7.0UA NIT NegativePROT UA NEGATIVEBL UA NEG ATIVEUA LAZARO 1+ (Mod)Time performed: NITRITE DIPSTICK [id number] 10:56:00* Test Item Value Reference Range Interpretation Comments UA NITRITE DIPSTICK POC (test code = NITUP) Negative UA GLU: NEGATIVEKET UA NEGATIVEPH UA 7.0UA NIT NegativePROT UA NEGATIVEBL UA NEG ATIVEUA LAZARO 1+ (Mod)Time performed: LEUKOCYTE ESTERASE [id number] 10:56:00* Test Item Value Reference Range Interpretation Comments UA LEUKOCYTE ESTERASE POC (test code = LEUUPOC) NEGATI VE UA GLU: NEGATIVEKET UA NEGATIVEPH UA 7.0UA NIT NegativePROT UA NEGATIVEBL UA NEG ATIVEUA LAZARO 1+ (Mod)Time performed: GLUCOSE DIPSTIC [id number] 10:56:00* Test Item Value Reference Range Interpretation Comments UA GLUCOSE DIPSTIC POC (test code = GLUUP) Negative Negative UA GLU: NEGATIVEKET UA NEGATIVEPH UA 7.0UA NIT NegativePROT UA NEGATIVEBL UA NEG ATIVEUA LAZARO 1+ (Mod)Time performed: KETONE DIPSTICK [id number] 10:56:00* Test Item Value Reference Range Interpretation Comments UA KETONE DIPSTICK POC (test code = KETUP) Negative Negative UA GLU: NEGATIVEKET UA NEGATIVEPH UA 7.0UA NIT NegativePROT UA NEGATIVEBL UA NEG ATIVEUA LAZARO 1+ (Mod)Time performed: 104 BLOOD DIPSTIC [id number] 10:56:00 * Test Item Value Reference Range Interpretation Comments UA BLOOD DIPSTIC POC (test code = BLUP) Negative NEGATIVE UA GLU: NEGATIVEKET UA NEGATIVEPH UA 7.0UA NIT NegativePROT UA NEGATIVEBL UA NEG ATIVEUA LAZARO 1+ (Mod)Time performed: PH DIPSTIC [id number] 10:56:00* Test Item Value Reference Range Interpretation Comments UA PH DIPSTIC POC (test code = PHUP) 7 5-8 N UA GLU: NEGATIVEKET UA NEGATIVEPH UA 7.0UA NIT NegativePROT UA NEGATIVEBL UA NEG ATIVEUA LAZARO 1+ (Mod)Time performed: PROTEIN DIPSTICK [id number] 10:56:00* Test Item Value Reference Range Interpretation Comments UA PROTEIN DIPSTICK POC (test code = DPROUP) Neg -15 UA GLU: NEGATIVEKET UA NEGATIVEPH UA 7.0UA NIT NegativePROT UA NEGATIVEBL UA NEG ATIVEUA LAZARO 1+ (Mod)Time performed: NITRITE DIPSTICK [id number] 10:56:00* Test Item Value Reference Range Interpretation Comments UA NITRITE DIPSTICK POC (test code = NITUP) Negative UA GLU: NEGATIVEKET UA NEGATIVEPH UA 7.0UA NIT NegativePROT UA NEGATIVEBL UA NEG ATIVEUA LAZARO 1+ (Mod)Time performed: LEUKOCYTE ESTERASE [id number] 10:56:00* Test Item Value Reference Range Interpretation Comments UA LEUKOCYTE ESTERASE POC (test code = LEUUPOC) NEGATI VE UA GLU: NEGATIVEKET UA NEGATIVEPH UA 7.0UA NIT NegativePROT UA NEGATIVEBL UA NEG ATIVEUA LAZARO 1+ (Mod)Time performed: GLUCOSE DIPSTIC [id number] 10:56:00* Test Item Value Reference Range Interpretation Comments UA GLUCOSE DIPSTIC POC (test code = GLUUP) Negative Negative UA GLU: NEGATIVEKET UA NEGATIVEPH UA 7.0UA NIT NegativePROT UA NEGATIVEBL UA NEG ATIVEUA LAZARO 1+ (Mod)Time performed: KETONE DIPSTICK [id number] 10:56:00* Test Item Value Reference Range Interpretation Comments UA KETONE DIPSTICK POC (test code = KETUP) Negative Negative UA GLU: NEGATIVEKET UA NEGATIVEPH UA 7.0UA NIT NegativePROT UA NEGATIVEBL UA NEG ATIVEUA LAZARO 1+ (Mod)Time performed: 1045UA BLOOD DIPSTIC [id number] 10:56:00 * Test Item Value Reference Range Interpretation Comments UA BLOOD DIPSTIC POC (test code = BLUP) Negative NEGATIVE UA GLU: NEGATIVEKET UA NEGATIVEPH UA 7.0UA NIT NegativePROT UA NEGATIVEBL UA NEG ATIVEUA LAZARO 1+ (Mod)Time performed: 1045UA PH DIPSTIC [id number] 10:56:00* Test Item Value Reference Range Interpretation Comments UA PH DIPSTIC POC (test code = PHUP) 7 5-8 N UA GLU: NEGATIVEKET UA NEGATIVEPH UA 7.0UA NIT NegativePROT UA NEGATIVEBL UA NEG ATIVEUA LAZARO 1+ (Mod)Time performed: 1045UA PROTEIN DIPSTICK [id number] 10:56:00* Test Item Value Reference Range Interpretation Comments UA PROTEIN DIPSTICK POC (test code = DPROUP) Negative Neg -15 UA GLU: NEGATIVEKET UA NEGATIVEPH UA 7.0UA NIT NegativePROT UA NEGATIVEBL UA NEG ATIVEUA LAZARO 1+ (Mod)Time performed: 1045UA NITRITE DIPSTICK [id number] 10:56:00* Test Item Value Reference Range Interpretation Comments UA NITRITE DIPSTICK POC (test code = NITUP) Negative UA GLU: NEGATIVEKET UA NEGATIVEPH UA 7.0UA NIT NegativePROT UA NEGATIVEBL UA NEG ATIVEUA LAZARO 1+ (Mod)Time performed: 104UA LEUKOCYTE ESTERASE [id number] 10:56:00* Test Item Value Reference Range Interpretation Comments UA LEUKOCYTE ESTERASE POC (test code = LEUUPOC) NEGATI VE UA GLU: NEGATIVEKET UA NEGATIVEPH UA 7.0UA NIT NegativePROT UA NEGATIVEBL UA NEG ATIVEUA LAZARO 1+ (Mod)Time performed: 1045UA GLUCOSE DIPSTIC [id number] 10:56:00* Test Item Value Reference Range Interpretation Comments UA GLUCOSE DIPSTIC POC (test code = GLUUP) Negative Negative UA GLU: NEGATIVEKET UA NEGATIVEPH UA 7.0UA NIT NegativePROT UA NEGATIVEBL UA NEG ATIVEUA LAZARO 1+ (Mod)Time performed: 104UA KETONE DIPSTICK [id number] 10:56:00* Test Item Value Reference Range Interpretation Comments UA KETONE DIPSTICK POC (test code = KETUP) Negative Negative UA GLU: NEGATIVEKET UA NEGATIVEPH UA 7.0UA NIT NegativePROT UA NEGATIVEBL UA NEG ATIVEUA LAZARO 1+ (Mod)Time performed: 1045UA BLOOD DIPSTIC [id number] 10:56:00 * Test Item Value Reference Range Interpretation Comments UA BLOOD DIPSTIC POC (test code = BLUP) Negative NEGATIVE UA GLU: NEGATIVEKET UA NEGATIVEPH UA 7.0UA NIT NegativePROT UA NEGATIVEBL UA NEG ATIVEUA LAZARO 1+ (Mod)Time performed: 1045UA PH DIPSTIC [id number] 10:56:00* Test Item Value Reference Range Interpretation Comments UA PH DIPSTIC POC (test code = PHUP) 7 5-8 N UA GLU: NEGATIVEKET UA NEGATIVEPH UA 7.0UA NIT NegativePROT UA NEGATIVEBL UA NEG ATIVEUA LAZARO 1+ (Mod)Time performed: 1045UA PROTEIN DIPSTICK [id number] 10:56:00* Test Item Value Reference Range Interpretation Comments UA PROTEIN DIPSTICK POC (test code = DPROUP) Negative Neg -15 UA GLU: NEGATIVEKET UA NEGATIVEPH UA 7.0UA NIT NegativePROT UA NEGATIVEBL UA NEG ATIVEUA LAZARO 1+ (Mod)Time performed: 1045UA NITRITE DIPSTICK [id number] 10:56:00* Test Item Value Reference Range Interpretation Comments UA NITRITE DIPSTICK POC (test code = NITUP) Negative Negative UA GLU: NEGATIVEKET UA NEGATIVEPH UA 7.0UA NIT NegativePROT UA NEGATIVEBL UA NEG ATIVEUA LAZARO 1+ (Mod)Time performed: 1045UA LEUKOCYTE ESTERASE [id number] 10:56:00* Test Item Value Reference Range Interpretation Comments UA LEUKOCYTE ESTERASE POC (test code = LEUUPOC) NEGATI VE UA GLU: NEGATIVEKET UA NEGATIVEPH UA 7.0UA NIT NegativePROT UA NEGATIVEBL UA NEG ATIVEUA LAZARO 1+ (Mod)Time performed: 1045UA GLUCOSE DIPSTIC [id number] 10:56:00* Test Item Value Reference Range Interpretation Comments UA GLUCOSE DIPSTIC POC (test code = GLUUP) Negative Negative UA GLU: NEGATIVEKET UA NEGATIVEPH UA 7.0UA NIT NegativePROT UA NEGATIVEBL UA NEG ATIVEUA LAZARO 1+ (Mod)Time performed: 1045UA KETONE DIPSTICK [id number] 10:56:00* Test Item Value Reference Range Interpretation Comments UA KETONE DIPSTICK POC (test code = KETUP) Negative Negative UA GLU: NEGATIVEKET UA NEGATIVEPH UA 7.0UA NIT NegativePROT UA NEGATIVEBL UA NEG ATIVEUA LAZARO 1+ (Mod)Time performed: 1045UA BLOOD DIPSTIC [id number] 10:56:00 * Test Item Value Reference Range Interpretation Comments UA BLOOD DIPSTIC POC (test code = BLUP) Negative NEGATIVE UA GLU: NEGATIVEKET UA NEGATIVEPH UA 7.0UA NIT NegativePROT UA NEGATIVEBL UA NEG ATIVEUA LAZARO 1+ (Mod)Time performed: 1045UA PH DIPSTIC [id number] 10:56:00* Test Item Value Reference Range Interpretation Comments UA PH DIPSTIC POC (test code = PHUP) 7 5-8 N UA GLU: NEGATIVEKET UA NEGATIVEPH UA 7.0UA NIT NegativePROT UA NEGATIVEBL UA NEG ATIVEUA LAZARO 1+ (Mod)Time performed: 1045UA PROTEIN DIPSTICK [id number] 10:56:00* Test Item Value Reference Range Interpretation Comments UA PROTEIN DIPSTICK POC (test code = DPROUP) Negative Neg -15 UA GLU: NEGATIVEKET UA NEGATIVEPH UA 7.0UA NIT NegativePROT UA NEGATIVEBL UA NEG ATIVEUA LAZARO 1+ (Mod)Time performed: 1045UA NITRITE DIPSTICK [id number] 10:56:00* Test Item Value Reference Range Interpretation Comments UA NITRITE DIPSTICK POC (test code = NITUP) Negative Negative UA GLU: NEGATIVEKET UA NEGATIVEPH UA 7.0UA NIT NegativePROT UA NEGATIVEBL UA NEG ATIVEUA LAZARO 1+ (Mod)Time performed: 1045UA LEUKOCYTE ESTERASE [id number] 10:56:00* Test Item Value Reference Range Interpretation Comments UA LEUKOCYTE ESTERASE POC (test code = LEUUPOC) 1+ NEGATI VE A UA GLU: NEGATIVEKET UA NEGATIVEPH UA 7.0UA NIT NegativePROT UA NEGATIVEBL UA NEG ATIVEUA LAZARO 1+ (Mod)Time performed: 1045- US PREG 1ST [id number] 11:45:00 Name: MIGEL CRISOSTOMOLUPE Gonzalo [facility] : 1995 Age/S: 23 / F [address] [facility] Unit #: [id number] Loc: [place] [address] Phys: Mike Dorado MANAGER OF CLINICAL Acct: [id number] Di s Date: Status: REG ER PHONE #: Exam Date: 11/12/2019 1121 FAX #: [phone] Reason: VAGINAL BLEEDING/PELVIC PAIN EXAMS: CPT CODE: [id number] US PREG 1ST T RIMTR 04493 REASON FOR EXAM: PELVIC P AIN EXAM ORDER DATE: 11/12/2019 9:11 AM Attending MMariamD .: Karina Dorado NP PROCEDURE: - US PREG UT TRANSVAGINAL, - DUP A B/PEL/SC COMP, - US PREG 1ST TRIMTR Technique: Grayscale im ages, color doppler, and spectral doppler images of the uterus and ovaries were obtained utilizing A transabdominal and transvaginal approach. Comparison study: Pelvic ultrasound October 19, 2019 FINDI NGS: Uterus: size: 11.4 x 7.5 x 7.4 cm using transabdomina l measurements There is an intrauterine gestational sac with a mean diamet er of 3.26 mm. Embryo is visualized with crown-rump length of 12.5 m m. heart rate measures 159 bpm. There is a subchorionic hemato ma measuring 3.3 x 0.6 x 2.2 cm in size. A second subchorionic hematoma me asuring 1.6 x 0.4 x 0.5 cm in size is present. There are 2 additional subc entimeter metastasis. Right ovary: size: 2.3 x 1.5 x 1.8 cm cysts/masses: None Doppler findings: Normal arterial and venous wave forms. adnexal masses: None Left ovary: size: 1.8 x 3. 4 x 1.7 cm cysts/masses: None Doppler findings: Normal arterial and venous waveforms. adnexal masses: None Free fluid: No fluid seen in the cul-de-sac. IMPRESSION: Viable int rauterine with estimated gestational age 8 weeks plus/-4 days. PAGE 1 Signed Report (CONTINUED) Name: GALO CRISOSTOMO [facility] : 1995 Age/S: 23 / F [address] [facility] Unit #: [id number] Loc: [place] [address] Phys: Mike Dorado MANAGER OF CLINICAL Acct: [id number] Di s Date: Status: REG ER PHONE #: [phone] Exam Date: 11/12/2019 1122 FAX #: [phone] Reason: VAGINAL BLEEDING/PELVIC PAIN EXAMS: CPT CODE: [id number] US PREG 1ST T RIMTR 18620 <Continued> Subchorionic hematomas with measurements as above. When compared to the previous exam, these hematomas appear to be smaller. Location: [facility] at 1145 Reported and signed by: Xavier Patten MD CC: Evelyn Jain MANAGER OF CLINICAL; Karina Dorado NP Technologist: CELENA VILLAR RT(R),RO Trnmnb Date/Time: 11/12/2019 (1145) [email or web address] Orig Print D/T: S: 11/12/2019 (3772) Probe: PAGE 2 Signed Report - DUP AB/PEL/SC [id number] 11:45:00 Name: GALO CRISOSTOMO [facility] : 1995 Age/S: 23 / F [address] [facility] Unit #: [id number] Loc: [place] [address] Phys: Karina Dorado NP Acct: [id number] Dis Date: Status: REG ER PHONE #: [phone] Exam Date: 11/12/2019 1128 FAX #: [phone] Reason: PELVIC PAIN EXAMS: CPT CODE: [id number] DUP AB/PEL/SC COMP 72416 REASON FOR EXAM: PELVIC PAIN EXAM ORDER DATE: 11/12/2019 9:11 AM Attending MJean-Pierre: Karina Dorado NP PROCEDURE: - US PREG UT TRANSVAGINAL, - DUP AB/PEL/SC COMP, - US PREG 1ST TRIMTR Technique: Grayscale images, color doppler, and spectral doppler images of the uterus and ovaries were obtained utilizing A transabdominal and transvaginal approach. Comparison study: Pelvic ultrasound October 19, 2019 FINDINGS: Uterus: size: 11.4 x 7.5 x 7.4 cm using transabdominal measurements There is an intrauterine gestational sac with a mean diameter of 3.26 mm. Embryo is visualized with crown-rump length of 12.5 mm. heart rate measures 159 bpm. There is a subchorionic hematoma measuring 3.3 x 0.6 x 2.2 cm in size. A second subchorionic hematoma measuring 1.6 x 0.4 x 0.5 cm in size is present. There are 2 additional subcentimeter metastasis. Right ovary: size: 2.3 x 1.5 x 1.8 cm cysts/masses: None Doppler findings: Normal arterial and venous waveforms. adnexal masses: None Left ovary: size: 1.8 x 3.4 x 1.7 cm cysts/masses: None Doppler findings: Normal arterial and venous waveforms. adnexal masses: None Free fluid: No fluid seen in the cul-de-sac. IMPRESSION: Viable intrauterine with estimated gestational age 8 weeks plus/-4 days. PAGE 1 Signed Report (CONTINUED) Name: LLOYD MALIKGALO Gonzalo [facility] : 1995 Age/S: 23 / F [address] [facility] Unit #: [id number] Loc: [place] [address] Phys: Mike Dorado NP Acct: [id number] Di s Date: Status: REG ER PHONE #: Exam Date: 11/12/2019 1125 FAX #: [phone] Reason: PELVIC PAIN EXAMS: CPT CODE: [id number] DUP AB/PEL/SC COMP 06318 <Continued> Subchorionic hematomas with measurements as above. When compared to the previous exam, these hematomas appear to be smaller. Location: [facility] at 1145 Reported and signed by: Xavier Patten MD CC: Evelyn Jain MANAGER OF CLINICAL; Karina Dorado NP Technologist: CELENA VILLAR RT(R),RO [facility] Date/Time: 11/12/2019 (1145) [email or web address] Orig Print D/T: S: 11/12/2019 (1148) Probe: PAGE 2 Signed Report - US PREG UT [id number] 11:45:00 [facility] 1995 Age/S: 23 / F [address] Unit #: [id number] Loc: [place] [address] Phys: Karina Dorado MANAGER OF CLINICAL Acct: [id number] Dis Date: Status: REG ER PHONE #: [phone] Exam Date: 11/12/2019 1125 FAX #: [phone] Reason: PELVIC PAIN EXAMS: CPT CODE: [id number] US PREG UT TRANSVAGINAL 22286 REASON FOR EXAM: PELVIC PAIN EXAM ORDER DATE: 11/12/2019 9:11 AM Attending MMariamD.: Karina Dorado NP PROCEDURE: - US PREG UT TRANSVAGINAL, - DUP AB/PEL/SC COMP, - US PREG 1ST TRIMTR Technique: Grayscale images, color doppler, and spectral doppler images of the uterus and ovaries were obtained utilizing A transabdominal and transvaginal approach. Comparison study: Pelvic ultrasound October 19, 2019 FINDINGS: Uterus: size: 11.4 x 7.5 x 7.4 cm using transabdominal measurements There is an intrauterine gestational sac with a mean diameter of 3.26 mm. Embryo is visualized with crown-rump length of 12.5 mm. heart rate measures 159 bpm. There is a subchorionic hematoma measuring 3.3 x 0.6 x 2.2 cm in size. A second subchorionic hematoma measuring 1.6 x 0.4 x 0.5 cm in size is present. There are 2 additional subcentimeter metastasis. Right ovary: size: 2.3 x 1.5 x 1.8 cm cysts/masses: None Doppler findings: Normal arterial and venous waveforms. adnexal masses: None Left ovary: size: 1.8 x 3.4 x 1.7 cm cysts/masses: None Doppler findings: Normal arterial and venous waveforms. adnexal masses: None Free fluid: No fluid seen in the cul-de-sac. IMPRESSION: Viable intrauterine with estimated gestational age 8 weeks plus/-4 days. PAGE 1 Signed Report (CONTINUED) Name: GALO CRISOSTOMO [facility] : 1995 Age/S: 23 / F [address] Unit #: [id number] Loc: [place] [address] Phys: Mike Dorado MANAGER OF CLINICAL Acct: [id number] Di s Date: Status: REG ER PHONE #: [phone] Exam Date: 11/12/2019 1125 FAX #: Reason: PELVIC PAIN EXAMS: CPT CODE: [id number] US PREG UT TR ANSVAGINAL 75163 <Continued> Subchorionic hematomas with measurements as above. When compared to the previous exam, these hematomas appear to be smaller. Location: [facility] at 1145 Reported and signed by: Xavier Patten MD CC: Evelyn Jain NP; Karina Dorado NP Technologist: CELENA VILLAR RT(R),RDMS Trnscb Date/Time: 11/12/2019 (2289) [email or web address] Orig Print D/T: S: 11/12/2019 (4008) Probe: [id number] PAGE 2 Signed Report BASIC METABOLIC [id number] 11:02:00* Test Item Value Reference Range Interpretation Comments SODIUM (test code = NA) 138 mmol/L 136-145 N POTASSIUM (test code = K) 3.6 mmol/L 3.5-5.1 N CHLORIDE (test code = CL) 108.0 mmol/L 98-107 H CARBON DIOXIDE (test code = CO2) 24.0 mmol/L 21-32 N ANION GAP (test code = GAP) 9.6 10-20 L GLUCOSE (test code = GLU) 81 mg/dL 74-106 N BLOOD UREA NITROGEN (test code = BUN) 5 mg/dL 7-18 L GLOMERULAR FILTRATION RATE (test code = GFR) > 60 mL/min >=60 Estimated GFR by using Modified MDRD formula.Chronic kidney disease is defined as either kidney damageor GFR <60 mL/min/1.73 m2 for >3 months. CREATININE (test code = CREAT) 0.40 mg/dL 0.55-1.02 L Note change in reference range due to change in reagent. BUN/CREATININE RATIO (test code = BUN/CREA) 12.5 10-20 N CALCIUM (test code = CA) 9.3 mg/dL 8.5-10.1 N HCG SERUM [id number] 11:02:00* Test Item Value Reference Range Interpretation Comments HCG SERUM BETA (test code = HCG) 675992.0 mIU/mL 0-3 H Interfering substances present in the serum of somepatients may cause a false-positive result in this assay.Questionable elevations in serum hCG should be confirmedwith a urine hCG. Suspected Trophoblastic Neoplasms shouldnot be diagnosed based on serun hCG/beta hCG alone. Theymust be confirmed by clinical history and tissue diagnosis.INTERPRETATION:B-HCG LEVELS <5 SHOULD BE CONSIDERED "NEGATIVE." *WHEN BODERLINE RESULTS ARE ENCOUNTERED,PATIENT SAMPLESSHOULD BE REDRAWN 48 HOURS. 0-1 WEEKS AFTER CONCEPTION 5-50 MIU/ML1-2 WEEKS AFTER CONCEPTION 50-500 MIU/ML2-3 WEEKS AFTER CONCEPTION 100 -5,000 MIU/ML3-4 WEEKS AFTER CONCEPTION 500-10,000 MIU/ML4-5 WEEKS AFTER CONCEPTION 1000 -50,000 MIU/ML5-6 WEEKS AFTER CONCEPTION 10,000-100,000 MIU/ML6-8 WEEKS AFTER CONCEPTION 15,000- 200,000 MIU/ML2-3 MONTHS AFTER CONCEPTION 10,000-100,000 MIU/ML URINALYSIS [id number] 10:55:00* Test Item Value Reference Range Interpretation Comments UA COLOR (test code = COLU) COLORLESS YELLOW A UA APPEARANCE (test code = APPU) CLEAR CLEAR UA GLUCOSE DIPSTICK (test code = DGLUU) NEGATIVE mg/dL NEGATIVE UA BILIRUBIN DIPSTICK (test code = BILU) NEGATIVE mg/dL NEGATIVE UA KETONE DIPSTICK (test code = KETU) NEGATIVE mg/dL NEGATIVE UA SPECIFIC GRAVITY (test code = SGU) 1.005 1.001-1.035 UA BLOOD DIPSTICK (test code = TIFFANIE) 0.1 mg/dL (1+) mg/dL NEGATIVE A UA PH DIPSTICK (test code = JOSH) 7.0 5.0-8.0 UA PROTEIN DIPSTICK (test code = PROU) NEGATIVE mg/dL NEGATIVE UA UROBILINIOGEN DIPSTICK (test code = URO) Normal mg/dL NEGATIVE UA NITRITE DIPSTICK (test code = DIEGO) NEGATIVE NEGATIVE UA LEUKOCYTE ESTERASE W REFLEX (test code = LEUUR) 75 Lazaro/uL (1+) Lazaro/uL NEGATIVE A UA WBC (test code = WBCU) 6-10 per HPF 0-5 A UA RBC (test code = RBCU) 0-2 #/HPF 0-5 UA EPITHELIAL CELLS (test code = EPIU) FEW per HPF FEW UA BACTERIA (test code = BACU) FEW #/HPF NONE A Urine Source? Clean CatchBASIC METABOLIC [id number] 10:21:00* Test Item Value Reference Range Interpretation Comments SODIUM (test code = NA) 138 mmol/L 136-145 N POTASSIUM (test code = K) 3.6 mmol/L 3.5-5.1 N CHLORIDE (test code = CL) 108.0 mmol/L 98-107 H CARBON DIOXIDE (test code = CO2) mmol/L 21-32 ANION GAP (test code = GAP) 10-20 GLUCOSE (test code = GLU) mg/dL 74-106 BLOOD UREA NITROGEN (test code = BUN) mg/dL 7-18 GLOMERULAR FILTRATION RATE (test code = GFR) mL/min >=60 CREATININE (test code = CREAT) mg/dL 0.55-1.02 BUN/CREATININE RATIO (test code = BUN/CREA) 10-20 CALCIUM (test code = CA) mg/dL 8.5-10.1 HCG SERUM [id number] 10:21:00* Test Item Value Reference Range Interpretation Comments HCG SERUM BETA (test code = HCG) mIU/mL 0-3 CBC W/O [id number] 10:17:00* Test Item Value Reference Range Interpretation Comments WHITE BLOOD CELL (test code = WBC) 8.5 K/mm3 4.5-12.5 N RED BLOOD CELL (test code = RBC) 4.53 mill/mm3 3.7-5.2 N HEMOGLOBIN (test code = HGB) 9.8 gram/dL 11.5-15.5 L HEMATOCRIT (test code = HCT) 32.9 % 36.0-46.0 L MEAN CELL VOLUME (test code = MCV) 72.6 fL 80-98 L MEAN CELL HGB (test code = MCH) 21.6 picogram 27.0-33.0 L MEAN CELL HGB CONCETRATION (test code = MCHC) 29.8 gram/dL 33.0-36. 0 L RED CELL DISTRIBUTION WIDTH (test code = RDW) 17.2 % 11.6-16. 2 H PLATELET COUNT (test code = PLT) 408 K/mm3 150-450 N MEAN PLATELET VOLUME (test code = MPV) 10.0 fL 6.7-11.0 N [id number] 04:07:00* Test Item Value Reference Range Interpretation Comments PROGESTERONE (test code = PROG) 8.9 ng/mL () Follicular phase 0.1 - 0.9 Luteal phase 1.8 - 23.9 Ovulation phase 0.1 - 12.0 First trimester 11.0 - 44.3 Second trimester 25.4 - 83.3 Third trimester 58.7 - 214.0 Postmenopausal 0.0 - 0.1Performed At: [facility] [address] [id number] Honorio Puentes MD Ph:[phone] HCG SERUM [id number] 19:08:00* Test Item Value Reference Range Interpretation Comments HCG SERUM BETA (test code = HCG) 95357.0 mIU/mL 0-3 H Interfering substances present in the serum of somepatients may cause a false-positive result in this assay.Questionable elevations in serum hCG should be confirmedwith a urine hCG. Suspected Trophoblastic Neoplasms shouldnot be diagnosed based on serun hCG/beta hCG alone. Theymust be confirmed by clinical history and tissue diagnosis.INTERPRETATION:B-HCG LEVELS <5 SHOULD BE CONSIDERED "NEGATIVE." *WHEN BODERLINE RESULTS ARE ENCOUNTERED,PATIENT SAMPLESSHOULD BE REDRAWN 48 HOURS. 0-1 WEEKS AFTER CONCEPTION 5-50 MIU/ML1-2 WEEKS AFTER CONCEPTION 50-500 MIU/ML2-3 WEEKS AFTER CONCEPTION 100 -5,000 MIU/ML3-4 WEEKS AFTER CONCEPTION 500-10,000 MIU/ML4-5 WEEKS AFTER CONCEPTION 1000 -50,000 MIU/ML5-6 WEEKS AFTER CONCEPTION 10,000-100,000 MIU/ML6-8 WEEKS AFTER CONCEPTION 15,000- 200,000 MIU/ML2-3 MONTHS AFTER CONCEPTION 10,000-100,000 MIU/ML IS THIS PATIENT ? [id number] 03:06:00* Test Item Value Reference Range Interpretation Comments PROGESTERONE (test code = PROG) 7.8 ng/mL () Follicular phase 0.1 - 0.9 Luteal phase 1.8 - 23.9 Ovulation phase 0.1 - 12.0 First trimester 11.0 - 44.3 Second trimester 25.4 - 83.3 Third trimester 58.7 - 214.0 Postmenopausal 0.0 - 0.1Performed At: [facility] [address] [id number] Honorio Puentes MD Ph:[phone] HCG SERUM [id number] 21:03:00* Test Item Value Reference Range Interpretation Comments HCG SERUM BETA (test code = HCG) 32273.0 mIU/mL 0-3 H Interfering substances present in the serum of somepatients may cause a false-positive result in this assay.Questionable elevations in serum hCG should be confirmedwith a urine hCG. Suspected Trophoblastic Neoplasms shouldnot be diagnosed based on serun hCG/beta hCG alone. Theymust be confirmed by clinical history and tissue diagnosis.INTERPRETATION:B-HCG LEVELS <5 SHOULD BE CONSIDERED "NEGATIVE." *WHEN BODERLINE RESULTS ARE ENCOUNTERED,PATIENT SAMPLESSHOULD BE REDRAWN 48 HOURS. 0-1 WEEKS AFTER CONCEPTION 5-50 MIU/ML1-2 WEEKS AFTER CONCEPTION 50-500 MIU/ML2-3 WEEKS AFTER CONCEPTION 100 -5,000 MIU/ML3-4 WEEKS AFTER CONCEPTION 500-10,000 MIU/ML4-5 WEEKS AFTER CONCEPTION 1000 -50,000 MIU/ML5-6 WEEKS AFTER CONCEPTION 10,000-100,000 MIU/ML6-8 WEEKS AFTER CONCEPTION 15,000- 200,000 MIU/ML2-3 MONTHS AFTER CONCEPTION 10,000-100,000 MIU/ML IS THIS PATIENT ? YESURINALYSIS [id number] 15:21:00* Test Item Value Reference Range Interpretation Comments UA GLUCOSE DIPSTIC POC (test code = GLUUP) Negative Negative UA KETONE DIPSTICK POC (test code = KETUP) Negative UA BLOOD DIPSTIC POC (test code = BLUP) NEGATIVE UA PH DIPSTIC POC (test code = PHUP) 5-8 UA PROTEIN DIPSTICK POC (test code = DPROUP) Neg -15 UA NITRITE DIPSTICK POC (test code = NITUP) Negative UA LEUKOCYTE ESTERASE POC (test code = LEUUPOC) NEGATI VE UA GLU: NEGATIVEKET UA NEGATIVEPH UA 6.0UA NIT NegativePROT UA NEGATIVEBL UA NEG ATIVEUA LAZARO NegativeTime performed: [id number] [id number] 15:21:00* Test Item Value Reference Range Interpretation Comments UA GLUCOSE DIPSTIC POC (test code = GLUUP) Negative Negative UA KETONE DIPSTICK POC (test code = KETUP) Negative Negative UA BLOOD DIPSTIC POC (test code = BLUP) NEGATIVE UA PH DIPSTIC POC (test code = PHUP) 5-8 UA PROTEIN DIPSTICK POC (test code = DPROUP) Neg -15 UA NITRITE DIPSTICK POC (test code = NITUP) Negative UA LEUKOCYTE ESTERASE POC (test code = LEUUPOC) NEGATI VE UA GLU: NEGATIVEKET UA NEGATIVEPH UA 6.0UA NIT NegativePROT UA NEGATIVEBL UA NEG ATIVEUA LAZARO NegativeTime performed: [id number] [id number] 15:21:00* Test Item Value Reference Range Interpretation Comments UA GLUCOSE DIPSTIC POC (test code = GLUUP) Negative Negative UA KETONE DIPSTICK POC (test code = KETUP) Negative Negative UA BLOOD DIPSTIC POC (test code = BLUP) Negative NEGATIVE UA PH DIPSTIC POC (test code = PHUP) 5-8 UA PROTEIN DIPSTICK POC (test code = DPROUP) Neg -15 UA NITRITE DIPSTICK POC (test code = NITUP) Negative UA LEUKOCYTE ESTERASE POC (test code = LEUUPOC) NEGATI VE UA GLU: NEGATIVEKET UA NEGATIVEPH UA 6.0UA NIT NegativePROT UA NEGATIVEBL UA NEG ATIVEUA LAZARO NegativeTime performed: 1519URINALYSIS [id number] 15:21:00* Test Item Value Reference Range Interpretation Comments UA GLUCOSE DIPSTIC POC (test code = GLUUP) Negative Negative UA KETONE DIPSTICK POC (test code = KETUP) Negative Negative UA BLOOD DIPSTIC POC (test code = BLUP) Negative NEGATIVE UA PH DIPSTIC POC (test code = PHUP) 6 5-8 N UA PROTEIN DIPSTICK POC (test code = DPROUP) Neg -15 UA NITRITE DIPSTICK POC (test code = NITUP) Negative UA LEUKOCYTE ESTERASE POC (test code = LEUUPOC) NEGATI VE UA GLU: NEGATIVEKET UA NEGATIVEPH UA 6.0UA NIT NegativePROT UA NEGATIVEBL UA NEG ATIVEUA LAZARO NegativeTime performed: 1519URINALYSIS [id number] 15:21:00* Test Item Value Reference Range Interpretation Comments UA GLUCOSE DIPSTIC POC (test code = GLUUP) Negative Negative UA KETONE DIPSTICK POC (test code = KETUP) Negative Negative UA BLOOD DIPSTIC POC (test code = BLUP) Negative NEGATIVE UA PH DIPSTIC POC (test code = PHUP) 6 5-8 N UA PROTEIN DIPSTICK POC (test code = DPROUP) Negative Neg -15 UA NITRITE DIPSTICK POC (test code = NITUP) Negative UA LEUKOCYTE ESTERASE POC (test code = LEUUPOC) NEGATI VE UA GLU: NEGATIVEKET UA NEGATIVEPH UA 6.0UA NIT NegativePROT UA NEGATIVEBL UA NEG ATIVEUA LAZARO NegativeTime performed: [id number] [id number] 15:21:00* Test Item Value Reference Range Interpretation Comments UA GLUCOSE DIPSTIC POC (test code = GLUUP) Negative Negative UA KETONE DIPSTICK POC (test code = KETUP) Negative Negative UA BLOOD DIPSTIC POC (test code = BLUP) Negative NEGATIVE UA PH DIPSTIC POC (test code = PHUP) 6 5-8 N UA PROTEIN DIPSTICK POC (test code = DPROUP) Negative Neg -15 UA NITRITE DIPSTICK POC (test code = NITUP) Negative Negative UA LEUKOCYTE ESTERASE POC (test code = LEUUPOC) NEGATI VE UA GLU: NEGATIVEKET UA NEGATIVEPH UA 6.0UA NIT NegativePROT UA NEGATIVEBL UA NEG ATIVEUA LAZARO NegativeTime performed: 1519URINALYSIS [id number] 15:21:00* Test Item Value Reference Range Interpretation Comments UA GLUCOSE DIPSTIC POC (test code = GLUUP) Negative Negative UA KETONE DIPSTICK POC (test code = KETUP) Negative Negative UA BLOOD DIPSTIC POC (test code = BLUP) Negative NEGATIVE UA PH DIPSTIC POC (test code = PHUP) 6 5-8 N UA PROTEIN DIPSTICK POC (test code = DPROUP) Negative Neg -15 UA NITRITE DIPSTICK POC (test code = NITUP) Negative Negative UA LEUKOCYTE ESTERASE POC (test code = LEUUPOC) NEGATIVE NEGATI VE UA GLU: NEGATIVEKET UA NEGATIVEPH UA 6.0UA NIT NegativePROT UA NEGATIVEBL UA NEG ATIVEUA LAZARO NegativeTime performed: [id number] 04:07:00* Test Item Value Reference Range Interpretation Comments PROGESTERONE (test code = PROG) 9.7 ng/mL () Follicular phase 0.1 - 0.9 Luteal phase 1.8 - 23.9 Ovulation phase 0.1 - 12.0 First trimester 11.0 - 44.3 Second trimester 25.4 - 83.3 Third trimester 58.7 - 214.0 Postmenopausal 0.0 - 0.1Performed At: [facility] [id number] [place] [address] [id number] Kyle L MD Ph:[phone] AG HEPAT B [id number] 19:27:00* Test Item Value Reference Range Interpretation Comments AG HEPAT B SURF (test code = HBSAG) Nonreactive Index Nonreactive AB RUBELLA [id number] 19:27:00* Test Item Value Reference Range Interpretation Comments AB RUBELLA IGG (test code = RUBGAB) Positive IUnit/mL <5.0=Neg IU/ML INTERPRETATION OF SERUM RUBELLA-IGG AB --------- < 5.0 NEGATIVE - NO RUBELLA IGG ANTIBODY DETECTED5.0-9.9 EQUIVOCAL>= 10.0 POSITIVE - RUBELLA IGG ANTIBODY DETECTED HIV 1 2 COMBO AG/AB [id number] 19:27:00* Test Item Value Reference Range Interpretation Comments HIV 1 2 COMBO AG/AB SCREEN (test code = [id number]) AB/AG NO N REACTIVE NONREACTIVE NONREACTIVE HIV P24 ANTI GEN NONREACTIVE NONREACTIVE HIV 1&2 ANTIBODY NONREACTIVE THE HIV-1 P24 TEST HELPS DISTINGUISH ACUTE HIV-1INFECTIONFROM ESTABLISHED HIV-1 INFECTION WHEN THE SPECIMEN ISPOSITIVE FOR HIV-1 P24 ANTIGEN. HIV-1 P24 ANTIGEN IS HIGHEST IN THE FIRST FEW WEEKS AFTERINFECTION AB [id number] 19:26:00* Test Item Value Reference Range Interpretation Comments AB TREPONEMA (test code = TREPAB) Nonreactive Index NonReactive AG HEPAT B [id number] 19:26:00* Test Item Value Reference Range Interpretation Comments AG HEPAT B SURF (test code = HBSAG) Nonreactive Index Nonreactive AB RUBELLA [id number] 19:26:00* Test Item Value Reference Range Interpretation Comments AB RUBELLA IGG (test code = RUBGAB) IUnit/mL <5.0=Neg HIV 1 2 COMBO AG/AB [id number] 19:26:00* Test Item Value Reference Range Interpretation Comments HIV 1 2 COMBO AG/AB SCREEN (test code = [id number]) AB/AG NO N REACTIVE NONREACTIVE NONREACTIVE HIV P24 ANTI GEN NONREACTIVE NONREACTIVE HIV 1&2 ANTIBODY NONREACTIVE THE HIV-1 P24 TEST HELPS DISTINGUISH ACUTE HIV-1INFECTIONFROM ESTABLISHED HIV-1 INFECTION WHEN THE SPECIMEN ISPOSITIVE FOR HIV-1 P24 ANTIGEN. HIV-1 P24 ANTIGEN IS HIGHEST IN THE FIRST FEW WEEKS AFTERINFECTION HCG SERUM [id number] 19:21:00* Test Item Value Reference Range Interpretation Comments HCG SERUM BETA (test code = HCG) 47664.0 mIU/mL 0-3 H Interfering substances present in the serum of somepatients may cause a false-positive result in this assay.Questionable elevations in serum hCG should be confirmedwith a urine hCG. Suspected Trophoblastic Neoplasms shouldnot be diagnosed based on serun hCG/beta hCG alone. Theymust be confirmed by clinical history and tissue diagnosis.INTERPRETATION:B-HCG LEVELS <5 SHOULD BE CONSIDERED "NEGATIVE." *WHEN BODERLINE RESULTS ARE ENCOUNTERED,PATIENT SAMPLESSHOULD BE REDRAWN 48 HOURS. 0-1 WEEKS AFTER CONCEPTION 5-50 MIU/ML1-2 WEEKS AFTER CONCEPTION 50-500 MIU/ML2-3 WEEKS AFTER CONCEPTION 100 -5,000 MIU/ML3-4 WEEKS AFTER CONCEPTION 500-10,000 MIU/ML4-5 WEEKS AFTER CONCEPTION 1000 -50,000 MIU/ML5-6 WEEKS AFTER CONCEPTION 10,000-100,000 MIU/ML6-8 WEEKS AFTER CONCEPTION 15,000- 200,000 MIU/ML2-3 MONTHS AFTER CONCEPTION 10,000-100,000 MIU/ML IS THIS PATIENT ? YESGESTATION SCREEN [id number] 18:57:00* Test Item Value Reference Range Interpretation Comments GESTATION SCREEN GLUCOSE (test code = GLU1S) 169 mg/mL 90-140 H AG HEPAT B [id number] 18:54:00* Test Item Value Reference Range Interpretation Comments AG HEPAT B SURF (test code = HBSAG) Index Nonreactive AB RUBELLA [id number] 18:54:00* Test Item Value Reference Range Interpretation Comments AB RUBELLA IGG (test code = RUBGAB) IUnit/mL <5.0=Neg HIV 1 2 COMBO AG/AB [id number] 18:54:00* Test Item Value Reference Range Interpretation Comments HIV 1 2 COMBO AG/AB SCREEN (test code = [id number]) AB/AG NO N REACTIVE NONREACTIVE NONREACTIVE HIV P24 ANTI GEN NONREACTIVE NONREACTIVE HIV 1&2 ANTIBODY NONREACTIVE THE HIV-1 P24 TEST HELPS DISTINGUISH ACUTE HIV-1INFECTIONFROM ESTABLISHED HIV-1 INFECTION WHEN THE SPECIMEN ISPOSITIVE FOR HIV-1 P24 ANTIGEN. HIV-1 P24 ANTIGEN IS HIGHEST IN THE FIRST FEW WEEKS AFTERINFECTION [id number] 18:54:00* Test Item Value Reference Range Interpretation Comments GLYCOSYLATED HEMOGLOBIN (HA1C) (test code = GLYHGB) 5.4 % HbA1 SUGGESTED DIAGNOSIS: HbA1C (%) Diabetic >6.4Prediabetes 5.7 - 6.4Normal <5.7 ESTIMATED AVERAGE GLUCOSE (test code = EAG) 108 MG/DL CBC W/AUTO [id number] 18:47:00* Test Item Value Reference Range Interpretation Comments WHITE BLOOD CELL (test code = WBC) 7.3 K/mm3 4.5-12.5 N RED BLOOD CELL (test code = RBC) 4.49 mill/mm3 3.7-5.2 N HEMOGLOBIN (test code = HGB) 9.7 gram/dL 11.5-15.5 L HEMATOCRIT (test code = HCT) 33.9 % 36.0-46.0 L MEAN CELL VOLUME (test code = MCV) 75.5 fL 80-98 L MEAN CELL HGB (test code = MCH) 21.6 picogram 27.0-33.0 L MEAN CELL HGB CONCETRATION (test code = MCHC) 28.6 gram/dL 33.0-36. 0 L RED CELL DISTRIBUTION WIDTH (test code = RDW) 17.6 % 11.6-16. 2 H RED CELL DISTRIBUTION WIDTH SD (test code = RDW-SD) 47.5 fL 37 .0-51.0 N PLATELET COUNT (test code = PLT) 415 K/mm3 150-450 N MEAN PLATELET VOLUME (test code = MPV) 10.5 fL 6.7-11.0 N NEUTROPHIL % (test code = NT%) 65.8 % 39.0-69.0 N IMMATURE GRANULOCYTE % (test code = IG%) 0.3 % 0.0-5.0 N LYMPHOCYTE % (test code = LY%) 25.5 % 25.0-55.0 N MONOCYTE % (test code = MO%) 6.1 % 0.0-10.0 N EOSINOPHIL % (test code = EO%) 1.8 % 0.0-5.0 N BASOPHIL % (test code = BA%) 0.5 % 0.0-1.0 N NUCLEATED RBC % (test code = NRBC%) 0.0 % 0-0 N NEUTROPHIL # (test code = NT#) 4.82 K/mm3 1.8-7.7 N IMMATURE GRANULOCYTE # (test code = IG#) 0.02 x10 3/uL 0-0.03 N LYMPHOCYTE # (test code = LY#) 1.87 K/mm3 1.0-5.0 N MONOCYTE # (test code = MO#) 0.45 K/mm3 0-0.8 N EOSINOPHIL # (test code = EO#) 0.13 K/mm3 0.0-0.5 N BASOPHIL # (test code = BA#) 0.04 K/mm3 0.0-0.2 N NUCLEATED RBC # (test code = NRBC#) 0.00 K/mm3 0.0-0.1 N MANUAL DIFF REQUIRED (test code = MDIFF) NO, ONLY SCAN NEEDED DIFFERENTIAL [id number] 18:47:00* Test Item Value Reference Range Interpretation Comments STAIN ACCEPTABILITY (test code = STN ACCEPTABLE) STAIN ACCEPTABLE HYPOCHROMIA (test code = HYPO) 1+ POIKILOCYTOSIS (test code = POIK) 1+ ANISOCYTOSIS (test code = ANISO) 1+ MICROCYTOSIS (test code = MICR) 1+ TEAR DROP CELLS (test code = TEAR) 1+ CRENATED CELLS (test code = CREN) 1+ PLATELET ESTIMATE (test code = PLTEST) ADEQUATE PLATELET MORPHOLOGY (test code = PLTMORPH) NORMAL CBC W/AUTO [id number] 18:25:00* Test Item Value Reference Range Interpretation Comments WHITE BLOOD CELL (test code = WBC) 7.3 K/mm3 4.5-12.5 N RED BLOOD CELL (test code = RBC) 4.49 mill/mm3 3.7-5.2 N HEMOGLOBIN (test code = HGB) 9.7 gram/dL 11.5-15.5 L HEMATOCRIT (test code = HCT) 33.9 % 36.0-46.0 L MEAN CELL VOLUME (test code = MCV) 75.5 fL 80-98 L MEAN CELL HGB (test code = MCH) 21.6 picogram 27.0-33.0 L MEAN CELL HGB CONCETRATION (test code = MCHC) 28.6 gram/dL 33.0-36. 0 L RED CELL DISTRIBUTION WIDTH (test code = RDW) 17.6 % 11.6-16. 2 H RED CELL DISTRIBUTION WIDTH SD (test code = RDW-SD) 47.5 fL 37 .0-51.0 N PLATELET COUNT (test code = PLT) 415 K/mm3 150-450 N MEAN PLATELET VOLUME (test code = MPV) 10.5 fL 6.7-11.0 N NEUTROPHIL % (test code = NT%) 65.8 % 39.0-69.0 N IMMATURE GRANULOCYTE % (test code = IG%) 0.3 % 0.0-5.0 N LYMPHOCYTE % (test code = LY%) 25.5 % 25.0-55.0 N MONOCYTE % (test code = MO%) 6.1 % 0.0-10.0 N EOSINOPHIL % (test code = EO%) 1.8 % 0.0-5.0 N BASOPHIL % (test code = BA%) 0.5 % 0.0-1.0 N NUCLEATED RBC % (test code = NRBC%) 0.0 % 0-0 N NEUTROPHIL # (test code = NT#) 4.82 K/mm3 1.8-7.7 N IMMATURE GRANULOCYTE # (test code = IG#) 0.02 x10 3/uL 0-0.03 N LYMPHOCYTE # (test code = LY#) 1.87 K/mm3 1.0-5.0 N MONOCYTE # (test code = MO#) 0.45 K/mm3 0-0.8 N EOSINOPHIL # (test code = EO#) 0.13 K/mm3 0.0-0.5 N BASOPHIL # (test code = BA#) 0.04 K/mm3 0.0-0.2 N NUCLEATED RBC # (test code = NRBC#) 0.00 K/mm3 0.0-0.1 N MANUAL DIFF REQUIRED (test code = MDIFF) NO, ONLY SCAN NEEDED DIFFERENTIAL [id number] 18:25:00* Test Item Value Reference Range Interpretation Comments STAIN ACCEPTABILITY (test code = STN ACCEPTABLE) CABOT RINGS (test code = CAB) MORPHOLOGY COMMENT (test code = MOC) PLATELET ESTIMATE (test code = PLTEST) PLATELET MORPHOLOGY (test code = PLTMORPH) CBC W/AUTO [id number] 18:25:00* Test Item Value Reference Range Interpretation Comments WHITE BLOOD CELL (test code = WBC) 7.3 K/mm3 4.5-12.5 N RED BLOOD CELL (test code = RBC) 4.49 mill/mm3 3.7-5.2 N HEMOGLOBIN (test code = HGB) 9.7 gram/dL 11.5-15.5 L HEMATOCRIT (test code = HCT) 33.9 % 36.0-46.0 L MEAN CELL VOLUME (test code = MCV) 75.5 fL 80-98 L MEAN CELL HGB (test code = MCH) 21.6 picogram 27.0-33.0 L MEAN CELL HGB CONCETRATION (test code = MCHC) 28.6 gram/dL 33.0-36. 0 L RED CELL DISTRIBUTION WIDTH (test code = RDW) 17.6 % 11.6-16. 2 H RED CELL DISTRIBUTION WIDTH SD (test code = RDW-SD) 47.5 fL 37 .0-51.0 N PLATELET COUNT (test code = PLT) 415 K/mm3 150-450 N MEAN PLATELET VOLUME (test code = MPV) 10.5 fL 6.7-11.0 N NEUTROPHIL % (test code = NT%) 65.8 % 39.0-69.0 N IMMATURE GRANULOCYTE % (test code = IG%) 0.3 % 0.0-5.0 N LYMPHOCYTE % (test code = LY%) 25.5 % 25.0-55.0 N MONOCYTE % (test code = MO%) 6.1 % 0.0-10.0 N EOSINOPHIL % (test code = EO%) 1.8 % 0.0-5.0 N BASOPHIL % (test code = BA%) 0.5 % 0.0-1.0 N NUCLEATED RBC % (test code = NRBC%) 0.0 % 0-0 N NEUTROPHIL # (test code = NT#) 4.82 K/mm3 1.8-7.7 N IMMATURE GRANULOCYTE # (test code = IG#) 0.02 x10 3/uL 0-0.03 N LYMPHOCYTE # (test code = LY#) 1.87 K/mm3 1.0-5.0 N MONOCYTE # (test code = MO#) 0.45 K/mm3 0-0.8 N EOSINOPHIL # (test code = EO#) 0.13 K/mm3 0.0-0.5 N BASOPHIL # (test code = BA#) 0.04 K/mm3 0.0-0.2 N NUCLEATED RBC # (test code = NRBC#) 0.00 K/mm3 0.0-0.1 N MANUAL DIFF REQUIRED (test code = MDIFF) NO, ONLY SCAN NEEDED DIFFERENTIAL [id number] 18:25:00* Test Item Value Reference Range Interpretation Comments STAIN ACCEPTABILITY (test code = STN ACCEPTABLE) CABOT RINGS (test code = CAB) MORPHOLOGY COMMENT (test code = MOC) PLATELET ESTIMATE (test code = PLTEST) PLATELET MORPHOLOGY (test code = PLTMORPH) CBC W/AUTO [id number] 18:25:00* Test Item Value Reference Range Interpretation Comments WHITE BLOOD CELL (test code = WBC) 7.3 K/mm3 4.5-12.5 N RED BLOOD CELL (test code = RBC) 4.49 mill/mm3 3.7-5.2 N HEMOGLOBIN (test code = HGB) 9.7 gram/dL 11.5-15.5 L HEMATOCRIT (test code = HCT) 33.9 % 36.0-46.0 L MEAN CELL VOLUME (test code = MCV) 75.5 fL 80-98 L MEAN CELL HGB (test code = MCH) 21.6 picogram 27.0-33.0 L MEAN CELL HGB CONCETRATION (test code = MCHC) 28.6 gram/dL 33.0-36. 0 L RED CELL DISTRIBUTION WIDTH (test code = RDW) 17.6 % 11.6-16. 2 H RED CELL DISTRIBUTION WIDTH SD (test code = RDW-SD) 47.5 fL 37 .0-51.0 N PLATELET COUNT (test code = PLT) 415 K/mm3 150-450 N MEAN PLATELET VOLUME (test code = MPV) 10.5 fL 6.7-11.0 N NEUTROPHIL % (test code = NT%) 65.8 % 39.0-69.0 N IMMATURE GRANULOCYTE % (test code = IG%) 0.3 % 0.0-5.0 N LYMPHOCYTE % (test code = LY%) 25.5 % 25.0-55.0 N MONOCYTE % (test code = MO%) 6.1 % 0.0-10.0 N EOSINOPHIL % (test code = EO%) 1.8 % 0.0-5.0 N BASOPHIL % (test code = BA%) 0.5 % 0.0-1.0 N NUCLEATED RBC % (test code = NRBC%) 0.0 % 0-0 N NEUTROPHIL # (test code = NT#) 4.82 K/mm3 1.8-7.7 N IMMATURE GRANULOCYTE # (test code = IG#) 0.02 x10 3/uL 0-0.03 N LYMPHOCYTE # (test code = LY#) 1.87 K/mm3 1.0-5.0 N MONOCYTE # (test code = MO#) 0.45 K/mm3 0-0.8 N EOSINOPHIL # (test code = EO#) 0.13 K/mm3 0.0-0.5 N BASOPHIL # (test code = BA#) 0.04 K/mm3 0.0-0.2 N NUCLEATED RBC # (test code = NRBC#) 0.00 K/mm3 0.0-0.1 N MANUAL DIFF REQUIRED (test code = MDIFF) NO, ONLY SCAN NEEDED DIFFERENTIAL [id number] 18:25:00* Test Item Value Reference Range Interpretation Comments STAIN ACCEPTABILITY (test code = STN ACCEPTABLE) MORPHOLOGY COMMENT (test code = MOC) PLATELET ESTIMATE (test code = PLTEST) PLATELET MORPHOLOGY (test code = PLTMORPH) CBC W/AUTO [id number] 18:25:00* Test Item Value Reference Range Interpretation Comments WHITE BLOOD CELL (test code = WBC) 7.3 K/mm3 4.5-12.5 N RED BLOOD CELL (test code = RBC) 4.49 mill/mm3 3.7-5.2 N HEMOGLOBIN (test code = HGB) 9.7 gram/dL 11.5-15.5 L HEMATOCRIT (test code = HCT) 33.9 % 36.0-46.0 L MEAN CELL VOLUME (test code = MCV) 75.5 fL 80-98 L MEAN CELL HGB (test code = MCH) 21.6 picogram 27.0-33.0 L MEAN CELL HGB CONCETRATION (test code = MCHC) 28.6 gram/dL 33.0-36. 0 L RED CELL DISTRIBUTION WIDTH (test code = RDW) 17.6 % 11.6-16. 2 H RED CELL DISTRIBUTION WIDTH SD (test code = RDW-SD) 47.5 fL 37 .0-51.0 N PLATELET COUNT (test code = PLT) 415 K/mm3 150-450 N MEAN PLATELET VOLUME (test code = MPV) 10.5 fL 6.7-11.0 N NEUTROPHIL % (test code = NT%) 65.8 % 39.0-69.0 N IMMATURE GRANULOCYTE % (test code = IG%) 0.3 % 0.0-5.0 N LYMPHOCYTE % (test code = LY%) 25.5 % 25.0-55.0 N MONOCYTE % (test code = MO%) 6.1 % 0.0-10.0 N EOSINOPHIL % (test code = EO%) 1.8 % 0.0-5.0 N BASOPHIL % (test code = BA%) 0.5 % 0.0-1.0 N NUCLEATED RBC % (test code = NRBC%) 0.0 % 0-0 N NEUTROPHIL # (test code = NT#) 4.82 K/mm3 1.8-7.7 N IMMATURE GRANULOCYTE # (test code = IG#) 0.02 x10 3/uL 0-0.03 N LYMPHOCYTE # (test code = LY#) 1.87 K/mm3 1.0-5.0 N MONOCYTE # (test code = MO#) 0.45 K/mm3 0-0.8 N EOSINOPHIL # (test code = EO#) 0.13 K/mm3 0.0-0.5 N BASOPHIL # (test code = BA#) 0.04 K/mm3 0.0-0.2 N NUCLEATED RBC # (test code = NRBC#) 0.00 K/mm3 0.0-0.1 N MANUAL DIFF REQUIRED (test code = MDIFF) NO, ONLY SCAN NEEDED DIFFERENTIAL [id number] 18:25:00* Test Item Value Reference Range Interpretation Comments STAIN ACCEPTABILITY (test code = STN ACCEPTABLE) CABOT RINGS (test code = CAB) MORPHOLOGY COMMENT (test code = MOC) PLATELET ESTIMATE (test code = PLTEST) PLATELET MORPHOLOGY (test code = PLTMORPH) [id number] 08:10:00* Test Item Value Reference Range Interpretation Comments PROGESTERONE (test code = PROG) 7.2 ng/mL () Follicular phase 0.1 - 0.9 Luteal phase 1.8 - 23.9 Ovulation phase 0.1 - 12.0 First trimester 11.0 - 44.3 Second trimester 25.4 - 83.3 Third trimester 58.7 - 214.0 Postmenopausal 0.0 - 0.1Performed At: [facility] [id number] Honorio Puentes MD Ph:[phone] HCG SERUM [id number] 21:53:00* Test Item Value Reference Range Interpretation Comments HCG SERUM BETA (test code = HCG) 63658.0 mIU/mL 0-3 H Interfering substances present in the serum of somepatients may cause a false-positive result in this assay.Questionable elevations in serum hCG should be confirmedwith a urine hCG. Suspected Trophoblastic Neoplasms shouldnot be diagnosed based on serun hCG/beta hCG alone. Theymust be confirmed by clinical history and tissue diagnosis.INTERPRETATION:B-HCG LEVELS <5 SHOULD BE CONSIDERED "NEGATIVE." *WHEN BODERLINE RESULTS ARE ENCOUNTERED,PATIENT SAMPLESSHOULD BE REDRAWN 48 HOURS. 0-1 WEEKS AFTER CONCEPTION 5-50 MIU/ML1-2 WEEKS AFTER CONCEPTION 50-500 MIU/ML2-3 WEEKS AFTER CONCEPTION 100 -5,000 MIU/ML3-4 WEEKS AFTER CONCEPTION 500-10,000 MIU/ML4-5 WEEKS AFTER CONCEPTION 1000 -50,000 MIU/ML5-6 WEEKS AFTER CONCEPTION 10,000-100,000 MIU/ML6-8 WEEKS AFTER CONCEPTION 15,000- 200,000 MIU/ML2-3 MONTHS AFTER CONCEPTION 10,000-100,000 MIU/ML IS THIS PATIENT ? [id number] 03:07:00* Test Item Value Reference Range Interpretation Comments PROGESTERONE (test code = PROG) 9.8 ng/mL () Follicular phase 0.1 - 0.9 Luteal phase 1.8 - 23.9 Ovulation phase 0.1 - 12.0 First trimester 11.0 - 44.3 Second trimester 25.4 - 83.3 Third trimester 58.7 - 214.0 Postmenopausal 0.0 - 0.1Performed At: [facility] [address] [id number] Honorio Puentes MD Ph:[phone] HCG SERUM [id number] 22:06:00* Test Item Value Reference Range Interpretation Comments HCG SERUM BETA (test code = HCG) 50971.0 mIU/mL 0-3 H Interfering substances present in the serum of somepatients may cause a false-positive result in this assay.Questionable elevations in serum hCG should be confirmedwith a urine hCG. Suspected Trophoblastic Neoplasms shouldnot be diagnosed based on serun hCG/beta hCG alone. Theymust be confirmed by clinical history and tissue diagnosis.INTERPRETATION:B-HCG LEVELS <5 SHOULD BE CONSIDERED "NEGATIVE." *WHEN BODERLINE RESULTS ARE ENCOUNTERED,PATIENT SAMPLESSHOULD BE REDRAWN 48 HOURS. 0-1 WEEKS AFTER CONCEPTION 5-50 MIU/ML1-2 WEEKS AFTER CONCEPTION 50-500 MIU/ML2-3 WEEKS AFTER CONCEPTION 100 -5,000 MIU/ML3-4 WEEKS AFTER CONCEPTION 500-10,000 MIU/ML4-5 WEEKS AFTER CONCEPTION 1000 -50,000 MIU/ML5-6 WEEKS AFTER CONCEPTION 10,000-100,000 MIU/ML6-8 WEEKS AFTER CONCEPTION 15,000- 200,000 MIU/ML2-3 MONTHS AFTER CONCEPTION 10,000-100,000 MIU/ML IS THIS PATIENT ? YESHCG SERUM [id number] 19:47:00* Test Item Value Reference Range Interpretation Comments HCG SERUM BETA (test code = HCG) 2283.0 mIU/mL 0-3 H Interfering substances present in the serum of somepatients may cause a false-positive result in this assay.Questionable elevations in serum hCG should be confirmedwith a urine hCG. Suspected Trophoblastic Neoplasms shouldnot be diagnosed based on serun hCG/beta hCG alone. Theymust be confirmed by clinical history and tissue diagnosis.INTERPRETATION:B-HCG LEVELS <5 SHOULD BE CONSIDERED "NEGATIVE." *WHEN BODERLINE RESULTS ARE ENCOUNTERED,PATIENT SAMPLESSHOULD BE REDRAWN 48 HOURS. 0-1 WEEKS AFTER CONCEPTION 5-50 MIU/ML1-2 WEEKS AFTER CONCEPTION 50-500 MIU/ML2-3 WEEKS AFTER CONCEPTION 100 -5,000 MIU/ML3-4 WEEKS AFTER CONCEPTION 500-10,000 MIU/ML4-5 WEEKS AFTER CONCEPTION 1000 -50,000 MIU/ML5-6 WEEKS AFTER CONCEPTION 10,000-100,000 MIU/ML6-8 WEEKS AFTER CONCEPTION 15,000- 200,000 MIU/ML2-3 MONTHS AFTER CONCEPTION 10,000-100,000 MIU/ML BASIC METABOLIC [id number] 19:44:00* Test Item Value Reference Range Interpretation Comments SODIUM (test code = NA) 138 mmol/L 136-145 N POTASSIUM (test code = K) 3.9 mmol/L 3.5-5.1 N CHLORIDE (test code = CL) 106.0 mmol/L 98-107 N CARBON DIOXIDE (test code = CO2) 23.0 mmol/L 21-32 N ANION GAP (test code = GAP) 12.9 10-20 N GLUCOSE (test code = GLU) 85 mg/dL 74-106 N BLOOD UREA NITROGEN (test code = BUN) 10 mg/dL 7-18 N GLOMERULAR FILTRATION RATE (test code = GFR) > 60 mL/min >=60 Estimated GFR by using Modified MDRD formula.Chronic kidney disease is defined as either kidney damageor GFR <60 mL/min/1.73 m2 for >3 months. CREATININE (test code = CREAT) 0.50 mg/dL 0.55-1.02 L Note change in reference range due to change in reagent. BUN/CREATININE RATIO (test code = BUN/CREA) 20.0 10-20 N CALCIUM (test code = CA) 9.6 mg/dL 8.5-10.1 N HEPATIC FUNCTION [id number] 19:44:00* Test Item Value Reference Range Interpretation Comments TOTAL PROTEIN (test code = PROT) 8.6 gram/dL 6.4-8.2 H ALBUMIN (test code = ALB) 4.4 g/dL 3.4-5.0 N GLOBULIN (test code = GLOB) 4.2 gram/dL 2.7-4.2 N ALBUMIN/GLOBULIN RATIO (test code = A/G) 1.1 0.75-1.50 N BILIRUBIN TOTAL (test code = BILT) 0.30 mg/dL 0.0-1.0 N BILIRUBIN DIRECT (test code = BILD) 0.09 mg/dL 0.0-0.20 N SGOT/AST (test code = AST) 14 IUnit/L 15-37 L SGPT/ALT (test code = ALT) 19 IUnit/L 12-78 N ALKALINE PHOSPHATASE TOTAL (test code = ALKP) 68 IUnit/L 45-117 N Note change in reference range due to change in reagent. [id number] 19:44:00* Test Item Value Reference Range Interpretation Comments LIPASE (test code = LIP) 79 U/L 73.0-393.0 N HCG SERUM [id number] 19:44:00* Test Item Value Reference Range Interpretation Comments HCG SERUM QUAL (test code = HCGQL) POSITIVE NEGATIVE A This HCGQL test is NOT applicable for MALE patients.Check with nurse about probable order error.If Tumor Marker Test needed, nurse should order test "HCGTU"(Test #550.56578) Previously reported result: NEGATIVE Edited by: VIDA on 10/19/19:5565391942: HCGQL previously reported as: NEGATIVE This HCGQL test is NOT applicable for MALE patients. Check with nurse about probable order error. If Tumor Marker Test needed, nurse should order test"HCGTU" (Test #550.19306) URINALYSIS [id number] 19:18:00* Test Item Value Reference Range Interpretation Comments UA COLOR (test code = COLU) COLORLESS YELLOW A UA APPEARANCE (test code = APPU) CLEAR CLEAR UA GLUCOSE DIPSTICK (test code = DGLUU) NEGATIVE mg/dL NEGATIVE UA BILIRUBIN DIPSTICK (test code = BILU) NEGATIVE mg/dL NEGATIVE UA KETONE DIPSTICK (test code = KETU) 60 (2+) mg/dL NEGATIVE A UA SPECIFIC GRAVITY (test code = SGU) 1.008 1.001-1.035 UA BLOOD DIPSTICK (test code = TIFFANIE) Negative mg/dL NEGATIVE UA PH DIPSTICK (test code = JOSH) 6.5 5.0-8.0 UA PROTEIN DIPSTICK (test code = PROU) NEGATIVE mg/dL NEGATIVE UA UROBILINIOGEN DIPSTICK (test code = URO) Normal mg/dL NEGATIVE UA NITRITE DIPSTICK (test code = DIEGO) NEGATIVE NEGATIVE UA LEUKOCYTE ESTERASE W REFLEX (test code = LEUUR) 250 Lazaro/u L (2+) Lazaro/uL NEGATIVE A UA WBC (test code = WBCU) 11-20 per HPF 0-5 A UA RBC (test code = RBCU) 6-10 #/HPF 0-5 A UA EPITHELIAL CELLS (test code = EPIU) FEW per HPF FEW UA BACTERIA (test code = BACU) FEW #/HPF NONE A UA MUCUS (test code = MUCU) FEW #/LPF FEW Urine Source? Clean CatchURINALYSIS [id number] 19:14:00* Test Item Value Reference Range Interpretation Comments UA COLOR (test code = COLU) COLORLESS YELLOW A UA APPEARANCE (test code = APPU) CLEAR CLEAR UA GLUCOSE DIPSTICK (test code = DGLUU) NEGATIVE mg/dL NEGATIVE UA BILIRUBIN DIPSTICK (test code = BILU) NEGATIVE mg/dL NEGATIVE UA KETONE DIPSTICK (test code = KETU) 60 (2+) mg/dL NEGATIVE A UA SPECIFIC GRAVITY (test code = SGU) 1.008 1.001-1.035 UA BLOOD DIPSTICK (test code = TIFFANIE) Negative mg/dL NEGATIVE UA PH DIPSTICK (test code = JOSH) 6.5 5.0-8.0 UA PROTEIN DIPSTICK (test code = PROU) NEGATIVE mg/dL NEGATIVE UA UROBILINIOGEN DIPSTICK (test code = URO) Normal mg/dL NEGATIVE UA NITRITE DIPSTICK (test code = DIEGO) NEGATIVE NEGATIVE UA LEUKOCYTE ESTERASE W REFLEX (test code = LEUUR) 250 Lazaro/u L (2+) Lazaro/uL NEGATIVE A UA WBC (test code = WBCU) per HPF 0-5 UA RBC (test code = RBCU) per HPF 0-5 UA EPITHELIAL CELLS (test code = EPIU) per HPF Few UA BACTERIA (test code = BACU) per HPF NONE Urine Source? Clean CatchBASIC METABOLIC [id number] 19:14:00* Test Item Value Reference Range Interpretation Comments SODIUM (test code = NA) 138 mmol/L 136-145 N POTASSIUM (test code = K) 3.9 mmol/L 3.5-5.1 N CHLORIDE (test code = CL) 106.0 mmol/L 98-107 N CARBON DIOXIDE (test code = CO2) 23.0 mmol/L 21-32 N ANION GAP (test code = GAP) 12.9 10-20 N GLUCOSE (test code = GLU) 85 mg/dL 74-106 N BLOOD UREA NITROGEN (test code = BUN) 10 mg/dL 7-18 N GLOMERULAR FILTRATION RATE (test code = GFR) > 60 mL/min >=60 Estimated GFR by using Modified MDRD formula.Chronic kidney disease is defined as either kidney damageor GFR <60 mL/min/1.73 m2 for >3 months. CREATININE (test code = CREAT) 0.50 mg/dL 0.55-1.02 L Note change in reference range due to change in reagent. BUN/CREATININE RATIO (test code = BUN/CREA) 20.0 10-20 N CALCIUM (test code = CA) 9.6 mg/dL 8.5-10.1 N HEPATIC FUNCTION [id number] 19:14:00* Test Item Value Reference Range Interpretation Comments TOTAL PROTEIN (test code = PROT) 8.6 gram/dL 6.4-8.2 H ALBUMIN (test code = ALB) 4.4 g/dL 3.4-5.0 N GLOBULIN (test code = GLOB) 4.2 gram/dL 2.7-4.2 N ALBUMIN/GLOBULIN RATIO (test code = A/G) 1.1 0.75-1.50 N BILIRUBIN TOTAL (test code = BILT) 0.30 mg/dL 0.0-1.0 N BILIRUBIN DIRECT (test code = BILD) 0.09 mg/dL 0.0-0.20 N SGOT/AST (test code = AST) 14 IUnit/L 15-37 L SGPT/ALT (test code = ALT) 19 IUnit/L 12-78 N ALKALINE PHOSPHATASE TOTAL (test code = ALKP) 68 IUnit/L 45-117 N Note change in reference range due to change in reagent. [id number] 19:14:00* Test Item Value Reference Range Interpretation Comments LIPASE (test code = LIP) 79 U/L 73.0-393.0 N HCG SERUM [id number] 19:14:00* Test Item Value Reference Range Interpretation Comments HCG SERUM QUAL (test code = HCGQL) NEGATIVE NEGATIVE This HCGQL test is NOT applicable for MALE patients.Check with nurse about probable order error.If Tumor Marker Test needed, nurse should order test "HCGTU"(Test #550.13943) - DUP AB/PEL/SC [id number] 19:12:00 Name: GALO CRISOSTOMO [facility] : 1995 Age/S: 23 / F [address] [facility] Unit #: [id number] Loc: [place] [address] Phys: Jane Bauman MANAGER OF CLINICAL Acct: [id number] Dis Date: Status: REG ER PHONE #: [phone] Exam Date: 10/19/2019 1832 FAX #: [phone] Reason: PELVIC PAIN EXAMS: CPT CODE: [id number] DUP AB/PEL/SC COMP 16225 HISTORY: VAGINAL BLEEDING/PELVIC PAIN CLINICAL DATES: Unknown TECHNIQUE: Static grayscale and Doppler images from real- time transabdominal sonographic evaluation of the pelvis. Images from endovaginal probe were also acquired for improved anatomic detail. COMPARISON: None FINDINGS: Uterus measures 10.5 x 6.0 x 6.5 cm (length x AP x transverse dimensions). Posterior subserosal 2.2 cm fibroid. Presumed intrauterine gestational sac is identified. Mean sac diameter measures 0.39 cm. No yolk sac or pole is observed. 2.2 x 0.8 x 1.7 cm subchorionic hemorrhage. Right ovary measures 3.3 x 1.7 x 2.1 cm. No mass or dominant cyst. Satisfactory color Doppler flow and spectral waveform is detected. Left ovary measures 3.2 x 1.5 x 2.9 cm. No mass or dominant cyst. Satisfactory color Doppler flow and spectral waveform is detected. No adnexal mass. No pelvic free fluid. IMPRESSION: Presumed intrauterine gestational sac with sonographic age of 5 weeks 1 day. Viability is indeterminate. 2.2 cm subchorionic hemorrhage. Obstetric followup recommended. LOCATION: LP at 1912 Reported and signed by: Medina Hartley D.O. PAGE 1 Signed Report (CONTINUED) Name: GALO CRISOSTOMO [facility] : 1995 Age/S: 23 / F [address] [facility] Unit #: [id number] Loc: [place] [address] Phys: Jane Bauman NP Acct: [id number] Dis Date: Status: REG ER PHONE #: [phone] Exam Date: 10/19/2019 1835 FAX #: [phone] Reason: PELVIC PAIN EXAMS: CPT CODE: [id number] DUP AB/PEL/SC COMP 29346 < Continued> CC: Jane Bauman NP Technologist: SUSANNA SAMANIEGO Trnscb Date/Time: 10/19/2019 (1911) MasterP1 Orig Print D/T: S: 10/19/2019 (1928) Probe: PAGE 2 Signed Report - US PREG UT [id number] 19:12:00 Name: GALO CRISOSTOMO [facility] : 1995 Age/S: 23 / F [address] Unit #: [id number] Loc: [place] [address] Phys: Jane Bauman MANAGER OF CLINICAL Acct: [id number] Dis Date: Status: REG ER PHONE #: [phone] Exam Date: 10/19/2019 183 FAX #: [phone] Reason: PELVIC PAIN EXAMS: CPT CODE: [id number] US PREG UT TRANSVAGINAL 61173 HISTORY: VAGINAL BLEEDING/PELVIC PAIN CLINICAL DATES: Unknown TECHNIQUE: Static grayscale and Doppler images from real- time transabdominal sonographic evaluation of the pelvis. Images from endovaginal probe were also acquired for improved anatomic detail. COMPARISON: None FINDINGS: Uterus measures 10.5 x 6.0 x 6.5 cm (length x AP x transverse dimensions). Posterior subserosal 2.2 cm fibroid. Presumed intrauterine gestational sac is identified. Mean sac diameter measures 0.39 cm. No yolk sac or pole is observed. 2.2 x 0.8 x 1.7 cm subchorionic hemorrhage. Right ovary measures 3.3 x 1.7 x 2.1 cm. No mass or dominant cyst. Satisfactory color Doppler flow and spectral waveform is detected. Left ovary measures 3.2 x 1.5 x 2.9 cm. No mass or dominant cyst. Satisfactory color Doppler flow and spectral waveform is detected. No adnexal mass. No pelvic free fluid. IMPRESSION: Presumed intrauterine gestational sac with sonographic age of 5 weeks 1 day. Viability is indeterminate. 2.2 cm subchorionic hemorrhage. Obstetric followup recommended. LOCATION: at 1912 Reported and signed by: Medina Hartley D.O. PAGE 1 Signed Report (CONTINUED) Name: GALO CRISOSTOMO [facility] : 1995 Age/S: 23 / F [address] Unit #: [id number] Loc: [place] [address] Phys: Jane Bauman MANAGER OF CLINICAL Acct: [id number] Dis Date: Status: REG ER PHONE #: [phone] Exam Date: 10/19/2019 183 FAX #: [phone] Reason: PELVIC PAIN EXAMS: CPT CODE: [id number] US PREG UT TRANSVAGINAL 82194 < Continued> CC: Jane Bauman NP Technologist: SUSANNA SAMANIEGO US Trnscb Date/Time: 10/19/2019 (1911) MasterP1 Orig Print D/T: S: 10/19/2019 (1928) Probe: [id number] PAGE 2 Signed Report - US PREG 1ST [id number] 19:12:00 Name: GALO CRISOSTOMO [facility] : 1995 Age/S: 23 / F [address] [facility] Unit #: [id number] Loc: [place] [address] Phys: Jane Bauman MANAGER OF CLINICAL Acct: [id number] Dis Date: Status: REG ER PHONE #: [phone] Exam Date: 10/19/2019 183 FAX #: [phone] Reason: VAGINAL BLEEDING/PELVIC PAIN EXAMS: CPT CODE: [id number] US PREG 1ST TRIMTR 24929 HISTORY: VAGINAL BLEEDING/PELVIC PAIN CLINICAL DATES: Unknown TECHNIQUE: Static grayscale and Doppler images from real- time transabdominal sonographic evaluation of the pelvis. Images from endovaginal probe were also acquired for improved anatomic detail. COMPARISON: None FINDINGS: Uterus measures 10.5 x 6.0 x 6.5 cm (length x AP x transverse dimensions). Posterior subserosal 2.2 cm fibroid. Presumed intrauterine gestational sac is identified. Mean sac diameter measures 0.39 cm. No yolk sac or pole is observed. 2.2 x 0.8 x 1.7 cm subchorionic hemorrhage. Right ovary measures 3.3 x 1.7 x 2.1 cm. No mass or dominant cyst. Satisfactory color Doppler flow and spectral waveform is detected. Left ovary measures 3.2 x 1.5 x 2.9 cm. No mass or dominant cyst. Satisfactory color Doppler flow and spectral waveform is detected. No adnexal mass. No pelvic free fluid. IMPRESSION: Presumed intrauterine gestational sac with sonographic age of 5 weeks 1 day. Viability is indeterminate. 2.2 cm subchorionic hemorrhage. Obstetric followup recommended. LOCATION: LP at 191 Reported and signed by: Medina Hartley D.O. PAGE 1 Signed Report (CONTINUED) Name: GALO CRISOSTOMO [facility] : 1995 Age/S: 23 / F [address] [facility] Unit #: [id number] Loc: [place] [address] Phys: Jane Bauman MANAGER OF CLINICAL Acct: [id number] Dis Date: Status: REG ER PHONE #: [phone] Exam Date: 10/19/2019 183 FAX #: [phone] Reason: VAGINAL BLEEDING/PELVIC PAIN EXAMS: CPT CODE: [id number] PREG 1ST TRIMTR 56981 < Continued> CC: Jane Bauman NP Technologist: SUSANNA SAMANIEGO Trnscb Date/Time: 10/19/2019 (1911) [email or web address] Orig Print D/T: S: 10/19/2019 (1928) Probe: PAGE 2 Signed Report BASIC METABOLIC [id number] 19:01:00* Test Item Value Reference Range Interpretation Comments SODIUM (test code = NA) 138 mmol/L 136-145 N POTASSIUM (test code = K) 3.9 mmol/L 3.5-5.1 N CHLORIDE (test code = CL) 106.0 mmol/L 98-107 N CARBON DIOXIDE (test code = CO2) mmol/L 21-32 ANION GAP (test code = GAP) 10-20 GLUCOSE (test code = GLU) mg/dL 74-106 BLOOD UREA NITROGEN (test code = BUN) mg/dL 7-18 GLOMERULAR FILTRATION RATE (test code = GFR) mL/min >=60 CREATININE (test code = CREAT) mg/dL 0.55-1.02 BUN/CREATININE RATIO (test code = BUN/CREA) 10-20 CALCIUM (test code = CA) mg/dL 8.5-10.1 HEPATIC FUNCTION [id number] 19:01:00* Test Item Value Reference Range Interpretation Comments TOTAL PROTEIN (test code = PROT) gram/dL 6.4-8.2 ALBUMIN (test code = ALB) g/dL 3.4-5.0 GLOBULIN (test code = GLOB) gram/dL 2.7-4.2 ALBUMIN/GLOBULIN RATIO (test code = A/G) 0.75-1.50 BILIRUBIN TOTAL (test code = BILT) mg/dL 0.0-1.0 BILIRUBIN DIRECT (test code = BILD) mg/dL 0.0-0.20 SGOT/AST (test code = AST) IUnit/L 15-37 SGPT/ALT (test code = ALT) IUnit/L 12-78 ALKALINE PHOSPHATASE TOTAL (test code = ALKP) IUnit/L 45-117 [id number] 19:01:00* Test Item Value Reference Range Interpretation Comments LIPASE (test code = LIP) U/L 73.0-393.0 HCG SERUM [id number] 19:01:00* Test Item Value Reference Range Interpretation Comments HCG SERUM QUAL (test code = HCGQL) NEGATIVE NEGATIVE This HCGQL test is NOT applicable for MALE patients.Check with nurse about probable order error.If Tumor Marker Test needed, nurse should order test "HCGTU"(Test #550.09511) BASIC METABOLIC [id number] 18:56:00* Test Item Value Reference Range Interpretation Comments SODIUM (test code = NA) mmol/L 136-145 POTASSIUM (test code = K) mmol/L 3.5-5.1 CHLORIDE (test code = CL) mmol/L 98-107 CARBON DIOXIDE (test code = CO2) mmol/L 21-32 ANION GAP (test code = GAP) 10-20 GLUCOSE (test code = GLU) mg/dL 74-106 BLOOD UREA NITROGEN (test code = BUN) mg/dL 7-18 GLOMERULAR FILTRATION RATE (test code = GFR) mL/min >=60 CREATININE (test code = CREAT) mg/dL 0.55-1.02 BUN/CREATININE RATIO (test code = BUN/CREA) 10-20 CALCIUM (test code = CA) mg/dL 8.5-10.1 HEPATIC FUNCTION [id number] 18:56:00* Test Item Value Reference Range Interpretation Comments TOTAL PROTEIN (test code = PROT) gram/dL 6.4-8.2 ALBUMIN (test code = ALB) g/dL 3.4-5.0 GLOBULIN (test code = GLOB) gram/dL 2.7-4.2 ALBUMIN/GLOBULIN RATIO (test code = A/G) 0.75-1.50 BILIRUBIN TOTAL (test code = BILT) mg/dL 0.0-1.0 BILIRUBIN DIRECT (test code = BILD) mg/dL 0.0-0.20 SGOT/AST (test code = AST) IUnit/L 15-37 SGPT/ALT (test code = ALT) IUnit/L 12-78 ALKALINE PHOSPHATASE TOTAL (test code = ALKP) IUnit/L 45-117 [id number] 18:56:00* Test Item Value Reference Range Interpretation Comments LIPASE (test code = LIP) U/L 73.0-393.0 HCG SERUM [id number] 18:56:00* Test Item Value Reference Range Interpretation Comments HCG SERUM QUAL (test code = HCGQL) NEGATIVE NEGATIVE This HCGQL test is NOT applicable for MALE patients.Check with nurse about probable order error.If Tumor Marker Test needed, nurse should order test "HCGTU"(Test #550.56543) CBC W/O [id number] 18:22:00* Test Item Value Reference Range Interpretation Comments WHITE BLOOD CELL (test code = WBC) 10.4 K/mm3 4.5-12.5 N RED BLOOD CELL (test code = RBC) 4.85 mill/mm3 3.7-5.2 N HEMOGLOBIN (test code = HGB) 10.4 gram/dL 11.5-15.5 L HEMATOCRIT (test code = HCT) 35.9 % 36.0-46.0 L MEAN CELL VOLUME (test code = MCV) 74.0 fL 80-98 L MEAN CELL HGB (test code = MCH) 21.4 picogram 27.0-33.0 L MEAN CELL HGB CONCETRATION (test code = MCHC) 29.0 gram/dL 33.0-36. 0 L RED CELL DISTRIBUTION WIDTH (test code = RDW) 17.2 % 11.6-16. 2 H PLATELET COUNT (test code = PLT) 307 K/mm3 150-450 N MEAN PLATELET VOLUME (test code = MPV) 11.4 fL 6.7-11.0 H DRUGS OF ABUSE SCREEN [id number] 15:21:00* Test Item Value Reference Range Interpretation Comments UA PH DIPSTICK (test code = JOSH) 6.5 5.0-8.0 URN COCAINE (test code = COCAURN) NEGATIVE <300 ng/mL URN CANNABINOIDS (test code = CANNABURN) NEGATIVE <50 ng/mL URN AMPHETAMINE (test code = AMPHETURN) NEGATIVE <1000 ng/mL URN BARBITURATE (test code = BARBITURN) NEGATIVE <200 ng/mL URN BENZODIAZEPINE (test code = BENZOURN) NEGATIVE <200 ng/mL URN OPIATES (test code = OPIATURN) NEGATIVE <300 ng/mL URN PHENCYCLIDINE (PCP) (test code = PHENCURN) NEGATIVE <25 ng/ mL URN METHADONE (test code = METHAURN) NEGATIVE <300 ng/mL UA I LDRUGS OF ABUSE SCREEN [id number] 14:44:00* Test Item Value Reference Range Interpretation Comments UA PH DIPSTICK (test code = JOSH) 5.0-8.0 URN COCAINE (test code = COCAURN) NEGATIVE <300 ng/mL URN CANNABINOIDS (test code = CANNABURN) NEGATIVE <50 ng/mL URN AMPHETAMINE (test code = AMPHETURN) NEGATIVE <1000 ng/mL URN BARBITURATE (test code = BARBITURN) NEGATIVE <200 ng/mL URN BENZODIAZEPINE (test code = BENZOURN) NEGATIVE <200 ng/mL URN OPIATES (test code = OPIATURN) NEGATIVE <300 ng/mL URN PHENCYCLIDINE (PCP) (test code = PHENCURN) NEGATIVE <25 ng/ mL URN METHADONE (test code = METHAURN) NEGATIVE <300 ng/mL UA I LMONO [id number] 14:39:00* Test Item Value Reference Range Interpretation Comments MONO SCREEN (test code = MONO) NEGATIVE NEGATIVE - US ABDOMEN [id number] 13:50:00 Name: GALO CRISOSTOMO [facility] : 1995 Age/S: 23 / F [address] Unit #: [id number] Loc: [place] [address] Phys: Hiram Gibson MANAGER OF CLINICAL Acct: [id number] Dis Date: Status: REG ER PHONE #: [phone] Exam Date: 10/17/2019 1320 FAX #: [phone] Reason: Abdominal Pain EXAMS: CPT CODE: [id number] US ABDOMEN LTD 66742 HISTORY: Abdominal pain. COMPARISON: Ultrasound from June 14, 2019. Location: [facility]. The liver is diffusely hyperechogenic suggesting fibrofatty infiltration which limited evaluation for hepatic mass however no discrete lesions the liver measured 16.4 cm in length No intra or extrahepatic biliary ductal dilatation. CBD is normal at 5 mm. Main portal vein is patent with hepatopedal flow and normal spectral waveform. Gallbladder is without gallstones. No pericholecystic fluid or wall thickening. No ascites. Right kidney is free from hydronephrosis and calyceal stones. Normal echogenicity and texture. Right kidney measured 10 cm in length. Visualized portions of the IVC, aorta and pancreas are normal however imaged incompletely. IMPRESSION: No gallstones. Fibrofatty infiltrated liver. Unremarkable right kidney. at 1350 Reported and signed by: Jose Shaw M.D. CC: Hiram Gibson MANAGER OF CLINICAL Technologist: CELENA VILLAR RT(R),RO Trnmnb Date/Time: 020 (1350) [email or web address] Orig Print D/T: S: 10/17/2019 (7573) Probe: PAGE 1 Signed Report URINALYSIS [id number] 13:46:00* Test Item Value Reference Range Interpretation Comments UA COLOR (test code = COLU) Light-Yellow YELLOW UA APPEARANCE (test code = APPU) Cloudy CLEAR A UA GLUCOSE DIPSTICK (test code = DGLUU) NEGATIVE mg/dL NEGATIVE UA BILIRUBIN DIPSTICK (test code = BILU) NEGATIVE mg/dL NEGATIVE UA KETONE DIPSTICK (test code = KETU) 20 (1+) mg/dL NEGATIVE A UA SPECIFIC GRAVITY (test code = SGU) 1.003 1.001-1.035 UA BLOOD DIPSTICK (test code = TIFFANIE) 0.06 mg/dL (1+) mg/dL NEGATIVE A UA PH DIPSTICK (test code = JOSH) 6.5 5.0-8.0 UA PROTEIN DIPSTICK (test code = PROU) NEGATIVE mg/dL NEGATIVE UA UROBILINIOGEN DIPSTICK (test code = URO) Normal mg/dL NEGATIVE UA NITRITE DIPSTICK (test code = DIEGO) NEGATIVE NEGATIVE UA LEUKOCYTE ESTERASE W REFLEX (test code = LEUUR) 500 Lazaro/u L (3+) Lazaro/uL NEGATIVE A UA WBC (test code = WBCU) 6-10 per HPF 0-5 A UA RBC (test code = RBCU) 0-2 #/HPF 0-5 UA EPITHELIAL CELLS (test code = EPIU) FEW per HPF FEW UA BACTERIA (test code = BACU) FEW #/HPF NONE A Urine Source? Clean CatchBASIC METABOLIC [id number] 13:43:00* Test Item Value Reference Range Interpretation Comments SODIUM (test code = NA) 137 mmol/L 136-145 N POTASSIUM (test code = K) 3.5 mmol/L 3.5-5.1 N CHLORIDE (test code = CL) 107.0 mmol/L 98-107 N CARBON DIOXIDE (test code = CO2) 20.0 mmol/L 21-32 L ANION GAP (test code = GAP) 13.5 10-20 N GLUCOSE (test code = GLU) 81 mg/dL 74-106 N BLOOD UREA NITROGEN (test code = BUN) 6 mg/dL 7-18 L GLOMERULAR FILTRATION RATE (test code = GFR) > 60 mL/min >=60 Estimated GFR by using Modified MDRD formula.Chronic kidney disease is defined as either kidney damageor GFR <60 mL/min/1.73 m2 for >3 months. CREATININE (test code = CREAT) 0.60 mg/dL 0.55-1.02 N Note change in reference range due to change in reagent. BUN/CREATININE RATIO (test code = BUN/CREA) 10.0 10-20 N CALCIUM (test code = CA) 9.3 mg/dL 8.5-10.1 N HEPATIC FUNCTION [id number] 13:43:00* Test Item Value Reference Range Interpretation Comments TOTAL PROTEIN (test code = PROT) 8.7 gram/dL 6.4-8.2 H ALBUMIN (test code = ALB) 4.3 g/dL 3.4-5.0 N GLOBULIN (test code = GLOB) 4.4 gram/dL 2.7-4.2 H ALBUMIN/GLOBULIN RATIO (test code = A/G) 1.0 0.75-1.50 N BILIRUBIN TOTAL (test code = BILT) 0.40 mg/dL 0.0-1.0 N BILIRUBIN DIRECT (test code = BILD) 0.05 mg/dL 0.0-0.20 N SGOT/AST (test code = AST) 21 IUnit/L 15-37 N SGPT/ALT (test code = ALT) 20 IUnit/L 12-78 N ALKALINE PHOSPHATASE TOTAL (test code = ALKP) 66 IUnit/L 45-117 N Note change in reference range due to change in reagent. [id number] 13:43:00* Test Item Value Reference Range Interpretation Comments LIPASE (test code = LIP) 70 U/L 73.0-393.0 L HCG SERUM [id number] 13:43:00* Test Item Value Reference Range Interpretation Comments HCG SERUM QUAL (test code = HCGQL) POSITIVE NEGATIVE A This HCGQL test is NOT applicable for MALE patients.Check with nurse about probable order error.If Tumor Marker Test needed, nurse should order test "HCGTU"(Test #[id number]) [id number] 13:43:00* Test Item Value Reference Range Interpretation Comments TROPONIN-I (test code = TROPI) <0.015 ng/mL 0-0.045 N CBC W/O [id number] 13:33:00* Test Item Value Reference Range Interpretation Comments WHITE BLOOD CELL (test code = WBC) 8.0 K/mm3 4.5-12.5 N RED BLOOD CELL (test code = RBC) 5.10 mill/mm3 3.7-5.2 N HEMOGLOBIN (test code = HGB) 11.0 gram/dL 11.5-15.5 L HEMATOCRIT (test code = HCT) 37.1 % 36.0-46.0 N MEAN CELL VOLUME (test code = MCV) 72.7 fL 80-98 L MEAN CELL HGB (test code = MCH) 21.6 picogram 27.0-33.0 L MEAN CELL HGB CONCETRATION (test code = MCHC) 29.6 gram/dL 33.0-36. 0 L RED CELL DISTRIBUTION WIDTH (test code = RDW) 17.3 % 11.6-16. 2 H PLATELET COUNT (test code = PLT) 398 K/mm3 150-450 N MEAN PLATELET VOLUME (test code = MPV) 11.2 fL 6.7-11.0 H BASIC METABOLIC [id number] 13:33:00* Test Item Value Reference Range Interpretation Comments SODIUM (test code = NA) 137 mmol/L 136-145 N POTASSIUM (test code = K) 3.5 mmol/L 3.5-5.1 N CHLORIDE (test code = CL) 107.0 mmol/L 98-107 N CARBON DIOXIDE (test code = CO2) mmol/L 21-32 ANION GAP (test code = GAP) 10-20 GLUCOSE (test code = GLU) mg/dL 74-106 BLOOD UREA NITROGEN (test code = BUN) mg/dL 7-18 GLOMERULAR FILTRATION RATE (test code = GFR) mL/min >=60 CREATININE (test code = CREAT) mg/dL 0.55-1.02 BUN/CREATININE RATIO (test code = BUN/CREA) 10-20 CALCIUM (test code = CA) mg/dL 8.5-10.1 HEPATIC FUNCTION [id number] 13:33:00* Test Item Value Reference Range Interpretation Comments TOTAL PROTEIN (test code = PROT) gram/dL 6.4-8.2 ALBUMIN (test code = ALB) g/dL 3.4-5.0 GLOBULIN (test code = GLOB) gram/dL 2.7-4.2 ALBUMIN/GLOBULIN RATIO (test code = A/G) 0.75-1.50 BILIRUBIN TOTAL (test code = BILT) mg/dL 0.0-1.0 BILIRUBIN DIRECT (test code = BILD) mg/dL 0.0-0.20 SGOT/AST (test code = AST) IUnit/L 15-37 SGPT/ALT (test code = ALT) IUnit/L 12-78 ALKALINE PHOSPHATASE TOTAL (test code = ALKP) IUnit/L 45-117 [id number] 13:33:00* Test Item Value Reference Range Interpretation Comments LIPASE (test code = LIP) U/L 73.0-393.0 HCG SERUM [id number] 13:33:00* Test Item Value Reference Range Interpretation Comments HCG SERUM QUAL (test code = HCGQL) POSITIVE NEGATIVE A This HCGQL test is NOT applicable for MALE patients.Check with nurse about probable order error.If Tumor Marker Test needed, nurse should order test "HCGTU"(Test #550.74113) [id number] 13:33:00* Test Item Value Reference Range Interpretation Comments TROPONIN-I (test code = TROPI) ng/mL 0-0.045 BASIC METABOLIC [id number] 13:32:00* Test Item Value Reference Range Interpretation Comments SODIUM (test code = NA) mmol/L 136-145 POTASSIUM (test code = K) mmol/L 3.5-5.1 CHLORIDE (test code = CL) mmol/L 98-107 CARBON DIOXIDE (test code = CO2) mmol/L 21-32 ANION GAP (test code = GAP) 10-20 GLUCOSE (test code = GLU) mg/dL 74-106 BLOOD UREA NITROGEN (test code = BUN) mg/dL 7-18 GLOMERULAR FILTRATION RATE (test code = GFR) mL/min >=60 CREATININE (test code = CREAT) mg/dL 0.55-1.02 BUN/CREATININE RATIO (test code = BUN/CREA) 10-20 CALCIUM (test code = CA) mg/dL 8.5-10.1 HEPATIC FUNCTION [id number] 13:32:00* Test Item Value Reference Range Interpretation Comments TOTAL PROTEIN (test code = PROT) gram/dL 6.4-8.2 ALBUMIN (test code = ALB) g/dL 3.4-5.0 GLOBULIN (test code = GLOB) gram/dL 2.7-4.2 ALBUMIN/GLOBULIN RATIO (test code = A/G) 0.75-1.50 BILIRUBIN TOTAL (test code = BILT) mg/dL 0.0-1.0 BILIRUBIN DIRECT (test code = BILD) mg/dL 0.0-0.20 SGOT/AST (test code = AST) IUnit/L 15-37 SGPT/ALT (test code = ALT) IUnit/L 12-78 ALKALINE PHOSPHATASE TOTAL (test code = ALKP) IUnit/L 45-117 [id number] 13:32:00* Test Item Value Reference Range Interpretation Comments LIPASE (test code = LIP) U/L 73.0-393.0 HCG SERUM [id number] 13:32:00* Test Item Value Reference Range Interpretation Comments HCG SERUM QUAL (test code = HCGQL) POSITIVE NEGATIVE A This HCGQL test is NOT applicable for MALE patients.Check with nurse about probable order error.If Tumor Marker Test needed, nurse should order test "HCGTU"(Test #550.10528) [id number] 13:32:00* Test Item Value Reference Range Interpretation Comments TROPONIN-I (test code = TROPI) ng/mL 0-0.045 UR HCG [id number] 13:22:00* Test Item Value Reference Range Interpretation Comments UR HCG QUAL (test code = HCGQLU) POSITIVE This HCGQL test is NOT applicable for MALE patients.Check with nurse about probable order error.If Tumor Marker Test needed, nurse should order test "HCGTU"(Test #550.07580) TSH REFLEX TO [id number] 00:10:00* Test Item Value Reference Range Interpretation Comments TSH REFLEX TO FT4 (test code = TSHREFLEX) 1.9 0.4-5.5 N URINALYSIS [id number] 23:10:00* Test Item Value Reference Range Interpretation Comments UA COLOR (test code = COLU) Light-Yellow YELLOW UA APPEARANCE (test code = APPU) CLEAR CLEAR UA GLUCOSE DIPSTICK (test code = DGLUU) NEGATIVE mg/dL NEGATIVE UA BILIRUBIN DIPSTICK (test code = BILU) NEGATIVE mg/dL NEGATIVE UA KETONE DIPSTICK (test code = KETU) NEGATIVE mg/dL NEGATIVE UA SPECIFIC GRAVITY (test code = SGU) 1.006 1.001-1.035 UA BLOOD DIPSTICK (test code = TIFFANIE) Negative mg/dL NEGATIVE UA PH DIPSTICK (test code = JOSH) 7.0 5.0-8.0 UA PROTEIN DIPSTICK (test code = PROU) NEGATIVE mg/dL NEGATIVE UA UROBILINIOGEN DIPSTICK (test code = URO) Normal mg/dL NEGATIVE UA NITRITE DIPSTICK (test code = DIEGO) NEGATIVE NEGATIVE UA LEUKOCYTE ESTERASE W REFLEX (test code = LEUUR) 250 Lazaro/u L (2+) Lazaro/uL NEGATIVE A UA WBC (test code = WBCU) 11-20 per HPF 0-5 A UA RBC (test code = RBCU) 0-2 #/HPF 0-5 UA EPITHELIAL CELLS (test code = EPIU) FEW per HPF FEW UA BACTERIA (test code = BACU) FEW #/HPF NONE A UA MUCUS (test code = MUCU) FEW #/LPF FEW UA AMORPHOUS SEDIMENT (test code = AMORU) FEW #/LPF NONE Urine Source? Clean CatchURINALYSIS [id number] 22:57:00* Test Item Value Reference Range Interpretation Comments UA COLOR (test code = COLU) Light-Yellow YELLOW UA APPEARANCE (test code = APPU) CLEAR CLEAR UA GLUCOSE DIPSTICK (test code = DGLUU) NEGATIVE mg/dL NEGATIVE UA BILIRUBIN DIPSTICK (test code = BILU) NEGATIVE mg/dL NEGATIVE UA KETONE DIPSTICK (test code = KETU) NEGATIVE mg/dL NEGATIVE UA SPECIFIC GRAVITY (test code = SGU) 1.006 1.001-1.035 UA BLOOD DIPSTICK (test code = TIFFANIE) Negative mg/dL NEGATIVE UA PH DIPSTICK (test code = JOSH) 7.0 5.0-8.0 UA PROTEIN DIPSTICK (test code = PROU) NEGATIVE mg/dL NEGATIVE UA UROBILINIOGEN DIPSTICK (test code = URO) Normal mg/dL NEGATIVE UA NITRITE DIPSTICK (test code = DIEGO) NEGATIVE NEGATIVE UA LEUKOCYTE ESTERASE W REFLEX (test code = LEUUR) 250 Lazaro/u L (2+) Lazaro/uL NEGATIVE A UA WBC (test code = WBCU) per HPF 0-5 UA RBC (test code = RBCU) per HPF 0-5 UA EPITHELIAL CELLS (test code = EPIU) per HPF Few UA BACTERIA (test code = BACU) per HPF NONE Urine Source? Clean CatchCBC W/O [id number] 22:45:00* Test Item Value Reference Range Interpretation Comments WHITE BLOOD CELL (test code = WBC) 10.7 K/mm3 4.5-12.5 N RED BLOOD CELL (test code = RBC) 4.89 mill/mm3 3.7-5.2 N HEMOGLOBIN (test code = HGB) 10.5 gram/dL 11.5-15.5 L HEMATOCRIT (test code = HCT) 36.6 % 36.0-46.0 N MEAN CELL VOLUME (test code = MCV) 74.8 fL 80-98 L MEAN CELL HGB (test code = MCH) 21.5 picogram 27.0-33.0 L MEAN CELL HGB CONCETRATION (test code = MCHC) 28.7 gram/dL 33.0-36. 0 L RED CELL DISTRIBUTION WIDTH (test code = RDW) 16.7 % 11.6-16. 2 H PLATELET COUNT (test code = PLT) 418 K/mm3 150-450 N MEAN PLATELET VOLUME (test code = MPV) 9.9 fL 6.7-11.0 N CBC W/O [id number] 22:41:00* Test Item Value Reference Range Interpretation Comments WHITE BLOOD CELL (test code = WBC) K/mm3 4.5-12.5 RED BLOOD CELL (test code = RBC) mill/mm3 3.7-5.2 HEMOGLOBIN (test code = HGB) gram/dL 11.5-15.5 HEMATOCRIT (test code = HCT) 36.6 % 36.0-46.0 N MEAN CELL VOLUME (test code = MCV) fL 80-98 MEAN CELL HGB (test code = MCH) picogram 27.0-33.0 MEAN CELL HGB CONCETRATION (test code = MCHC) gram/dL 33.0-36. 0 RED CELL DISTRIBUTION WIDTH (test code = RDW) % 11.6-16. 2 PLATELET COUNT (test code = PLT) K/mm3 150-450 MEAN PLATELET VOLUME (test code = MPV) fL 6.7-11.0 HEPATIC FUNCTION [id number] 21:37:00* Test Item Value Reference Range Interpretation Comments TOTAL PROTEIN (test code = PROT) 8.2 gram/dL 6.4-8.2 N ALBUMIN (test code = ALB) 4.1 g/dL 3.4-5.0 N GLOBULIN (test code = GLOB) 4.1 gram/dL 2.7-4.2 N ALBUMIN/GLOBULIN RATIO (test code = A/G) 1.0 0.75-1.50 N BILIRUBIN TOTAL (test code = BILT) 0.30 mg/dL 0.0-1.0 N BILIRUBIN DIRECT (test code = BILD) 0.11 mg/dL 0.0-0.20 N SGOT/AST (test code = AST) 26 IUnit/L 15-37 N SGPT/ALT (test code = ALT) 23 IUnit/L 12-78 N ALKALINE PHOSPHATASE TOTAL (test code = ALKP) 78 IUnit/L 45-117 N Note change in reference range due to change in reagent. [id number] 21:37:00* Test Item Value Reference Range Interpretation Comments LIPASE (test code = LIP) 94 U/L 73.0-393.0 N BASIC METABOLIC [id number] 21:32:00* Test Item Value Reference Range Interpretation Comments SODIUM (test code = NA) mmol/L 136-145 POTASSIUM (test code = K) mmol/L 3.5-5.1 CHLORIDE (test code = CL) mmol/L 98-107 CARBON DIOXIDE (test code = CO2) mmol/L 21-32 ANION GAP (test code = GAP) 10-20 GLUCOSE (test code = GLU) mg/dL 74-106 BLOOD UREA NITROGEN (test code = BUN) mg/dL 7-18 GLOMERULAR FILTRATION RATE (test code = GFR) mL/min >=60 CREATININE (test code = CREAT) mg/dL 0.55-1.02 BUN/CREATININE RATIO (test code = BUN/CREA) 10-20 CALCIUM (test code = CA) mg/dL 8.5-10.1 HCG SERUM [id number] 21:32:00* Test Item Value Reference Range Interpretation Comments HCG SERUM QUAL (test code = HCGQL) NEGATIVE NEGATIVE This HCGQL test is NOT applicable for MALE patients.Check with nurse about probable order error.If Tumor Marker Test needed, nurse should order test "HCGTU"(Test #550.09922) BASIC METABOLIC [id number] 21:32:00* Test Item Value Reference Range Interpretation Comments SODIUM (test code = NA) 138 mmol/L 136-145 N POTASSIUM (test code = K) 3.9 mmol/L 3.5-5.1 N CHLORIDE (test code = CL) 106.0 mmol/L 98-107 N CARBON DIOXIDE (test code = CO2) 24.0 mmol/L 21-32 N ANION GAP (test code = GAP) 11.9 10-20 N GLUCOSE (test code = GLU) 99 mg/dL 74-106 N BLOOD UREA NITROGEN (test code = BUN) 9 mg/dL 7-18 N GLOMERULAR FILTRATION RATE (test code = GFR) > 60 mL/min >=60 Estimated GFR by using Modified MDRD formula.Chronic kidney disease is defined as either kidney damageor GFR <60 mL/min/1.73 m2 for >3 months. CREATININE (test code = CREAT) 0.70 mg/dL 0.55-1.02 N Note change in reference range due to change in reagent. BUN/CREATININE RATIO (test code = BUN/CREA) 12.9 10-20 N CALCIUM (test code = CA) 9.2 mg/dL 8.5-10.1 N HCG SERUM [id number] 21:32:00* Test Item Value Reference Range Interpretation Comments HCG SERUM QUAL (test code = HCGQL) NEGATIVE NEGATIVE This HCGQL test is NOT applicable for MALE patients.Check with nurse about probable order error.If Tumor Marker Test needed, nurse should order test "HCGTU"(Test #550.18160) - XR CHEST 1 [id number] 19:26:00 FAX: Katrin Kerns DO [place]: St: REG Name: Bertha GALO ARIAS E [facility] : [birth year]/18 [birth year] Age/S: 23/F [address] [facility] Unit #: [id number] Loc: [place] [address] Phys: Katrin Kerns DO Acct: [id number] Dis Date: Status: REG ER PHONE #: [phone] Exam Date: 09/29/2019 190 FAX #: [phone] Reason: CHEST PAIN EXAMS: CPT CODE: [id number] XR CHEST 1 V [id number] REASON FOR EXAM: CHEST PAIN Exam Order Date: 09/29/2019 6:39 PM Ordering MJean-Pierre: Katrin Kerns DO PROCEDURE: - XR CHEST 1 V COMP ARISON: Frontal chest x-ray August 16, 2019 FINDINGS: The lungs are clear. There is no pleural effusion or pneumothorax. Pulmonary vascularity is within normal limits. Cardiomediastinal silhouette is normal in size for technique. The mediastinal contours are within norm al limits. Musculoskeletal structures are within normal limits. The visualized upper abdomen is within normal limits. IMPRESSION: No acute cardiopulmonary process. Location: at 1926 Reported and signed by: Xavier Patten MD CC: Katrin Kerns DO Technologist: Karina Samuel RT(R) Trnscrd Date/Time/By: 09/29 (1925) : By: [email or web address] Orig Print D/T: S: 09/29/2019 (1929) PAGE 1 Signed Report CBC W/AUTO [id number] 11:14:00* Test Item Value Reference Range Interpretation Comments WHITE BLOOD CELL (test code = WBC) 5.9 K/mm3 4.5-12.5 N RED BLOOD CELL (test code = RBC) 5.31 mill/mm3 3.7-5.2 H HEMOGLOBIN (test code = HGB) 11.4 gram/dL 11.5-15.5 L HEMATOCRIT (test code = HCT) 40.0 % 36.0-46.0 N MEAN CELL VOLUME (test code = MCV) 75.3 fL 80-98 L MEAN CELL HGB (test code = MCH) 21.5 picogram 27.0-33.0 L MEAN CELL HGB CONCETRATION (test code = MCHC) 28.5 gram/dL 33.0-36. 0 L RED CELL DISTRIBUTION WIDTH (test code = RDW) 17.3 % 11.6-16. 2 H RED CELL DISTRIBUTION WIDTH SD (test code = RDW-SD) 44.8 fL 37 .0-51.0 N PLATELET COUNT (test code = PLT) 462 K/mm3 150-450 H MEAN PLATELET VOLUME (test code = MPV) 9.7 fL 6.7-11.0 N NEUTROPHIL % (test code = NT%) 53.0 % 39.0-69.0 N IMMATURE GRANULOCYTE % (test code = IG%) 0.3 % 0.0-5.0 N LYMPHOCYTE % (test code = LY%) 36.1 % 25.0-55.0 N MONOCYTE % (test code = MO%) 6.5 % 0.0-10.0 N EOSINOPHIL % (test code = EO%) 3.4 % 0.0-5.0 N BASOPHIL % (test code = BA%) 0.7 % 0.0-1.0 N NUCLEATED RBC % (test code = NRBC%) 0.0 % 0-0 N NEUTROPHIL # (test code = NT#) 3.11 K/mm3 1.8-7.7 N IMMATURE GRANULOCYTE # (test code = IG#) 0.02 x10 3/uL 0-0.03 N LYMPHOCYTE # (test code = LY#) 2.12 K/mm3 1.0-5.0 N MONOCYTE # (test code = MO#) 0.38 K/mm3 0-0.8 N EOSINOPHIL # (test code = EO#) 0.20 K/mm3 0.0-0.5 N BASOPHIL # (test code = BA#) 0.04 K/mm3 0.0-0.2 N NUCLEATED RBC # (test code = NRBC#) 0.00 K/mm3 0.0-0.1 N MANUAL DIFF REQUIRED (test code = MDIFF) NO, ONLY SCAN NEEDED DIFFERENTIAL [id number] 11:14:00* Test Item Value Reference Range Interpretation Comments STAIN ACCEPTABILITY (test code = STN ACCEPTABLE) STAIN ACCEPTABLE POIKILOCYTOSIS (test code = POIK) 1+ ANISOCYTOSIS (test code = ANISO) 1+ MICROCYTOSIS (test code = MICR) 1+ PLATELET ESTIMATE (test code = PLTEST) INCREASED PLATELET MORPHOLOGY (test code = PLTMORPH) NORMAL [id number] 10:41:00* Test Item Value Reference Range Interpretation Comments TROPONIN-I (test code = TROPI) <0.015 ng/mL 0-0.045 N BASIC METABOLIC [id number] 10:38:00* Test Item Value Reference Range Interpretation Comments SODIUM (test code = NA) 138 mmol/L 136-145 N POTASSIUM (test code = K) 3.7 mmol/L 3.5-5.1 N CHLORIDE (test code = CL) 105.0 mmol/L 98-107 N CARBON DIOXIDE (test code = CO2) 27.0 mmol/L 21-32 N ANION GAP (test code = GAP) 9.7 10-20 L GLUCOSE (test code = GLU) 91 mg/dL 74-106 N BLOOD UREA NITROGEN (test code = BUN) 10 mg/dL 7-18 N GLOMERULAR FILTRATION RATE (test code = GFR) > 60 mL/min >=60 Estimated GFR by using Modified MDRD formula.Chronic kidney disease is defined as either kidney damageor GFR <60 mL/min/1.73 m2 for >3 months. CREATININE (test code = CREAT) 0.60 mg/dL 0.55-1.02 N Note change in reference range due to change in reagent. BUN/CREATININE RATIO (test code = BUN/CREA) 17.9 10-20 N CALCIUM (test code = CA) 9.6 mg/dL 8.5-10.1 N HCG SERUM [id number] 10:38:00* Test Item Value Reference Range Interpretation Comments HCG SERUM QUAL (test code = HCGQL) NEGATIVE NEGATIVE This HCGQL test is NOT applicable for MALE patients.Check with nurse about probable order error.If Tumor Marker Test needed, nurse should order test "HCGTU"(Test #550.39084) BASIC METABOLIC [id number] 10:29:00* Test Item Value Reference Range Interpretation Comments SODIUM (test code = NA) 138 mmol/L 136-145 N POTASSIUM (test code = K) 3.7 mmol/L 3.5-5.1 N CHLORIDE (test code = CL) 105.0 mmol/L 98-107 N CARBON DIOXIDE (test code = CO2) mmol/L 21-32 ANION GAP (test code = GAP) 10-20 GLUCOSE (test code = GLU) mg/dL 74-106 BLOOD UREA NITROGEN (test code = BUN) mg/dL 7-18 GLOMERULAR FILTRATION RATE (test code = GFR) mL/min >=60 CREATININE (test code = CREAT) mg/dL 0.55-1.02 BUN/CREATININE RATIO (test code = BUN/CREA) 10-20 CALCIUM (test code = CA) mg/dL 8.5-10.1 HCG SERUM [id number] 10:29:00* Test Item Value Reference Range Interpretation Comments HCG SERUM QUAL (test code = HCGQL) NEGATIVE NEGATIVE This HCGQL test is NOT applicable for MALE patients.Check with nurse about probable order error.If Tumor Marker Test needed, nurse should order test "HCGTU"(Test #550.65644) BASIC METABOLIC [id number] 10:28:00* Test Item Value Reference Range Interpretation Comments SODIUM (test code = NA) mmol/L 136-145 POTASSIUM (test code = K) mmol/L 3.5-5.1 CHLORIDE (test code = CL) mmol/L 98-107 CARBON DIOXIDE (test code = CO2) mmol/L 21-32 ANION GAP (test code = GAP) 10-20 GLUCOSE (test code = GLU) mg/dL 74-106 BLOOD UREA NITROGEN (test code = BUN) mg/dL 7-18 GLOMERULAR FILTRATION RATE (test code = GFR) mL/min >=60 CREATININE (test code = CREAT) mg/dL 0.55-1.02 BUN/CREATININE RATIO (test code = BUN/CREA) 10-20 CALCIUM (test code = CA) mg/dL 8.5-10.1 HCG SERUM [id number] 10:28:00* Test Item Value Reference Range Interpretation Comments HCG SERUM QUAL (test code = HCGQL) NEGATIVE NEGATIVE This HCGQL test is NOT applicable for MALE patients.Check with nurse about probable order error.If Tumor Marker Test needed, nurse should order test "HCGTU"(Test #550.66786) CBC W/AUTO [id number] 10:18:00* Test Item Value Reference Range Interpretation Comments WHITE BLOOD CELL (test code = WBC) 5.9 K/mm3 4.5-12.5 N RED BLOOD CELL (test code = RBC) 5.31 mill/mm3 3.7-5.2 H HEMOGLOBIN (test code = HGB) 11.4 gram/dL 11.5-15.5 L HEMATOCRIT (test code = HCT) 40.0 % 36.0-46.0 N MEAN CELL VOLUME (test code = MCV) 75.3 fL 80-98 L MEAN CELL HGB (test code = MCH) 21.5 picogram 27.0-33.0 L MEAN CELL HGB CONCETRATION (test code = MCHC) 28.5 gram/dL 33.0-36. 0 L RED CELL DISTRIBUTION WIDTH (test code = RDW) 17.3 % 11.6-16. 2 H RED CELL DISTRIBUTION WIDTH SD (test code = RDW-SD) 44.8 fL 37 .0-51.0 N PLATELET COUNT (test code = PLT) 462 K/mm3 150-450 H MEAN PLATELET VOLUME (test code = MPV) 9.7 fL 6.7-11.0 N NEUTROPHIL % (test code = NT%) 53.0 % 39.0-69.0 N IMMATURE GRANULOCYTE % (test code = IG%) 0.3 % 0.0-5.0 N LYMPHOCYTE % (test code = LY%) 36.1 % 25.0-55.0 N MONOCYTE % (test code = MO%) 6.5 % 0.0-10.0 N EOSINOPHIL % (test code = EO%) 3.4 % 0.0-5.0 N BASOPHIL % (test code = BA%) 0.7 % 0.0-1.0 N NUCLEATED RBC % (test code = NRBC%) 0.0 % 0-0 N NEUTROPHIL # (test code = NT#) 3.11 K/mm3 1.8-7.7 N IMMATURE GRANULOCYTE # (test code = IG#) 0.02 x10 3/uL 0-0.03 N LYMPHOCYTE # (test code = LY#) 2.12 K/mm3 1.0-5.0 N MONOCYTE # (test code = MO#) 0.38 K/mm3 0-0.8 N EOSINOPHIL # (test code = EO#) 0.20 K/mm3 0.0-0.5 N BASOPHIL # (test code = BA#) 0.04 K/mm3 0.0-0.2 N NUCLEATED RBC # (test code = NRBC#) 0.00 K/mm3 0.0-0.1 N MANUAL DIFF REQUIRED (test code = MDIFF) NO, ONLY SCAN NEEDED DIFFERENTIAL [id number] 10:18:00* Test Item Value Reference Range Interpretation Comments STAIN ACCEPTABILITY (test code = STN ACCEPTABLE) CABOT RINGS (test code = CAB) MORPHOLOGY COMMENT (test code = MOC) PLATELET ESTIMATE (test code = PLTEST) PLATELET MORPHOLOGY (test code = PLTMORPH) CBC W/AUTO [id number] 10:18:00* Test Item Value Reference Range Interpretation Comments WHITE BLOOD CELL (test code = WBC) 5.9 K/mm3 4.5-12.5 N RED BLOOD CELL (test code = RBC) 5.31 mill/mm3 3.7-5.2 H HEMOGLOBIN (test code = HGB) 11.4 gram/dL 11.5-15.5 L HEMATOCRIT (test code = HCT) 40.0 % 36.0-46.0 N MEAN CELL VOLUME (test code = MCV) 75.3 fL 80-98 L MEAN CELL HGB (test code = MCH) 21.5 picogram 27.0-33.0 L MEAN CELL HGB CONCETRATION (test code = MCHC) 28.5 gram/dL 33.0-36. 0 L RED CELL DISTRIBUTION WIDTH (test code = RDW) 17.3 % 11.6-16. 2 H RED CELL DISTRIBUTION WIDTH SD (test code = RDW-SD) 44.8 fL 37 .0-51.0 N PLATELET COUNT (test code = PLT) 462 K/mm3 150-450 H MEAN PLATELET VOLUME (test code = MPV) 9.7 fL 6.7-11.0 N NEUTROPHIL % (test code = NT%) 53.0 % 39.0-69.0 N IMMATURE GRANULOCYTE % (test code = IG%) 0.3 % 0.0-5.0 N LYMPHOCYTE % (test code = LY%) 36.1 % 25.0-55.0 N MONOCYTE % (test code = MO%) 6.5 % 0.0-10.0 N EOSINOPHIL % (test code = EO%) 3.4 % 0.0-5.0 N BASOPHIL % (test code = BA%) 0.7 % 0.0-1.0 N NUCLEATED RBC % (test code = NRBC%) 0.0 % 0-0 N NEUTROPHIL # (test code = NT#) 3.11 K/mm3 1.8-7.7 N IMMATURE GRANULOCYTE # (test code = IG#) 0.02 x10 3/uL 0-0.03 N LYMPHOCYTE # (test code = LY#) 2.12 K/mm3 1.0-5.0 N MONOCYTE # (test code = MO#) 0.38 K/mm3 0-0.8 N EOSINOPHIL # (test code = EO#) 0.20 K/mm3 0.0-0.5 N BASOPHIL # (test code = BA#) 0.04 K/mm3 0.0-0.2 N NUCLEATED RBC # (test code = NRBC#) 0.00 K/mm3 0.0-0.1 N MANUAL DIFF REQUIRED (test code = MDIFF) NO, ONLY SCAN NEEDED DIFFERENTIAL [id number] 10:18:00* Test Item Value Reference Range Interpretation Comments STAIN ACCEPTABILITY (test code = STN ACCEPTABLE) MORPHOLOGY COMMENT (test code = MOC) PLATELET ESTIMATE (test code = PLTEST) PLATELET MORPHOLOGY (test code = PLTMORPH) CBC W/AUTO [id number] 10:18:00* Test Item Value Reference Range Interpretation Comments WHITE BLOOD CELL (test code = WBC) 5.9 K/mm3 4.5-12.5 N RED BLOOD CELL (test code = RBC) 5.31 mill/mm3 3.7-5.2 H HEMOGLOBIN (test code = HGB) 11.4 gram/dL 11.5-15.5 L HEMATOCRIT (test code = HCT) 40.0 % 36.0-46.0 N MEAN CELL VOLUME (test code = MCV) 75.3 fL 80-98 L MEAN CELL HGB (test code = MCH) 21.5 picogram 27.0-33.0 L MEAN CELL HGB CONCETRATION (test code = MCHC) 28.5 gram/dL 33.0-36. 0 L RED CELL DISTRIBUTION WIDTH (test code = RDW) 17.3 % 11.6-16. 2 H RED CELL DISTRIBUTION WIDTH SD (test code = RDW-SD) 44.8 fL 37 .0-51.0 N PLATELET COUNT (test code = PLT) 462 K/mm3 150-450 H MEAN PLATELET VOLUME (test code = MPV) 9.7 fL 6.7-11.0 N NEUTROPHIL % (test code = NT%) 53.0 % 39.0-69.0 N IMMATURE GRANULOCYTE % (test code = IG%) 0.3 % 0.0-5.0 N LYMPHOCYTE % (test code = LY%) 36.1 % 25.0-55.0 N MONOCYTE % (test code = MO%) 6.5 % 0.0-10.0 N EOSINOPHIL % (test code = EO%) 3.4 % 0.0-5.0 N BASOPHIL % (test code = BA%) 0.7 % 0.0-1.0 N NUCLEATED RBC % (test code = NRBC%) 0.0 % 0-0 N NEUTROPHIL # (test code = NT#) 3.11 K/mm3 1.8-7.7 N IMMATURE GRANULOCYTE # (test code = IG#) 0.02 x10 3/uL 0-0.03 N LYMPHOCYTE # (test code = LY#) 2.12 K/mm3 1.0-5.0 N MONOCYTE # (test code = MO#) 0.38 K/mm3 0-0.8 N EOSINOPHIL # (test code = EO#) 0.20 K/mm3 0.0-0.5 N BASOPHIL # (test code = BA#) 0.04 K/mm3 0.0-0.2 N NUCLEATED RBC # (test code = NRBC#) 0.00 K/mm3 0.0-0.1 N MANUAL DIFF REQUIRED (test code = MDIFF) NO, ONLY SCAN NEEDED DIFFERENTIAL [id number] 10:18:00* Test Item Value Reference Range Interpretation Comments STAIN ACCEPTABILITY (test code = STN ACCEPTABLE) MORPHOLOGY COMMENT (test code = MOC) PLATELET ESTIMATE (test code = PLTEST) PLATELET MORPHOLOGY (test code = PLTMORPH) CBC W/AUTO [id number] 10:18:00* Test Item Value Reference Range Interpretation Comments WHITE BLOOD CELL (test code = WBC) 5.9 K/mm3 4.5-12.5 N RED BLOOD CELL (test code = RBC) 5.31 mill/mm3 3.7-5.2 H HEMOGLOBIN (test code = HGB) 11.4 gram/dL 11.5-15.5 L HEMATOCRIT (test code = HCT) 40.0 % 36.0-46.0 N MEAN CELL VOLUME (test code = MCV) 75.3 fL 80-98 L MEAN CELL HGB (test code = MCH) 21.5 picogram 27.0-33.0 L MEAN CELL HGB CONCETRATION (test code = MCHC) 28.5 gram/dL 33.0-36. 0 L RED CELL DISTRIBUTION WIDTH (test code = RDW) 17.3 % 11.6-16. 2 H RED CELL DISTRIBUTION WIDTH SD (test code = RDW-SD) 44.8 fL 37 .0-51.0 N PLATELET COUNT (test code = PLT) 462 K/mm3 150-450 H MEAN PLATELET VOLUME (test code = MPV) 9.7 fL 6.7-11.0 N NEUTROPHIL % (test code = NT%) 53.0 % 39.0-69.0 N IMMATURE GRANULOCYTE % (test code = IG%) 0.3 % 0.0-5.0 N LYMPHOCYTE % (test code = LY%) 36.1 % 25.0-55.0 N MONOCYTE % (test code = MO%) 6.5 % 0.0-10.0 N EOSINOPHIL % (test code = EO%) 3.4 % 0.0-5.0 N BASOPHIL % (test code = BA%) 0.7 % 0.0-1.0 N NUCLEATED RBC % (test code = NRBC%) 0.0 % 0-0 N NEUTROPHIL # (test code = NT#) 3.11 K/mm3 1.8-7.7 N IMMATURE GRANULOCYTE # (test code = IG#) 0.02 x10 3/uL 0-0.03 N LYMPHOCYTE # (test code = LY#) 2.12 K/mm3 1.0-5.0 N MONOCYTE # (test code = MO#) 0.38 K/mm3 0-0.8 N EOSINOPHIL # (test code = EO#) 0.20 K/mm3 0.0-0.5 N BASOPHIL # (test code = BA#) 0.04 K/mm3 0.0-0.2 N NUCLEATED RBC # (test code = NRBC#) 0.00 K/mm3 0.0-0.1 N MANUAL DIFF REQUIRED (test code = MDIFF) NO, ONLY SCAN NEEDED DIFFERENTIAL [id number] 10:18:00* Test Item Value Reference Range Interpretation Comments STAIN ACCEPTABILITY (test code = STN ACCEPTABLE) CABOT RINGS (test code = CAB) MORPHOLOGY COMMENT (test code = MOC) PLATELET ESTIMATE (test code = PLTEST) PLATELET MORPHOLOGY (test code = PLTMORPH) CBC W/AUTO [id number] 10:15:00* Test Item Value Reference Range Interpretation Comments WHITE BLOOD CELL (test code = WBC) K/mm3 4.5-12.5 RED BLOOD CELL (test code = RBC) mill/mm3 3.7-5.2 HEMOGLOBIN (test code = HGB) gram/dL 11.5-15.5 HEMATOCRIT (test code = HCT) 40.0 % 36.0-46.0 N MEAN CELL VOLUME (test code = MCV) fL 80-98 MEAN CELL HGB (test code = MCH) picogram 27.0-33.0 MEAN CELL HGB CONCETRATION (test code = MCHC) gram/dL 33.0-36. 0 RED CELL DISTRIBUTION WIDTH (test code = RDW) % 11.6-16. 2 RED CELL DISTRIBUTION WIDTH SD (test code = RDW-SD) fL 37 .0-51.0 PLATELET COUNT (test code = PLT) K/mm3 150-450 MEAN PLATELET VOLUME (test code = MPV) fL 6.7-11.0 NEUTROPHIL % (test code = NT%) % 39.0-69.0 IMMATURE GRANULOCYTE % (test code = IG%) % 0.0-5.0 LYMPHOCYTE % (test code = LY%) % 25.0-55.0 MONOCYTE % (test code = MO%) % 0.0-10.0 EOSINOPHIL % (test code = EO%) % 0.0-5.0 BASOPHIL % (test code = BA%) % 0.0-1.0 NEUTROPHIL # (test code = NT#) K/mm3 1.8-7.7 LYMPHOCYTE # (test code = LY#) K/mm3 1.0-5.0 MONOCYTE # (test code = MO#) K/mm3 0-0.8 EOSINOPHIL # (test code = EO#) K/mm3 0.0-0.5 BASOPHIL # (test code = BA#) K/mm3 0.0-0.2 BASIC METABOLIC [id number] 01:10:00* Test Item Value Reference Range Interpretation Comments SODIUM (test code = NA) 140 mmol/L 136-145 N POTASSIUM (test code = K) 3.7 mmol/L 3.5-5.1 N CHLORIDE (test code = CL) 108.0 mmol/L 98-107 H CARBON DIOXIDE (test code = CO2) 26.0 mmol/L 21-32 N ANION GAP (test code = GAP) 9.7 10-20 L GLUCOSE (test code = GLU) 102 mg/dL 74-106 N BLOOD UREA NITROGEN (test code = BUN) 10 mg/dL 7-18 N GLOMERULAR FILTRATION RATE (test code = GFR) > 60 mL/min >=60 Estimated GFR by using Modified MDRD formula.Chronic kidney disease is defined as either kidney damageor GFR <60 mL/min/1.73 m2 for >3 months. CREATININE (test code = CREAT) 0.60 mg/dL 0.55-1.02 N Note change in reference range due to change in reagent. BUN/CREATININE RATIO (test code = BUN/CREA) 17.9 10-20 N CALCIUM (test code = CA) 9.6 mg/dL 8.5-10.1 N [id number] 01:10:00* Test Item Value Reference Range Interpretation Comments TROPONIN-I (test code = TROPI) <0.015 ng/mL 0-0.045 N BASIC METABOLIC [id number] 01:03:00* Test Item Value Reference Range Interpretation Comments SODIUM (test code = NA) 140 mmol/L 136-145 N POTASSIUM (test code = K) 3.7 mmol/L 3.5-5.1 N CHLORIDE (test code = CL) 108.0 mmol/L 98-107 H CARBON DIOXIDE (test code = CO2) mmol/L 21-32 ANION GAP (test code = GAP) 10-20 GLUCOSE (test code = GLU) mg/dL 74-106 BLOOD UREA NITROGEN (test code = BUN) mg/dL 7-18 GLOMERULAR FILTRATION RATE (test code = GFR) mL/min >=60 CREATININE (test code = CREAT) mg/dL 0.55-1.02 BUN/CREATININE RATIO (test code = BUN/CREA) 10-20 CALCIUM (test code = CA) mg/dL 8.5-10.1 [id number] 01:03:00* Test Item Value Reference Range Interpretation Comments TROPONIN-I (test code = TROPI) ng/mL 0-0.045 CBC W/O [id number] 01:00:00* Test Item Value Reference Range Interpretation Comments WHITE BLOOD CELL (test code = WBC) 9.1 K/mm3 4.5-12.5 N RED BLOOD CELL (test code = RBC) 4.68 mill/mm3 3.7-5.2 N HEMOGLOBIN (test code = HGB) 10.3 gram/dL 11.5-15.5 L HEMATOCRIT (test code = HCT) 35.2 % 36.0-46.0 L MEAN CELL VOLUME (test code = MCV) 75.2 fL 80-98 L MEAN CELL HGB (test code = MCH) 22.0 picogram 27.0-33.0 L MEAN CELL HGB CONCETRATION (test code = MCHC) 29.3 gram/dL 33.0-36. 0 L RED CELL DISTRIBUTION WIDTH (test code = RDW) 17.1 % 11.6-16. 2 H PLATELET COUNT (test code = PLT) 437 K/mm3 150-450 N MEAN PLATELET VOLUME (test code = MPV) 9.9 fL 6.7-11.0 N - XR CHEST 1 [id number] 22:25:00 FAX: Jane Bauman NP [place]: B St: REG Name: GALO MONTIEL [facility] : [birth year] Age/S: 23/F [address] [facility] Unit #: [id number] Loc: [place] [address] Phys: Jane Bauman NP Acct: [id number] Dis Date: Status: REG ER PHONE #: [phone] Exam Date: 08/16/20192217 FAX #: [phone] Reason: CHEST PAIN EXAMS: CPT CODE: [id number] XR CHEST 1 V 51489 HISTORY: Chest pain. COMPARISON: April 03, 2019. Location: [facility]. No acute i nfiltrates, effusion or congestion is noted. The cardiac and media stinal silhouette are within normal limits. IMPRESSION: No acute infiltrates, effusion or congestion. Electronic ally Signed by Kai Shaw on 08/16/2019 at 2225 R eported and signed by: Jose Shaw M.D. CC: Lizet Bauman NP Technologist: NUPUR Cottrell Date/Time/By: 08/16/2019 (0536) : By: [email or web address] Orig Print D/T: S: 08/16/2019 (8264) PAGE 1 Signed Report URINALYSIS [id number] 19:05:00* Test Item Value Reference Range Interpretation Comments UA COLOR (test code = COLU) Light-Yellow YELLOW UA APPEARANCE (test code = APPU) CLEAR CLEAR UA GLUCOSE DIPSTICK (test code = DGLUU) NEGATIVE mg/dL NEGATIVE UA BILIRUBIN DIPSTICK (test code = BILU) NEGATIVE mg/dL NEGATIVE UA KETONE DIPSTICK (test code = KETU) NEGATIVE mg/dL NEGATIVE UA SPECIFIC GRAVITY (test code = SGU) 1.015 1.001-1.035 UA BLOOD DIPSTICK (test code = TIFFANIE) Negative mg/dL NEGATIVE UA PH DIPSTICK (test code = JOSH) 6.0 5.0-8.0 UA PROTEIN DIPSTICK (test code = PROU) NEGATIVE mg/dL NEGATIVE UA UROBILINIOGEN DIPSTICK (test code = URO) Normal mg/dL NEGATIVE UA NITRITE DIPSTICK (test code = DIEGO) NEGATIVE NEGATIVE UA LEUKOCYTE ESTERASE W REFLEX (test code = LEUUR) 75 Lazaro/uL (1+) Lazaro/uL NEGATIVE A UA WBC (test code = WBCU) 6-10 per HPF 0-5 A UA RBC (test code = RBCU) 0-2 #/HPF 0-5 UA EPITHELIAL CELLS (test code = EPIU) FEW per HPF FEW UA BACTERIA (test code = BACU) FEW #/HPF NONE A UA MUCUS (test code = MUCU) FEW #/LPF FEW Urine Source? Clean CatchURINALYSIS [id number] 19:00:00* Test Item Value Reference Range Interpretation Comments UA COLOR (test code = COLU) Light-Yellow YELLOW UA APPEARANCE (test code = APPU) CLEAR CLEAR UA GLUCOSE DIPSTICK (test code = DGLUU) NEGATIVE mg/dL NEGATIVE UA BILIRUBIN DIPSTICK (test code = BILU) NEGATIVE mg/dL NEGATIVE UA KETONE DIPSTICK (test code = KETU) NEGATIVE mg/dL NEGATIVE UA SPECIFIC GRAVITY (test code = SGU) 1.015 1.001-1.035 UA BLOOD DIPSTICK (test code = TIFFANIE) Negative mg/dL NEGATIVE UA PH DIPSTICK (test code = JOSH) 6.0 5.0-8.0 UA PROTEIN DIPSTICK (test code = PROU) NEGATIVE mg/dL NEGATIVE UA UROBILINIOGEN DIPSTICK (test code = URO) Normal mg/dL NEGATIVE UA NITRITE DIPSTICK (test code = DIEGO) NEGATIVE NEGATIVE UA LEUKOCYTE ESTERASE W REFLEX (test code = LEUUR) 75 Lazaro/uL (1+) Lazaro/uL NEGATIVE A UA WBC (test code = WBCU) per HPF 0-5 UA RBC (test code = RBCU) per HPF 0-5 UA EPITHELIAL CELLS (test code = EPIU) per HPF Few UA BACTERIA (test code = BACU) per HPF NONE Urine Source? Clean [id number] 18:44:00* Test Item Value Reference Range Interpretation Comments TROPONIN-I (test code = TROPI) <0.015 ng/mL 0-0.045 N BASIC METABOLIC [id number] 18:41:00* Test Item Value Reference Range Interpretation Comments SODIUM (test code = NA) 141 mmol/L 136-145 N POTASSIUM (test code = K) 3.7 mmol/L 3.5-5.1 N CHLORIDE (test code = CL) 107.0 mmol/L 98-107 N CARBON DIOXIDE (test code = CO2) 27.0 mmol/L 21-32 N ANION GAP (test code = GAP) 10.7 10-20 N GLUCOSE (test code = GLU) 92 mg/dL 74-106 N BLOOD UREA NITROGEN (test code = BUN) 9 mg/dL 7-18 N GLOMERULAR FILTRATION RATE (test code = GFR) > 60 mL/min >=60 Estimated GFR by using Modified MDRD formula.Chronic kidney disease is defined as either kidney damageor GFR <60 mL/min/1.73 m2 for >3 months. CREATININE (test code = CREAT) 0.60 mg/dL 0.55-1.02 N Note change in reference range due to change in reagent. BUN/CREATININE RATIO (test code = BUN/CREA) 15.2 10-20 N CALCIUM (test code = CA) 10.3 mg/dL 8.5-10.1 H HCG SERUM [id number] 18:41:00* Test Item Value Reference Range Interpretation Comments HCG SERUM QUAL (test code = HCGQL) NEGATIVE NEGATIVE This HCGQL test is NOT applicable for MALE patients.Check with nurse about probable order error.If Tumor Marker Test needed, nurse should order test "HCGTU"(Test #550.11816) PROTHROMBIN [id number] 18:37:00* Test Item Value Reference Range Interpretation Comments PROTHROMBIN TIME PATIENT (test code = PTP) 11.6 seconds 9.0-14.0 N INTERNATIONAL NORMAL RATIO (test code = INR) 1.0 0.8-1.2 N The therapeutic range for oral anticoagulant therapy formost indications is an international normalized ratio (INR)of between 2.0 and 3.0. The recommended therapeutic INRrange for various clinical situations is listed below: Clinical Situation INR range Pulmonary e mbolism treatment (2.0-3.0)Venous thrombosis treatmentVenous thrombosis prophylaxis (high risk surgery)Prevention of systemic embolism from: Acute myocardial infarction Valvular heart disease Atrial fibrillation Mechanical prosthetic heart valves (2.5-3.5) IS PATIENT ON ANTICOAGULANTS? NTHROMBOPLASTIN TIME [id number] 18:37:00* Test Item Value Reference Range Interpretation Comments THROMBOPLASTIN TIME PARTIAL (test code = PTT) 36.2 seconds 25.0-36. 5 N IS PATIENT ON ANTICOAGULANTS? NBASIC METABOLIC [id number] 18:36:00* Test Item Value Reference Range Interpretation Comments SODIUM (test code = NA) mmol/L 136-145 POTASSIUM (test code = K) mmol/L 3.5-5.1 CHLORIDE (test code = CL) mmol/L 98-107 CARBON DIOXIDE (test code = CO2) mmol/L 21-32 ANION GAP (test code = GAP) 10-20 GLUCOSE (test code = GLU) mg/dL 74-106 BLOOD UREA NITROGEN (test code = BUN) mg/dL 7-18 GLOMERULAR FILTRATION RATE (test code = GFR) mL/min >=60 CREATININE (test code = CREAT) mg/dL 0.55-1.02 BUN/CREATININE RATIO (test code = BUN/CREA) 10-20 CALCIUM (test code = CA) mg/dL 8.5-10.1 HCG SERUM [id number] 18:36:00* Test Item Value Reference Range Interpretation Comments HCG SERUM QUAL (test code = HCGQL) NEGATIVE NEGATIVE This HCGQL test is NOT applicable for MALE patients.Check with nurse about probable order error.If Tumor Marker Test needed, nurse should order test "HCGTU"(Test #550.60484) BASIC METABOLIC [id number] 18:36:00* Test Item Value Reference Range Interpretation Comments SODIUM (test code = NA) 141 mmol/L 136-145 N POTASSIUM (test code = K) 3.7 mmol/L 3.5-5.1 N CHLORIDE (test code = CL) 107.0 mmol/L 98-107 N CARBON DIOXIDE (test code = CO2) mmol/L 21-32 ANION GAP (test code = GAP) 10-20 GLUCOSE (test code = GLU) mg/dL 74-106 BLOOD UREA NITROGEN (test code = BUN) mg/dL 7-18 GLOMERULAR FILTRATION RATE (test code = GFR) mL/min >=60 CREATININE (test code = CREAT) mg/dL 0.55-1.02 BUN/CREATININE RATIO (test code = BUN/CREA) 10-20 CALCIUM (test code = CA) 10.3 mg/dL 8.5-10.1 H HCG SERUM [id number] 18:36:00* Test Item Value Reference Range Interpretation Comments HCG SERUM QUAL (test code = HCGQL) NEGATIVE NEGATIVE This HCGQL test is NOT applicable for MALE patients.Check with nurse about probable order error.If Tumor Marker Test needed, nurse should order test "HCGTU"(Test #550.27997) CBC W/AUTO [id number] 18:24:00* Test Item Value Reference Range Interpretation Comments WHITE BLOOD CELL (test code = WBC) 8.8 K/mm3 4.5-12.5 N RED BLOOD CELL (test code = RBC) 5.03 mill/mm3 3.7-5.2 N HEMOGLOBIN (test code = HGB) 11.3 gram/dL 11.5-15.5 L HEMATOCRIT (test code = HCT) 37.1 % 36.0-46.0 N MEAN CELL VOLUME (test code = MCV) 73.8 fL 80-98 L MEAN CELL HGB (test code = MCH) 22.5 picogram 27.0-33.0 L MEAN CELL HGB CONCETRATION (test code = MCHC) 30.5 gram/dL 33.0-36. 0 L RED CELL DISTRIBUTION WIDTH (test code = RDW) 16.2 % 11.6-16. 2 N RED CELL DISTRIBUTION WIDTH SD (test code = RDW-SD) 42.9 fL 37 .0-51.0 N PLATELET COUNT (test code = PLT) 469 K/mm3 150-450 H MEAN PLATELET VOLUME (test code = MPV) 9.6 fL 6.7-11.0 N NEUTROPHIL % (test code = NT%) 57.7 % 39.0-69.0 N IMMATURE GRANULOCYTE % (test code = IG%) 0.2 % 0.0-5.0 N LYMPHOCYTE % (test code = LY%) 32.9 % 25.0-55.0 N MONOCYTE % (test code = MO%) 5.8 % 0.0-10.0 N EOSINOPHIL % (test code = EO%) 2.9 % 0.0-5.0 N BASOPHIL % (test code = BA%) 0.5 % 0.0-1.0 N NUCLEATED RBC % (test code = NRBC%) 0.0 % 0-0 N NEUTROPHIL # (test code = NT#) 5.09 K/mm3 1.8-7.7 N IMMATURE GRANULOCYTE # (test code = IG#) 0.02 x10 3/uL 0-0.03 N LYMPHOCYTE # (test code = LY#) 2.90 K/mm3 1.0-5.0 N MONOCYTE # (test code = MO#) 0.51 K/mm3 0-0.8 N EOSINOPHIL # (test code = EO#) 0.26 K/mm3 0.0-0.5 N BASOPHIL # (test code = BA#) 0.04 K/mm3 0.0-0.2 N NUCLEATED RBC # (test code = NRBC#) 0.00 K/mm3 0.0-0.1 N - XR CHEST 1 [id number] 18:22:00 FAX: Stan Nevarez [phone] [place]: B St: REG Name: GALO MONTIEL [facility] : [birth year] Age/S: 23/F [address] [facility] Unit #: [id number] Loc: [place] [address] Phys: Stan Nevarez MANAGER OF CLINICAL Acct: [id number] Dis Date: Status: REG ER PHONE #: [phone] Exam Date: 07/29/20191817 FAX #: [phone] Reason: PALPITATION EXAMS: CPT CODE: [id number] XR CHEST 1 V 74183 HISTORY: Palpitations. COMPARISON: June 02, 2019. No acute infiltrates, effusion or congestion is noted. The cardiac and mediastinal silhouette are wi thin normal limits. IMPRESSION: No acute inf iltrates, effusion or congestion. at 1822 Reported and signed by: Miley Shaw M.D. CC: Stan Nevarez NP Technologist: Mariah Mo(Amberly) Trnscrd Date/Time/By: 07/29/2019 (1821) : By: [email or web address] Orig Print D/T: S: 07/29/2019 (1824) PAGE 1 Signed Report - XR CHEST 1 [id number] 18:22:00 FAX: Stan Nevarez [phone] [place]: St: [facility] Name: GALO MONTIEL E [facility] : [birth year] Age/S: 23/F [address] [facility] Unit #: [id number] Loc: [place] [address] Phys: Stan Nevarez NP Acct: [id number] Dis Date: Status: DEP ER PHONE #: [phone] Exam Date: 07/29/2019 181 FAX #: [phone] Reason: PALPITATION EXAMS: CPT CODE: [id number] XR CHEST 1 V 03365 HISTORY: Palpitations. COMPARISON: June 02, 2019. No acute infiltrates, effusion or congestion is noted. The cardiac and mediastinal silhouette are wi thin normal limits. IMPRESSION: No acute inf iltrates, effusion or congestion. at 1822 Reported and signed by: Miley Shaw M.D. CC: Stan Nevarez NP Technologist: Mariah Mo(Amberly) Trnmnronit Date/Time/By: 07/29/2019 (1821) : By: [email or web address] Orig Print D/T: S: 07/29/2019 (1824) PAGE 1 Signed Report - XR ABDOMEN AP 1 V 2019-07-08 16:25:00 FAX: Tamela Zuniga NP [place]: St: REG Name: GALO MONTIEL [facility] : [birth year] Age/S: 23/F [address] [facility] Unit #: [id number] Loc: [place] [address] Phys: Tamela Zuniga NP Acct: [id number] Dis Date: Status: REG ER PHONE #: [phone] Exam Date: 07/08/2019 1623 FAX #: [phone] Reason: Abdominal Pain EXAMS: CPT CODE: [id number] XR ABDOMEN AP 1 V 66585 EXAM: Abdomen, 2 views; INFORMATION: Abdominal pain; IMPRESSION: 1. Unremarkable bowel gas pattern; no evidence of obstruction or other acute abnorm alities. 2. No abnormal calcifications. Electronica lly Signed by Kai Gotti on 07/08/2019 at 1625 Reported and signed by: Andres Gotti M.D. CC: Tamela Zuniga NP Technologist: Blanca Georges RT(R) Trnscrd Date/Time/By: 07/08/2019 (713) : By: SilvanaGRW Orig Print D/T: S: 07/08/2019 (6509) PAGE 1 Signed Report URINALYSIS [id number] 16:11:00* Test Item Value Reference Range Interpretation Comments UA COLOR (test code = COLU) COLORLESS YELLOW A UA APPEARANCE (test code = APPU) CLEAR CLEAR UA GLUCOSE DIPSTICK (test code = DGLUU) NEGATIVE mg/dL NEGATIVE UA BILIRUBIN DIPSTICK (test code = BILU) NEGATIVE mg/dL NEGATIVE UA KETONE DIPSTICK (test code = KETU) NEGATIVE mg/dL NEGATIVE UA SPECIFIC GRAVITY (test code = SGU) 1.004 1.001-1.035 UA BLOOD DIPSTICK (test code = TIFFANIE) Negative mg/dL NEGATIVE UA PH DIPSTICK (test code = JOSH) 6.5 5.0-8.0 UA PROTEIN DIPSTICK (test code = PROU) NEGATIVE mg/dL NEGATIVE UA UROBILINIOGEN DIPSTICK (test code = URO) Normal mg/dL NEGATIVE UA NITRITE DIPSTICK (test code = DIEGO) NEGATIVE NEGATIVE UA LEUKOCYTE ESTERASE W REFLEX (test code = LEUUR) 25 Lazaro/uL (Trace) Lazaro/uL NEGATIVE A UA WBC (test code = WBCU) 0-5 per HPF 0-5 UA RBC (test code = RBCU) 0-2 #/HPF 0-5 UA EPITHELIAL CELLS (test code = EPIU) FEW per HPF FEW UA BACTERIA (test code = BACU) FEW #/HPF NONE A Urine Source? Clean CatchBASIC METABOLIC [id number] 16:06:00* Test Item Value Reference Range Interpretation Comments SODIUM (test code = NA) 139 mmol/L 136-145 N POTASSIUM (test code = K) 3.6 mmol/L 3.5-5.1 N CHLORIDE (test code = CL) 107.0 mmol/L 98-107 N CARBON DIOXIDE (test code = CO2) 23.0 mmol/L 21-32 N ANION GAP (test code = GAP) 12.6 10-20 N GLUCOSE (test code = GLU) 95 mg/dL 74-106 N BLOOD UREA NITROGEN (test code = BUN) 9 mg/dL 7-18 N GLOMERULAR FILTRATION RATE (test code = GFR) > 60 mL/min >=60 Estimated GFR by using Modified MDRD formula.Chronic kidney disease is defined as either kidney damageor GFR <60 mL/min/1.73 m2 for >3 months. CREATININE (test code = CREAT) 0.60 mg/dL 0.55-1.02 N Note change in reference range due to change in reagent. BUN/CREATININE RATIO (test code = BUN/CREA) 14.8 10-20 N CALCIUM (test code = CA) 9.2 mg/dL 8.5-10.1 N HEPATIC FUNCTION [id number] 16:06:00* Test Item Value Reference Range Interpretation Comments TOTAL PROTEIN (test code = PROT) 8.3 gram/dL 6.4-8.2 H ALBUMIN (test code = ALB) 4.4 g/dL 3.4-5.0 N GLOBULIN (test code = GLOB) 3.9 gram/dL 2.7-4.2 N ALBUMIN/GLOBULIN RATIO (test code = A/G) 1.1 0.75-1.50 N BILIRUBIN TOTAL (test code = BILT) 0.20 mg/dL 0.0-1.0 N BILIRUBIN DIRECT (test code = BILD) 0.09 mg/dL 0.0-0.20 N SGOT/AST (test code = AST) 14 IUnit/L 15-37 L SGPT/ALT (test code = ALT) 17 IUnit/L 12-78 N ALKALINE PHOSPHATASE TOTAL (test code = ALKP) 72 IUnit/L 45-117 N Note change in reference range due to change in reagent. [id number] 16:06:00* Test Item Value Reference Range Interpretation Comments LIPASE (test code = LIP) 79 U/L 73.0-393.0 N HCG SERUM [id number] 16:06:00* Test Item Value Reference Range Interpretation Comments HCG SERUM QUAL (test code = HCGQL) NEGATIVE BASIC METABOLIC [id number] 16:06:00* Test Item Value Reference Range Interpretation Comments SODIUM (test code = NA) 139 mmol/L 136-145 N POTASSIUM (test code = K) 3.6 mmol/L 3.5-5.1 N CHLORIDE (test code = CL) 107.0 mmol/L 98-107 N CARBON DIOXIDE (test code = CO2) 23.0 mmol/L 21-32 N ANION GAP (test code = GAP) 12.6 10-20 N GLUCOSE (test code = GLU) 95 mg/dL 74-106 N BLOOD UREA NITROGEN (test code = BUN) 9 mg/dL 7-18 N GLOMERULAR FILTRATION RATE (test code = GFR) > 60 mL/min >=60 Estimated GFR by using Modified MDRD formula.Chronic kidney disease is defined as either kidney damageor GFR <60 mL/min/1.73 m2 for >3 months. CREATININE (test code = CREAT) 0.60 mg/dL 0.55-1.02 N Note change in reference range due to change in reagent. BUN/CREATININE RATIO (test code = BUN/CREA) 14.8 10-20 N CALCIUM (test code = CA) 9.2 mg/dL 8.5-10.1 N HEPATIC FUNCTION [id number] 16:06:00* Test Item Value Reference Range Interpretation Comments TOTAL PROTEIN (test code = PROT) 8.3 gram/dL 6.4-8.2 H ALBUMIN (test code = ALB) 4.4 g/dL 3.4-5.0 N GLOBULIN (test code = GLOB) 3.9 gram/dL 2.7-4.2 N ALBUMIN/GLOBULIN RATIO (test code = A/G) 1.1 0.75-1.50 N BILIRUBIN TOTAL (test code = BILT) 0.20 mg/dL 0.0-1.0 N BILIRUBIN DIRECT (test code = BILD) 0.09 mg/dL 0.0-0.20 N SGOT/AST (test code = AST) 14 IUnit/L 15-37 L SGPT/ALT (test code = ALT) 17 IUnit/L 12-78 N ALKALINE PHOSPHATASE TOTAL (test code = ALKP) 72 IUnit/L 45-117 N Note change in reference range due to change in reagent. [id number] 16:06:00* Test Item Value Reference Range Interpretation Comments LIPASE (test code = LIP) 79 U/L 73.0-393.0 N HCG SERUM [id number] 16:06:00* Test Item Value Reference Range Interpretation Comments HCG SERUM QUAL (test code = HCGQL) NEGATIVE NEGATIVE This HCGQL test is NOT applicable for MALE patients.Check with nurse about probable order error.If Tumor Marker Test needed, nurse should order test "HCGTU"(Test #550.23430) BASIC METABOLIC [id number] 15:56:00* Test Item Value Reference Range Interpretation Comments SODIUM (test code = NA) 139 mmol/L 136-145 N POTASSIUM (test code = K) 3.6 mmol/L 3.5-5.1 N CHLORIDE (test code = CL) 107.0 mmol/L 98-107 N CARBON DIOXIDE (test code = CO2) mmol/L 21-32 ANION GAP (test code = GAP) 10-20 GLUCOSE (test code = GLU) mg/dL 74-106 BLOOD UREA NITROGEN (test code = BUN) mg/dL 7-18 GLOMERULAR FILTRATION RATE (test code = GFR) mL/min >=60 CREATININE (test code = CREAT) mg/dL 0.55-1.02 BUN/CREATININE RATIO (test code = BUN/CREA) 10-20 CALCIUM (test code = CA) mg/dL 8.5-10.1 HEPATIC FUNCTION [id number] 15:56:00* Test Item Value Reference Range Interpretation Comments TOTAL PROTEIN (test code = PROT) gram/dL 6.4-8.2 ALBUMIN (test code = ALB) g/dL 3.4-5.0 GLOBULIN (test code = GLOB) gram/dL 2.7-4.2 ALBUMIN/GLOBULIN RATIO (test code = A/G) 0.75-1.50 BILIRUBIN TOTAL (test code = BILT) mg/dL 0.0-1.0 BILIRUBIN DIRECT (test code = BILD) mg/dL 0.0-0.20 SGOT/AST (test code = AST) IUnit/L 15-37 SGPT/ALT (test code = ALT) IUnit/L 12-78 ALKALINE PHOSPHATASE TOTAL (test code = ALKP) IUnit/L 45-117 [id number] 15:56:00* Test Item Value Reference Range Interpretation Comments LIPASE (test code = LIP) U/L 73.0-393.0 HCG SERUM [id number] 15:56:00* Test Item Value Reference Range Interpretation Comments HCG SERUM QUAL (test code = HCGQL) NEGATIVE CBC W/O [id number] 15:43:00* Test Item Value Reference Range Interpretation Comments WHITE BLOOD CELL (test code = WBC) 7.6 K/mm3 4.5-12.5 N RED BLOOD CELL (test code = RBC) 4.82 mill/mm3 3.7-5.2 N HEMOGLOBIN (test code = HGB) 10.7 gram/dL 11.5-15.5 L HEMATOCRIT (test code = HCT) 36.3 % 36.0-46.0 N MEAN CELL VOLUME (test code = MCV) 75.3 fL 80-98 L MEAN CELL HGB (test code = MCH) 22.2 picogram 27.0-33.0 L MEAN CELL HGB CONCETRATION (test code = MCHC) 29.5 gram/dL 33.0-36. 0 L RED CELL DISTRIBUTION WIDTH (test code = RDW) 16.2 % 11.6-16. 2 N PLATELET COUNT (test code = PLT) 405 K/mm3 150-450 N MEAN PLATELET VOLUME (test code = MPV) 9.9 fL 6.7-11.0 N CBC W/O [id number] 15:42:00* Test Item Value Reference Range Interpretation Comments WHITE BLOOD CELL (test code = WBC) K/mm3 4.5-12.5 RED BLOOD CELL (test code = RBC) mill/mm3 3.7-5.2 HEMOGLOBIN (test code = HGB) gram/dL 11.5-15.5 HEMATOCRIT (test code = HCT) 36.3 % 36.0-46.0 N MEAN CELL VOLUME (test code = MCV) fL 80-98 MEAN CELL HGB (test code = MCH) picogram 27.0-33.0 MEAN CELL HGB CONCETRATION (test code = MCHC) gram/dL 33.0-36. 0 RED CELL DISTRIBUTION WIDTH (test code = RDW) % 11.6-16. 2 PLATELET COUNT (test code = PLT) K/mm3 150-450 MEAN PLATELET VOLUME (test code = MPV) fL 6.7-11.0 BASIC METABOLIC [id number] 19:41:00* Test Item Value Reference Range Interpretation Comments SODIUM (test code = NA) 141 mmol/L 136-145 N POTASSIUM (test code = K) 3.7 mmol/L 3.5-5.1 N CHLORIDE (test code = CL) 110.0 mmol/L 98-107 H CARBON DIOXIDE (test code = CO2) 23.0 mmol/L 21-32 N ANION GAP (test code = GAP) 11.7 10-20 N GLUCOSE (test code = GLU) 96 mg/dL 74-106 N BLOOD UREA NITROGEN (test code = BUN) 8 mg/dL 7-18 N GLOMERULAR FILTRATION RATE (test code = GFR) > 60 mL/min >=60 Estimated GFR by using Modified MDRD formula.Chronic kidney disease is defined as either kidney damageor GFR <60 mL/min/1.73 m2 for >3 months. CREATININE (test code = CREAT) 0.50 mg/dL 0.55-1.02 L Note change in reference range due to change in reagent. BUN/CREATININE RATIO (test code = BUN/CREA) 15.8 10-20 N CALCIUM (test code = CA) 9.6 mg/dL 8.5-10.1 N HEPATIC FUNCTION [id number] 19:41:00* Test Item Value Reference Range Interpretation Comments TOTAL PROTEIN (test code = PROT) 8.0 gram/dL 6.4-8.2 N ALBUMIN (test code = ALB) 4.1 g/dL 3.4-5.0 N GLOBULIN (test code = GLOB) 3.9 gram/dL 2.7-4.2 N ALBUMIN/GLOBULIN RATIO (test code = A/G) 1.1 0.75-1.50 N BILIRUBIN TOTAL (test code = BILT) 0.20 mg/dL 0.0-1.0 N BILIRUBIN DIRECT (test code = BILD) 0.06 mg/dL 0.0-0.20 N SGOT/AST (test code = AST) 10 IUnit/L 15-37 L SGPT/ALT (test code = ALT) 17 IUnit/L 12-78 N ALKALINE PHOSPHATASE TOTAL (test code = ALKP) 76 IUnit/L 45-117 N Note change in reference range due to change in reagent. [id number] 19:41:00* Test Item Value Reference Range Interpretation Comments LIPASE (test code = LIP) 111 U/L 73.0-393.0 N HCG SERUM [id number] 19:41:00* Test Item Value Reference Range Interpretation Comments HCG SERUM QUAL (test code = HCGQL) NEGATIVE NEGATIVE This HCGQL test is NOT applicable for MALE patients.Check with nurse about probable order error.If Tumor Marker Test needed, nurse should order test "HCGTU"(Test #[id number]) BASIC METABOLIC [id number] 19:34:00* Test Item Value Reference Range Interpretation Comments SODIUM (test code = NA) 141 mmol/L 136-145 N POTASSIUM (test code = K) 3.7 mmol/L 3.5-5.1 N CHLORIDE (test code = CL) 110.0 mmol/L 98-107 H CARBON DIOXIDE (test code = CO2) mmol/L 21-32 ANION GAP (test code = GAP) 10-20 GLUCOSE (test code = GLU) mg/dL 74-106 BLOOD UREA NITROGEN (test code = BUN) mg/dL 7-18 GLOMERULAR FILTRATION RATE (test code = GFR) mL/min >=60 CREATININE (test code = CREAT) mg/dL 0.55-1.02 BUN/CREATININE RATIO (test code = BUN/CREA) 10-20 CALCIUM (test code = CA) mg/dL 8.5-10.1 HEPATIC FUNCTION [id number] 19:34:00* Test Item Value Reference Range Interpretation Comments TOTAL PROTEIN (test code = PROT) gram/dL 6.4-8.2 ALBUMIN (test code = ALB) g/dL 3.4-5.0 GLOBULIN (test code = GLOB) gram/dL 2.7-4.2 ALBUMIN/GLOBULIN RATIO (test code = A/G) 0.75-1.50 BILIRUBIN TOTAL (test code = BILT) mg/dL 0.0-1.0 BILIRUBIN DIRECT (test code = BILD) mg/dL 0.0-0.20 SGOT/AST (test code = AST) IUnit/L 15-37 SGPT/ALT (test code = ALT) IUnit/L 12-78 ALKALINE PHOSPHATASE TOTAL (test code = ALKP) IUnit/L 45-117 [id number] 19:34:00* Test Item Value Reference Range Interpretation Comments LIPASE (test code = LIP) U/L 73.0-393.0 HCG SERUM [id number] 19:34:00* Test Item Value Reference Range Interpretation Comments HCG SERUM QUAL (test code = HCGQL) NEGATIVE NEGATIVE This HCGQL test is NOT applicable for MALE patients.Check with nurse about probable order error.If Tumor Marker Test needed, nurse should order test "HCGTU"(Test #550.38169) - US ABDOMEN [id number] 19:34:00 Name: GALO LIMA [facility] : 1995 Age/S: 23 / F [address] [facility] Unit #: [id number] Loc: [place] [address] Phys: Jane Bauman NP Acct: [id number] Dis Date: Status: REG ER PHONE #: [phone] Exam Date: 06/14/20191930 FAX #: [phone] Reason: LUQ abdominal pain EXAMS: CPT CODE: [id number] US ABDOMEN COMPLETE 17084 EXAM: Ultrasound of the abdomen; INFORMATION: Left upper quadrant abdominal pain; FINDINGS: The liver is slightly prominent and shows diffusely increased echogenicity; no focal lesions. The gallbladder is of normal diameter and wall thickness; no stones; no dilatation of intra or extrahepatic bile ducts. The pancreas is partially obscured by bowel gas; no obvious abnormalities. The spleen is of normal size and shape and without focal lesions. Both kidneys are of normal size and shape; no hydronephrosis, no stones and no parenchymal abnormalities. The right kidney measures 9.9 x 4 x 4.5 cm. The left kidney measures 10.1 x 5.4 x 5.7 cm. No ascites. Imaged portions of the IVC and abdominal aorta are unremarkable. IMPRESSION: 1. Fatty liver. 2. No evidence of gallstones or other significant pathological changes. at 1934 Reported and signed by: Andres Gotti M.D. CC: Jane Bauman MANAGER OF CLINICAL; Aydee Cuevas MD Technologist: Lynsey Trujillo RDMS [facility] Date/Time: 06/14/2019 (1933) [email or web address] Orig Print D/T: S: 06/14/2019 (193) Probe: PAGE 1 Signed Report - US ABDOMEN [id number] 19:34:00 Name: GALO CRISOSTOMO [facility] : 1995 Age/S: 23 / F [address] [facility] Unit #: [id number] Loc: [place] [address] Phys: Jane Bauman NP Acct: [id number] Dis Date: Status: DEP ER PHONE #: [phone] Exam Date: 06/14/20191930 FAX #: [phone] Reason: LUQ abdominal pain EXAMS: CPT CODE: [id number] US ABDOMEN COMPLETE 55732 EXAM: Ultrasound of the abdomen; INFORMATION: Left upper quadrant abdominal pain; FINDINGS: The liver is slightly prominent and shows diffusely increased echogenicity; no focal lesions. The gallbladder is of normal diameter and wall thickness; no stones; no dilatation of intra or extrahepatic bile ducts. The pancreas is partially obscured by bowel gas; no obvious abnormalities. The spleen is of normal size and shape and without focal lesions. Both kidneys are of normal size and shape; no hydronephrosis, no stones and no parenchymal abnormalities. The right kidney measures 9.9 x 4 x 4.5 cm. The left kidney measures 10.1 x 5.4 x 5.7 cm. No ascites. Imaged portions of the IVC and abdominal aorta are unremarkable. IMPRESSION: 1. Fatty liver. 2. No evidence of g allstones or other significant pathological changes. * * Electronically Signed by Kai Gotti on 0 06/14/2019 at 1934 Reported and signed by: Adebayo Gotti M.D. CC: Jane Bauman NP; Aydee Cuevas MD Technologist: Lynsey Trujillo RDMS [facility] Date/Time: 06/14/2019 (1933) SilvanaGRW Orig Print D/T: S: 06/14/2019 (1936) Probe: PAGE 1 Signed Report BASIC METABOLIC PANEL 2019-06-14 19:33:00* Test Item Value Reference Range Interpretation Comments SODIUM (test code = NA) 141 mmol/L 136-145 N POTASSIUM (test code = K) 3.7 mmol/L 3.5-5.1 N CHLORIDE (test code = CL) 110.0 mmol/L 98-107 H CARBON DIOXIDE (test code = CO2) mmol/L 21-32 ANION GAP (test code = GAP) 10-20 GLUCOSE (test code = GLU) mg/dL 74-106 BLOOD UREA NITROGEN (test code = BUN) mg/dL 7-18 GLOMERULAR FILTRATION RATE (test code = GFR) mL/min >=60 CREATININE (test code = CREAT) mg/dL 0.55-1.02 BUN/CREATININE RATIO (test code = BUN/CREA) 10-20 CALCIUM (test code = CA) mg/dL 8.5-10.1 HEPATIC FUNCTION [id number] 19:33:00* Test Item Value Reference Range Interpretation Comments TOTAL PROTEIN (test code = PROT) gram/dL 6.4-8.2 ALBUMIN (test code = ALB) g/dL 3.4-5.0 GLOBULIN (test code = GLOB) gram/dL 2.7-4.2 ALBUMIN/GLOBULIN RATIO (test code = A/G) 0.75-1.50 BILIRUBIN TOTAL (test code = BILT) mg/dL 0.0-1.0 BILIRUBIN DIRECT (test code = BILD) mg/dL 0.0-0.20 SGOT/AST (test code = AST) IUnit/L 15-37 SGPT/ALT (test code = ALT) IUnit/L 12-78 ALKALINE PHOSPHATASE TOTAL (test code = ALKP) IUnit/L 45-117 [id number] 19:33:00* Test Item Value Reference Range Interpretation Comments LIPASE (test code = LIP) U/L 73.0-393.0 HCG SERUM [id number] 19:33:00* Test Item Value Reference Range Interpretation Comments HCG SERUM QUAL (test code = HCGQL) NEGATIVE CBC W/O [id number] 19:25:00* Test Item Value Reference Range Interpretation Comments WHITE BLOOD CELL (test code = WBC) 10.9 K/mm3 4.5-12.5 N RED BLOOD CELL (test code = RBC) 4.57 mill/mm3 3.7-5.2 N HEMOGLOBIN (test code = HGB) 10.1 gram/dL 11.5-15.5 L HEMATOCRIT (test code = HCT) 33.9 % 36.0-46.0 L MEAN CELL VOLUME (test code = MCV) 74.2 fL 80-98 L MEAN CELL HGB (test code = MCH) 22.1 picogram 27.0-33.0 L MEAN CELL HGB CONCETRATION (test code = MCHC) 29.8 gram/dL 33.0-36. 0 L RED CELL DISTRIBUTION WIDTH (test code = RDW) 16.9 % 11.6-16. 2 H PLATELET COUNT (test code = PLT) 403 K/mm3 150-450 N MEAN PLATELET VOLUME (test code = MPV) 10.1 fL 6.7-11.0 N - US ABDOMEN [id number] 20:02:00 Name: GALO LIMA [facility] : 1995 Age/S: 23 / F [address] [facility] Unit #: [id number] Loc: [place] [address] Phys: Aydee Cuevas MD Acct: [id number] Dis Date: Status: REG ER PHONE #: [phone] Exam Date: 06/03/2019 194 FAX #: [phone] Reason: pain, swelling, mono EXAMS: CPT CODE: [id number] US ABDOMEN COMPLETE 10686 REASON FOR EXAM: pain, swelling, mono EXAM ORDER DATE: 06/03/2019 6:32 PM Attending M.D.: Aydee Cuevas MD PROCEDURE: - US ABDOMEN COMPLETE Technique: Grayscale and color Doppler images images of the abdomen. Comparison study: CT of the abdomen and pelvis April 07, 2017 is available for review FINDINGS: Aorta and IVC: Patent and grossly normal in caliber. Liver: Size: 16.7 cm craniocaudally Parenchyma and contour: Areas of increased parenchymal echogenicity suggests geographic areas of steatosis. Cysts and/or masses: None. Intrahepatic bile ducts: No intrahepatic biliary ductal dilation Common bile duct: 4.6 mm in diameter. No echogenic filling defects in visualized duct. Gallbladder: Stones/sludge: No intraluminal stones or sludge. Wall: 1.7 mm in thickness. No discontinuity. No polyps. No pericholecystic fluid. No hyperemia. Sonographic Sewell's sign: Negative Portal vein: Portal vein caliber is within normal limits. Portal vein is patent with hepatopetal flow. Pancreas: Incompletely visualized. However the visualized portions are grossly within normal limits. Right kidney: parenchyma echogenicity: Normal echogenicity size: 9.5 x 4.1 x 3.9 cm stones: none cysts/masses: none PAGE 1 Signed Report (CONTINUED) Name: GALO LIMA [facility] : 1995 Age/S: 23 / F [address] [facility] Unit #: [id number] Loc: [place] [address] Phys: Aydee Cuevas MD Acct: [id number] Dis Date: Status: REG ER PHONE #: [phone] Exam Date: 06/03/20191940 FAX #: [phone] Reason: pain, swelling, mono EXAMS: CPT CODE: [id number] US ABDOMEN COMPLETE 37382 < Continued> hydronephrosis: none Left kidney: parenchyma echogenicity: Normal echogenicity size: 10.1 x 5.4 x 3.9 cm stones: none cysts/masses: none hydronephrosis: none Spleen: size: 9.9 x 3.2 x 2.9 cm cysts/masses: Parenchyma is sonographically unremarkable. Ascites/pleural effusions: None IMPRESSION: Hepatic steatosis. at 2001 Reported and signed by: Xavier Patten MD CC: Aydee Cuevas MD Technologist: Lynsey Trujillo RDMS [facility] Date/Time: 06/03/2019 (2001) [email or web address] Orig Print D/T: S: 06/03/2019 (2004) Probe: PAGE 2 Signed Report - US ABDOMEN COMPLETE 2019-06-03 20:02:00 Name: GALO CRISOSTOMO [facility] : 1995 Age/S: 23 / F [address] [facility] Unit #: [id number] Loc: [place] [address] Phys: Aydee Cuevas MD Acct: [id number] Dis Date: Status: [facility] ER PHONE #: [phone] Exam Date: 06/03/20191940 FAX #: [phone] Reason: pain, swelling, mono EXAMS: CPT CODE: [id number] US ABDOMEN COMPLETE 42686 REASON FOR EXAM: pain, swelling, mono EXAM ORDER DATE: 06/03/2019 6:32 PM Attending MJorge Alberto.: Aydee Cuevas MD PROCEDURE: - US ABDOMEN COMPLETE Technique: Grayscale and color Doppler images images of the abdomen. Comparison study: CT of the abdomen and pelvis April 07, 2017 is available for review FINDINGS: Aorta and IVC: Patent and grossly normal in caliber. Liver: Size: 16.7 cm craniocaudally Parenchyma and contour: Areas of increased parenchymal echogenicity suggests geographic areas of steatosis. Cysts and/or masses: None. Intrahepatic bile ducts: No intrahepatic biliary ductal dilation Common bile duct: 4.6 mm in diameter. No echogenic filling defects in visualized duct. Gallbladder: Stones/sludge: No intraluminal stones or sludge. Wall: 1.7 mm in thickness. No discontinuity. No polyps. No pericholecystic fluid. No hyperemia. Sonographic Sewell's sign: Negative Portal vein: Portal vein caliber is within normal limits. Portal vein is patent with hepatopetal flow. Pancreas: Incompletely visualized. However the visualized portions are grossly within normal limits. Right kidney: parenchyma echogenicity: Normal echogenicity size: 9.5 x 4.1 x 3.9 cm stones: none cysts/masses: none PAGE 1 Signed Report (CONTINUED) Name: LLOYD MALIKGALO Gonzalo [facility] : 1995 Age/S: 23 / F [address] [facility] Unit #: [id number] Loc: [place], [place] [address] Phys: Aydee Cuevas MD Acct: [id number] Dis Date: Status: [facility] ER PHONE #: [phone] Exam Date: 06/03/20191940 FAX #: [phone] Reason: pain, swelling, mono EXAMS: CPT CODE: [id number] US ABDOMEN COMPLETE 41706 < Continued> hydronephrosis: none Left kidney: parenchyma echogenicity: Normal echogenicity size: 10.1 x 5.4 x 3.9 cm stones: none cysts/masses: none hydronephrosis: none Spleen: size: 9.9 x 3.2 x 2.9 cm cysts/masses: Parenchyma is sonographically unremarkable. Ascites/pleural effusions: None IMPRESSION: Hepatic steatosis. at 2001 Reported and signed by: Xavier Patten MD CC: Aydee Cuevas MD Technologist: Lynsey Trujillo RDMS [facility] Date/Time: 06/03/2019 (2001) [email or web address] Orig Print D/T: S: 06/03/2019 (2004) Probe: PAGE 2 Signed Report STREPTOCOCCUS PCR [id number] 05:49:00* Test Item Value Reference Range Interpretation Comments STREPTOCOCCUS DYSGALACTIAE (test code = STREPGC) NEGATIVE FOR G/C N EGATIVE STREPA MOLECULAR (test code = STREPAMOL) POSITIVE FOR GRP A NEGATIV E BASIC METABOLIC [id number] 23:02:00* Test Item Value Reference Range Interpretation Comments SODIUM (test code = NA) 142 mmol/L 136-145 N POTASSIUM (test code = K) 3.8 mmol/L 3.5-5.1 N CHLORIDE (test code = CL) 110.0 mmol/L 98-107 H CARBON DIOXIDE (test code = CO2) 25.0 mmol/L 21-32 N ANION GAP (test code = GAP) 10.8 10-20 N GLUCOSE (test code = GLU) 107 mg/dL 74-106 H BLOOD UREA NITROGEN (test code = BUN) 11 mg/dL 7-18 N GLOMERULAR FILTRATION RATE (test code = GFR) > 60 mL/min >=60 Estimated GFR by using Modified MDRD formula.Chronic kidney disease is defined as either kidney damageor GFR <60 mL/min/1.73 m2 for >3 months. CREATININE (test code = CREAT) 0.60 mg/dL 0.55-1.02 N Note change in reference range due to change in reagent. BUN/CREATININE RATIO (test code = BUN/CREA) 16.9 10-20 N CALCIUM (test code = CA) 8.5 mg/dL 8.5-10.1 N HEPATIC FUNCTION [id number] 23:02:00* Test Item Value Reference Range Interpretation Comments TOTAL PROTEIN (test code = PROT) 7.0 gram/dL 6.4-8.2 N ALBUMIN (test code = ALB) 3.7 g/dL 3.4-5.0 N GLOBULIN (test code = GLOB) 3.3 gram/dL 2.7-4.2 N ALBUMIN/GLOBULIN RATIO (test code = A/G) 1.1 0.75-1.50 N BILIRUBIN TOTAL (test code = BILT) 0.20 mg/dL 0.0-1.0 N BILIRUBIN DIRECT (test code = BILD) < 0.05 mg/dL 0.0-0.20 N SGOT/AST (test code = AST) 13 IUnit/L 15-37 L SGPT/ALT (test code = ALT) 15 IUnit/L 12-78 N ALKALINE PHOSPHATASE TOTAL (test code = ALKP) 70 IUnit/L 45-117 N Note change in reference range due to change in reagent. HCG SERUM [id number] 23:02:00* Test Item Value Reference Range Interpretation Comments HCG SERUM QUAL (test code = HCGQL) NEGATIVE NEGATIVE This HCGQL test is NOT applicable for MALE patients.Check with nurse about probable order error.If Tumor Marker Test needed, nurse should order test "HCGTU"(Test #550.89916) [id number] 23:02:00* Test Item Value Reference Range Interpretation Comments TROPONIN-I (test code = TROPI) <0.015 ng/mL 0-0.045 N BASIC METABOLIC [id number] 22:57:00* Test Item Value Reference Range Interpretation Comments SODIUM (test code = NA) 142 mmol/L 136-145 N POTASSIUM (test code = K) 3.8 mmol/L 3.5-5.1 N CHLORIDE (test code = CL) 110.0 mmol/L 98-107 H CARBON DIOXIDE (test code = CO2) 25.0 mmol/L 21-32 N ANION GAP (test code = GAP) 10.8 10-20 N GLUCOSE (test code = GLU) 107 mg/dL 74-106 H BLOOD UREA NITROGEN (test code = BUN) 11 mg/dL 7-18 N GLOMERULAR FILTRATION RATE (test code = GFR) > 60 mL/min >=60 Estimated GFR by using Modified MDRD formula.Chronic kidney disease is defined as either kidney damageor GFR <60 mL/min/1.73 m2 for >3 months. CREATININE (test code = CREAT) 0.60 mg/dL 0.55-1.02 N Note change in reference range due to change in reagent. BUN/CREATININE RATIO (test code = BUN/CREA) 16.9 10-20 N CALCIUM (test code = CA) 8.5 mg/dL 8.5-10.1 N HEPATIC FUNCTION [id number] 22:57:00* Test Item Value Reference Range Interpretation Comments TOTAL PROTEIN (test code = PROT) 7.0 gram/dL 6.4-8.2 N ALBUMIN (test code = ALB) 3.7 g/dL 3.4-5.0 N GLOBULIN (test code = GLOB) 3.3 gram/dL 2.7-4.2 N ALBUMIN/GLOBULIN RATIO (test code = A/G) 1.1 0.75-1.50 N BILIRUBIN TOTAL (test code = BILT) 0.20 mg/dL 0.0-1.0 N BILIRUBIN DIRECT (test code = BILD) < 0.05 mg/dL 0.0-0.20 N SGOT/AST (test code = AST) 13 IUnit/L 15-37 L SGPT/ALT (test code = ALT) 15 IUnit/L 12-78 N ALKALINE PHOSPHATASE TOTAL (test code = ALKP) 70 IUnit/L 45-117 N Note change in reference range due to change in reagent. HCG SERUM [id number] 22:57:00* Test Item Value Reference Range Interpretation Comments HCG SERUM QUAL (test code = HCGQL) NEGATIVE [id number] 22:57:00* Test Item Value Reference Range Interpretation Comments TROPONIN-I (test code = TROPI) <0.015 ng/mL 0-0.045 N LACTIC [id number] 22:51:00* Test Item Value Reference Range Interpretation Comments LACTIC ACID (test code = LACT) 1.1 mmol/L 0.4-1.9 N BASIC METABOLIC [id number] 22:44:00* Test Item Value Reference Range Interpretation Comments SODIUM (test code = NA) 142 mmol/L 136-145 N POTASSIUM (test code = K) 3.8 mmol/L 3.5-5.1 N CHLORIDE (test code = CL) 110.0 mmol/L 98-107 H CARBON DIOXIDE (test code = CO2) mmol/L 21-32 ANION GAP (test code = GAP) 10-20 GLUCOSE (test code = GLU) mg/dL 74-106 BLOOD UREA NITROGEN (test code = BUN) mg/dL 7-18 GLOMERULAR FILTRATION RATE (test code = GFR) mL/min >=60 CREATININE (test code = CREAT) mg/dL 0.55-1.02 BUN/CREATININE RATIO (test code = BUN/CREA) 10-20 CALCIUM (test code = CA) mg/dL 8.5-10.1 HEPATIC FUNCTION [id number] 22:44:00* Test Item Value Reference Range Interpretation Comments TOTAL PROTEIN (test code = PROT) gram/dL 6.4-8.2 ALBUMIN (test code = ALB) g/dL 3.4-5.0 GLOBULIN (test code = GLOB) gram/dL 2.7-4.2 ALBUMIN/GLOBULIN RATIO (test code = A/G) 0.75-1.50 BILIRUBIN TOTAL (test code = BILT) mg/dL 0.0-1.0 BILIRUBIN DIRECT (test code = BILD) mg/dL 0.0-0.20 SGOT/AST (test code = AST) IUnit/L 15-37 SGPT/ALT (test code = ALT) IUnit/L 12-78 ALKALINE PHOSPHATASE TOTAL (test code = ALKP) IUnit/L 45-117 HCG SERUM [id number] 22:44:00* Test Item Value Reference Range Interpretation Comments HCG SERUM QUAL (test code = HCGQL) NEGATIVE [id number] 22:44:00* Test Item Value Reference Range Interpretation Comments TROPONIN-I (test code = TROPI) ng/mL 0-0.045 MONO [id number] 22:35:00* Test Item Value Reference Range Interpretation Comments MONO SCREEN (test code = MONO) POSITIVE NEGATIVE A URINALYSIS [id number] 20:49:00* Test Item Value Reference Range Interpretation Comments UA COLOR (test code = COLU) Light-Yellow YELLOW UA APPEARANCE (test code = APPU) CLEAR CLEAR UA GLUCOSE DIPSTICK (test code = DGLUU) NEGATIVE mg/dL NEGATIVE UA BILIRUBIN DIPSTICK (test code = BILU) NEGATIVE mg/dL NEGATIVE UA KETONE DIPSTICK (test code = KETU) NEGATIVE mg/dL NEGATIVE UA SPECIFIC GRAVITY (test code = SGU) 1.013 1.001-1.035 UA BLOOD DIPSTICK (test code = TIFFANIE) Negative mg/dL NEGATIVE UA PH DIPSTICK (test code = JOSH) 7.0 5.0-8.0 UA PROTEIN DIPSTICK (test code = PROU) NEGATIVE mg/dL NEGATIVE UA UROBILINIOGEN DIPSTICK (test code = URO) Normal mg/dL NEGATIVE UA NITRITE DIPSTICK (test code = DIEGO) NEGATIVE NEGATIVE UA LEUKOCYTE ESTERASE W REFLEX (test code = LEUUR) NEGATIVE Lazaro/uL NEGATIVE UA WBC (test code = WBCU) 0-5 per HPF 0-5 UA RBC (test code = RBCU) 0-2 #/HPF 0-5 UA EPITHELIAL CELLS (test code = EPIU) FEW per HPF FEW UA BACTERIA (test code = BACU) FEW #/HPF NONE A Urine Source? Clean CatchCBC W/AUTO [id number] 20:35:00* Test Item Value Reference Range Interpretation Comments WHITE BLOOD CELL (test code = WBC) 8.9 K/mm3 4.5-12.5 N RED BLOOD CELL (test code = RBC) 4.77 mill/mm3 3.7-5.2 N HEMOGLOBIN (test code = HGB) 10.8 gram/dL 11.5-15.5 L HEMATOCRIT (test code = HCT) 35.3 % 36.0-46.0 L MEAN CELL VOLUME (test code = MCV) 74.0 fL 80-98 L MEAN CELL HGB (test code = MCH) 22.6 picogram 27.0-33.0 L MEAN CELL HGB CONCETRATION (test code = MCHC) 30.6 gram/dL 33.0-36. 0 L RED CELL DISTRIBUTION WIDTH (test code = RDW) 16.9 % 11.6-16. 2 H RED CELL DISTRIBUTION WIDTH SD (test code = RDW-SD) 45.0 fL 37 .0-51.0 N PLATELET COUNT (test code = PLT) 387 K/mm3 150-450 N MEAN PLATELET VOLUME (test code = MPV) 10.0 fL 6.7-11.0 N NEUTROPHIL % (test code = NT%) 61.1 % 39.0-69.0 N IMMATURE GRANULOCYTE % (test code = IG%) 0.2 % 0.0-5.0 N LYMPHOCYTE % (test code = LY%) 28.8 % 25.0-55.0 N MONOCYTE % (test code = MO%) 6.5 % 0.0-10.0 N EOSINOPHIL % (test code = EO%) 2.6 % 0.0-5.0 N BASOPHIL % (test code = BA%) 0.8 % 0.0-1.0 N NUCLEATED RBC % (test code = NRBC%) 0.0 % 0-0 N NEUTROPHIL # (test code = NT#) 5.46 K/mm3 1.8-7.7 N IMMATURE GRANULOCYTE # (test code = IG#) 0.02 x10 3/uL 0-0.03 N LYMPHOCYTE # (test code = LY#) 2.57 K/mm3 1.0-5.0 N MONOCYTE # (test code = MO#) 0.58 K/mm3 0-0.8 N EOSINOPHIL # (test code = EO#) 0.23 K/mm3 0.0-0.5 N BASOPHIL # (test code = BA#) 0.07 K/mm3 0.0-0.2 N NUCLEATED RBC # (test code = NRBC#) 0.00 K/mm3 0.0-0.1 N MANUAL DIFF REQUIRED (test code = MDIFF) NO - XR CHEST 1 [id number] 19:38:00 FAX: Marquita Crawford [phone] [place]: [address]: REG Name: GALO GUERIN [facility] : [birth year] Age/S: 23/F [address] Unit #: [id number] Loc: [place] [address] Phys: Marquita Mcnamara MD Acct: [id number] Dis Date: Status: REG ER PHONE #: [phone] Exam Date: 06/02/20191926 FAX #: [phone] Reason: CODE SEPSIS EXAMS: CPT CODE: [id number] XR CHEST 1 V 08978 HISTORY: Fever and sore throat. COMPARISON: None available. No acute infiltrates, effusion or congestion is noted. The cardiac and mediastinal silhouette are within normal limits. IMPRESSION: No acute infiltrates, effusion or congestion. at 1938 Reported and signed by: Jose Shaw M.D. CC: Marquita Mcnamara MD Technologist: Bruno Wray RT(R); GILMA EARLY RT(R) Trnscrd Date/Time/By: 06/02/2019 (1937) : By: [email or web address] Orig Print D/T: S: 06/02/2019 (1941) PAGE 1 Signed Report - XR CHEST 1 V 2019-06-02 19:38:00 FAX: Marquita Crawford [phone] [place]: [address]: DEP Name: GALO MONTIEL [facility] : [birth year] Age/S: 23/F [address] Unit #: [id number] Loc: [place] [address] Phys: Marquita Mcnamara MD Acct: [id number] Dis Date: Status: DEP ER PHONE #: [phone] Exam Date: 06/02/2019 192 FAX #: [phone] Reason: CODE SEPSIS EXAMS: CPT CODE: [id number] XR CHEST 1 V 54281 HISTORY: Fever and sore throat. COMPARISON: None available. No acute infiltrates, effusion or congestion is noted. The cardiac and mediastinal silhouette are within normal limits. IMPRESSION: No acute infiltrates, effusion or congestion. at 1938 Reported and signed by: Jose Shaw M.D. CC: Marquita Mcnamara MD Technologist: Bruno Wray RT(R); GILMA EARLY RT(R) Trnscrd Date/Time/By: 06/02/2019 (1937) : By: [email or web address] Orig Print D/T: S: 06/02/2019 (1941) PAGE 1 Signed Report HIV 1 2 COMBO AG/AB [id number] 20:21:00* Test Item Value Reference Range Interpretation Comments HIV 1 2 COMBO AG/AB SCREEN (test code = [id number]) AB/AG NO N REACTIVE NONREACTIVE NONREACTIVE HIV P24 ANTI GEN NONREACTIVE NONREACTIVE HIV 1&2 ANTIBODY NONREACTIVE THE HIV-1 P24 TEST HELPS DISTINGUISH ACUTE HIV-1INFECTIONFROM ESTABLISHED HIV-1 INFECTION WHEN THE SPECIMEN ISPOSITIVE FOR HIV-1 P24 ANTIGEN. HIV-1 P24 ANTIGEN IS HIGHEST IN THE FIRST FEW WEEKS AFTERINFECTION BASIC METABOLIC [id number] 20:20:00* Test Item Value Reference Range Interpretation Comments SODIUM (test code = NA) 140 mmol/L 136-145 N POTASSIUM (test code = K) 3.4 mmol/L 3.5-5.1 L CHLORIDE (test code = CL) 104.0 mmol/L 98-107 N CARBON DIOXIDE (test code = CO2) 27.0 mmol/L 21-32 N ANION GAP (test code = GAP) 12.4 10-20 N GLUCOSE (test code = GLU) 111 mg/dL 74-106 H BLOOD UREA NITROGEN (test code = BUN) 11 mg/dL 7-18 N GLOMERULAR FILTRATION RATE (test code = GFR) > 60 mL/min >=60 Estimated GFR by using Modified MDRD formula.Chronic kidney disease is defined as either kidney damageor GFR <60 mL/min/1.73 m2 for >3 months. CREATININE (test code = CREAT) 0.60 mg/dL 0.55-1.02 N Note change in reference range due to change in reagent. BUN/CREATININE RATIO (test code = BUN/CREA) 18.3 10-20 N CALCIUM (test code = CA) 9.3 mg/dL 8.5-10.1 N HCG SERUM [id number] 20:20:00* Test Item Value Reference Range Interpretation Comments HCG SERUM QUAL (test code = HCGQL) NEGATIVE NEGATIVE This HCGQL test is NOT applicable for MALE patients.Check with nurse about probable order error.If Tumor Marker Test needed, nurse should order test "HCGTU"(Test #[id number]) [id number] 20:20:00* Test Item Value Reference Range Interpretation Comments TROPONIN-I (test code = TROPI) <0.015 ng/mL 0-0.045 N - XR CHEST 1 [id number] 20:02:00 FAX: Naveen Iglesias MD [place]: St: REG Name: GALO STONER [facility] : [birth year] Age/S: 23/F [address] Unit #: [id number] Loc: [place] [address] Phys: Naveen Iglesias MD Acct: [id number] Dis Date: Status: REG ER PHONE #: [phone] Exam Date: 04/03/20191958 FAX #: [phone] Reason: CHEST PAIN EXAMS: CPT CODE: [id number] XR CHEST 1 V [id number] REASON FOR EXAM: CHEST PAIN EXAM ORDER DATE: 04/03/2019 6:27 PM Ordering Kai: Naveen Iglesias MD PROCEDURE: - XR CHEST 1 V COMPARISON: FINDINGS: Portable AP frontal view of the chest obtained at 7:59 PM shows clear lungs without evidence of consolidation. There is no evidence of effusion. The heart size is within normal limits. Pulmonary vasculatures are unremarkable. IMPRESSION: No active disease. at 2001 Reported and signed by: Moi Salinas M.D. CC: Naveen Iglesias MD Technologist: NUPUR DUARTE Trnmnrd Date/Time/By: 04/03/2019 ( 2001) : By: SilvanaVTL Orig Print D/T: S: 04/03/2019 (2004) PAGE 1 Signed Report - XR CHEST 1 [id number] 20:02:00 FAX: Naveen Iglesias MD [place]: B St: DEP Name: GALO MONTIEL [facility] : [birth year] Age/S: 23/F [address] [facility] Unit #: [id number] Loc: [place] [address] Phys: Naveen Iglesias MD Acct: [id number] Dis Date: Status: DEP ER PHONE #: [phone] Exam Date: 04/03/20191958 FAX #: [phone] Reason: CHEST PAIN EXAMS: CPT CODE: [id number] XR CHEST 1 V [id number] REASON FOR EXAM: CHEST PAIN EXAM ORDER DATE: 04/03/2019 6:27 PM Ordering Kai: Naveen Iglesias MD PROCEDURE: - XR CHEST 1 V COMPARISON: FINDINGS: Portable AP frontal view of the chest obtained at 7:59 PM shows clear lungs without evidence of consolidation. There is no evidence of effusion. The heart size is within normal limits. Pulmonary vasculatures are unremarkable. IMPRESSION: No active disease. at 2001 Reported and signed by: Moi Salinas M.D. CC: Naveen Iglesias MD Technologist: NUPUR DUARTE Trnscrd Date/Time/By: 04/03/2019 ( 2001) : By: GildaL Orig Print D/T: S: 04/03/2019 (2004) PAGE 1 Signed Report BASIC METABOLIC [id number] 19:47:00* Test Item Value Reference Range Interpretation Comments SODIUM (test code = NA) 140 mmol/L 136-145 N POTASSIUM (test code = K) 3.4 mmol/L 3.5-5.1 L CHLORIDE (test code = CL) 104.0 mmol/L 98-107 N CARBON DIOXIDE (test code = CO2) mmol/L 21-32 ANION GAP (test code = GAP) 10-20 GLUCOSE (test code = GLU) mg/dL 74-106 BLOOD UREA NITROGEN (test code = BUN) mg/dL 7-18 GLOMERULAR FILTRATION RATE (test code = GFR) mL/min >=60 CREATININE (test code = CREAT) mg/dL 0.55-1.02 BUN/CREATININE RATIO (test code = BUN/CREA) 10-20 CALCIUM (test code = CA) mg/dL 8.5-10.1 HCG SERUM [id number] 19:47:00* Test Item Value Reference Range Interpretation Comments HCG SERUM QUAL (test code = HCGQL) NEGATIVE NEGATIVE This HCGQL test is NOT applicable for MALE patients.Check with nurse about probable order error.If Tumor Marker Test needed, nurse should order test "HCGTU"(Test #[id number]) [id number] 19:47:00* Test Item Value Reference Range Interpretation Comments TROPONIN-I (test code = TROPI) ng/mL 0-0.045 PROCALCITONIN (PCT)2019-04-03 19:45:00* Test Item Value Reference Range Interpretation Comments PROCALCITONIN (PCT) (test code = PROCAL) < 0.05 ng/ml Concentration Interpretation (ng/mL) <0.51 Sepsis is not likely. Local bacterial infection is possible. (LOW RISK for progression to Sepsis) 0.51 - 2.00 Sepsis is possible, but other conditions are known to elevate PCT as well. (MODERATE RISK for progression to Sepsis) > 2.00 Sepsis is likely, unless other causes are known. (HIGH RISK for progression to Severe Sepsis or Septic Shock) 10.00 High likelihood of Severe Sepsis or Septic or higher Shock. *Increased PCT levels may not always be related to systemic bacterial infection.*Low PCT levels do not automatically exclude the presence of bacterial infection.*All results should be interpreted taking into account the patients history. BASIC METABOLIC [id number] 19:15:00* Test Item Value Reference Range Interpretation Comments SODIUM (test code = NA) mmol/L 136-145 POTASSIUM (test code = K) mmol/L 3.5-5.1 CHLORIDE (test code = CL) mmol/L 98-107 CARBON DIOXIDE (test code = CO2) mmol/L 21-32 ANION GAP (test code = GAP) 10-20 GLUCOSE (test code = GLU) mg/dL 74-106 BLOOD UREA NITROGEN (test code = BUN) mg/dL 7-18 GLOMERULAR FILTRATION RATE (test code = GFR) mL/min >=60 CREATININE (test code = CREAT) mg/dL 0.55-1.02 BUN/CREATININE RATIO (test code = BUN/CREA) 10-20 CALCIUM (test code = CA) mg/dL 8.5-10.1 HCG SERUM [id number] 19:15:00* Test Item Value Reference Range Interpretation Comments HCG SERUM QUAL (test code = HCGQL) NEGATIVE NEGATIVE This HCGQL test is NOT applicable for MALE patients.Check with nurse about probable order error.If Tumor Marker Test needed, nurse should order test "HCGTU"(Test #550.48813) [id number] 19:15:00* Test Item Value Reference Range Interpretation Comments TROPONIN-I (test code = TROPI) ng/mL 0-0.045 LACTIC [id number] 19:14:00* Test Item Value Reference Range Interpretation Comments LACTIC ACID (test code = LACT) 1.4 mmol/L 0.4-1.9 N CBC W/O [id number] 18:56:00* Test Item Value Reference Range Interpretation Comments WHITE BLOOD CELL (test code = WBC) 15.3 K/mm3 4.5-12.5 H RED BLOOD CELL (test code = RBC) 4.77 mill/mm3 3.7-5.2 N HEMOGLOBIN (test code = HGB) 10.8 gram/dL 11.5-15.5 L HEMATOCRIT (test code = HCT) 36.5 % 36.0-46.0 N MEAN CELL VOLUME (test code = MCV) 76.5 fL 80-98 L MEAN CELL HGB (test code = MCH) 22.6 picogram 27.0-33.0 L MEAN CELL HGB CONCETRATION (test code = MCHC) 29.6 gram/dL 33.0-36. 0 L RED CELL DISTRIBUTION WIDTH (test code = RDW) 15.9 % 11.6-16. 2 N PLATELET COUNT (test code = PLT) 447 K/mm3 150-450 N MEAN PLATELET VOLUME (test code = MPV) 9.2 fL 6.7-11.0 N CBC W/O [id number] 18:54:00* Test Item Value Reference Range Interpretation Comments WHITE BLOOD CELL (test code = WBC) K/mm3 4.5-12.5 RED BLOOD CELL (test code = RBC) mill/mm3 3.7-5.2 HEMOGLOBIN (test code = HGB) gram/dL 11.5-15.5 HEMATOCRIT (test code = HCT) 36.5 % 36.0-46.0 N MEAN CELL VOLUME (test code = MCV) fL 80-98 MEAN CELL HGB (test code = MCH) picogram 27.0-33.0 MEAN CELL HGB CONCETRATION (test code = MCHC) gram/dL 33.0-36. 0 RED CELL DISTRIBUTION WIDTH (test code = RDW) % 11.6-16. 2 PLATELET COUNT (test code = PLT) K/mm3 150-450 MEAN PLATELET VOLUME (test code = MPV) fL 6.7-11.0 CBC W/AUTO [id number] 07:46:00* Test Item Value Reference Range Interpretation Comments WHITE BLOOD CELL (test code = WBC) 11.1 K/mm3 4.5-12.5 N RED BLOOD CELL (test code = RBC) 4.46 mill/mm3 3.7-5.2 N HEMOGLOBIN (test code = HGB) 10.6 gram/dL 11.5-15.5 L HEMATOCRIT (test code = HCT) 35.6 % 36.0-46.0 L MEAN CELL VOLUME (test code = MCV) 79.8 fL 80-98 L MEAN CELL HGB (test code = MCH) 23.8 picogram 27.0-33.0 L MEAN CELL HGB CONCETRATION (test code = MCHC) 29.8 gram/dL 33.0-36. 0 L RED CELL DISTRIBUTION WIDTH (test code = RDW) 15.0 % 11.6-16. 2 N RED CELL DISTRIBUTION WIDTH SD (test code = RDW-SD) 43.6 fL 37 .0-51.0 N PLATELET COUNT (test code = PLT) 290 K/mm3 150-450 MEAN PLATELET VOLUME (test code = MPV) 9.8 fL 6.7-11.0 N NEUTROPHIL % (test code = NT%) 63.9 % 39.0-69.0 N IMMATURE GRANULOCYTE % (test code = IG%) 0.3 % 0.0-5.0 N LYMPHOCYTE % (test code = LY%) 24.1 % 25.0-55.0 L MONOCYTE % (test code = MO%) 8.5 % 0.0-10.0 N EOSINOPHIL % (test code = EO%) 2.7 % 0.0-5.0 N BASOPHIL % (test code = BA%) 0.5 % 0.0-1.0 N NUCLEATED RBC % (test code = NRBC%) 0.0 % 0-0 N NEUTROPHIL # (test code = NT#) 7.08 K/mm3 1.8-7.7 N IMMATURE GRANULOCYTE # (test code = IG#) 0.03 x10 3/uL 0-0.03 N LYMPHOCYTE # (test code = LY#) 2.66 K/mm3 1.0-5.0 N MONOCYTE # (test code = MO#) 0.94 K/mm3 0-0.8 H EOSINOPHIL # (test code = EO#) 0.30 K/mm3 0.0-0.5 N BASOPHIL # (test code = BA#) 0.05 K/mm3 0.0-0.2 N NUCLEATED RBC # (test code = NRBC#) 0.00 K/mm3 0.0-0.1 N MANUAL DIFF REQUIRED (test code = MDIFF) NO, ONLY SCAN NEEDED DIFFERENTIAL [id number] 07:46:00* Test Item Value Reference Range Interpretation Comments STAIN ACCEPTABILITY (test code = STN ACCEPTABLE) STAIN ACCEPTABLE POLYCHROMASIA (test code = POLC) 1+ ANISOCYTOSIS (test code = ANISO) 1+ MICROCYTOSIS (test code = MICR) 1+ PLATELET ESTIMATE (test code = PLTEST) ADEQUATE PLATELET MORPHOLOGY (test code = PLTMORPH) NORMAL BASIC METABOLIC [id number] 07:41:00* Test Item Value Reference Range Interpretation Comments SODIUM (test code = NA) 142 mmol/L 136-145 N POTASSIUM (test code = K) 3.7 mmol/L 3.5-5.1 N CHLORIDE (test code = CL) 112.0 mmol/L 98-107 H CARBON DIOXIDE (test code = CO2) 23.0 mmol/L 21-32 N ANION GAP (test code = GAP) 10.7 10-20 N GLUCOSE (test code = GLU) 96 mg/dL 74-106 N BLOOD UREA NITROGEN (test code = BUN) 3 mg/dL 7-18 L GLOMERULAR FILTRATION RATE (test code = GFR) > 60 mL/min >=60 Estimated GFR by using Modified MDRD formula.Chronic kidney disease is defined as either kidney damageor GFR <60 mL/min/1.73 m2 for >3 months. CREATININE (test code = CREAT) 0.40 mg/dL 0.55-1.02 L Note change in reference range due to change in reagent. BUN/CREATININE RATIO (test code = BUN/CREA) 7.0 10-20 L CALCIUM (test code = CA) 9.0 mg/dL 8.5-10.1 N BASIC METABOLIC [id number] 07:34:00* Test Item Value Reference Range Interpretation Comments SODIUM (test code = NA) 142 mmol/L 136-145 N POTASSIUM (test code = K) 3.7 mmol/L 3.5-5.1 N CHLORIDE (test code = CL) 112.0 mmol/L 98-107 H CARBON DIOXIDE (test code = CO2) mmol/L 21-32 ANION GAP (test code = GAP) 10-20 GLUCOSE (test code = GLU) mg/dL 74-106 BLOOD UREA NITROGEN (test code = BUN) mg/dL 7-18 GLOMERULAR FILTRATION RATE (test code = GFR) mL/min >=60 CREATININE (test code = CREAT) mg/dL 0.55-1.02 BUN/CREATININE RATIO (test code = BUN/CREA) 10-20 CALCIUM (test code = CA) mg/dL 8.5-10.1 CBC W/AUTO [id number] 06:58:00* Test Item Value Reference Range Interpretation Comments WHITE BLOOD CELL (test code = WBC) 11.1 K/mm3 4.5-12.5 N RED BLOOD CELL (test code = RBC) 4.46 mill/mm3 3.7-5.2 N HEMOGLOBIN (test code = HGB) 10.6 gram/dL 11.5-15.5 L HEMATOCRIT (test code = HCT) 35.6 % 36.0-46.0 L MEAN CELL VOLUME (test code = MCV) 79.8 fL 80-98 L MEAN CELL HGB (test code = MCH) 23.8 picogram 27.0-33.0 L MEAN CELL HGB CONCETRATION (test code = MCHC) 29.8 gram/dL 33.0-36. 0 L RED CELL DISTRIBUTION WIDTH (test code = RDW) 15.0 % 11.6-16. 2 N RED CELL DISTRIBUTION WIDTH SD (test code = RDW-SD) 43.6 fL 37 .0-51.0 N PLATELET COUNT (test code = PLT) 290 K/mm3 150-450 MEAN PLATELET VOLUME (test code = MPV) 9.8 fL 6.7-11.0 N NEUTROPHIL % (test code = NT%) 63.9 % 39.0-69.0 N IMMATURE GRANULOCYTE % (test code = IG%) 0.3 % 0.0-5.0 N LYMPHOCYTE % (test code = LY%) 24.1 % 25.0-55.0 L MONOCYTE % (test code = MO%) 8.5 % 0.0-10.0 N EOSINOPHIL % (test code = EO%) 2.7 % 0.0-5.0 N BASOPHIL % (test code = BA%) 0.5 % 0.0-1.0 N NUCLEATED RBC % (test code = NRBC%) 0.0 % 0-0 N NEUTROPHIL # (test code = NT#) 7.08 K/mm3 1.8-7.7 N IMMATURE GRANULOCYTE # (test code = IG#) 0.03 x10 3/uL 0-0.03 N LYMPHOCYTE # (test code = LY#) 2.66 K/mm3 1.0-5.0 N MONOCYTE # (test code = MO#) 0.94 K/mm3 0-0.8 H EOSINOPHIL # (test code = EO#) 0.30 K/mm3 0.0-0.5 N BASOPHIL # (test code = BA#) 0.05 K/mm3 0.0-0.2 N NUCLEATED RBC # (test code = NRBC#) 0.00 K/mm3 0.0-0.1 N MANUAL DIFF REQUIRED (test code = MDIFF) NO, ONLY SCAN NEEDED DIFFERENTIAL [id number] 06:58:00* Test Item Value Reference Range Interpretation Comments STAIN ACCEPTABILITY (test code = STN ACCEPTABLE) MORPHOLOGY COMMENT (test code = MOC) PLATELET ESTIMATE (test code = PLTEST) PLATELET MORPHOLOGY (test code = PLTMORPH) CBC W/AUTO [id number] 06:57:00* Test Item Value Reference Range Interpretation Comments WHITE BLOOD CELL (test code = WBC) 11.1 K/mm3 4.5-12.5 N RED BLOOD CELL (test code = RBC) 4.46 mill/mm3 3.7-5.2 N HEMOGLOBIN (test code = HGB) 10.6 gram/dL 11.5-15.5 L HEMATOCRIT (test code = HCT) 35.6 % 36.0-46.0 L MEAN CELL VOLUME (test code = MCV) 79.8 fL 80-98 L MEAN CELL HGB (test code = MCH) 23.8 picogram 27.0-33.0 L MEAN CELL HGB CONCETRATION (test code = MCHC) 29.8 gram/dL 33.0-36. 0 L RED CELL DISTRIBUTION WIDTH (test code = RDW) 15.0 % 11.6-16. 2 N RED CELL DISTRIBUTION WIDTH SD (test code = RDW-SD) 43.6 fL 37 .0-51.0 N PLATELET COUNT (test code = PLT) 290 K/mm3 150-450 MEAN PLATELET VOLUME (test code = MPV) 9.8 fL 6.7-11.0 N NEUTROPHIL % (test code = NT%) 63.9 % 39.0-69.0 N IMMATURE GRANULOCYTE % (test code = IG%) 0.3 % 0.0-5.0 N LYMPHOCYTE % (test code = LY%) 24.1 % 25.0-55.0 L MONOCYTE % (test code = MO%) 8.5 % 0.0-10.0 N EOSINOPHIL % (test code = EO%) 2.7 % 0.0-5.0 N BASOPHIL % (test code = BA%) 0.5 % 0.0-1.0 N NUCLEATED RBC % (test code = NRBC%) 0.0 % 0-0 N NEUTROPHIL # (test code = NT#) 7.08 K/mm3 1.8-7.7 N IMMATURE GRANULOCYTE # (test code = IG#) 0.03 x10 3/uL 0-0.03 N LYMPHOCYTE # (test code = LY#) 2.66 K/mm3 1.0-5.0 N MONOCYTE # (test code = MO#) 0.94 K/mm3 0-0.8 H EOSINOPHIL # (test code = EO#) 0.30 K/mm3 0.0-0.5 N BASOPHIL # (test code = BA#) 0.05 K/mm3 0.0-0.2 N NUCLEATED RBC # (test code = NRBC#) 0.00 K/mm3 0.0-0.1 N MANUAL DIFF REQUIRED (test code = MDIFF) NO, ONLY SCAN NEEDED DIFFERENTIAL [id number] 06:57:00* Test Item Value Reference Range Interpretation Comments STAIN ACCEPTABILITY (test code = STN ACCEPTABLE) CABOT RINGS (test code = CAB) MORPHOLOGY COMMENT (test code = MOC) PLATELET ESTIMATE (test code = PLTEST) PLATELET MORPHOLOGY (test code = PLTMORPH) CBC W/AUTO [id number] 06:57:00* Test Item Value Reference Range Interpretation Comments WHITE BLOOD CELL (test code = WBC) 11.1 K/mm3 4.5-12.5 N RED BLOOD CELL (test code = RBC) 4.46 mill/mm3 3.7-5.2 N HEMOGLOBIN (test code = HGB) 10.6 gram/dL 11.5-15.5 L HEMATOCRIT (test code = HCT) 35.6 % 36.0-46.0 L MEAN CELL VOLUME (test code = MCV) 79.8 fL 80-98 L MEAN CELL HGB (test code = MCH) 23.8 picogram 27.0-33.0 L MEAN CELL HGB CONCETRATION (test code = MCHC) 29.8 gram/dL 33.0-36. 0 L RED CELL DISTRIBUTION WIDTH (test code = RDW) 15.0 % 11.6-16. 2 N RED CELL DISTRIBUTION WIDTH SD (test code = RDW-SD) 43.6 fL 37 .0-51.0 N PLATELET COUNT (test code = PLT) 290 K/mm3 150-450 MEAN PLATELET VOLUME (test code = MPV) 9.8 fL 6.7-11.0 N NEUTROPHIL % (test code = NT%) 63.9 % 39.0-69.0 N IMMATURE GRANULOCYTE % (test code = IG%) 0.3 % 0.0-5.0 N LYMPHOCYTE % (test code = LY%) 24.1 % 25.0-55.0 L MONOCYTE % (test code = MO%) 8.5 % 0.0-10.0 N EOSINOPHIL % (test code = EO%) 2.7 % 0.0-5.0 N BASOPHIL % (test code = BA%) 0.5 % 0.0-1.0 N NUCLEATED RBC % (test code = NRBC%) 0.0 % 0-0 N NEUTROPHIL # (test code = NT#) 7.08 K/mm3 1.8-7.7 N IMMATURE GRANULOCYTE # (test code = IG#) 0.03 x10 3/uL 0-0.03 N LYMPHOCYTE # (test code = LY#) 2.66 K/mm3 1.0-5.0 N MONOCYTE # (test code = MO#) 0.94 K/mm3 0-0.8 H EOSINOPHIL # (test code = EO#) 0.30 K/mm3 0.0-0.5 N BASOPHIL # (test code = BA#) 0.05 K/mm3 0.0-0.2 N NUCLEATED RBC # (test code = NRBC#) 0.00 K/mm3 0.0-0.1 N MANUAL DIFF REQUIRED (test code = MDIFF) NO, ONLY SCAN NEEDED DIFFERENTIAL [id number] 06:57:00* Test Item Value Reference Range Interpretation Comments STAIN ACCEPTABILITY (test code = STN ACCEPTABLE) MORPHOLOGY COMMENT (test code = MOC) PLATELET ESTIMATE (test code = PLTEST) PLATELET MORPHOLOGY (test code = PLTMORPH) CBC W/AUTO [id number] 06:57:00* Test Item Value Reference Range Interpretation Comments WHITE BLOOD CELL (test code = WBC) 11.1 K/mm3 4.5-12.5 N RED BLOOD CELL (test code = RBC) 4.46 mill/mm3 3.7-5.2 N HEMOGLOBIN (test code = HGB) 10.6 gram/dL 11.5-15.5 L HEMATOCRIT (test code = HCT) 35.6 % 36.0-46.0 L MEAN CELL VOLUME (test code = MCV) 79.8 fL 80-98 L MEAN CELL HGB (test code = MCH) 23.8 picogram 27.0-33.0 L MEAN CELL HGB CONCETRATION (test code = MCHC) 29.8 gram/dL 33.0-36. 0 L RED CELL DISTRIBUTION WIDTH (test code = RDW) 15.0 % 11.6-16. 2 N RED CELL DISTRIBUTION WIDTH SD (test code = RDW-SD) 43.6 fL 37 .0-51.0 N PLATELET COUNT (test code = PLT) 290 K/mm3 150-450 MEAN PLATELET VOLUME (test code = MPV) 9.8 fL 6.7-11.0 N NEUTROPHIL % (test code = NT%) 63.9 % 39.0-69.0 N IMMATURE GRANULOCYTE % (test code = IG%) 0.3 % 0.0-5.0 N LYMPHOCYTE % (test code = LY%) 24.1 % 25.0-55.0 L MONOCYTE % (test code = MO%) 8.5 % 0.0-10.0 N EOSINOPHIL % (test code = EO%) 2.7 % 0.0-5.0 N BASOPHIL % (test code = BA%) 0.5 % 0.0-1.0 N NUCLEATED RBC % (test code = NRBC%) 0.0 % 0-0 N NEUTROPHIL # (test code = NT#) 7.08 K/mm3 1.8-7.7 N IMMATURE GRANULOCYTE # (test code = IG#) 0.03 x10 3/uL 0-0.03 N LYMPHOCYTE # (test code = LY#) 2.66 K/mm3 1.0-5.0 N MONOCYTE # (test code = MO#) 0.94 K/mm3 0-0.8 H EOSINOPHIL # (test code = EO#) 0.30 K/mm3 0.0-0.5 N BASOPHIL # (test code = BA#) 0.05 K/mm3 0.0-0.2 N NUCLEATED RBC # (test code = NRBC#) 0.00 K/mm3 0.0-0.1 N MANUAL DIFF REQUIRED (test code = MDIFF) NO, ONLY SCAN NEEDED DIFFERENTIAL [id number] 06:57:00* Test Item Value Reference Range Interpretation Comments STAIN ACCEPTABILITY (test code = STN ACCEPTABLE) CABOT RINGS (test code = CAB) MORPHOLOGY COMMENT (test code = MOC) PLATELET ESTIMATE (test code = PLTEST) PLATELET MORPHOLOGY (test code = PLTMORPH) - CT MAXIFAC W/O [id number] 20:01:00 Name: GALO CRISOSTOMO [facility] : 1995 Age/S: 22 / F [address] [facility] Unit #: [id number] Loc: [place] [address] Phys: Robert Mchugh MD Acct: [id number] Dis Date: Status: ADM IN PHONE #: [phone] Exam Date: 11/11/20181919 FAX #: [phone] Reason: R EAR PAIN; R FACE PAIN; SORE THROAT EXAMS: CPT CODE: [id number] [place]IFAC [place] [id number] EXAM: - CT MAXIFAC W/O CNT HISTORY: R EAR PAIN; R FACE PAIN; SORE THROAT TECHNIQUE: Axial images were obtained through the facial bones and orbits without IV contrast. Sagittal and coronal multiplanar reconstructions were created from the data. COMPARISON: None FINDINGS: The facial bones, including the mandible, are within normal limits. Specifically, there is no evidence of fracture, dislocation, or aggressive osseous lesions. The globes are normal in size, contour, and position. The course and caliber of the optic nerve sheath complex is within normal limits. The extraocular muscles, intraconal fat, and extraconal fat are within normal limits. The lacrimal glands appear normal. The orbital crow and optic canals are normal. The visualized intracranial structures appear normal. No lesion of the visualized skull base or calvarium is present. The visualized paranasal sinuses and tympanomastoid cavities are unopacified. Mastoid air cells are incompletely included on this exam however the visualized portions are clear. The visualized portions of the external auditory canals and middle ears are clear. Multiple cervical lymph nodes measuring up to 1.0 cm in size are present bilaterally. This is a nonspecific finding and these lymph nodes may be reactive. IMPRESSION: Multiple cervical lymph nodes measuring up to 1 cm in size are nonspecific and may be reactive. Otherwise Normal face CT. Please note that the mastoid air cells and external auditory canals are incompletely visualized. Additi onally the absence of IV contrast diminishes sensitivity of this exam fo r detecting soft tissue pathology. PAGE 1 Signed Report (CONTINUED) Name: TAMIA CRISOSTOMO [facility] : 1995 Age/S: 22 / F [address] [facility] Unit #: [id number] Loc: [place] [address] Phys: Robert Mchugh MD Acct: [id number] Dis Date: Stat us: ADM IN PHONE #: [phone] Exam Date: 11/11/2018 192 FAX #: [phone] Reason: R EAR SPEEDY N; R FACE PAIN; SORE THROAT EXAMS: CPT CODE: [id number] CT MAXIFAC W/[place] CNT [address]267 <Continued> at 2001 Reported and signed by: Xavier Patten MD CC: Yash Ryan MD; Robert Mchugh MD; Claire Christian Technologist:Efra Muniz, RT(R)(CT) CTDI: DLP: Trnscb Date/Time: 11/11/2018 (2000) [email or web address] Orig Print D/T: S: 11/11/2018 (2004) CTDI: DLP: PAGE 2 Signed Report - CT ABD PELVIS [id number] 02:27:00 Name: GALO CRISOSTOMO [facility] : 1995 Age/S: 22 / F [address] [facility] Unit #: [id number] Loc: [place] [address] Phys: Yash Ryan MD Acct: [id number] Dis Date: Status: ADM IN PHONE #: [phone] Exam Date: 11/11/2018 021 FAX #: [phone] Reason: left-sided flank pain, eval for pyelo EXAMS: CPT CODE: [id number] CT ABD PELVIS W/CONT 42901 EXAM: - CT ABD PELVIS W/CONT INDICATION: 22 years -old Female with left-sided flank pain, eval for pyelo TECHNIQUE: Contrast - IV contrast was given. No oral contrast was given Portal venous phase - abdomen and pelvis Delayed phase imaging was obtained through the abdomen and pelvis Reconstructions - coronal and sagittal planes Automated exposure reduction (Auto mA/Smart mA) was utilized in compliance with ACR Image [employer] with DLP of 666 mGy-cm. COMPARISON: None FINDINGS: Statements: None. Thoracic: Included images of the lower chest demonstrate no abnormalities. Hepatobiliary: The liver is normal without focal lesion. The gallbladder is normal. No biliary dilation. Pancreas: Normal. Spleen: Normal. Adrenals: Normal. Genitourinary: The kidneys are normal. No evidence of hydronephrosis. Evaluation of the bladder is limited, but no obvious bladder abnormality is present. Gastrointestinal: Small to moderate hiatal hernia is present. No evidence of bowel obstruction. The appendix is normal. Vascular: No evidence of aneurysm or diss ection. Lymphatics: No enlarged lymph nodes by CT size criteria. Bones/Soft Tissues: No acute osseous findings. No ventral hernias. Peritoneum/Other: No extraluminal air. No extraluminal fluid. PAGE 1 Signed Report (CONTINUED) Na me: LLOYD MALIK,GALO E [facility] : Age/S: 22 / F [facility] Unit #: [id number] Loc: [place] [address] Phys: Yash Ryan MD Acct: [id number] Dis Da te: Status: ADM IN PHONE #: Exam Date: 11/11/2018213 FAX #: [phone] Reason: left-sided flank pain, eval for pyelo EXAMS: CPT CODE: [id number] CT ABD PELVIS W/C O[place] 59015 <Continued> IMPRESSION: 1. No obstructing ureteral calculi. 2. No acute inflammatory process or other acute abnormality. at 0227 Reported and signed by: Joss Noguera MD CC: Yash Ryan MD; Claire Christian Technologist:RT Elias(R)(CT) CTDI: DLP: Trnscb Date/Time: 11/11/2018 (226) [email or web address] Orig Print D/T: S: 11/11/2018 (229) CTDI: DLP: PAGE 2 Signed Report LACTIC [id number] 02:09:00* Test Item Value Reference Range Interpretation Comments LACTIC ACID (test code = LACT) 1.0 mmol/L 0.4-1.9 N LACTIC [id number] 23:43:00* Test Item Value Reference Range Interpretation Comments LACTIC ACID (test code = LACT) 1.2 mmol/L 0.4-1.9 N BASIC METABOLIC [id number] 22:27:00* Test Item Value Reference Range Interpretation Comments SODIUM (test code = NA) 139 mmol/L 136-145 N POTASSIUM (test code = K) 3.3 mmol/L 3.5-5.1 L CHLORIDE (test code = CL) 106.0 mmol/L 98-107 N CARBON DIOXIDE (test code = CO2) 24.0 mmol/L 21-32 N ANION GAP (test code = GAP) 12.3 10-20 N GLUCOSE (test code = GLU) 121 mg/dL 74-106 H BLOOD UREA NITROGEN (test code = BUN) 7 mg/dL 7-18 N GLOMERULAR FILTRATION RATE (test code = GFR) > 60 mL/min >=60 Estimated GFR by using Modified MDRD formula.Chronic kidney disease is defined as either kidney damageor GFR <60 mL/min/1.73 m2 for >3 months. CREATININE (test code = CREAT) 0.70 mg/dL 0.55-1.02 N Note change in reference range due to change in reagent. BUN/CREATININE RATIO (test code = BUN/CREA) 10.5 10-20 N CALCIUM (test code = CA) 9.4 mg/dL 8.5-10.1 N HEPATIC FUNCTION [id number] 22:27:00* Test Item Value Reference Range Interpretation Comments TOTAL PROTEIN (test code = PROT) 8.5 gram/dL 6.4-8.2 H ALBUMIN (test code = ALB) 4.3 g/dL 3.4-5.0 N GLOBULIN (test code = GLOB) 4.2 gram/dL 2.7-4.2 N ALBUMIN/GLOBULIN RATIO (test code = A/G) 1.0 0.75-1.50 N BILIRUBIN TOTAL (test code = BILT) 0.30 mg/dL 0.0-1.0 N BILIRUBIN DIRECT (test code = BILD) 0.07 mg/dL 0.0-0.20 N SGOT/AST (test code = AST) 52 IUnit/L 15-37 H SGPT/ALT (test code = ALT) 59 IUnit/L 12-78 N ALKALINE PHOSPHATASE TOTAL (test code = ALKP) 82 IUnit/L 45-117 N Note change in reference range due to change in reagent. HCG SERUM [id number] 22:27:00* Test Item Value Reference Range Interpretation Comments HCG SERUM QUAL (test code = HCGQL) NEGATIVE NEGATIVE This HCGQL test is NOT applicable for MALE patients.Check with nurse about probable order error.If Tumor Marker Test needed, nurse should order test "HCGTU"(Test #[id number]) [id number] 22:27:00* Test Item Value Reference Range Interpretation Comments TROPONIN-I (test code = TROPI) <0.015 ng/mL 0-0.045 N URINALYSIS [id number] 22:22:00* Test Item Value Reference Range Interpretation Comments UA COLOR (test code = COLU) STRAW YELLOW UA APPEARANCE (test code = APPU) SLIGHTLY CLOUDY CLEAR A UA GLUCOSE DIPSTICK (test code = DGLUU) NEGATIVE mg/dL NEGATIVE UA BILIRUBIN DIPSTICK (test code = BILU) NEGATIVE mg/dL NEGATIVE UA KETONE DIPSTICK (test code = KETU) Negative mg/dL NEGATIVE UA SPECIFIC GRAVITY (test code = SGU) 1.004 1.001-1.035 UA BLOOD DIPSTICK (test code = TIFFANIE) 1+ (Small) NEGATIVE A UA PH DIPSTICK (test code = JOSH) 7.0 5.0-8.0 UA PROTEIN DIPSTICK (test code = PROU) Negative mg/dL NEGATIVE UA UROBILINIOGEN DIPSTICK (test code = URO) NEGATIVE mg/dL NEGATIVE UA NITRITE DIPSTICK (test code = DIEGO) NEGATIVE NEGATIVE UA LEUKOCYTE ESTERASE W REFLEX (test code = LEUUR) 2+ NEG ATIVE A UA WBC (test code = WBCU) 21-50 #/HPF 0-5 A UA RBC (test code = RBCU) 0-2 #/HPF 0-5 UA EPITHELIAL CELLS (test code = EPIU) MOD per HPF FEW UA BACTERIA (test code = BACU) FEW #/HPF NONE A UA MUCUS (test code = MUCU) FEW #/LPF FEW Urine Source? Clean CatchURINALYSIS [id number] 22:20:00* Test Item Value Reference Range Interpretation Comments UA COLOR (test code = COLU) STRAW YELLOW UA APPEARANCE (test code = APPU) SLIGHTLY CLOUDY CLEAR A UA GLUCOSE DIPSTICK (test code = DGLUU) NEGATIVE mg/dL NEGATIVE UA BILIRUBIN DIPSTICK (test code = BILU) NEGATIVE mg/dL NEGATIVE UA KETONE DIPSTICK (test code = KETU) Negative mg/dL NEGATIVE UA SPECIFIC GRAVITY (test code = SGU) 1.004 1.001-1.035 UA BLOOD DIPSTICK (test code = TIFFANIE) 1+ (Small) NEGATIVE A UA PH DIPSTICK (test code = JOSH) 7.0 5.0-8.0 UA PROTEIN DIPSTICK (test code = PROU) Negative mg/dL NEGATIVE UA UROBILINIOGEN DIPSTICK (test code = URO) NEGATIVE mg/dL NEGATIVE UA NITRITE DIPSTICK (test code = DIEGO) NEGATIVE NEGATIVE UA LEUKOCYTE ESTERASE W REFLEX (test code = LEUUR) 2+ NEG ATIVE A UA WBC (test code = WBCU) per HPF 0-5 Urine Source? Clean CatchPROCALCITONIN (PCT)2018-11-10 22:08:00* Test Item Value Reference Range Interpretation Comments PROCALCITONIN (PCT) (test code = PROCAL) 0.07 ng/ml Concentration Interpretation (ng/mL) <0.51 Sepsis is not likely. Local bacterial infection is possible. (LOW RISK for progression to Sepsis) 0.51 - 2.00 Sepsis is possible, but other conditions are known to elevate PCT as well. (MODERATE RISK for progression to Sepsis) > 2.00 Sepsis is likely, unless other causes are known. (HIGH RISK for progression to Severe Sepsis or Septic Shock) 10.00 High likelihood of Severe Sepsis or Septic or higher Shock. *Increased PCT levels may not always be related to systemic bacterial infection.*Low PCT levels do not automatically exclude the presence of bacterial infection.*All results should be interpreted taking into account the patients history. LACTIC [id number] 21:59:00* Test Item Value Reference Range Interpretation Comments LACTIC ACID (test code = LACT) 2.3 mmol/L 0.4-1.9 HH Results called to [id number] by 11/10/18 2159Critical results verified and read back by Nurse? Y BASIC METABOLIC [id number] 21:57:00* Test Item Value Reference Range Interpretation Comments SODIUM (test code = NA) 139 mmol/L 136-145 N POTASSIUM (test code = K) 3.3 mmol/L 3.5-5.1 L CHLORIDE (test code = CL) 106.0 mmol/L 98-107 N CARBON DIOXIDE (test code = CO2) 24.0 mmol/L 21-32 N ANION GAP (test code = GAP) 12.3 10-20 N GLUCOSE (test code = GLU) 121 mg/dL 74-106 H BLOOD UREA NITROGEN (test code = BUN) 7 mg/dL 7-18 N GLOMERULAR FILTRATION RATE (test code = GFR) > 60 mL/min >=60 Estimated GFR by using Modified MDRD formula.Chronic kidney disease is defined as either kidney damageor GFR <60 mL/min/1.73 m2 for >3 months. CREATININE (test code = CREAT) 0.70 mg/dL 0.55-1.02 N Note change in reference range due to change in reagent. BUN/CREATININE RATIO (test code = BUN/CREA) 10.5 10-20 N CALCIUM (test code = CA) 9.4 mg/dL 8.5-10.1 N HEPATIC FUNCTION [id number] 21:57:00* Test Item Value Reference Range Interpretation Comments TOTAL PROTEIN (test code = PROT) 8.5 gram/dL 6.4-8.2 H ALBUMIN (test code = ALB) 4.3 g/dL 3.4-5.0 N GLOBULIN (test code = GLOB) 4.2 gram/dL 2.7-4.2 N ALBUMIN/GLOBULIN RATIO (test code = A/G) 1.0 0.75-1.50 N BILIRUBIN TOTAL (test code = BILT) 0.30 mg/dL 0.0-1.0 N BILIRUBIN DIRECT (test code = BILD) 0.07 mg/dL 0.0-0.20 N SGOT/AST (test code = AST) 52 IUnit/L 15-37 H SGPT/ALT (test code = ALT) 59 IUnit/L 12-78 N ALKALINE PHOSPHATASE TOTAL (test code = ALKP) 82 IUnit/L 45-117 N Note change in reference range due to change in reagent. HCG SERUM [id number] 21:57:00* Test Item Value Reference Range Interpretation Comments HCG SERUM QUAL (test code = HCGQL) NEGATIVE [id number] 21:57:00* Test Item Value Reference Range Interpretation Comments TROPONIN-I (test code = TROPI) <0.015 ng/mL 0-0.045 N CBC W/AUTO [id number] 21:26:00* Test Item Value Reference Range Interpretation Comments WHITE BLOOD CELL (test code = WBC) 16.5 K/mm3 4.5-12.5 H RED BLOOD CELL (test code = RBC) 4.81 mill/mm3 3.7-5.2 N HEMOGLOBIN (test code = HGB) 11.4 gram/dL 11.5-15.5 L HEMATOCRIT (test code = HCT) 37.4 % 36.0-46.0 N MEAN CELL VOLUME (test code = MCV) 77.8 fL 80-98 L MEAN CELL HGB (test code = MCH) 23.7 picogram 27.0-33.0 L MEAN CELL HGB CONCETRATION (test code = MCHC) 30.5 gram/dL 33.0-36. 0 L RED CELL DISTRIBUTION WIDTH (test code = RDW) 14.8 % 11.6-16. 2 N RED CELL DISTRIBUTION WIDTH SD (test code = RDW-SD) 42.1 fL 37 .0-51.0 N PLATELET COUNT (test code = PLT) 348 K/mm3 150-450 N MEAN PLATELET VOLUME (test code = MPV) 9.7 fL 6.7-11.0 N NEUTROPHIL % (test code = NT%) 80.7 % 39.0-69.0 H IMMATURE GRANULOCYTE % (test code = IG%) 0.4 % 0.0-5.0 N LYMPHOCYTE % (test code = LY%) 12.0 % 25.0-55.0 L MONOCYTE % (test code = MO%) 6.3 % 0.0-10.0 N EOSINOPHIL % (test code = EO%) 0.3 % 0.0-5.0 N BASOPHIL % (test code = BA%) 0.3 % 0.0-1.0 N NUCLEATED RBC % (test code = NRBC%) 0.0 % 0-0 N NEUTROPHIL # (test code = NT#) 13.30 K/mm3 1.8-7.7 H IMMATURE GRANULOCYTE # (test code = IG#) 0.07 x10 3/uL 0-0.03 H LYMPHOCYTE # (test code = LY#) 1.97 K/mm3 1.0-5.0 N MONOCYTE # (test code = MO#) 1.04 K/mm3 0-0.8 H EOSINOPHIL # (test code = EO#) 0.05 K/mm3 0.0-0.5 N BASOPHIL # (test code = BA#) 0.05 K/mm3 0.0-0.2 N NUCLEATED RBC # (test code = NRBC#) 0.00 K/mm3 0.0-0.1 N MANUAL DIFF REQUIRED (test code = MDIFF) NO POC LACTIC [id number] 21:18:00* Test Item Value Reference Range Interpretation Comments POC LACTIC ACID (test code = POCLAC) 2.38 MMOL/L 0.4-2.2 H - XR CHEST 1 [id number] 21:18:00 FAX: Marquita Crawford [phone] [place]: St: REG FAX: Claire Truong Name: GALO CRISOSTOMO [facility] : 1995 Age/S: 22/F [address] [facility] Unit #: [id number] Loc: [place] [address] Phys: Marquita Mcnamara MD Acct: [id number] Dis Date: Status: REG ER PHONE #: [phone] Exam Date: 11/10/20182113 FAX #: [phone] Reason: CODE SEPSIS EXAMS: CPT CODE: [id number] XR CHEST 1 V 88039 HISTORY: Sepsis. COMPARISON: August 16, 2018. No acute infiltrates, effusion or congestion is noted. The cardiac and mediastinal silhouette are within normal limits. IMPRESSION: No acute infiltrates, effusion or congestion. at 2118 Reported and signed by: Jose Shaw M.D. CC: Marquita Mcnamara MD; Claire Christian Technologist: GILMA KOHLER(R) Trnscrd Date/Time/By: 11/10/2018 (2117) : By: [email or web address] Orig Print D/T: S: 11/10/2018 (2121) PAGE 1 Signed Report - DUP AB/PEL/SC [id number] 16:18:00 Name: GALO CRISOSTOMO [facility] : 1995 Age/S: 22 / F [address] [facility]: [id number] Loc: [place] [address] Phys: Jane Bauman NP Acct: [id number] Dis Date: Status: DEP ER PHONE #: [phone] Exam Date: 08/20/2018 1537 FAX #: [phone] Reason: PELVIC PAIN EXAMS: CPT CODE: [id number] DUP AB/PEL/SC COMP 86529 EXAM: 1st trimester ultrasound, transvaginal ultrasound and duplex sonography; INFORMATION: Pelvic pain; hCG 101.12; TECHNIQUE AND FINDINGS: Grayscale imaging was combined with color Doppler sonography and spectral analysis. The uterus measures 9.8 x 5.7 x 3.6 cm. The endometrial stripe measures 1.4 cm in thickness. Trace amount of free fluid within the endometrial canal but no evidence of an intrauterine gestational sac. The ovaries are of normal size and shape and show normal flow pattern on Doppler exam. The right ovary measures 3.9 x 2.4 x 2.2 cm. The left ovary measures 2.8 x 1.8 x 1.6. No solid or cystic adnexal lesions; no f ree fluid within the cul-de-sac. IMPRESSION: 1. T race amount of fluid within a slightly prominent endometrial stripe but no evidence of intrauterine gestation. 2. No adnexal lesions. 3 . Recommend follow-up hCG and follow-up ultrasound, if clinically indic ated. at 1618 R eported and signed by: Andres Gotti M.D. CC: Jane Bauman NP Technologist: [facility] Date/Time: 08/20/2018 (1617) Agustin Orig Print D/T: S: 08/20/2018 (7519) Probe: PAGE 1 Signed Report - US PREG 1ST [id number] 16:18:00 Name: GALO CRISOSTOMO [facility] : 1995 Age/S: 22 / F [address] [facility] Unit #: [id number] Loc: [place] [address] Phys: Jane Bauman NP Acct: [id number] Dis Date: Status: DEP ER PHONE #: [phone] Exam Date: 08/20/2018 1537 FAX #: [phone] Reason: VAGINAL BLEEDING/PELVIC PAIN EXAMS: CPT CODE: [id number] US PREG 1ST TRIMTR 44490 EXAM: 1st trimester ultrasound, transvaginal ultrasound and duplex sonography; INFORMATION: Pelvic pain; hCG 101.12; TECHNIQUE AND FINDINGS: Grayscale imaging was combined with color Doppler sonography and spectral analysis. The uterus measures 9.8 x 5.7 x 3.6 cm. The endometrial stripe measures 1.4 cm in thickness. Trace amount of free fluid within the endometrial canal but no evidence of an intrauterine gestational sac. The ovaries are of normal size and shape and show normal flow pattern on Doppler exam. The right ovary measures 3.9 x 2.4 x 2.2 cm. The left ovary measures 2.8 x 1.8 x 1.6. No solid or cystic adnexal lesions; no free fluid within the cul-de-sac. IMPRESSION: 1. Trace amount of fluid within a slightly prominent endometrial stripe but no evidence of intrauterine gestation. 2. No adnexal lesions. 3. Recommend follow-up hCG and follow-up ultrasound, if clinically indicated. at 1618 Reported and signed by: Andres Gotti M.D. CC: Jane Bauman NP Technologist: [facility]stead [facility] Date/Time: 08/20/2018 (161) Agustin Orig Print D/T: S: 08/20/2018 (0920) Probe: PAGE 1 Signed Report - US PREG UT [id number] 16:18:00 Name: GALO CRISOSTOMO [facility] : 1995 Age/S: 22 / F [address] Unit #: [id number] Loc: [place] [address] Phys: Jane Bauman MANAGER OF CLINICAL Acct: [id number] Dis Date: Status: DEP ER PHONE #: [phone] Exam Date: 08/20/2018 1537 FAX #: [phone] Reason: PELVIC PAIN EXAMS: CPT CODE: [id number] US PREG UT TRANSVAGINAL 20446 EXAM: 1st trimester ultrasound, transvaginal ultrasound and duplex sonography; INFORMATION: Pelvic pain; hCG 101.12; TECHNIQUE AND FINDINGS: Grayscale imaging was combined with color Doppler sonography and spectral analysis. The uterus measures 9.8 x 5.7 x 3.6 cm. The endometrial stripe measures 1.4 cm in thickness. Trace amount of free fluid within the endometrial canal but no evidence of an intrauterine gestational sac. The ovaries are of normal size and shape and show normal flow pattern on Doppler exam. The right ovary measures 3.9 x 2.4 x 2.2 cm. The left ovary measures 2.8 x 1.8 x 1.6. No solid or cystic adnexal lesions; no free fluid within the cul-de-sac. IMPRESSION: 1. Trace amount of fluid within a slightly prominent endometrial stripe but no evidence of intrauterine gestation. 2. No adnexal lesions. 3. Recommend follow-up hCG and follow-up ultrasound, if clinically indicated. at 1618 Reported and signed by: Andres Gotti M.D. CC: Jane Bauman NP Technologist: Kim Olmstead [facility] Date/Time: 08/20/2018 (1617) Agustin Orig Print D/T: S: 08/20/2018 (779) Probe: [id number] PAGE 1 Signed Report - CT ABD PELVIS [id number] 20:36:00 Name: GALO LIMA [facility] : 1995 Age/S: 21 / F [address] Unit #: [id number] Loc: [place] [address] Phys: Dee Hendricksone MANAGER OF CLINICAL Acct: [id number] Dis Date: Status: UNK PHONE #: [phone] Exam Date: 04/29/20172018 FAX #: [phone] Reason: UMBILICAL ABSCESS EXAMS: CPT CODE: [id number] CT ABD PELVIS W/CONT 32206 HISTORY: Umbilical abscess. COMPARISON: None available. CT abdomen and pelvis with IV contrast: 100 mL of Isovue-370. Automated exposure control. CT of abdomen: The lung bases are clear. The liver is enhancing homogeneously. Gallbladder is without radiopaque stones. Unremarkable spleen. Accessory spleen. The stomach distended incompletely with small hiatal hernia. The pancreas is enhancing homogeneously. Adrenals are normal. Kidneys are free from hydroureteronephrosis with and bilateral excretion. No pathologic adenopathy. Well- opacified abdominal and pelvic vasculature with retroaortic left renal vein. No bowel obstruction or colitis or diverticulitis or enteritis. Scattered fecal material. CT PELVIS: Appendix is normal. Pelvic bowel loops are normal. Unremarkable uterus with follicular changes in either ovary. Involuting follicle on the left. Unremarkable well-distended urinary bladder. No pelvic pathologic adenopathy. No free fluid, free air or abscess. Subcutaneous tissues and the musculature are unremarkable without abscess collection. No lytic or blastic lesions visible within the bony skeleton. Sclerosis of the SI joints there is nonspecific finding. IMPRESSION: PAGE 1 Signed Report (CONTINUED) Name: GALO LIMA [facility] : 1995 Age/S: 21 / F [address] Unit #: [id number] Loc: [place] [address] Phys: EmekaDee Clinton MANAGER OF CLINICAL Acct: [id number] Dis Date: Status: UNK PHONE #: [phone] Exam Date: 04/29/20172018 FAX #: [phone] Reason: UMBILICAL ABSCESS EXAMS: CPT CODE: [id number] CT ABD PELVIS W/CONT 01480 < Continued> No acute intra-abdominal or intrapelvic pathology. at 203 Reported and signed by: Jose Shaw M.D. CC: Sreekanth Bradley MD; Dee Hendrickson NP Technologist:Efra Muniz, RT(R)(CT) CTDI: DLP: Trnscb Date/Time: 04/29/2017 (2035) [email or web address] Orig Print D/T: S: 04/29/2017 (2039) PAGE 2 Signed Report - CT ABD PELVIS [id number] 19:06:00 Name: GALO CRISOSTOMO [facility] : 1995 Age/S: 21 / F [address] Unit #: [id number] Loc: [place] [address] Phys: Manuel Kuo MD Acct: [id number] Dis Date: Status: UNK PHONE #: [phone] Exam Date: 04/07/20171832 FAX #: [phone] Reason: periumbilical pain EXAMS: CPT CODE: [id number] CT ABD PELVIS W/CONT 80038 EXAM: CT of the abdomen and pelvis with contrast; INFORMATION: Periumbilical pain, diarrhea; TECHNIQUE: CT dose reduction protocol; 5 mm cuts were obtained through the abdomen and pelvis during and after intravenous infusion of contrast material. FINDINGS: Liver, spleen and pancreas are of normal size and shape; they show homogeneous enhancement without focal lesions. No abnormalities of the biliary system. Adrenal glands and kidneys are unremarkable; no evidence of adenopathy; No evidence of appendicitis or other acute bowel abnormalities. No pel [place] mass lesions. No abnormal fluid collections. Scans through the l [place] bases are clear. IMPRESSION: No evidence of acute abdominal or pelvic abnormalities. at 190 Reported and signed by: Andres Gotti M.D. CC: Manuel Kuo MD Technologist:JOSS ALEXANDER, RT(R) CT CTDI: DLP: Trnscb Date/Time: 04/07/2017 (1905) Agustin Orig Print D/T: S: 04/07/2017 (1290) PAGE 1 Signed Report
--- NOTE | 2020-06-20 13:38 | Diagnostic Imaging Report ---
EXAMINATION: CHEST SINGLE (PORTABLE) INDICATION: palpitations COMPARISON: None FINDINGS: AP view TUBES and LINES: None. . LUNGS/PLEURA: Lungs are well inflated. There is no evidence of pneumonia or pulmonary edema.. There is no pleural effusion or pneumothorax. HEART AND MEDIASTINUM: The cardiomediastinal silhouette is unremarkable. BONES AND SOFT TISSUES: No acute osseous lesion. Soft tissues are unremarkable. UPPER ABDOMEN: No free air under the diaphragm. IMPRESSION: No acute thoracic abnormality. Signed by: Shay Doyle MD on 06/20/2020 1:35 PM
[2020-06-20 14:43] LABS: CLARITY,URINE CLEAR (CLEAR); COLOR,URINE STRAW (YELLOW)
[2020-06-20 14:44] LABS: BILIRUBIN,URINE NEGATIVE (NEGATIVE); KETONES,URINE NEGATIVE (NEGATIVE); LEUKOCYTE ESTERASE ,URINE TRACE (NEGATIVE); NITRITE,URINE NEGATIVE (NEGATIVE); PROTEIN,URINE DIPSTICK NEGATIVE (NEGATIVE); URINE UROBILINOGEN 0.2 mg/dL (0.2 - 1)
[2020-06-20 14:45] LABS: BACTERIA,URINE MANY /HPF; EPITHELIAL CELLS,URINE MANY /LPF; RBC,URINE 0-5 /HPF (0-5); TRANSITIONAL EPI CELLS,URINE FEW
== END 2020-06-20 15:12 | disposition home or self-care (01) ==
LOC: ER 12:15
DX: R00.0 Tachycardia, unspecified (principal); R00.2 Palpitations; N39.0 Urinary tract infection, site not specified
CPT/HCPCS: 71045; 81001; 81025; 87086; 99282